=== PATIENT | male | born 1940 | race Caucasian/White ===

== ENCOUNTER → 2019-06-05 08:30 | Outpatient (BNVA) | payer OTHER, SELFPAY | PROVIDERS: Family Provider Internal Medicine; PCP Internal Medicine; Visit Provider Urology | DX: N39.41 Urge incontinence (principal); N99.89 Other postprocedural complications and disorders of genitourinary system; N31.8 Other neuromuscular dysfunction of bladder | CPT/HCPCS: 81001 ==

== ENCOUNTER 2019-06-16 08:04 | Outpatient (CLI) | payer OTHER, SELFPAY ==
--- NOTE | 2019-06-16 09:00 | MR_ITS ---
WS: [id number] INDICATION: Left hip pain TECHNIQUE: MRI pelvis without gadolinium enhancement. Axial T1, axial T2, coronal T1, coronal STIR, c oronal T2 fat sat and sagittal T2 fat sat FINDINGS: Mild lumbar curve lumbar spine. No acute compression lumbar spine where visualized. Mild ce ntral canal stenosis with a small central protrusion L3-4. T2 hyperintense nodular heterogeneous enla rged prostate measuring 2.9 x 4.5 x 3.7 cm. Recommend correlation PSA. Normal bone marrow signal in both proximal femurs and femoral necks. Moderate degenerative joint spac e narrowing. No evidence of avascular necrosis or subchondral collapse. Normal bone marrow signal in the acetabulum. No significant joint effusion. Proximal femurs appear normal. Sacrum appears normal. Normal bone marrow signal in the sacrum and iliac wings. No inguinal lymphadenopathy. MR/MR pelvis wo con* [id number] IMPRESSION: 1. Normal bone marrow signal in both hips and femoral necks. No evidence of fe moral or acetabular bone marrow edema or AVN. 2. Moderate degenerative arthritis both hips. 3. Normal bone marrow signal in the pelvis and sacrum. 4. Mild degenerative arthritis lower lumbar spine with mild central canal sten osis L3-4 with a small central protrusion. This can be further evaluated with l umbar spine MRI. 5. Heterogeneous nodular prostate measuring 4.5 x 3.7 x 2.9 cm
== END 2019-06-16 08:05 | disposition home or self-care (01) ==
LOC: RADWPI 08:10
PROVIDERS: Family Provider Internal Medicine; PCP Internal Medicine; Visit Provider Specialist
DX: M16.0 Bilateral primary osteoarthritis of hip (principal); M25.552 Pain in left hip; M47.896 Other spondylosis, lumbar region; N40.2 Nodular prostate without lower urinary tract symptoms
CPT/HCPCS: 72195

== ENCOUNTER 2019-06-28 08:23 | Outpatient (RCR) | payer OTHER, SELFPAY | END 2019-07-22 23:59 | disposition home or self-care (01) | LOC: SPT 08:23 | PROVIDERS: Family Provider Internal Medicine; PCP Internal Medicine; Referring Provider Specialist; Visit Provider Specialist | DX: M48.061 Spinal stenosis, lumbar region without neurogenic claudication (principal); M53.88 Other specified dorsopathies, sacral and sacrococcygeal region | CPT/HCPCS: 97110; 97161; 97530 ==

== ENCOUNTER 2019-07-23 06:00 | Outpatient (RCR) | payer OTHER, SELFPAY | END 2019-08-22 23:59 | disposition home or self-care (01) | LOC: SPT 06:00 | PROVIDERS: Family Provider Internal Medicine; PCP Internal Medicine; Referring Provider Specialist; Visit Provider Specialist | DX: M48.061 Spinal stenosis, lumbar region without neurogenic claudication (principal) | CPT/HCPCS: 97110 ==

== ENCOUNTER 2019-07-25 09:56 | Outpatient (CLI) | payer OTHER, SELFPAY ==
--- NOTE | 2019-07-25 10:04 | CT_ITS ---
WS: [id number] CT CHEST WITH INTRAVENOUS CONTRAST HISTORY: SOLITARY PULMONARY NODULE TECHNIQUE: Contiguous 5 mm axial imaging performed on the thorax. Coronal and sagittal reformats are submitted. All CT scans at [facility] use at least one of these dose optimization techniq ues: automated exposure control; mA and/or kV adjustment per patient size (includes targeted exams wh ere dose is matched to clinical indication); or iterative reconstruction. CONTRAST: Omnipaque 300; 95 mL IV. DLP: 999.16 mGycm COMPARISON: 12/20/2018 Lungs and central airway: Hyperinflated lungs with emphysema. 5 mm nodule noncalcified RIGHT upper lo be, image 22 of series 3. Largest nodule in the periphery of the RIGHT lower lobe measures 6.1 mm, im age 33 of series 3. There is an additional 4 mm noncalcified nodule in the RIGHT middle lobe which is unchanged. 4 mm nodule, image 33 of series 3 in the posterior LEFT lower lobe. Additional 3 mm nodul e in the lingula, image 32 of series 3. These nodules may have all been present on the prior study bu t due to small size and volume averaging not all of them were seen. Pleura: Normal. No pleural effusion. Heart and pericardium: Mild enlargement of the LEFT atrium. Mediastinum and eduardo: No mediastinal or hilar adenopathy. Vessels: Atherosclerosis aorta is mild. Normal size pulmonary artery. Chest wall and lower neck: No soft tissue masses. Upper abdomen: Calcifications in the spleen. Visualized liver and gallbladder are negative. Osseous structures: Increase in thoracic kyphosis. Large bridging osteophytes throughout the thoracic spine. CT/CT chest w con* [id number] IMPRESSION: 1. Multi lobar, noncalcified pulmonary nodules. Some of these nodules are more obvious today but due to their small size may not have been well visualized on the prior study due to volume averaging. The largest nodule measures 6 mm in t he RIGHT lower lobe with no interval change. Recommend follow-up CT in 6 months . 2. Chronic emphysema. 3. No adenopathy.
[2019-07-25] MEDS: iohexol 300 mg/mL 100 mL Btl IV (10:22)
== END 2019-07-25 09:57 | disposition home or self-care (01) ==
LOC: RADWPI 10:01
PROVIDERS: Family Provider Internal Medicine; PCP Internal Medicine; Visit Provider Internal Medicine
DX: J43.9 Emphysema, unspecified (principal); R91.8 Other nonspecific abnormal finding of lung field
CPT/HCPCS: 71260; Q9967

== ENCOUNTER 2019-08-23 06:00 | Outpatient (RCR) | payer OTHER, SELFPAY | END 2019-09-21 23:59 | disposition home or self-care (01) | LOC: SPT 06:00 | PROVIDERS: Family Provider Internal Medicine; PCP Internal Medicine; Referring Provider Specialist; Visit Provider Specialist | DX: M48.061 Spinal stenosis, lumbar region without neurogenic claudication (principal) | CPT/HCPCS: 97110; 97164; 97530 ==

== ENCOUNTER 2019-09-28 06:00 | Outpatient (RCR) | payer OTHER, SELFPAY | END 2019-10-22 23:59 | disposition home or self-care (01) | LOC: SPT 06:00 | PROVIDERS: PCP Internal Medicine; Referring Provider Family Medicine; Visit Provider Family Medicine | DX: M48.062 Spinal stenosis, lumbar region with neurogenic claudication (principal) | CPT/HCPCS: 97110; 97140; 97161; 97530 ==

== ENCOUNTER 2019-10-23 06:00 | Outpatient (RCR) | payer OTHER, SELFPAY | END 2019-11-21 23:59 | disposition home or self-care (01) | LOC: SPT 06:00 | PROVIDERS: PCP Internal Medicine; Visit Provider Family Medicine | DX: M48.062 Spinal stenosis, lumbar region with neurogenic claudication (principal) | CPT/HCPCS: 97110; 97112; 97530 ==

== ENCOUNTER 2019-11-22 06:00 | Outpatient (RCR) | payer OTHER, SELFPAY | END 2019-11-22 23:00 | disposition home or self-care (01) | LOC: SPT 06:00 | PROVIDERS: PCP Internal Medicine; Visit Provider Family Medicine | DX: M48.062 Spinal stenosis, lumbar region with neurogenic claudication (principal) | CPT/HCPCS: 97110; 97530 ==

== ENCOUNTER → 2019-12-04 08:17 | Outpatient (BNVA) | payer OTHER, SELFPAY | PROVIDERS: PCP Internal Medicine; Visit Provider Urology | DX: N52.9 Male erectile dysfunction, unspecified (principal); R39.9 Unspecified symptoms and signs involving the genitourinary system | CPT/HCPCS: 81001 ==

== ENCOUNTER 2020-02-05 10:04 | Outpatient (CLI) | payer OTHER, SELFPAY ==
--- NOTE | 2020-02-05 | CT_ITS ---
WS: [id number] CT CHEST TECHNIQUE: Contrast enhanced CT of the chest with coronal and sagittal reformatted images. CLINICAL INFORMATION: ABN CT COMPARISON: CT chest 07/25/2019 and 11/23/2018 DLP: 1058.[address] scans at [facility] use at least one of these dose optimization techniques: automat ed exposure control; mA and/or kV adjustment per patient size (includes targeted exams where dose is matched to clinical indication); or iterative reconstruction. FINDINGS: Moderate chronic emphysematous changes. Bibasilar atelectasis. Noncalcified pulmonary nodules in the right middle lobe laterally near the fissure and right lower lobe laterally. Right upper lobe nodule measures 5 mm and right lower lobe nodule measures 7 mm unchanged from previous A few additional tiny nodules in the left lung largest measuring 4 mm. No acute pulmonary infiltrates. No consolidation or pleural fluid. Proximal main pulmonary arteries a re normal. Aortic calcification. Coronary calcification. No axillary lymphadenopathy. Normal endobron chial tree. Adrenal glands are normal. Small esophageal hiatal hernia. Hypertrophic changes thoracic spine. CT/CT chest w con* [id number] IMPRESSION: 1. Several noncalcified nodules in both lungs are stable the largest in the ri ght lower lobe measuring 7 mm. Recommend 12 month follow-up. 2. No new suspicious pulmonary nodules. 3. No acute pulmonary infiltrates. 4. Moderate chronic emphysematous changes. 5. Vascular calcification including coronary. 6. No mediastinal or hilar lymphadenopathy.
[2020-02-05 10:45] LABS: Blood Urea Nitrogen 12 mg/dL (8-23)
[2020-02-05] MEDS: iohexol 300 mg/mL 100 mL Btl IV (11:02)
== END 2020-02-05 10:05 | disposition home or self-care (01) ==
LOC: RADWPI 10:08
PROVIDERS: PCP Internal Medicine; Visit Provider Internal Medicine
DX: R93.89 Abnormal findings on diagnostic imaging of other specified body structures (principal); R91.8 Other nonspecific abnormal finding of lung field; I25.10 Atherosclerotic heart disease of native coronary artery without angina pectoris
CPT/HCPCS: 71260; 82565; 84520; Q9967

== ENCOUNTER → 2020-09-09 08:04 | Outpatient (BNVA) | payer OTHER, SELFPAY | PROVIDERS: PCP Internal Medicine; Visit Provider Specialist | DX: G20 Parkinson's disease (principal) | CPT/HCPCS: 99204 ==

== ENCOUNTER → 2020-10-29 07:56 | Outpatient (BNVA) | payer OTHER, SELFPAY | PROVIDERS: PCP Family Medicine; Visit Provider Specialist | DX: G20 Parkinson's disease (principal) | CPT/HCPCS: 96116; 99214 ==

== ENCOUNTER 2020-11-20 08:08 | Outpatient (CLI) | payer OTHER, SELFPAY ==
--- NOTE | 2020-11-20 08:12 | CT_ITS ---
WS: [id number] CT CHEST WITH INTRAVENOUS CONTRAST HISTORY: FOLLOW UP ON PULMONARY NODULE TECHNIQUE: Contiguous 5 mm axial imaging performed on the thorax. Coronal and sagittal reformats are submitted. All CT scans at [facility] use at least one of these dose optimization techniq ues: automated exposure control; mA and/or kV adjustment per patient size (includes targeted exams wh ere dose is matched to clinical indication); or iterative reconstruction. CONTRAST: Omnipaque 300; 95 mL IV. DLP: 1041.59 mGycm COMPARISON: 12/20/2018, 07/25/2019 and 02/05/2020 Lungs and central airway: Mild hyperinflation. Bilateral pulmonary nodules are reidentified. None of these nodules have increased in size and there is no increase in number of nodules. The largest nodul e in the RIGHT lower lobe measures 8 mm. Pleura: Normal. No pleural effusion. Heart and pericardium: Normal size heart with no pericardial effusion. Mediastinum and eduardo: No mediastinum or hilar adenopathy. Vessels: Mild atherosclerosis aorta. No aneurysm. Normal size pulmonary artery. Chest wall and lower neck: No soft tissue masses. Upper abdomen: Small hiatal hernia. Visualized liver and gallbladder and adrenal glands are normal. I ncreased food products within the stomach. Moderate constipation noted in the transverse colon. Splen ic granulomata. Heavy calcification involving the origin of the renal arteries. Osseous structures: No osteoblastic or osteolytic bone disease. CT/CT chest w con* [id number] IMPRESSION: 1. Two-year stability of subcentimeter bilateral pulmonary nodules. Due to the long-term stability is are likely benign. No additional follow-up necessary by imaging. 2. Chronic emphysema. 3. Mild atherosclerosis aorta.
[2020-11-20 08:39] LABS: Blood Urea Nitrogen 21 mg/dL (8-23)
[2020-11-20] MEDS: iohexol 300 mg/mL 100 mL Btl IV (08:45)
== END 2020-11-20 08:09 | disposition home or self-care (01) ==
PROVIDERS: PCP Family Medicine; Visit Provider Family Medicine
DX: R91.8 Other nonspecific abnormal finding of lung field (principal); J43.9 Emphysema, unspecified; I70.0 Atherosclerosis of aorta
CPT/HCPCS: 71260; 82565; 84520; Q9967

== ENCOUNTER → 2020-12-03 11:52 | Outpatient (BNVA) | payer OTHER, SELFPAY | PROVIDERS: PCP Family Medicine; Visit Provider Specialist | DX: G20 Parkinson's disease (principal); Z87.891 Personal history of nicotine dependence | CPT/HCPCS: 99214 ==

== ENCOUNTER → 2021-02-12 13:16 | Outpatient (BNVA) | payer OTHER, SELFPAY | PROVIDERS: PCP Family Medicine; Visit Provider Specialist | DX: G20 Parkinson's disease (principal); R43.0 Anosmia; Z87.891 Personal history of nicotine dependence | CPT/HCPCS: 99214 ==

== ENCOUNTER → 2021-08-11 11:48 | Outpatient (BNVA) | payer OTHER, SELFPAY | PROVIDERS: PCP Family Medicine; Visit Provider Specialist | DX: G20 Parkinson's disease (principal); Z87.891 Personal history of nicotine dependence | CPT/HCPCS: 99213; 99214 ==

== ENCOUNTER → 2021-11-12 14:47 | Outpatient (BNVA) | payer OTHER, SELFPAY | PROVIDERS: PCP Family Medicine; Visit Provider Specialist | DX: G20 Parkinson's disease (principal) | CPT/HCPCS: 99213 ==

== ENCOUNTER → 2022-11-11 14:34 | Outpatient (BNVA) | payer OTHER, SELFPAY | PROVIDERS: PCP Family Medicine; Visit Provider Specialist | DX: G20 Parkinson's disease (principal); G62.89 Other specified polyneuropathies | CPT/HCPCS: 36415; 82607; 99213 ==

== ENCOUNTER 2023-02-24 07:07 | Outpatient (RCR) | payer OTHER, SELFPAY | END 2023-03-23 23:59 | disposition home or self-care (01) | LOC: SPT 07:07 | PROVIDERS: PCP Family Medicine; Visit Provider Family Medicine | DX: G20.A1 Parkinson's disease without dyskinesia, without mention of fluctuations (principal) | CPT/HCPCS: 97110; 97112; 97162; 97530 ==

== ENCOUNTER 2023-03-24 06:00 | Outpatient (RCR) | payer OTHER, SELFPAY | END 2023-03-31 23:59 | disposition home or self-care (01) | LOC: SPT 06:00 | PROVIDERS: PCP Family Medicine; Visit Provider Family Medicine | DX: G20.A1 Parkinson's disease without dyskinesia, without mention of fluctuations (principal); R53.1 Weakness | CPT/HCPCS: 97110; 97112; 97530 ==

== ENCOUNTER 2023-04-21 13:48 | Outpatient (CLI) | payer OTHER, SELFPAY ==
--- NOTE | 2023-04-21 13:55 | CT_ITS ---
WS: [id number] CT HEAD TECHNIQUE: Noncontrast CT of the head obtained from the skullbase to the vertex. CLINICAL INFORMATION: MEMORY ISSUES/HX [facility] COMPARISON: MRI 2008 DLP: 1218.[address] scans at [facility] use at least one of these dose optimization techniques: automated e xposure control; mA and/or kV adjustment per patient size (includes targeted exams where dose is matc hed to clinical indication); or iterative reconstruction. FINDINGS: No evidence of intracranial hemorrhage or mass effect. Ventricular system and basal cisterns are sales nt. Moderate small vessel changes with moderate parenchymal volume loss. No extra-axial fluid collect ions. No evidence of mass or mass effect. Intracranial vascular calcification. Mild mucosal thickening in the ethmoid air cells. Slight mucosal thickening in the mastoid tips. IMPRESSION: 1. No evidence of intracranial hemorrhage or mass effect. 2. Moderate small vessel changes with moderate parenchymal volume loss progressed since 2007. 3. Intracranial vascular calcification. 4. No acute intracranial findings.
--- NOTE | 2023-04-21 13:55 | USCV_ITS ---
Shawn Rojas Age: 82 Gender: M : 1940 Exam Date: 04/21/2023 14:42 Ordering Phys: Tangela Cummins MD Technologist: CHRISTIN Exam Location: [facility] Indication: MEMORY LOSS Risk Factors: Previous Vascular Surgery: Right Brachial BP: / Left Brachial BP: / Right Left Velocity (cm/s) Spectral Plaque Velocity (cm/s) Spectral Plaque Syst/Diast Broadening Syst/Diast Broadening 89.70/ 21.10 Prox CCA 90.40 / 17.60 81.40/ 18.30 Mid CCA 71.10 / 16.10 73.30/ 17.60 Distal CCA 54.20 / 19.10 51.00/ 12.60 Prox ICA 68.40 / 14.50 69.50/ 20.20 Mid ICA 68.35 / 17.45 94.00/ 25.00 Distal ICA 47.00 / 17.10 93.40 ECA 91.60 1.05 ICA/CCA 0.76 Antegrade Vertebral Antegrade 105.8/ 27.60 cm/s 47.00/ 12.80 cm/s 0 Tri Subclavian Tri 68.10 71.10 CONCLUSIONS Right ICA stenosis <50%. Mild atheromatous plaque right carotid bulb/ICA. Left ICA stenosis <50%. Mild atheromatous plaque left carotid bulb/ICA. Intimal thickening in the common carotid arteries and internal carotid arteries bilaterally. Normal antegrade Doppler flow noted in the right vertebral artery. Normal antegrade Doppler flow noted in the left vertebral artery. Rah Piña MD (Electronically Signed) Final Date: 21 April 2023 16:25 S
== END 2023-04-21 13:49 | disposition home or self-care (01) ==
LOC: RAD 13:49
PROVIDERS: PCP Family Medicine; Visit Provider Family Medicine
DX: R41.3 Other amnesia (principal); G20.A1 Parkinson's disease without dyskinesia, without mention of fluctuations; I67.2 Cerebral atherosclerosis; I65.23 Occlusion and stenosis of bilateral carotid arteries
CPT/HCPCS: 70450; 93880

== ENCOUNTER → 2023-06-18 09:21 | Outpatient (BNVA) | payer OTHER, SELFPAY | PROVIDERS: PCP Family Medicine; Visit Provider Specialist | DX: G20.B1 Parkinson's disease with dyskinesia, without mention of fluctuations (principal); G62.89 Other specified polyneuropathies; R41.3 Other amnesia | CPT/HCPCS: 99214 ==

== ENCOUNTER → 2023-07-13 17:00 | Outpatient (BNVA) | payer OTHER, SELFPAY | PROVIDERS: PCP Family Medicine; Visit Provider Specialist | DX: E53.8 Deficiency of other specified B group vitamins (principal) | CPT/HCPCS: 96372; G0463 ==

== ENCOUNTER → 2023-08-06 09:21 | Outpatient (BNVA) | payer OTHER, SELFPAY | PROVIDERS: PCP Family Medicine; Visit Provider Specialist | DX: G20.B1 Parkinson's disease with dyskinesia, without mention of fluctuations (principal); G62.89 Other specified polyneuropathies | CPT/HCPCS: 99214 ==

== ENCOUNTER → 2023-08-24 15:18 | Outpatient (BNVA) | payer OTHER, SELFPAY | PROVIDERS: PCP Family Medicine; Visit Provider Specialist | DX: G20.B1 Parkinson's disease with dyskinesia, without mention of fluctuations (principal); G62.89 Other specified polyneuropathies | CPT/HCPCS: 99214 ==

== ENCOUNTER → 2024-01-07 13:34 | Outpatient (BNVA) | payer OTHER, SELFPAY | PROVIDERS: PCP Family Medicine; Visit Provider Specialist | DX: G20.B1 Parkinson's disease with dyskinesia, without mention of fluctuations (principal) | CPT/HCPCS: 99214 ==

== ENCOUNTER 2024-01-30 19:24 | Emergency (ER) | payer OTHER, MEDICARE, SELFPAY ==
[2024-01-30 19:32] VITALS: BP 129/72; PULSE 66; RESP 16; TEMP 36.7; O2SAT 99; BMI 31.9
--- NOTE | 2024-01-30 19:59 | XRR_ITS ---
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 TECHNIQUE: Imaging protocol: Radiologic exam of the left hip. Views: 2 or 3 views hip with pelvis when performed. COMPARISON: MR pelvis wo con* [id number] 06/16/2019 8:58 AM FINDINGS: Bones/joints: No acute fracture or dislocation. Moderate to advanced degenerative changes of the right hip and moderate degenerative changes of the left hip with joint space narrowing and subarticular sclerosis. Degenerative changes of the lower lumbar spine. Soft tissues: Unremarkable. XR/XR hip LT 2-3V wo/w pel* [id number] IMPRESSION: 1. No acute osseous findings. 2. At least moderate degenerative changes of bilateral hips.
--- NOTE | 2024-01-30 19:59 | XRR_ITS ---
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 TECHNIQUE: Imaging protocol: Radiologic exam of the lumbosacral spine. Views: 2 or 3 views. COMPARISON: CR (PELVIS, ) 01/30/2024 8:06 PM FINDINGS: Bones/joints: No acute fracture or subluxation. Moderate to severe degenerative disc disease throughout the lumbar spine with intervertebral disc space height loss and endplate osteophytes throughout. Bulky osteophytes on the left at L2-L3. Grade 1 retrolisthesis of L1 on L2 and L2 on L3. Multilevel bilateral facet arthropathy. Degenerative changes of bilateral hips. Soft tissues: Unremarkable. Vasculature: Aortic calcifications. XR/XR lumbar spine 2-3V* [id number] IMPRESSION: 1. No acute osseous findings. 2. Multilevel lumbar spondylosis.
--- NOTE | 2024-01-30 19:59 | W.ED.BACK ---
HPI - Back Pain/Injury General: Chief Complaint: Back Pain/Injury Stated Complaint: Lower back and hip pain Time Seen by Provider: 01/30/24 19:40 History of Present Illness: 83-year-old male patient comes in today for complaints of low back pain and left hip pain. 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 Since then patient has had pain and discomfort in his low back radiating into his left hip and knee area. Patient appears nontoxic. Patient appears in no acute distress. Related Data Home Medications Medication Instructions Recorded Confirmed levothyroxine 125 mcg capsule 125 mcg PO DAILY 06/05/19 01/07/24 tamsulosin 0.4 mg capsule 0.4 mg PO DAILY 06/05/19 01/07/24 aspirin-caffeine 500 mg-32.5 mg 1 tab PO PRN 02/12/21 01/07/24 tablet ([facility]) cholecalciferol (vitamin D3) 25 75 mcg PO DAILY 02/12/21 01/07/24 mcg (1,000 unit) capsule donepezil 10 mg tablet 10 mg PO DAILY 06/18/23 01/07/24 rosuvastatin 40 mg tablet 40 mg PO DAILY 06/18/23 01/07/24 simvastatin 80 mg tablet 40 mg PO DAILY 08/24/23 01/07/24 finasteride 5 mg tablet mg PO 01/07/24 01/07/24 Previous Rx's Medication Instructions Recorded carbidopa 25 mg-levodopa 100 mg 2 tab PO TID #540 tabs 06/18/23 tablet cyanocobalamin (vitamin B-12) 1,000 mcg IM DAILY 1 week #10 mL 06/18/23 1,000 mcg/mL injection solution amitriptyline 25 mg tablet 25 mg PO DAILY #30 tabs 08/24/23 hydrocodone 5 mg-acetaminophen 325 1 tab PO Q8H PRN pain #7 tabs 01/30/24 mg tablet Allergies Allergy/AdvReac Type Severity Reaction Status Date / Time Penicillins Allergy Unknown Verified 01/07/24 13:40 Review of Systems General: Reports: 10 or more systems reviewed and unremarkable except in HPI and below PFSH ED PFSH: Medical History (Updated 01/30/24 @ 20:42 by JARED García) Impotence, organic Umbilical hernia Lower urinary tract symptoms (LUTS) Surgical History Status post hernia repair Social History Smoking and tobacco/nicotine status: never used tobacco/nicotine Alcohol intake: former Substance/Drug Use: unknown Adopted: No Caregiver/support person: No Lives independently: No Household members: spouse Marital status: Current occupational status: retired Physical Exam Const: COMMON NORMALS: alert HENMT: COMMON NORMALS: normocephalic HEAD & SCALP: normocephalic Neck/C-Spine: COMMON NORMALS: full ROM Resp: COMMON NORMALS: normal respiratory effort Cardio: COMMON NORMALS: regular rate RATE: regular rate Back/Pelvis: LUMBAR SPINE/LOWER BACK: No lumbar spinal tenderness and Yes paraspinal muscle tenderness Lumbar paraspinal muscle tenderness: left Extremity: COMMON NORMALS: normal to inspection Neuro: SENSORIUM/ORIENTATION: Yes alert Skin: COMMON NORMALS: turgor normal GENERAL SKIN EXAM: turgor normal Course Vital Signs: Vital signs: Vital Signs Temperature 98.1 F 01/30/24 19:32 Pulse Rate 68 01/30/24 20:50 Respiratory Rate 17 01/30/24 20:50 Blood Pressure 124/72 01/30/24 20:50 Pulse Oximetry 97 01/30/24 20:50 Oxygen Delivery Me thod Room Air 01/30/24 19:32 MDM - Back Pain/Injury Medical Decision Making 83-year-old male patient comes in today for complaints of low back pain radiating into the left hip and left knee. On exam patient appears nontoxic. Patient appears no acute distress. Respirations are even lungs are clear to auscultation. Differential diagnosis includes lumbar strain, intervertebral disc disease, facet arthropathy, osteoarthritis of the hip. X-ray of the hip and lumbar spine noted no acute fractures and degenerative changes. Reviewed exam with patient with recommendation for treatment and follow-up. Patient and family both reported understanding agreed to plan. Labs Radiology Impressions Hip/Pelvis X-Ray 01/30/24 19:59 IMPRESSION: 1. No acute osseous findings. 2. At least moderate degenerative changes of bilateral hips. Lumbar Spine X-Ray 01/30/24 19:59 IMPRESSION: 1. No acute osseous findings. 2. Multilevel lumbar spondylosis. 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 Low back pain Qualifiers: Chronicity: acute Back pain laterality: left Sciatica presence: unspecified whether sciatica present Qualified Code(s): M54.50 - Low back pain, unspecified Osteoarthritis, hip, bilateral Qualifiers: Osteoarthritis type: primary Qualified Code(s): M16.0 - Bilateral primary osteoarthritis of hip Condition: Stable Prescriptions: New hydrocodone-acetaminophen 5-325 mg tablet 1 tab PO Q8H PRN (Reason: pain) Qty: 7 0RF No Action tamsulosin 0.4 mg capsule 0.4 mg PO DAILY levothyroxine 125 mcg capsule 125 mcg PO DAILY simvastatin 80 mg tablet 40 mg PO DAILY cholecalciferol (vitamin D3) 25 mcg (1,000 unit) capsule 75 mcg PO DAILY Trish Back and Body 500-32.5 mg tablet 1 tab PO PRN finasteride 5 mg tablet PO cyanocobalamin (vitamin B-12) 1,000 mcg/mL solution 1,000 mcg IM DAILY 7 Days Qty: 10 11RF Rx Instructions: 1 ml daily for 3 days then weekly for a month then monthly for a year carbidopa-levodopa 25-100 mg tablet 2 tab PO TID Qty: 540 3RF Rx Instructions: take 2 tabs three times a day with meals donepezil 10 mg tablet 10 mg PO DAILY rosuvastatin 40 mg tablet 40 mg PO DAILY Patient Comments: 1/2 tab daily amitriptyline 25 mg tablet 25 mg PO DAILY Qty: 30 8RF Rx Instructions: Take at bedtime Discharge Orders: Discharge ED (Routine); Ordered 01/30/24 Ordered By: Ray Cuevas Referrals: Tangela Cummins MD [Primary Care Provider] - Discharge Diet: Usual diet Discharge Activity: Increase activity as tolerated Patient Instructions: Opioid Safety Activity Restrictions/Additional Instructions: Activity as tolerated. Use hydrocodone as needed for breakthrough pain that is not controlled with your bareback and body. Drink plenty of water with medication. Follow-up with primary care for persistent symptoms. Return to ED for new concerns. Coding Level of Care Code ED Geriatric Nursing Assistant for Kip Null
[2024-01-30] MEDS: HYDROcodone-acetaminophen 5-325 mg Tablet 1 TAB PO (20:07)
[2024-01-30] MEDS: dexamethasone 10 mg/mL INJ IM (20:07)
[2024-01-30 20:50] VITALS: BP 124/72; PULSE 68; RESP 17; O2SAT 97
== END 2024-01-30 20:50 | disposition home or self-care (01) ==
PROVIDERS: Emergency Provider Nurse Practitioner Family; PCP Family Medicine
DX: M54.50 Low back pain, unspecified (principal); M16.0 Bilateral primary osteoarthritis of hip; M47.814 Spondylosis without myelopathy or radiculopathy, thoracic region
CPT/HCPCS: 72100; 73502; 96372; 99284; J1100

== ENCOUNTER 2024-02-18 13:14 | Emergency (ER) | payer OTHER, MEDICARE, SELFPAY ==
[2024-02-18 13:36] VITALS: BP 129/68; PULSE 69; RESP 16; TEMP 36.6; O2SAT 99; BMI 30.7
--- NOTE | 2024-02-18 13:45 | XR_ITS ---
WS: [id number] Portable AP upright chest, 02/18/2024 Clinical Data: syncope Comparison: None. Findings: No nodules, masses or effusions are seen. The heart is normal. The pulmonary vascularity is not increased. No pneumonia or pneumothorax is seen. The aortic arch and descending thoracic aorta s how calcification and tortuosity. XR/XR chest 1V portable [id number] Impression: Atherosclerosis.
[2024-02-18 14:08] LABS: Basophils % 0.1 %; Eosinophils # 0.2 10^3/uL (0.0-0.8); Eosinophils % 2.8 %; Hematocrit 38.1 % (37-53); Lymphocytes # 1.4 10^3/uL (0.8-4.8); Mean Corpuscular HGB Conc 31.2 g/dL (30-55); Mean Corpuscular Hemoglobin 30.1 pg (27-33); Mean Corpuscular Volume 96.2 fl (82-101); Mean Platelet Volume 10.1 fL (7.4-10.4); Monocytes # 0.6 10^3/uL (0.2-0.9); Monocytes % 8.7 %; Neutrophils % 69.3 %; Nucleated Red Blood Cells % 0 %; Platelet Count 150 10^3/cmm (157-399); Red Blood Count 3.96 10^6/uL (3.85-5.65); Red Cell Distribution Width 12.4 % (12.1-15.1); White Blood Count 7.22 10^3/uL (3.29-11.43)
[2024-02-18 14:27] LABS: Troponin(5th) Baseline 22 ng/L (0-15)
[2024-02-18 14:36] LABS: Alanine Aminotransferase < 5 U/L (0-41); Albumin Level 4.5 g/dL (3.5-5.2); Alkaline Phosphatase 68 U/L (40-130); Anion Gap 14.4 (5-19); Aspartate Amino Transferase 24 U/L (0-40); Blood Urea Nitrogen 17 mg/dL (8-23); Calcium 8.9 mg/dL (8.5-10.5); Carbon Dioxide 25 mmol/L (22-29); Chloride 104 mmol/L (98-107); Creatinine Clr Calc Pharmacy 66.1671; Glucose 90 mg/dL (65-115); Osmolality Calculated 289 mOsm/kg (285-295); Potassium 4.4 mmol/L (3.5-5.1); Sodium 139 mmol/L (136-145); Thyroid Stimulating Hormone 1.77 uIU/mL (0.27-4.20); Total Bilirubin 0.6 mg/dL (0.15-1.2); Total Protein 6.5 g/dL (6.6-8.7)
[2024-02-18 15:35] VITALS: BP 120/63; PULSE 62; RESP 16; O2SAT 98
--- NOTE | 2024-02-18 15:39 | CTR_ITS ---
PROCEDURE INFORMATION: Exam: CT Head Without Contrast Exam date and time: 02/18/2024 4:08 PM Age: 83 years old Clinical indication: Syncope and collapse; Additional info: Sycnope, struck head TECHNIQUE: Imaging protocol: Computed tomography of the head without contrast. Radiation optimization: All CT scans at this facility use at least one of these dose optimization techniques: automated exposure control; mA and/or kV adjustment per patient size (includes targeted exams where dose is matched to clinical indication); or iterative reconstruction. COMPARISON: CT head wo con* [id number] 04/21/2023 2:32 PM RADIATION DOSE METRICS: Total DLP (mGy-cm): 1214.34 FINDINGS: Brain: No acute intracranial hemorrhage. No confluent lobar infarct. No mass effect. Cerebral ventricles: The ventricles and sulci are prominent in size compatible with mild atrophy. Paranasal sinuses: Visualized sinuses are unremarkable. No fluid levels. Mastoid air cells: Visualized mastoid air cells are well aerated. Bones: No acute calvarial fracture. Soft tissues: Visualized soft tissues are unremarkable. CT/CT head wo con* [id number] IMPRESSION: No acute intracranial abnormality. If symptoms persist, consider further evaluation with MRI, if MRI is clinically safe to obtain.
--- NOTE | 2024-02-18 15:40 | ED_ITS ---
HPI - Syncope 2 General: Chief Complaint: Syncope Stated Complaint: passed out - Dr sent Time Seen by Provider: 02/18/24 15:29 Source: patient and family Mode of arrival: wheelchair Limitations: no limitations History of Present Illness: Patient is a nice 83-year-old male with a history of Parkinson's disease/polyneuropathy here along with his and daughter for evaluation of a syncopal episode. Patient states he was asleep in the recliner when he heard somebody knocking at the door. He states he got up from his recliner and was walking to the door when he began feeling dizzy. He states I let myself go and the next thing he knew he was waking up on the floor. Daughter states she partially witnessed him walking to the door and when she looked again he was on the ground. She did not hear him fall. When she got to the patient he was semi-unconscious for approximately 30 seconds. As soon as he awoke he stated I am okay . He was able to get up from the floor. He did not want to seek medical evaluation but family insisted. He was reportedly seen at an outlying facility and referred to the emergency department. Family feels he has a small knot on his head. He is not on anticoagulation. Patient has been acting appropriate since the fall. He does not complain of any pain or injuries from the fall. He has no acute neurologic deficits. Patient currently denies any chest pain, shortness of breath, or difficulty breathing. MD complaint: loss of consciousness, felt faint and almost passed out Onset (ago): hour(s) -: second(s) Prodromal symptoms: lightheaded Witnessed: Yes - by Bystander Context: standing up and other (walking after standing from the recliner) Injuries sustained associated with event: none Associated symptoms: Reports no associated symptoms, headache(s) (mild-states he has these occasionally) and lightheadedness (resolved now); Deny abdominal pain, chest pain, fever(s) or nausea Treatments prior to arrival: none Related Data Home Medications Medication Instructions Recorded Confirmed levothyroxine 125 mcg capsule 125 mcg PO DAILY 06/05/19 01/07/24 tamsulosin 0.4 mg capsule 0.4 mg PO DAILY 06/05/19 01/07/24 aspirin-caffeine 500 mg-32.5 mg 1 tab PO PRN 02/12/21 01/07/24 tablet (Trish Back and Body) cholecalciferol (vitamin D3) 25 75 mcg PO DAILY 02/12/21 01/07/24 mcg (1,000 unit) capsule donepezil 10 mg tablet 10 mg PO DAILY 06/18/23 01/07/24 rosuvastatin 40 mg tablet 40 mg PO DAILY 06/18/23 01/07/24 simvastatin 80 mg tablet 40 mg PO DAILY 08/24/23 01/07/24 finasteride 5 mg tablet mg PO 01/07/24 01/07/24 Previous Rx's Medication Instructions Recorded carbidopa 25 mg-levodopa 100 mg 2 tab PO TID #540 tabs 06/18/23 tablet cyanocobalamin (vitamin B-12) 1,000 mcg IM DAILY 1 week #10 mL 06/18/23 1,000 mcg/mL injection solution amitriptyline 25 mg tablet 25 mg PO DAILY #30 tabs 08/24/23 hydrocodone 5 mg-acetaminophen 325 1 tab PO Q8H PRN pain #7 tabs 01/30/24 mg tablet Allergies Allergy/AdvReac Type Severity Reaction Status Date / Time Penicillins Allergy Unknown Verified 02/18/24 13:46 Review of Systems 2 Const: Denies: fever(s) Eyes: Denies: change in vision Card: Reports: lightheadedness (resolved now) and syncope; Denies: chest pain, palpitations, irregular heart rhythm, edema, swelling of feet/ankles, dyspnea on exertion, orthopnea, leg pain with exertion or acrocyanosis Resp: Denies: dyspnea, productive cough or non-productive cough GI: Denies: abdominal pain, nausea, vomiting or diarrhea Musc: Denies: neck pain, back pain, extremity pain, extremity swelling, joint pain or joint swelling Neuro: Reports: headache(s) (mild-states he has these occasionally) and numbness in extremities (chronic polyneuropathy) PFS ED 2 PFSH: Medical History (Updated 02/18/24 @ 16:52 by EUGENIA Solitario) Impotence, organic Umbilical hernia Lower urinary tract symptoms (LUTS) Surgical History Status post hernia repair Social History Smoking and tobacco/nicotine status: never used tobacco/nicotine Alcohol intake: former Substance/Drug Use: unknown Adopted: No Caregiver/support person: No Lives independently: No Household members: spouse Marital status: Current occupational status: retired Physical Exam 2 Const: COMMON NORMALS: no acute distress, average body habitus, patient oriented x3, no limitations, healthy appearing, alert and well nourished G ENERAL APPEARANCE: cooperative ORIENTATION/CONSCIOUSNESS: Yes awake, Yes oriented to person, Yes oriented to place and Yes oriented to time HENMT: COMMON NORMALS: normocephalic HEAD & SCALP: normal to inspection, normocephalic and other (maybe a very mild hematoma posterior scalp) FACE & SINUS: normal facial exam and face symmetric Eye: GENERAL EYE: appearance normal, both eyes and all related structures Neck/C-Spine: COMMON NORMALS: full ROM GENERAL: Yes normal visual inspection CERVICAL SPINE: No Cervical spine tenderness Resp: COMMON NORMALS: normal respiratory effort and clear to auscultation bilaterally AUSCULTATION: clear to auscultation bilaterally Cardio: COMMON NORMALS: regular rate and regular rhythm RATE: regular rate RHYTHM: regular rhythm : COMMON NORMALS: Yes no CVA tenderness BLADDER/KIDNEY EXAM: Yes no CVA tenderness Back/Pelvis: COMMON NORMALS: no CVA tenderness, thoracic and lumbar spine normal to inspection and no thoracic nor lumbar tenderness Extremity: COMMON NORMALS: capillary refill normal and no clubbing, cyanosis or edema GENERAL: Yes normal exam except as noted Neuro: ANDREA COMA SCALE: document GCS findings Andrea coma scale eye opening: Spontaneous [place] coma scale verbal response: Orientated [place] coma scale motor response: Obey commands Pres[place] coma scale total score: 15 COMMON NORMALS: patient oriented x3, CN's II-XII intact bilaterally, moves all extremities, no focal motor deficits and no sensory deficits noted S ENSORIUM/ORIENTATION: Yes alert, Yes oriented to person, Yes oriented to place and Yes oriented to time Skin: TRAUMA: no lacerations or abrasions Course 2 Vital Signs: Vital signs: Vital Signs Temperature 97.9 F 02/18/24 13:36 Pulse Rate 62 02/18/24 15:35 Respiratory Rate 16 02/18/24 15:35 Blood Pressure 120/63 02/18/24 15:35 Pulse Oximetry 98 02/18/24 15:35 Oxygen Delivery Me thod Room Air 02/18/24 15:35 MDM - Syncope Medical Decision Making Patient arrives here with family following a syncopal versus presyncopal episode. His vital signs are stable upon arrival. His blood work overall is unremarkable. Mild thrombocytopenia with a platelet count of 150 with no previous comparisons. His chemistry is unremarkable. Baseline troponin of 22 with a negative delta. UA shows no evidence for infection. CXR is unremarkable. Head CT showing no acute intracranial abnormality. EKG showing sinus bradycardia rate 58 with first-degree block. Reviewed with Dr. Botello. No previous comparisons. Baseline heart rates in the mid 60s. Orthostatics were negative. He was ambulatory here in his room without difficulty or assistance. No complaint of dizziness or lightheadedness. At this time patient will be allowed [facility] He does have follow-up with his neurologist next week. Return ED precautions given. Differential Diagnosis Likely syncope due to orthostatic hypotension and vasovagal syncope Medical Records I reviewed the patient's medical records. Lab Data I reviewed the patient's lab results. 02/18/24 13:59 02/18/24 13:59 Radiology Impressions Chest X-Ray 02/18/24 13:45 Impression: Atherosclerosis. Head CT 02/18/24 15:39 IMPRESSION: No acute intracranial abnormality. If symptoms persist, consider further evaluation with MRI, if MRI is clinically safe to obtain. Laboratory Results WBC 7.22 10^3/uL (3.29-11.43) 02/18/24 13:59 RBC 3.96 10^6/uL (3.85-5.65) 02/18/24 13:59 Hgb 11.90 g/dL (11.27-16.99) 02/18/24 13:59 Hct 38.1 % (37-53) 02/18/24 13:59 MCV 96.2 fl (82-101) 02/18/24 13:59 MCH 30.1 pg (27-33) 02/18/24 13:59 MCHC 31.2 g/dL (30-55) 02/18/24 13:59 RDW 12.4 % (12.1-15.1) 02/18/24 13:59 Plt Count 150 10^3/cmm (157-399) L 02/18/24 13:59 MPV 10.1 fL (7.4-10.4) 02/18/24 13:59 Neut % (Auto) 69.3 % 02/18/24 13:59 Lymph % (Auto) 19.0 % 02/18/24 13:59 [place] % (Auto) 8.7 % 02/18/24 13:59 Eos % (Auto) 2.8 % 02/18/24 13:59 Baso % (Auto) 0.1 % 02/18/24 13:59 Neut # (Auto) 5.00 10^3/uL (1.8-7.7) 02/18/24 13:59 Lymph # (Auto) 1.4 10^3/uL (0.8-4.8) 02/18/24 13:59 [place] # (Auto) 0.6 10^3/uL (0.2-0.9) 02/18/24 13:59 Eos # (Auto) 0.2 10^3/uL (0.0-0.8) 02/18/24 13:59 Baso # (Auto) 0.0 10^3/uL (0.0-0.1) 02/18/24 13:59 Nucleated RBC % (auto) 0 % 02/18/24 13:59 Nucleated RBCs # 0.0 /100WBC 02/18/24 13:59 Sodium 139 mmol/L (136-145) 02/18/24 13:59 Potassium 4.4 mmol/L (3.5-5.1) 02/18/24 13:59 Chloride 104 mmol/L (98-107) 02/18/24 13:59 Carbon Dioxide 25 mmol/L (22-29) 02/18/24 13:59 Anion Gap 14.4 (5-19) 02/18/24 13:59 BUN 17 mg/dL (8-23) 02/18/24 13:59 Creatinine 0.9 mg/dL (0.7-1.2) 02/18/24 13:59 GFR Calculation Not Reportable 02/18/24 13:59 Glucose 90 mg/dL (65-115) 02/18/24 13:59 Calculated Osmolality 289 mOsm/kg (285-295) 02/18/24 13:59 Calcium 8.9 mg/dL (8.5-10.5) 02/18/24 13:59 Total Bilirubin 0.6 mg/dL (0.15-1.2) 02/18/24 13:59 AST 24 U/L (0-40) 02/18/24 13:59 ALT < 5 U/L (0-41) 02/18/24 13:59 Alkaline Phosphatase 68 U/L (40-130) 02/18/24 13:59 Troponin T Baseline 22 ng/L (0-15) H 02/18/24 13:59 Troponin T 120 Minute 20.31 ng/L (0-15) H 02/18/24 15:59 Delta Troponin T -1.69 ABS# (0-10) L 02/18/24 15:59 Total Protein 6.5 g/dL (6.6-8.7) L 02/18/24 13:59 Albumin 4.5 g/dL (3.5-5.2) 02/18/24 13:59 Globulin 2.0 g/dL (1.3-4.6) 02/18/24 13:59 TSH 1.77 uIU/mL (0.27-4.20) 02/18/24 13:59 Urine Color Yellow (Yellow) 02/18/24 15:51 Urine Appearance Clear (CLEAR) 02/18/24 15:51 Urine pH 6.0 (5-7) 02/18/24 15:51 Ur Specific [place] 1.008 (1.005-1.030) 02/18/24 15:51 Urine Protein Negative (Negative) 02/18/24 15:51 Urine Glucose (UA) Negative (Normal) 02/18/24 15:51 Urine Ketones Negative (Negative) 02/18/24 15:51 Urine Blood Negative (Negative) 02/18/24 15:51 Urine Nitrate Negative (Negative) 02/18/24 15:51 Urine Bilirubin Negative (Negative) 02/18/24 15:51 Urine Urobilinogen 0.2 mg/dL (Negative) 02/18/24 15:51 Ur Leukocyte Esterase Negative (Negative) 02/18/24 15:51 Urine RBC 0-2 /hpf (0-2) 02/18/24 15:51 Urine WBC 0-5 /hpf (0-5) 02/18/24 15:51 Ur Squamous Epith Cells 0-5 /hpf (0-5) 02/18/24 15:51 Amorphous Sediment Not Reportable 02/18/24 15:51 Urine Bacteria None seen /hpf (NONE) 02/18/24 15:51 Hyaline Casts 0-4 /lpf H 02/18/24 15:51 All radiology interpretation(s) finalized by discharge Discharge Plan Discharge Patient Disposition: Home Clinical Impression: Syncope Qualifiers: Syncope type: unspecified Qualified Code(s): R55 - Syncope and collapse Condition: Stable Prescriptions: No Action tamsulosin 0.4 mg capsule 0.4 mg PO DAILY levothyroxine 125 mcg capsule 125 mcg PO DAILY simvastatin 80 mg tablet 40 mg PO DAILY cholecalciferol (vitamin D3) 25 mcg (1,000 unit) capsule 75 mcg PO DAILY Trish Back and Body 500-32.5 mg tablet 1 tab PO PRN finasteride 5 mg tablet PO cyanocobalamin (vitamin B-12) 1,000 mcg/mL solution 1,000 mcg IM DAILY 7 Days Qty: 10 11RF Rx Instructions: 1 ml daily for 3 days then weekly for a month then monthly for a year carbidopa-levodopa 25-100 mg tablet 2 tab PO TID Qty: 540 3RF Rx Instructions: take 2 tabs three times a day with meals donepezil 10 mg tablet 10 mg PO DAILY rosuvastatin 40 mg tablet 40 mg PO DAILY Patient Comments: 1/2 tab daily amitriptyline 25 mg tablet 25 mg PO DAILY Qty: 30 8RF Rx Instructions: Take at bedtime hydrocodone-acetaminophen 5-325 mg tablet 1 tab PO Q8H PRN (Reason: pain) Qty: 7 0RF Discharge Orders: Discharge ED (Routine); Ordered 02/18/24 Ordered By: Mer Smith Referrals: Tangela Cummins MD [Primary Care Provider] - Activity Restrictions/Additional Instructions: As we discussed, please follow-up with [facility] and/or his scheduled appointment with Dr. Garcia. He needs to return to the emergency department for any further episodes of syncope or severe dizziness/lightheadedness along with episodes of chest pain, shortness of breath, difficulty breathing, or any stroke like symptoms. Coding Level of Care Code ED Marketing Content Coordinator for Kip Null
--- NOTE | 2024-02-18 15:48 | PC.NURSE ---
lying 180/86 60 sitting 159/98 59 standing 181/83 62
--- NOTE | 2024-02-18 15:55 | ECG_ITS ---
[facility] Test Date: 2024-02-18 Pat Name: Shawn Rojas Department: Room: Gender: Male Patient Partner: : [phone] Requested By: Kaleb Botello Order Number: [id number] Roc MD: Shaggy García M.D. Measurements Intervals [place] Rate: 58 P: 64 [place]: 266 QRS: -24 QRSD: 117 T: 62 QT: 437 QTc: 432 Interpretive Statements SINUS BRADYCARDIA WITH FIRST DEGREE AV BLOCK INCOMPLETE RIGHT BUNDLE BRANCH BLOCK [90+ ms QRS DURATION, TERMINAL R IN V1/V2, 40+ ms S IN I/aVL/V4/V5/V6] SEPTAL MYOCARDIAL INFARCTION , PROBABLY OLD [40+ ms Q WAVE IN V1/V2] No previous ECG available for comparison Electronically Signed On 02-18-2024 20:18:29 CDT by Shaggy García M.D. [id number]
[2024-02-18 16:04] LABS: Bilirubin Urine Negative (Negative); Blood Urine Negative (Negative); Glucose Urine UA Negative (Normal); Ketones Urine Negative (Negative); Leukocyte Esterase Urine Negative (Negative); Nitrate Urine Negative (Negative); Protein Urine Negative (Negative); Specific Gravity, Urine 1.008 (1.005-1.030); Urine Appearance Clear (CLEAR); Urine Color Yellow (Yellow); Urobilinogen Urine 0.2 mg/dL (Negative)
[2024-02-18 16:06] LABS: Add Urine Microscopic? YES; Bacteria Urine None Seen /hpf; Hyaline Casts Urine 0-4 /lpf; RBC Urine 0-2 /hpf (0-2); Squamous Epithelial Cell Urine 0-5 /hpf (0-5); WBC Urine 0-5 /hpf (0-5)
[2024-02-18 16:34] LABS: Troponin 5 2HR 20.31 ng/L (0-15)
[2024-02-18 16:38] LABS: Troponin 5 2HR Delta -1.69 ABS# (0-10)
[2024-02-18 17:07] VITALS: BP 174/90; RESP 16; O2SAT 98
[2024-02-18 17:08] VITALS: BP 174/90; PULSE 82; O2SAT 98
== END 2024-02-18 17:09 | disposition home or self-care (01) ==
PROVIDERS: Emergency Medicine; Emergency Provider Physician Assistant; PCP Family Medicine
DX: R55 Syncope and collapse (principal)
CPT/HCPCS: 36415; 70450; 71045; 80053; 81001; 84443; 84484; 85025; 93005; 99285

== ENCOUNTER 2024-02-19 10:05 | Emergency (ER) | payer OTHER, MEDICARE, SELFPAY ==
[2024-02-19] VITALS (8 sets, daily range): BP systolic 114–164; BP diastolic 59–103; PULSE 52–63; RESP 12–17; TEMP 36.6; O2SAT 96–100; BMI 30.7
--- NOTE | 2024-02-19 10:16 | ECG_ITS ---
[facility] Test Date: 2024-02-19 Pat Name: Shawn Rojas Department: Room: Gender: Male Bonderizer: : [id number] Requested By: Kaleb Botello Order Number: [id number] Roc MD: Fam Swanson M.D. Measurements Intervals [place] Rate: 63 P: 57 [place]: 267 QRS: -30 QRSD: 112 T: 57 QT: 425 QTc: 437 Interpretive Statements SINUS RHYTHM WITH FIRST DEGREE AV BLOCK WITH OCCASIONAL ECTOPIC PREMATURE COMPLEXES POSSIBLE ANTERIOR MYOCARDIAL INFARCTION , OF INDETERMINATE AGE [30 ms Q WAVE IN V3/V4, OR R < 0.2 mV IN V4] Compared to ECG 02/18/2024 15:55:30 Sinus bradycardia no longer present Incomplete right bundle-branch block no longer present Myocardial infarct finding still present Electronically Signed On 02-21-2024 18:51:49 CDT by Fam Swanson M.D. [id number] f
--- NOTE | 2024-02-19 10:26 | ED_ITS ---
HPI - General Adult 2 General: Chief complaint: General Medical Stated complaint: low bp Time Seen by Provider: 02/19/24 10:10 History of Present Illness: Patient presents to the ER with daughter at bedside, patient daughter states that she took her meds blood pressure multiple times this morning and it averaged was 76/42. She is using a home automatic blood pressure cuff. Patient denies any symptoms at this time. Patient was seen here yesterday for syncopal episode. Workup was essentially benign and he was discharged home. Patient's not on any antihypertensives. Related Data Home Medications Medication Instructions Recorded Confirmed levothyroxine 125 mcg capsule 125 mcg PO DAILY 06/05/19 01/07/24 tamsulosin 0.4 mg capsule 0.4 mg PO DAILY 06/05/19 01/07/24 aspirin-caffeine 500 mg-32.5 mg 1 tab PO PRN 02/12/21 01/07/24 tablet (Trish Back and Body) cholecalciferol (vitamin D3) 25 75 mcg PO DAILY 02/12/21 01/07/24 mcg (1,000 unit) capsule donepezil 10 mg tablet 10 mg PO DAILY 06/18/23 01/07/24 rosuvastatin 40 mg tablet 40 mg PO DAILY 06/18/23 01/07/24 simvastatin 80 mg tablet 40 mg PO DAILY 08/24/23 01/07/24 finasteride 5 mg tablet mg PO 01/07/24 01/07/24 Previous Rx's Medication Instructions Recorded carbidopa 25 mg-levodopa 100 mg 2 tab PO TID #540 tabs 06/18/23 tablet cyanocobalamin (vitamin B-12) 1,000 mcg IM DAILY 1 week #10 mL 06/18/23 1,000 mcg/mL injection solution amitriptyline 25 mg tablet 25 mg PO DAILY #30 tabs 08/24/23 hydrocodone 5 mg-acetaminophen 325 1 tab PO Q8H PRN pain #7 tabs 01/30/24 mg tablet Allergies Allergy/AdvReac Type Severity Reaction Status Date / Time Penicillins Allergy Unknown Verified 02/19/24 10:19 Review of Systems 2 General: Reports: 10 or more systems reviewed and unremarkable except in HPI and below PFSH ED 2 PFSH: Medical History (Updated 02/19/24 @ 12:30 by Kaleb Botello DO) Impotence, organic Umbilical hernia Lower urinary tract symptoms (LUTS) Surgical History Status post hernia repair Social History Smoking and tobacco/nicotine status: never used tobacco/nicotine Alcohol intake: former Substance/Drug Use: unknown Adopted: No Caregiver/support person: No Lives independently: No Household members: spouse Marital status: Current occupational status: retired Physical Exam 2 Const: COMMON NORMALS: no acute distress, average body habitus, patient oriented x3, no limitations, healthy appearing, alert and well nourished HENMT: COMMON NORMALS: normocephalic, atraumatic, hearing grossly normal bilaterally, external ears normal, Normal external nose present and moist oral mucous membranes HEAD & SCALP: normocephalic and atraumatic NOSE: Normal external nose present EXTERNAL EAR: Yes external ears normal Neck/C-Spine: COMMON NORMALS: no JVD Chest: COMMONS NORMALS: normal inspection of the chest and normal palpation of entire chest wall Resp: COMMON NORMALS: normal respiratory effort, No retractions, No use of accessory muscles and clear to auscultation bilaterally AUSCULTATION: clear to auscultation bilaterally Cardio: COMMON NORMALS: no JVD, regular rate, regular rhythm, S1 normal heart sound present, S2 normal heart sound present, No gallops present (Cardio), No clicks present (Cardio) and No rub (Cardio); negative for No murmurs present (Cardio) (3/6 systolic ejection murmur) RATE: regular rate RHYTHM: regular rhythm HEART SOUNDS: S1 normal heart sound present and S2 normal heart sound present GI: COMMON NORMALS: Normal to inspection, nondistended, normoactive bowel sounds present, Soft to palpation, non-tender, No hepatosplenomegaly present and no masses PALPATION: Yes Soft to palpation and Yes No hepatosplenomegaly present Neuro: COMMON NORMALS: patient oriented x3 SENSORIUM/ORIENTATION: Yes alert Course 2 Vital Signs: Vital signs: Vital Signs Temperature 97.9 F 02/19/24 10:14 Pulse Rate 59 L 02/19/24 10:51 Respiratory Rate 15 02/19/24 10:51 Blood Pressure 134/59 02/19/24 10:51 Pulse Oximetry 100 02/19/24 10:51 Oxygen Delivery Me thod Room Air 02/19/24 10:14 MDM - General Adult Medical Decision Making I reviewed the note and labs and imaging from yesterday, as well as repeated some lab work, we gave the patient a liter of normal saline which increased his blood pressure from approximately 1 14-1 50-paula range. No other abnormalities was found. Patient be discharged home to follow-up with his PCP Medical Records I reviewed the patient's medical records. Lab Data I reviewed the patient's lab results. 02/19/24 10:22 02/19/24 11:42 Laboratory Results WBC 7.67 10^3/uL (3.29-11.43) 02/19/24 10:22 RBC 4.11 10^6/uL (3.85-5.65) 02/19/24 10:22 Hgb 12.40 g/dL (11.27-16.99) 02/19/24 10:22 Hct 39.4 % (37-53) 02/19/24 10:22 MCV 95.9 fl (82-101) 02/19/24 10:22 MCH 30.2 pg (27-33) 02/19/24 10:22 MCHC 31.5 g/dL (30-55) 02/19/24 10:22 RDW 12.3 % (12.1-15.1) 02/19/24 10:22 Plt Count 147 10^3/cmm (157-399) L 02/19/24 10:22 MPV 11.2 fL (7.4-10.4) H 02/19/24 10:22 Neut % (Auto) 67.7 % 02/19/24 10:22 Lymph % (Auto) 20.7 % 02/19/24 10:22 [place] % (Auto) 8.7 % 02/19/24 10:22 Eos % (Auto) 2.3 % 02/19/24 10:22 Baso % (Auto) 0.3 % 02/19/24 10:22 Neut # (Auto) 5.19 10^3/uL (1.8-7.7) 02/19/24 10:22 Lymph # (Auto) 1.6 10^3/uL (0.8-4.8) 02/19/24 10:22 [place] # (Auto) 0.7 10^3/uL (0.2-0.9) 02/19/24 10:22 Eos # (Auto) 0.2 10^3/uL (0.0-0.8) 02/19/24 10:22 Baso # (Auto) 0.0 10^3/uL (0.0-0.1) 02/19/24 10:22 Nucleated RBC % (auto) 0 % 02/19/24 10:22 Nucleated RBCs # 0.0 /100WBC 02/19/24 10:22 Sodium 142 mmol/L (136-145) 02/19/24 11:42 Potassium 4.3 mmol/L (3.5-5.1) 02/19/24 11:42 Chloride 107 mmol/L (98-107) 02/19/24 11:42 Carbon Dioxide 24 mmol/L (22-29) 02/19/24 11:42 Anion Gap 15.3 (5-19) 02/19/24 11:42 BUN 15 mg/dL (8-23) 02/19/24 11:42 Creatinine 1.0 mg/dL (0.7-1.2) 02/19/24 11:42 GFR Calculation Not Reportable 02/19/24 11:42 Glucose 85 mg/dL (65-115) 02/19/24 11:42 Calculated Osmolality 294 mOsm/kg (285-295) 02/19/24 11:42 Calcium 8.5 mg/dL (8.5-10.5) 02/19/24 11:42 Total Bilirubin 0.7 mg/dL (0.15-1.2) 02/19/24 11:42 AST 21 U/L (0-40) 02/19/24 11:42 ALT < 5 U/L (0-41) 02/19/24 11:42 Alkaline Phosphatase 77 U/L (40-130) 02/19/24 11:42 Total Protein 6.9 g/dL (6.6-8.7) 02/19/24 11:42 Albumin 4.2 g/dL (3.5-5.2) 02/19/24 11:42 Globulin 2.7 g/dL (1.3-4.6) 02/19/24 11:42 All radiology interpretation(s) finalized by discharge Discharge Plan Discharge Patient Disposition: Home Clinical Impression: Hypotensive episode Condition: Stable Prescriptions: No Action tamsulosin 0.4 mg capsule 0.4 mg PO DAILY levothyroxine 125 mcg capsule 125 mcg PO DAILY simvastatin 80 mg tablet 40 mg PO DAILY cholecalciferol (vitamin D3) 25 mcg (1,000 unit) capsule 75 mcg PO DAILY Trish Back and Body 500-32.5 mg tablet 1 tab PO PRN finasteride 5 mg tablet PO cyanocobalamin (vitamin B-12) 1,000 mcg/mL solution 1,000 mcg IM DAILY 7 Days Qty: 10 11RF Rx Instructions: 1 ml daily for 3 days then weekly for a month then monthly for a year carbidopa-levodopa 25-100 mg tablet 2 tab PO TID Qty: 540 3RF Rx Instructions: take 2 tabs three times a day with meals donepezil 10 mg tablet 10 mg PO DAILY rosuvastatin 40 mg tablet 40 mg PO DAILY Patient Comments: 1/2 tab daily amitriptyline 25 mg tablet 25 mg PO DAILY Qty: 30 8RF Rx Instructions: Take at bedtime hydrocodone-acetaminophen 5-325 mg tablet 1 tab PO Q8H PRN (Reason: pain) Qty: 7 0RF Discharge Orders: Discharge ED (Routine); Ordered 02/19/24 Ordered By: Kaleb Botello Referrals: Tangela Cummins MD [Primary Care Provider] - 1 week Patient Instructions: Hypotension (ED) Activity Restrictions/Additional Instructions: I reviewed the lab work and imaging and evaluation performed yesterday in ER as well as the repeat lab work redone today. There is no significant abnormalities that would justify your symptomatology. We did give you 1 L fluid bolus in the ER which helped improve your blood pressure. Please keep a blood pressure log and take it to your family practice physician within the next 7 days for further evaluation and treatment. Coding Level of Care Code ED Event Marketing Manager for Kip Null
[2024-02-19 10:33] LABS: Basophils % 0.3 %; Eosinophils # 0.2 10^3/uL (0.0-0.8); Eosinophils % 2.3 %; Hematocrit 39.4 % (37-53); Lymphocytes # 1.6 10^3/uL (0.8-4.8); Lymphocytes % 20.7 %; Mean Corpuscular HGB Conc 31.5 g/dL (30-55); Mean Corpuscular Hemoglobin 30.2 pg (27-33); Mean Corpuscular Volume 95.9 fl (82-101); Mean Platelet Volume 11.2 fL (7.4-10.4); Monocytes # 0.7 10^3/uL (0.2-0.9); Monocytes % 8.7 %; Neutrophils # 5.19 10^3/uL (1.8-7.7); Neutrophils % 67.7 %; Nucleated Red Blood Cells % 0 %; Platelet Count 147 10^3/cmm (157-399); Red Blood Count 4.11 10^6/uL (3.85-5.65); Red Cell Distribution Width 12.3 % (12.1-15.1); White Blood Count 7.67 10^3/uL (3.29-11.43)
[2024-02-19] MEDS: sodium chloride 0.9% 1,000 ML 999 ML IV (10:38)
[2024-02-19 12:09] LABS: Alanine Aminotransferase < 5 U/L (0-41); Albumin Level 4.2 g/dL (3.5-5.2); Alkaline Phosphatase 77 U/L (40-130); Anion Gap 15.3 (5-19); Aspartate Amino Transferase 21 U/L (0-40); Blood Urea Nitrogen 15 mg/dL (8-23); Calcium 8.5 mg/dL (8.5-10.5); Carbon Dioxide 24 mmol/L (22-29); Chloride 107 mmol/L (98-107); Creatinine Clr Calc Pharmacy 59.5504; Globulin 2.7 g/dL (1.3-4.6); Glucose 85 mg/dL (65-115); Osmolality Calculated 294 mOsm/kg (285-295); Potassium 4.3 mmol/L (3.5-5.1); Sodium 142 mmol/L (136-145); Total Bilirubin 0.7 mg/dL (0.15-1.2); Total Protein 6.9 g/dL (6.6-8.7)
== END 2024-02-19 12:58 | disposition home or self-care (01) ==
PROVIDERS: Emergency Provider Emergency Medicine; PCP Family Medicine
DX: I95.9 Hypotension, unspecified (principal)
CPT/HCPCS: 36415; 80053; 85025; 93005; 99284; J7030

== ENCOUNTER → 2024-02-23 08:43 | Outpatient (BNVA) | payer OTHER, SELFPAY | PROVIDERS: PCP Family Medicine; Visit Provider Specialist | DX: G20.B1 Parkinson's disease with dyskinesia, without mention of fluctuations (principal) | CPT/HCPCS: 99214 ==

== ENCOUNTER 2024-03-24 09:00 | Emergency (ER) | payer OTHER, MEDICARE, SELFPAY ==
[2024-03-24 09:09] VITALS: BP 110/73; PULSE 77; RESP 16; TEMP 36.4; O2SAT 100
--- NOTE | 2024-03-24 09:19 | ECG_ITS ---
[facility] 2024[facility]24 Pat Name: Shawn Rojas Department: Room: Gender: Male Pan Pusher: : 1940 Requested By: Elijah Valente Order Number: [id number] Roc MD: Zuri Taylor M.D. Measurements Intervals [place] Rate: 75 P: 64 [place]: 270 QRS: -37 QRSD: 111 T: 65 QT: 407 QTc: 457 Interpretive Statements SINUS RHYTHM WITH FIRST DEGREE AV BLOCK WITH VENTRICULAR PREMATURE COMPLEXES LEFT AXIS DEVIATION SEPTAL MYOCARDIAL INFARCTION , OF INDETERMINATE AGE Compared to ECG 02/19/2024 10:11:57 Ventricular premature complex(es) now present Left-axis deviation now present Electronically Signed On 03-24-2024 12:19:30 CDT by Zuri Taylor M.D. [email or web address]
[2024-03-24 09:20] VITALS: BP 104/58; BP 110/73; BP 94/58; PULSE 76; PULSE 80; PULSE 85
--- NOTE | 2024-03-24 09:26 | PC.PHAR ---
Addendum entered by Tali Davila 03/24/24 10:43: [facility] did confirm that only rosuvastatin 40mg is the current cholesterol med not the simvastatin Original Note: patient is [facility] faxing at [phone]
--- NOTE | 2024-03-24 09:31 | ED_ITS ---
HPI - Weakness 2 General: Chief complaint: Weakness Stated complaint: unbalanced suddenly, possible BP drop Time Seen by Provider: 03/24/24 09:05 History of Present Illness: 83-year-old male presents emergency room complaining of sudden onset of weakness. Patient has a history of Parkinson's disease he had gone to a local restaurant got out of the car began to walk into the restaurant. His typical gait family members noticed that he suddenly began having uncoordinated almost ataxic broad-based gait it lasted for up to 3 minutes and then resolved. He has no other focal neurologic deficits he never had any nausea or vomiting associated with it vision remains unchanged is completely resolved by the time he arrives here denies chest or abdominal pain. He has a history of Parkinson's he is on carbidopa levodopa however he has not recently changed his dose he is on 25/103 times a day. He is also on galantamine. He was seen about a month ago for similar symptoms transient hypotension that resolved and he was further asymptomatic. Head CT at that time was negative. No history of previous stroke no history of coronary artery disease. He is on aspirin but no clopidogrel he is on high-dose statin. Associated symptoms: Denies chest pain, chills, dysuria or fever(s) Review of Systems 2 Const: Denies: fever(s) or chills Card: Denies: chest pain Resp: Denies: dyspnea GI: Denies: abdominal pain : Denies: dysuria, urinary frequency or urinary urgency Musc: Denies: neck pain or back pain Skin/Breast: Denies: rash PFSH ED 2 PFSH: Medical History (Updated 03/24/24 @ 11:22 by Elijah Mac DO) Impotence, organic Umbilical hernia Lower urinary tract symptoms (LUTS) Surgical History Status post hernia repair Social History Smoking and tobacco/nicotine status: never used tobacco/nicotine Alcohol intake: former Substance/Drug Use: unknown Adopted: No Caregiver/support person: No Lives independently: No Household members: spouse Marital status: Current occupational status: retired Physical Exam 2 Const: COMMON NORMALS: no acute distress GENERAL APPEARANCE: cooperative and comfortable ORIENTATION/CONSCIOUSNESS: Yes awake, Yes oriented to person, Yes oriented to place and Yes oriented to time HENMT: COMMON NORMALS: normocephalic, atraumatic and hearing grossly normal bilaterally HEAD & SCALP: normocephalic and atraumatic Resp: COMMON NORMALS: normal respiratory effort, No retractions, No use of accessory muscles and clear to auscultation bilaterally AUSCULTATION: clear to auscultation bilaterally Cardio: COMMON NORMALS: regular rate, regular rhythm and No murmurs present (Cardio) RATE: regular rate RHYTHM: regular rhythm GI: COMMON NORMALS: Soft to palpation and No hepatosplenomegaly present A USCULTATION: Yes normoactive bowel sounds PALPATION: Yes Soft to palpation, No Tenderness to palpation present (GI), No Guarding due to palpation present (GI) and Yes No hepatosplenomegaly present Extremity: COMMON NORMALS: normal to inspection, capillary refill normal, no clubbing, cyanosis or edema, no calf tenderness and no pedal edema Neuro: SENSORIUM/ORIENTATION: Yes oriented to person, Yes oriented to place and Yes oriented to time Skin: COMMON NORMALS: no rashes or lesions noted GENERAL SKIN EXAM: no rashes or lesions noted Course 2 Vital Signs: Vital signs: Vital Signs Temperature 97.5 F L 03/24/24 09:09 Pulse Rate 70 03/24/24 11:41 Respiratory Rate 16 03/24/24 09:09 Blood Pressure 158/83 03/24/24 11:41 Pulse Oximetry 99 03/24/24 11:41 Oxygen Delivery Me thod Room Air 03/24/24 09:09 MDM - Weakness Medical Decision Making After IV fluid bolus patient ambulates without difficulty no symptoms. His repeat orthostatics had normalized. He is having no further symptoms he has had this several of the times before and believes he is getting orthostasis largely due to postural changes further exacerbated by his Sinemet and his Parkinson's process. Will discharge patient home he is not on any antihypertensives at this time. Will set him up for an echocardiogram and follow-up with neurology. He is not having any chest pain and his NIH score on initial evaluation was 0 Medical Records I reviewed the patient's medical records. Lab Data I reviewed the patient's lab results. 03/24/24 09:25 03/24/24 09:[address] 03/24/24 09:32 IMPRESSION: 1. No acute intracranial hemorrhage or edema. 2. Moderate volume loss with mild small vessel disease. No prior infarct. Laboratory Results WBC 6.95 10^3/uL (3.29-11.43) 03/24/24 09:25 RBC 3.89 10^6/uL (3.85-5.65) 03/24/24 09:25 Hgb 11.60 g/dL (11.27-16.99) 03/24/24 09:25 Hct 37.1 % (37-53) 03/24/24 09:25 MCV 95.4 fl (82-101) 03/24/24 09:25 MCH 29.8 pg (27-33) 03/24/24 09:25 MCHC 31.3 g/dL (30-55) 03/24/24 09:25 RDW 12.5 % (12.1-15.1) 03/24/24 09:25 Plt Count 145 10^3/cmm (157-399) L 03/24/24 09:25 MPV 10.1 fL (7.4-10.4) 03/24/24 09:25 Neut % (Auto) 70.6 % 03/24/24 09:25 Lymph % (Auto) 17.0 % 03/24/24 09:25 Carson % (Auto) 8.8 % 03/24/24 09:25 Eos % (Auto) 3.2 % 03/24/24 09:25 Baso % (Auto) 0.1 % 03/24/24 09:25 Neut # (Auto) 4.91 10^3/uL (1.8-7.7) 03/24/24 09:25 Lymph # (Auto) 1.2 10^3/uL (0.8-4.8) 03/24/24 09:25 Carson # (Auto) 0.6 10^3/uL (0.2-0.9) 03/24/24 09:25 Eos # (Auto) 0.2 10^3/uL (0.0-0.8) 03/24/24 09:25 Baso # (Auto) 0.0 10^3/uL (0.0-0.1) 03/24/24 09:25 Nucleated RBC % (auto) 0 % 03/24/24 09:25 Nucleated RBCs # 0.0 /100WBC 03/24/24 09:25 Sodium 137 mmol/L (136-145) 03/24/24 09:25 Potassium 4.1 mmol/L (3.5-5.1) 03/24/24 09:25 Chloride 101 mmol/L (98-107) 03/24/24 09:25 Carbon Dioxide 26 mmol/L (22-29) 03/24/24 09:25 Anion Gap 14.1 (5-19) 03/24/24 09:25 BUN 16 mg/dL (8-23) 03/24/24 09:25 Creatinine 1.0 mg/dL (0.7-1.2) 03/24/24 09:25 GFR Calculation Not Reportable 03/24/24 09:25 Glucose 90 mg/dL (65-115) 03/24/24 09:25 Calculated Osmolality 285 mOsm/kg (285-295) 03/24/24 09:25 Calcium 8.1 mg/dL (8.5-10.5) L 03/24/24 09:25 Total Bilirubin 0.4 mg/dL (0.15-1.2) 03/24/24 09:25 AST 19 U/L (0-40) 03/24/24 09:25 ALT < 5 U/L (0-41) 03/24/24 09:25 Alkaline Phosphatase 65 U/L (40-130) 03/24/24 09:25 Total Protein 6.5 g/dL (6.6-8.7) L 03/24/24 09:25 Albumin 4.2 g/dL (3.5-5.2) 03/24/24 09:25 Globulin 2.3 g/dL (1.3-4.6) 03/24/24 09:25 All radiology interpretation(s) finalized by discharge Discharge Plan Discharge Patient Disposition: Home Clinical Impression: Parkinson's disease, Orthostasis Condition: Stable Prescriptions: No Action tamsulosin 0.4 mg capsule 0.4 mg PO DAILY levothyroxine 125 mcg capsule 125 mcg PO DAILY finasteride 5 mg tablet 5 mg PO DAILY cyanocobalamin (vitamin B-12) 1,000 mcg/mL solution 1,000 mcg IM DAILY 7 Days Qty: 10 11RF Rx Instructions: 1 ml daily for 3 days then weekly for a month then monthly for a year rosuvastatin 40 mg tablet 40 mg PO DAILY Patient Comments: 1/2 tab daily galantamine 4 mg tablet 4 mg PO BID Qty: 60 5RF Rx Instructions: administer with AM and PM meals refill as 90 day supply hydrocodone-acetaminophen 5-325 mg tablet 1 tab PO Q8H PRN (Reason: pain) Qty: 7 0RF donepezil 10 mg Tablet 5 mg PO DAILY triamcinolone acetonide 0.1 % Cream 1 applic TOPICAL BID amitriptyline 25 mg Tablet 25 mg PO DAILY hydroxyzine HCl 25 mg Tablet 25 mg PO TID PRN (Reason: Anxiety) betamethasone dipropionate 0.05 % Ointment 1 applic TOPICAL BID fluticasone propionate 50 mcg/actuation [place],Suspension 1 spray INTRANASAL DAILY Rx Instructions: administer into each nostril lidocaine 5 % Ointment 1 applic TOPICAL BID Discharge Orders: Discharge ED (Routine); Ordered 03/24/24 Ordered By: Elijah Mac Referrals: Tangela Cummins MD [Primary Care Provider] - Patient Instructions: Opioid Safety, Pain Management Activity Restrictions/Additional Instructions: Thank you for choosing [facility] for your healthcare needs today. It is very important that you follow up as instructed or that you return to the Emergency Department should you have concerns or if your condition changes or worsens in any way. You were seen in the emergency room after a near syncopal episode. Your blood pressure improved after IV fluids. Episode is likely caused by your Parkinson's and the side effects of the carbidopa levodopa. Continue your current medications we will set you up for an outpatient echocardiogram. 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 Related Data Home Medications Medication Instructions Recorded Confirmed levothyroxine 125 mcg capsule 125 mcg PO DAILY 06/05/19 03/24/24 tamsulosin 0.4 mg capsule 0.4 mg PO DAILY 06/05/19 03/24/24 rosuvastatin 40 mg tablet 40 mg PO DAILY 06/18/23 03/24/24 finasteride 5 mg tablet 5 mg PO DAILY 01/07/24 03/24/24 amitriptyline 25 mg tablet 25 mg PO DAILY 03/24/24 03/24/24 betamethasone dipropionate 0.05 % 1 applic topical BID 03/24/24 03/24/24 topical ointment donepezil 10 mg tablet 5 mg PO DAILY 03/24/24 03/24/24 fluticasone propionate 50 1 spray intranasal DAILY 03/24/24 03/24/24 mcg/actuation nasal spray,suspension hydroxyzine HCl 25 mg tablet 25 mg PO TID PRN Anxiety 03/24/24 03/24/24 lidocaine 5 % topical ointment 1 applic topical BID 03/24/24 03/24/24 triamcinolone acetonide 0.1 % 1 applic topical BID 03/24/24 03/24/24 topical cream Previous Rx's Medication Instructions Recorded cyanocobalamin (vitamin B-12) 1,000 mcg IM DAILY 1 week #10 mL 06/18/23 1,000 mcg/mL injection solution hydrocodone 5 mg-acetaminophen 325 1 tab PO Q8H PRN pain #7 tabs 01/30/24 mg tablet galantamine 4 mg tablet 4 mg PO BID #60 tabs 02/23/24 Allergies Allergy/AdvReac Type Severity Reaction Status Date / Time Penicillins Allergy Unknown Verified 02/23/24 09:17 NIH stroke score NIHSS Level Of Consciousness - 1a: 0 Level Of Consciousness Questions - 1b: Both Correct Level Of Consciousness Commands - 1c: Both Correct Best Gaze - 2: Normal Visual Jacobo - 3: No Visual Loss Facial Palsy - 4: Normal Motor Arm Right - 5: No Drift Motor Arm Left - 5: No Drift Motor Leg Right - 6: No Drift Motor Leg Left - 6: No Drift Limb Ataxia - 7: Absent Sensory - 8: Normal Best Language - 9: No Aphasia Dysarthia - 10: Normal Extinction And Inattention - 11: 0 Score Total Score: 0
--- NOTE | 2024-03-24 09:32 | CT_ITS ---
WS: [id number] CT HEAD NONCONTRAST HISTORY: Brief episode of dizziness and ataxia with hypotension TECHNIQUE: Contiguous axial imaging performed through the brain. Bone and soft tissue windows. Sagitt al and coronal reformats reviewed. All CT scans at [facility] use at least one of these dose optimization techniques: automated exposure control; mA and/or kV adjustment per patient size (includ es targeted exams where dose is matched to clinical indication); or iterative reconstruction. DLP: 1106.60 mGy.cm COMPARISON: 02/18/2024 No acute intracranial hemorrhage, midline shift or mass effect. Moderate bilateral atrophy and mild small vessel disease. No prior infarct. Mild cerebellar atrophy a lso. Ventricles: Normal size with no hydrocephalus. Paranasal sinuses: As visualized are clear. Mastoid air cells: Well pneumatized. Calvarium and scalp: Skull is intact with no soft tissue edema or swelling. CT/CT head wo con* [id number] IMPRESSION: 1. No acute intracranial hemorrhage or edema. 2. Moderate volume loss with mild small vessel disease. No prior infarct.
[2024-03-24 09:38] LABS: Basophils % 0.1 %; Eosinophils # 0.2 10^3/uL (0.0-0.8); Eosinophils % 3.2 %; Hematocrit 37.1 % (37-53); Lymphocytes # 1.2 10^3/uL (0.8-4.8); Mean Corpuscular HGB Conc 31.3 g/dL (30-55); Mean Corpuscular Hemoglobin 29.8 pg (27-33); Mean Corpuscular Volume 95.4 fl (82-101); Mean Platelet Volume 10.1 fL (7.4-10.4); Monocytes # 0.6 10^3/uL (0.2-0.9); Monocytes % 8.8 %; Neutrophils # 4.91 10^3/uL (1.8-7.7); Neutrophils % 70.6 %; Nucleated Red Blood Cells % 0 %; Platelet Count 145 10^3/cmm (157-399); Red Blood Count 3.89 10^6/uL (3.85-5.65); Red Cell Distribution Width 12.5 % (12.1-15.1); White Blood Count 6.95 10^3/uL (3.29-11.43)
[2024-03-24 09:45] VITALS: BP 114/70; PULSE 71; O2SAT 97
[2024-03-24] MEDS: sodium chloride 0.9% 500 ML IV (09:49)
[2024-03-24 09:50] LABS: Alanine Aminotransferase < 5 U/L (0-41); Albumin Level 4.2 g/dL (3.5-5.2); Alkaline Phosphatase 65 U/L (40-130); Anion Gap 14.1 (5-19); Aspartate Amino Transferase 19 U/L (0-40); Blood Urea Nitrogen 16 mg/dL (8-23); Calcium 8.1 mg/dL (8.5-10.5); Carbon Dioxide 26 mmol/L (22-29); Chloride 101 mmol/L (98-107); Creatinine Clr Calc Pharmacy 59.6942; Globulin 2.3 g/dL (1.3-4.6); Glucose 90 mg/dL (65-115); Osmolality Calculated 285 mOsm/kg (285-295); Potassium 4.1 mmol/L (3.5-5.1); Sodium 137 mmol/L (136-145); Total Bilirubin 0.4 mg/dL (0.15-1.2); Total Protein 6.5 g/dL (6.6-8.7)
[2024-03-24 11:10] VITALS: BP 133/64; BP 136/81; BP 153/79; PULSE 57; PULSE 63; PULSE 65
[2024-03-24 11:41] VITALS: BP 158/83; PULSE 70; O2SAT 99
--- NOTE | 2024-03-27 09:55 | DCPLANNER ---
faxed order to scheduling for outpatient echo
== END 2024-03-24 11:42 | disposition home or self-care (01) ==
PROVIDERS: Emergency Provider Family Medicine; PCP Family Medicine
DX: G20.A1 Parkinson's disease without dyskinesia, without mention of fluctuations (principal); I95.1 Orthostatic hypotension
CPT/HCPCS: 70450; 80053; 85025; 93005; 99284; J7040

== ENCOUNTER 2024-04-14 06:09 | Outpatient (CLI) | payer OTHER, SELFPAY ==
--- NOTE | 2024-04-14 06:14 | USCV_ITS ---
Shawn Rojas Age: 83 Gender: M : 1940 Exam Date: 04/14/2024 06:23 Ordering Phys: Elijah Mac DO Technologist: Exam Location: [facility] [place] Indication: murmur BP: 140 / 75 HR: 62 Rhythm: Sinus Technical Quality: Adequate MEASUREMENTS (Male / Female) Normal Values 2D ECHO LV Diastolic Diameter PLAX 4.0 cm 4.2 - 5.9 / 3.9 - 5.3 cm IVS Diastolic Thickness 1.1 cm 0.6 - 1.0 / 0.6 - 0.9 cm IVS Systolic Thickness 1.5 cm LVPW Diastolic Thickness 1.3 cm 0.6 - 1.0 / 0.6 - 0.9 cm LVPW Systolic Thickness 1.6 cm LVOT Diameter 2.0 cm LV Ejection Fraction 2D Teich 31.7 % LV Ejection Fraction MOD 4C 62.1 % LV Ejection Fraction MOD 2C 61.0 % LV Ejection Fraction 2C AL 61.8 % LA Diameter 3.4 cm RA Systolic Volume 4C AL 45.6 ml RA Systolic Volume 4C MOD 46.6 ml LA Sys Volume AL 98.2 cm cubed LA Sys Volume Index AL 47.7 cm cubed/m squared Aorta at Sinotubular Diameter 3.3 cm M-MODE LA Ao Ratio MM 1.6 AV Cusp Separation MM 1.7 cm DOPPLER AV Peak Velocity 326.3 cm/s LVOT Peak Velocity 65.0 cm/s AV Area Cont Eq vti 0.8 cm squared AV Area Cont Eq pk 0.6 cm squared MV Peak Velocity 127.0 cm/s MV Area PHT 4.6 cm squared Mitral E to A Ratio 1.4 TR Peak Velocity 299.0 cm/s TR Peak Gradient 35.8 mmHg TV Peak E Velocity 112.0 cm/s FINDINGS Left Ventricle Left ventricle is normal size. LV systolic function is normal with EF of 55 to 60%. No regional wall motion arteries are seen. Right Ventricle Normal in size and function Right Atrium Normal in size Left Atrium Dilated Mitral Valve Structurally normal mitral valve. Mild mitral regurgitation. Aortic Valve Aortic valve is thickened and calcified. Moderate to severe aortic stenosis with aortic valve area of 0.75 cm squared and mean gradient of 21 mmHg. Mild aortic regurgitation. Tricuspid Valve Mild tricuspid regurgitation. Insufficient TR jet to calculate RVSP Pulmonic Valve Not well visualized Pericardium Normal Aorta Normal in size IVC Appears to be normal CONCLUSIONS LV systolic function is normal with EF of 55-60% Left atrial dilation Mild mitral regurgitation Moderate to severe aortic stenosis. Mild aortic regurgitation Mild tricuspid regurgitation Compared to prior echocardiogram from 2016, aortic stenosis has progressed significantly and is moderate to severely stenotic now. Fam Swanson MD (Electronically Signed) Final Date: 15 April 2024 10:49 S
== END 2024-04-14 06:10 | disposition home or self-care (01) ==
PROVIDERS: PCP Family Medicine; Visit Provider Family Medicine
DX: I35.0 Nonrheumatic aortic (valve) stenosis (principal); R55 Syncope and collapse
CPT/HCPCS: 93306

== ENCOUNTER 2024-05-01 08:39 | Outpatient (CLI) | payer OTHER, SELFPAY ==
--- NOTE | 2024-05-01 08:44 | USCV_ITS ---
Shawn Rojas Age: 84 Gender: M : 1940 Exam Date: 05/01/2024 08:53 Ordering Phys: Tangela Cummins MD Technologist: USR Exam Location: [facility] Indication: hypertension Aortic Velocity @ SMA (cm/s) 94.3 RIGHT KIDNEY LEFT KIDNEY Velocity (cm/s) Velocity (cm/s) Sys/Stock Sys/Stock Resistive Index Resistive Index 78.8 / 19.9 0.75 Proximal Renal Artery 96.9 / 33.3 0.66 75.1 / 26.0 0.65 Mid Renal Artery 99.9 / 39.1 0.61 44.5 / 15.2 0.66 Distal Renal Artery 83.8 / 34.8 0.58 37.0 / 12.4 0.66 Hilar 52.5 / 16.6 0.68 18.1 / 4.2 0.77 Upper Pole 22.5 / 7.4 0.67 27.0 / 6.0 0.78 Mid Pole 17.4 / 5.1 0.71 21.9 / 4.2 0.81 Lower Pole 14.1 / 4.3 0.70 0.84 Renal Aortic Ratio 1.06 Accleration Time (sec) 0.28 Hilar 0.22 0.26 Upper Pole 0.22 0.28 Mid Pole 0.31 0.26 Lower Pole 0.32 10.7 Kidney Length (cm) 9.4 FINDINGS No evidence of abdominal aortic aneurysm. There is no evidence of hemodynamically significant right renal artery stenosis. There is no evidence of hemodynamically significant left renal artery stenosis. CONCLUSIONS No sonographic evidence of renal aortic stenosis . Dr. Denia Tejeda DO (Electronically Signed) Final Date: 01 May 2024 11:30 S
== END 2024-05-01 08:40 | disposition home or self-care (01) ==
LOC: RAD 08:40
PROVIDERS: PCP Family Medicine; Visit Provider Family Medicine
DX: I10 Essential (primary) hypertension (principal)
CPT/HCPCS: 93975

== ENCOUNTER → 2024-05-05 15:17 | Outpatient (BNVA) | payer OTHER, SELFPAY | PROVIDERS: PCP Family Medicine; Visit Provider Specialist | DX: G31.83 Neurocognitive disorder with Lewy bodies (principal); F02.80 Dementia in other diseases classified elsewhere, unspecified severity, without behavioral disturbance, psychotic disturbance, mood disturbance, and anxiety; G20.B1 Parkinson's disease with dyskinesia, without mention of fluctuations; G90.3 Multi-system degeneration of the autonomic nervous system; I10 Essential (primary) hypertension | CPT/HCPCS: 96116; 99214; 99215 ==

== ENCOUNTER → 2024-05-11 13:06 | Outpatient (BNVA) | payer OTHER, SELFPAY | PROVIDERS: PCP Family Medicine; Visit Provider Internal Medicine Cardiovascular Disease | DX: I35.0 Nonrheumatic aortic (valve) stenosis (principal); I95.9 Hypotension, unspecified; G20.A1 Parkinson's disease without dyskinesia, without mention of fluctuations; F02.80 Dementia in other diseases classified elsewhere, unspecified severity, without behavioral disturbance, psychotic disturbance, mood disturbance, and anxiety; Z87.891 Personal history of nicotine dependence | CPT/HCPCS: 99204 ==

== ENCOUNTER 2024-06-02 21:12 | Emergency (ER) | payer OTHER, MEDICARE, BC, SELFPAY ==
[2024-06-02 21:16] VITALS: BP 170/71; PULSE 76; RESP 18; TEMP 36.9; O2SAT 96; BMI 30.7
--- NOTE | 2024-06-02 21:59 | ED_ITS ---
HPI - Altered Mental Status General: Chief Complaint: Altered Mental Status Stated Complaint: confusion Time Seen by Provider: 06/02/24 21:31 History of Present Illness: This patient is an 84-year-old white male who presents to the emergency department stating my family is trying to commit me . Patient states his had a stroke a number of years ago and his daughter came to help out. Patient states he has not had any homicidal or suicidal thoughts. He states he just has not been getting along with his daughter and his . Patient has Parkinson's disease with Lewy body dementia. His daughter Bettye is here with him. Daughter states that he has sundowners. He did not get any sleep last night. She states that he was sleeping tonight and woke up stating that he needed to go to the dentist. Patient states he does have 2 teeth in the right upper quadrant that are bothering him. Daughter states she does not want him committed she is just looking for medication to help him sleep and prevent the sundowners. She states he had been on amitriptyline in the past but for some reason cannot take it anymore. Associated symptoms: Deny homicidal ideation or suicidal ideation Related Data Home Medications Medication Instructions Recorded Confirmed tamsulosin 0.4 mg capsule 0.4 mg PO DAILY 06/05/19 05/11/24 finasteride 5 mg tablet 5 mg PO DAILY 01/07/24 05/11/24 betamethasone dipropionate 0.05 % 1 applic topical BID PRN 05/11/24 05/11/24 topical ointment carbidopa 25 mg-levodopa 100 mg 2 tab PO TID 05/11/24 05/11/24 tablet cholecalciferol (vitamin D3) 50 50 mcg PO DAILY 05/11/24 05/11/24 mcg (2,000 unit) capsule fluticasone propionate 50 1 spray intranasal DAILY PRN 05/11/24 05/11/24 mcg/actuation nasal spray,suspension levothyroxine 125 mcg capsule 112 mcg PO DAILY 05/11/24 05/11/24 lidocaine 5 % topical ointment 1 applic topical BID PRN 05/11/24 05/11/24 multivitamin 1 tab PO DAILY 05/11/24 05/11/24 rosuvastatin 40 mg tablet 20 mg PO DAILY 05/11/24 05/11/24 triamcinolone acetonide 0.1 % 1 applic topical BID PRN 05/11/24 05/11/24 topical cream Previous Rx's Medication Instructions Recorded clonidine HCl 0.1 mg tablet 0.1 mg PO BID PRN hypertensive 05/25/24 emergency #90 tabs mirtazapine 15 mg tablet (Remeron) 7.5 mg (1/2 x 15 mg) PO DAILY 06/02/24 Insomnia #30 tabs Allergies Allergy/AdvReac Type Severity Reaction Status Date / Time Penicillins Allergy Unknown Verified 06/02/24 21:27 Review of Systems General: Reports: 10 or more systems reviewed and unremarkable except in HPI and below ENMT: Reports: dental pain Psych: Reports: sleeping less; Denies: suicidal ideation or homicidal ideation [facility] ED PFSH: Medical History (Updated 06/02/24 @ 21:50 by Kashif Zaidi MD) Impotence, organic Umbilical hernia Lower urinary tract symptoms (LUTS) Surgical History Status post hernia repair Social History Smoking and tobacco/nicotine status: former use of tobacco/nicotine Alcohol intake: former Substance/Drug Use: unknown Adopted: No Caregiver/support person: No Lives independently: No Household members: spouse Marital status: Current occupational status: retired Physical Exam Const: COMMON NORMALS: no acute distress, patient oriented x3 and no limit ations GENERAL APPEARANCE: cooperative and comfortable HENMT: COMMON NORMALS: normocephalic, atraumatic, Normal nasal mucous membranes and turbinates present, moist oral mucous membranes and oropharynx normal HEAD & SCALP: normal to inspection, normocephalic and atraumatic FACE & SINUS: normal facial exam NOSE: Normal nasal mucous membranes and turbinates present TEETH & GINGIVA: Yes caries and Yes poor dentition Eye: COMMON NORMALS: Equal, round and reactive pupils present, EOMs intact bilaterally and conjunctivae normal GENERAL EYE: appearance normal, both eyes and all related structures CONJUNCTIVA: Yes conjunctivae normal PUPIL: Yes Equal, round and reactive pupils present Neck/C-Spine: COMMON NORMALS: supple and no JVD Chest: COMMONS NORMALS: normal inspection of the chest Resp: COMMON NORMALS: normal respiratory effort and clear to auscultation bilaterally AUSCULTATION: clear to auscultation bilaterally Cardio: COMMON NORMALS: no JVD, regular rate, regular rhythm, No gallops present (Cardio), No murmurs present (Cardio) and No rub (Cardio) RATE: regular rate RHYTHM: regular rhythm GI: COMMON NORMALS: Normal to inspection, nondistended, normoactive bowel sounds present, Soft to palpation and non-tender AUSCULTATION: Yes normoactive bowel sounds PALPATION: Yes Soft to palpation : COMMON NORMALS: Yes no CVA tenderness BLADDER/KIDNEY EXAM: Yes no CVA tenderness Back/Pelvis: COMMON NORMALS: no CVA tenderness and thoracic and lumbar spine normal to inspection Extremity: COMMON NORMALS: normal to inspection Neuro: COMMON NORMALS: patient oriented x3 and CN's II-XII intact bilaterally Psych: COMMON NORMALS: mental status grossly normal, Normal thought process present and cooperative THOUGHT PROCESS: Normal thought process present Skin: COMMON NORMALS: no rashes or lesions noted, turgor normal and no jaundice GENERAL SKIN EXAM: no rashes or lesions noted and turgor normal Course Vital Signs: Vital signs: Vital Signs Temperature 98.5 F 06/02/24 21:16 Pulse Rate 76 06/02/24 21:16 Respiratory Rate 18 06/02/24 21:16 Blood Pressure 170/71 06/02/24 21:16 Pulse Oximetry 96 06/02/24 21:16 Oxygen Delivery Me thod Room Air 06/02/24 21:16 MDM - Altered Mental Status Medical Decision Making Patient's dementia seems mild to me during this short ER visit. I did contact Dr. Taylor, psychiatrist to run this case by him and get his advice on medication to help with sundowners. He does recommend Remeron 7.5 mg nightly. We did give the patient 1 dose tonight and I did prescribe that. Patient was discharged in stable condition instructed to follow-up with his primary care physician next week for recheck. Also recommended he follow-up with a dentist soon as possible for management of his dental decay. No radiology studies performed this visit Discharge Plan Discharge Patient Disposition: Home Clinical Impression: Dementia Qualifiers: Dementia type: Lewy body dementia Dementia severity: mild Dementia behavioral or psychological symptom: unspecified whether behavioral, psychotic, or mood disturbance or anxiety Qualified Code(s): G31.83 - Neurocognitive disorder with Lewy bodies Insomnia Qualifiers: Insomnia type: due to medical condition Qualified Code(s): G47.01 - Insomnia due to medical condition Condition: Stable Prescriptions: New mirtazapine [Remeron] 15 mg tablet 7.5 mg PO DAILY Qty: 30 0RF No Action tamsulosin 0.4 mg capsule 0.4 mg PO DAILY levothyroxine 125 mcg capsule 112 mcg PO DAILY finasteride 5 mg tablet 5 mg PO DAILY rosuvastatin 40 mg tablet 20 mg PO DAILY Patient Comments: 1/2 tab daily multivitamin Tablet 1 tab PO DAILY carbidopa-levodopa 25-100 mg tablet 2 tab PO TID cholecalciferol (vitamin D3) 50 mcg (2,000 unit) capsule 50 mcg PO DAILY clonidine HCl 0.1 mg tablet 0.1 mg PO BID PRN (Reason: hypertensive emergency) Qty: 90 1RF Rx Instructions: Take one tab if systolic blood pressure is >180, or if diastolic blood pressure is >110 betamethasone dipropionate 0.05 % ointment 1 applic TOPICAL BID PRN fluticasone propionate 50 mcg/actuation spray,suspension 1 spray INTRANASAL DAILY PRN Rx Instructions: administer into each nostril lidocaine 5 % ointment 1 applic TOPICAL BID PRN triamcinolone acetonide 0.1 % cream 1 applic TOPICAL BID PRN Discharge Orders: Discharge ED (Routine); Ordered 06/02/24 Ordered By: Kashif Zaidi Referrals: Tangela Cummins MD [Primary Care Provider] - Patient Instructions: Parkinson Disease (ED), Dementia (ED) Activity Restrictions/Additional Instructions: Follow-up with primary care physician and/or neurologist next week for recheck. Coding Level of Care Code ED Retail Team Leader for Kip Null
[2024-06-02] MEDS: mirtazapine 15 mg Tablet 7.5 MG PO (22:19)
[2024-06-02 22:28] VITALS: BP 152/69; PULSE 74; RESP 16; O2SAT 97
[2024-06-02 22:31] VITALS: BP 152/69; PULSE 74; O2SAT 74
== END 2024-06-02 22:32 | disposition home or self-care (01) ==
PROVIDERS: Emergency Provider Emergency Medicine; PCP Family Medicine
DX: G31.83 Neurocognitive disorder with Lewy bodies (principal); G47.01 Insomnia due to medical condition; Z87.891 Personal history of nicotine dependence
CPT/HCPCS: 99283

== ENCOUNTER 2024-06-03 03:52 | Emergency (ER) | payer OTHER, MEDICARE, BC, SELFPAY ==
[2024-06-03 04:05] VITALS: BP 163/94; PULSE 84; RESP 18; TEMP 36.9; O2SAT 97; BMI 32.3
--- NOTE | 2024-06-03 04:21 | ED_ITS ---
HPI - General Adult General: Chief complaint: General Medical Stated complaint: possible hypothermia Time Seen by Provider: 06/03/24 04:07 History of Present Illness: Patient was evaluated by me last night. Patient has Parkinson's disease with Lewy body dementia. We have placed him on Remeron. This morning the patient snuck out of the house and was walking outside for quite some time in the cold weather. Daughter contacted the police and they did locate the patient. EMS arrived and they recommended he be brought into the emergency department for evaluation for possible hypothermia. Related Data Home Medications Medication Instructions Recorded Confirmed tamsulosin 0.4 mg capsule 0.4 mg PO DAILY 06/05/19 05/11/24 finasteride 5 mg tablet 5 mg PO DAILY 01/07/24 05/11/24 betamethasone dipropionate 0.05 % 1 applic topical BID PRN 05/11/24 05/11/24 topical ointment carbidopa 25 mg-levodopa 100 mg 2 tab PO TID 05/11/24 05/11/24 tablet cholecalciferol (vitamin D3) 50 50 mcg PO DAILY 05/11/24 05/11/24 mcg (2,000 unit) capsule fluticasone propionate 50 1 spray intranasal DAILY PRN 05/11/24 05/11/24 mcg/actuation nasal spray,suspension levothyroxine 125 mcg capsule 112 mcg PO DAILY 05/11/24 05/11/24 lidocaine 5 % topical ointment 1 applic topical BID PRN 05/11/24 05/11/24 multivitamin 1 tab PO DAILY 05/11/24 05/11/24 rosuvastatin 40 mg tablet 20 mg PO DAILY 05/11/24 05/11/24 triamcinolone acetonide 0.1 % 1 applic topical BID PRN 05/11/24 05/11/24 topical cream Previous Rx's Medication Instructions Recorded clonidine HCl 0.1 mg tablet 0.1 mg PO BID PRN hypertensive 05/25/24 emergency #90 tabs mirtazapine 15 mg tablet (Remeron) 7.5 mg (1/2 x 15 mg) PO DAILY 06/02/24 Insomnia #30 tabs Allergies Allergy/AdvReac Type Severity Reaction Status Date / Time Penicillins Allergy Unknown Verified 06/02/24 21:27 Review of Systems General: Reports: 10 or more systems reviewed and unremarkable except in HPI and below PFSH ED PFSH: Medical History (Updated 06/03/24 @ 04:20 by Kashif Zaidi MD) Impotence, organic Umbilical hernia Lower urinary tract symptoms (LUTS) Surgical History Status post hernia repair Social History Smoking and tobacco/nicotine status: former use of tobacco/nicotine Alcohol intake: former Substance/Drug Use: unknown Adopted: No Caregiver/support person: No Lives independently: No Household members: spouse Marital status: Current occupational status: retired Physical Exam Const: COMMON NORMALS: no acute distress, patient oriented x3 and no limitations GENERAL APPEARANCE: cooperative and comfortable OTHER: Temperature 98.5. He is alert in no apparent distress. HENMT: COMMON NORMALS: normocephalic, atraumatic, Normal nasal mucous membranes and turbinates present, moist oral mucous membranes and oropharynx normal HEAD & SCALP: normal to inspection, normocephalic and atraumatic FACE & SINUS: normal facial exam NOSE: Normal nasal mucous membranes and turbinates present Eye: COMMON NORMALS: Equal, round and reactive pupils present, EOMs intact bilaterally and conjunctivae normal GENERAL EYE: appearance normal, both eyes and all related structures CONJUNCTIVA: Yes conjunctivae normal PUPIL: Yes Equal, round and reactive pupils present Neck/C-Spine: COMMON NORMALS: supple and no JVD Chest: COMMONS NORMALS: normal inspection of the chest Resp: COMMON NORMALS: normal respiratory effort and clear to auscultation theodore aterally AUSCULTATION: clear to auscultation bilaterally Cardio: COMMON NORMALS: no JVD, regular rate, regular rhythm, No gallops present (Cardio), No murmurs present (Cardio) and No rub (Cardio) RATE: regular rate RHYTHM: regular rhythm GI: COMMON NORMALS: Normal to inspection, nondistended, normoactive bowel sounds present, Soft to palpation and non-tender AUSCULTATION: Yes normo active bowel sounds PALPATION: Yes Soft to palpation : COMMON NORMALS: Yes no CVA tenderness BLADDER/KIDNEY EXAM: Yes no CVA tenderness Back/Pelvis: COMMON NORMALS: no CVA tenderness and thoracic and lumbar spine normal to inspection Extremity: COMMON NORMALS: normal to inspection Neuro: COMMON NORMALS: patient oriented x3 and CN's II-XII intact bilaterally Psych: COMMON NORMALS: mental status grossly normal, Normal thought process present and cooperative THOUGHT PROCESS: Normal thought process present Skin: COMMON NORMALS: no rashes or lesions noted, turgor normal and no jaundice GENERAL SKIN EXAM: no rashes or lesions noted and turgor normal OTHER: Patient has no evidence of frostbite on his hands, face or feet. Course Vital Signs: Vital signs: Vital Signs Temperature 98.5 F 06/03/24 04:05 Pulse Rate 84 06/03/24 04:05 Respiratory Rate 18 06/03/24 04:05 Blood Pressure 163/94 06/03/24 04:05 Pulse Oximetry 97 06/03/24 04:05 [facility] - General Adult Medical Decision Making I had a discussion again with his daughter. I had recommended she place deadbolts to help prevent this in the future. Also recommended she follow-up with his primary care provider to discuss placement. He may need to be placed in an Alzheimer's unit. Daughter does feel comfortable taking him home this morning. He was discharged in stable condition. No radiology studies performed this visit Discharge Plan Discharge Patient Disposition: Home Clinical Impression: Dementia in conditions classified elsewhere with wandering off Condition: Stable Prescriptions: No Action tamsulosin 0.4 mg capsule 0.4 mg PO DAILY levothyroxine 125 mcg capsule 112 mcg PO DAILY finasteride 5 mg tablet 5 mg PO DAILY rosuvastatin 40 mg tablet 20 mg PO DAILY Patient Comments: 1/2 tab daily multivitamin Tablet 1 tab PO DAILY carbidopa-levodopa 25-100 mg tablet 2 tab PO TID cholecalciferol (vitamin D3) 50 mcg (2,000 unit) capsule 50 mcg PO DAILY clonidine HCl 0.1 mg tablet 0.1 mg PO BID PRN (Reason: hypertensive emergency) Qty: 90 1RF Rx Instructions: Take one tab if systolic blood pressure is >180, or if diastolic blood pressure is >110 betamethasone dipropionate 0.05 % ointment 1 applic TOPICAL BID PRN fluticasone propionate 50 mcg/actuation spray,suspension 1 spray INTRANASAL DAILY PRN Rx Instructions: administer into each nostril lidocaine 5 % ointment 1 applic TOPICAL BID PRN triamcinolone acetonide 0.1 % cream 1 applic TOPICAL BID PRN mirtazapine [Remeron] 15 mg tablet 7.5 mg PO DAILY Qty: 30 0RF Discharge Orders: Discharge ED (Routine); Ordered 06/03/24 Ordered By: Kashif Zaidi Referrals: Tangela Cummins MD [Primary Care Provider] - Coding Level of Care Code ED Actionscript Developer for Chg [employer]ille
[2024-06-03 04:28] VITALS: BP 163/94; PULSE 78; O2SAT 93
== END 2024-06-03 04:29 | disposition home or self-care (01) ==
PROVIDERS: Emergency Provider Emergency Medicine; PCP Family Medicine
DX: F03.90 Unspecified dementia, unspecified severity, without behavioral disturbance, psychotic disturbance, mood disturbance, and anxiety (principal); Z87.891 Personal history of nicotine dependence
CPT/HCPCS: 99281

== ENCOUNTER 2024-06-03 19:31 | Emergency (ER) | payer OTHER, MEDICARE, BC, SELFPAY ==
[2024-06-03 19:36] VITALS: BP 165/90; PULSE 80; RESP 20; TEMP 36.6; O2SAT 98; BMI 32.3
--- NOTE | 2024-06-03 19:42 | CTR_ITS ---
PROCEDURE INFORMATION: Exam: CT Head Without Contrast Exam date and time: 06/03/2024 8:01 PM Age: 84 years old Clinical indication: Altered mental status/memory loss; Confusion or disorientation; Patient HX: Arrival via pd for AMS. History of lewy body dementia. TECHNIQUE: Imaging protocol: Computed tomography of the head without contrast. Radiation optimization: All CT scans at this facility use at least one of these dose optimization techniques: automated exposure control; mA and/or kV adjustment per patient size (includes targeted exams where dose is matched to clinical indication); or iterative reconstruction. COMPARISON: CT head wo con* [id number] 03/24/2024 9:54 AM RADIATION DOSE METRICS: Total DLP (mGy-cm): 1098.04 FINDINGS: Brain: No acute intracranial hemorrhage, mass effect or midline shift. 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 Cerebral ventricles: Ex vacuo expansion of the ventricles due to volume loss. Paranasal sinuses: Visualized sinuses are unremarkable. No fluid levels. Mastoid air cells: Visualized mastoid air cells are well aerated. Bones: No acute bony findings. Soft tissues: Unremarkable. CT/CT head wo con* [id number] IMPRESSION: No acute intracranial findings.
--- NOTE | 2024-06-03 20:22 | ED_ITS ---
HPI - Altered Mental Status 2 General: Chief Complaint: Altered Mental Status Stated Complaint: behavioral Time Seen by Provider: 06/03/24 19:36 Source: patient and police History of Present Illness: 84-year-old male who is here with police patient was seen here yesterday twice after trying to wander out in the cold places wrote an affidavit that patient has been having some delusions he has had made threats to harm others he is also thought he is talking to his parents family wants him to be placed at this time. Patient does have a history dementia as well. Related Data Home Medications Medication Instructions Recorded Confirmed tamsulosin 0.4 mg capsule 0.4 mg PO DAILY 06/05/19 05/11/24 finasteride 5 mg tablet 5 mg PO DAILY 01/07/24 05/11/24 betamethasone dipropionate 0.05 % 1 applic topical BID PRN 05/11/24 05/11/24 topical ointment carbidopa 25 mg-levodopa 100 mg 2 tab PO TID 05/11/24 05/11/24 tablet cholecalciferol (vitamin D3) 50 50 mcg PO DAILY 05/11/24 05/11/24 mcg (2,000 unit) capsule fluticasone propionate 50 1 spray intranasal DAILY PRN 05/11/24 05/11/24 mcg/actuation nasal spray,suspension levothyroxine 125 mcg capsule 112 mcg PO DAILY 05/11/24 05/11/24 lidocaine 5 % topical ointment 1 applic topical BID PRN 05/11/24 05/11/24 multivitamin 1 tab PO DAILY 05/11/24 05/11/24 rosuvastatin 40 mg tablet 20 mg PO DAILY 05/11/24 05/11/24 triamcinolone acetonide 0.1 % 1 applic topical BID PRN 05/11/24 05/11/24 topical cream Previous Rx's Medication Instructions Recorded clonidine HCl 0.1 mg tablet 0.1 mg PO BID PRN hypertensive 05/25/24 emergency #90 tabs mirtazapine 15 mg tablet (Remeron) 7.5 mg (1/2 x 15 mg) PO DAILY 06/02/24 Insomnia #30 tabs Allergies Allergy/AdvReac Type Severity Reaction Status Date / Time Penicillins Allergy Unknown Verified 06/02/24 21:27 Review of Systems 2 General: Reports: ROS unobtainable due to mental status PFSH ED 2 PFSH: Medical History (Updated 06/03/24 @ 20:26 by Jovon Greer MD) Impotence, organic Umbilical hernia Lower urinary tract symptoms (LUTS) Surgical History Status post hernia repair Social History Smoking and tobacco/nicotine status: former use of tobacco/nicotine Alcohol intake: former Substance/Drug Use: unknown Adopted: No Caregiver/support person: No Lives independently: No Household members: spouse Marital status: Current occupational status: retired Physical Exam 2 Const: COMMON NORMALS: no acute distress HENMT: COMMON NORMALS: normocephalic and atraumatic HEAD & SCALP: n ormocephalic and atraumatic Eye: COMMON NORMALS: conjunctivae normal CONJUNCTIVA: Yes conjunctivae normal Neck/C-Spine: COMMON NORMALS: full ROM and supple Chest: COMMONS NORMALS: normal inspection of the chest Resp: COMMON NORMALS: normal respiratory effort, No retractions, No use of accessory muscles and clear to auscultation bilaterally AUSCULTATION: clear to auscultation bilaterally Cardio: COMMON NORMALS: regular rate, regular rhythm and No murmurs present (Cardio) RATE: regular rate RHYTHM: regular rhythm GI: COMMON NORMALS: Normal to inspection, nondistended, normoactive bowel sounds present, Soft to palpation, non-tender and no masses PALPATION: Yes Soft to palpation Extremity: COMMON NORMALS: normal to inspection and full ROM Neuro: COMMON NORMALS: moves all extremities and no focal motor deficits Psych: COMMON NORMALS: mental status grossly normal, Normal thought process present and cooperative THOUGHT PROCESS: Normal thought process present Skin: COMMON NORMALS: no rashes or lesions noted and no wounds GENERAL SKIN EXAM: no rashes or lesions noted Course 2 Vital Signs: Vital signs: Vital Signs Temperature 97.8 F 06/03/24 19:36 Pulse Rate 55 L 06/04/24 05:24 Respiratory Rate 18 06/04/24 05:24 Blood Pressure 123/95 06/04/24 05:24 Pulse Oximetry 93 06/04/24 05:24 Oxygen Delivery Me thod Room Air 06/04/24 03:45 MDM - Altered Mental Status Medical Decision Making Patient presents here with altered mental status along with some hallucinations he is medically cleared here will transfer did [facility] psych Lab Data I reviewed the patient's lab results. 06/03/24 19:56 06/03/24 19:[address] 06/03/24 19:42 IMPRESSION: No acute intracranial findings. Laboratory Results WBC 6.49 10^3/uL (3.29-11.43) 06/03/24 19:56 RBC 4.19 10^6/uL (3.85-5.65) 06/03/24 19:56 Hgb 12.90 g/dL (11.27-16.99) 06/03/24 19:56 Hct 39.4 % (37-53) 06/03/24 19:56 MCV 94.0 fl (82-101) 06/03/24 19:56 MCH 30.8 pg (27-33) 06/03/24 19:56 MCHC 32.7 g/dL (30-55) 06/03/24 19:56 RDW 12.1 % (12.1-15.1) 06/03/24 19:56 Plt Count 166 10^3/cmm (157-399) 06/03/24 19:56 MPV 10.6 fL (7.4-10.4) H 06/03/24 19:56 Neut % (Auto) 61.5 % 06/03/24 19:56 Lymph % (Auto) 23.9 % 06/03/24 19:56 [place] % (Auto) 10.6 % 06/03/24 19:56 Eos % (Auto) 3.4 % 06/03/24 19:56 Baso % (Auto) 0.3 % 06/03/24 19:56 Neut # (Auto) 3.99 10^3/uL (1.8-7.7) 06/03/24 19:56 Lymph # (Auto) 1.6 10^3/uL (0.8-4.8) 06/03/24 19:56 [place] # (Auto) 0.7 10^3/uL (0.2-0.9) 06/03/24 19:56 Eos # (Auto) 0.2 10^3/uL (0.0-0.8) 06/03/24 19:56 Baso # (Auto) 0.0 10^3/uL (0.0-0.1) 06/03/24 19:56 Nucleated RBC % (auto) 0 % 06/03/24 19:56 Nucleated RBCs # 0.0 /100WBC 06/03/24 19:56 Sodium 140 mmol/L (136-145) 06/03/24 19:56 Potassium 4.0 mmol/L (3.5-5.1) 06/03/24 19:56 Chloride 103 mmol/L (98-107) 06/03/24 19:56 Carbon Dioxide 24 mmol/L (22-29) 06/03/24 19:56 Anion Gap 17.0 (5-19) 06/03/24 19:56 BUN 17 mg/dL (8-23) 06/03/24 19:56 Creatinine 1.1 mg/dL (0.7-1.2) 06/03/24 19:56 GFR Calculation Not Reportable 06/03/24 19:56 Glucose 100 mg/dL (65-115) 06/03/24 19:56 Calculated Osmolality 292 mOsm/kg (285-295) 06/03/24 19:56 Calcium 9.0 mg/dL (8.5-10.5) 06/03/24 19:56 Total Bilirubin 0.8 mg/dL (0.15-1.2) 06/03/24 19:56 AST 20 U/L (0-40) 06/03/24 19:56 ALT 6 U/L (0-41) 06/03/24 19:56 Alkaline Phosphatase 70 U/L (40-130) 06/03/24 19:56 Total Protein 6.5 g/dL (6.6-8.7) L 06/03/24 19:56 Albumin 4.1 g/dL (3.5-5.2) 06/03/24 19:56 Globulin 2.4 g/dL (1.3-4.6) 06/03/24 19:56 TSH 0.58 uIU/mL (0.27-4.20) 06/03/24 19:56 Urine Color Yellow (Yellow) 06/03/24 20:24 Urine Appearance Clear (CLEAR) 06/03/24 20:24 Urine pH 6.5 (5-7) 06/03/24 20:24 Ur Specific [place] 1.008 (1.005-1.030) 06/03/24 20:24 Urine Protein Negative (Negative) 06/03/24 20:24 Urine Glucose (UA) Negative (Normal) 06/03/24 20:24 Urine Ketones Negative (Negative) 06/03/24 20:24 Urine Blood Negative (Negative) 06/03/24 20:24 Urine Nitrate Negative (Negative) 06/03/24 20:24 Urine Bilirubin Negative (Negative) 06/03/24 20:24 Urine Urobilinogen 1.0 mg/dL (Negative) 06/03/24 20:24 Ur Leukocyte Esterase Negative (Negative) 06/03/24 20:24 Urine RBC 0-2 /hpf (0-2) 06/03/24 20:24 Urine WBC 0-5 /hpf (0-5) 06/03/24 20:24 Ur Squamous Epith Cells 0-5 /hpf (0-5) 06/03/24 20:24 Amorphous Sediment Not Reportable 06/03/24 20:24 Urine Bacteria None seen /hpf (NONE) 06/03/24 20:24 Hyaline Casts 0-4 /lpf H 06/03/24 20:24 Salicylates < 0.3 mg/dL (3-10) L 06/03/24 19:56 Urine Opiates Screen Negative ng/mL (Negative) 06/03/24 20:24 Acetaminophen < 5.0 ug/mL (10-30) L 06/03/24 19:56 Ur Barbiturates Screen Negative ng/mL (Negative) 06/03/24 20:24 Ur Phencyclidine Scrn Negative ng/mL (Negative) 06/03/24 20:24 Ur Amphetamines Screen Negative ng/mL (Negative) 06/03/24 20:24 U Benzodiazepines Scrn Negative ng/mL (Negative) 06/03/24 20:24 Urine Cocaine Screen Negative ng/mL (Negative) 06/03/24 20:24 U Marijuana (THC) Screen Negative ng/mL (Negative) 06/03/24 20:24 Ethyl Alcohol < 10 mg/dL (0-10) 06/03/24 19:56 Adenovirus (PCR) Not detected (NOT DETECT) 06/03/24 21:33 C. pneumoniae DNA (PCR) Not detected (NOT DETECT) 06/03/24 21:33 Coronavirus 229E (PCR) Not detected (NOT DETECT) 06/03/24 21: Human Metapneumovir PCR Not detected (NOT DETECT) 06/03/24 21: Influenza A (H1) PCR Not detected (NOT DETECT) 06/03/24 21: Influ A (H1/09) PCR Not detected (NOT DETECT) 06/03/24 21: Influenza A (H3) PCR Not detected (NOT DETECT) 06/03/24 21: Influenza Type A (PCR) Not detected (NOT DETECT) 06/03/24 21: Influenza Type B (PCR) Not detected (NOT DETECT) 06/03/24 21: M. pneumoniae (PCR) Not detected (NOT DETECT) 06/03/24 21: Parainfluenza 1 (PCR) Not detected (NOT DETECT) 06/03/24 21: Parainfluenza 2 (PCR) Not detected (NOT DETECT) 06/03/24: Parainfluenza 3 (PCR) Not detected (NOT DETECT) 06/03/24 21: Parainfluenza 4 (PCR) Not detected (NOT DETECT) 06/03/24 21: RSV Type A (PCR) Not detected (NOT DETECT) 06/03/24 21: RSV Type B (PCR) Not detected (NOT DETECT) 06/03/24 21: Entero/Rhino (PCR) Not detected (NOT DETECT) 06/03/24 21: SARS-CoV-2 (PCR) Not detected (NOT DETECT) 06/03/24 21:33 All radiology interpretation(s) finalized by discharge Discharge Plan Discharge Patient Disposition: Xfer Psychiatric Hosp Clinical Impression: Altered mental status, Acute psychosis Condition: Stable Referrals: Tangela Cummins MD [Primary Care Provider] - Patient Instructions: Altered Mental Status (ED) Coding Level of Care Code ED Cooky Packer for Kip Null
[2024-06-03 20:34] VITALS: BP 152/90; PULSE 73; RESP 16; O2SAT 95
[2024-06-03 20:35] LABS: Basophils % 0.3 %; Eosinophils # 0.2 10^3/uL (0.0-0.8); Eosinophils % 3.4 %; Hematocrit 39.4 % (37-53); Lymphocytes # 1.6 10^3/uL (0.8-4.8); Lymphocytes % 23.9 %; Mean Corpuscular HGB Conc 32.7 g/dL (30-55); Mean Corpuscular Hemoglobin 30.8 pg (27-33); Mean Platelet Volume 10.6 fL (7.4-10.4); Monocytes # 0.7 10^3/uL (0.2-0.9); Monocytes % 10.6 %; Neutrophils # 3.99 10^3/uL (1.8-7.7); Neutrophils % 61.5 %; Nucleated Red Blood Cells % 0 %; Platelet Count 166 10^3/cmm (157-399); Red Blood Count 4.19 10^6/uL (3.85-5.65); Red Cell Distribution Width 12.1 % (12.1-15.1); White Blood Count 6.49 10^3/uL (3.29-11.43)
[2024-06-03 20:36] LABS: Bilirubin Urine Negative (Negative); Blood Urine Negative (Negative); Glucose Urine UA Negative (Normal); Ketones Urine Negative (Negative); Leukocyte Esterase Urine Negative (Negative); Nitrate Urine Negative (Negative); Protein Urine Negative (Negative); Specific Gravity, Urine 1.008 (1.005-1.030); Urine Appearance Clear (CLEAR); Urine Color Yellow (Yellow); pH Urine 6.5 (5-7)
[2024-06-03 20:41] LABS: Add Urine Microscopic? YES; Bacteria Urine None Seen /hpf; Hyaline Casts Urine 0-4 /lpf; RBC Urine 0-2 /hpf (0-2); Squamous Epithelial Cell Urine 0-5 /hpf (0-5); WBC Urine 0-5 /hpf (0-5)
[2024-06-03 20:43] LABS: Amphetamines Screen Urine Negative (Negative); Barbiturates Screen Urine Negative (Negative); Benzodiazepines Screen Urine Negative (Negative); Cocaine Screen Urine Negative (Negative); Opiate Screen Urine Negative (Negative); PCP Screen Urine Negative (Negative); THC Screen Urine Negative (Negative)
--- NOTE | 2024-06-03 20:43 | ECG_ITS ---
[facility] Pat Name: Shawn Rojas Department: Room: Gender: Male Professor Of Languages: : 1940 Requested By: Jovon Greer Order Number: [id number] Roc MD: Shaggy García M.D. Measurements Intervals [place] Rate: 63 P: 57 MT: 266 QRS: -40 QRSD: 105 T: 52 QT: 428 QTc: 441 Interpretive Statements SINUS RHYTHM WITH FIRST DEGREE AV BLOCK LEFT AXIS DEVIATION [QRS AXIS < -30] INCOMPLETE RIGHT BUNDLE BRANCH BLOCK [90+ ms QRS DURATION, TERMINAL R IN V1/V2, 40+ ms S IN I/aVL/V4/V5/V6] ANTEROSEPTAL MYOCARDIAL INFARCTION , OF INDETERMINATE AGE [40+ ms Q WAVE IN V1-V4] Compared to ECG 03/24/2024 09:19:51 Incomplete right bundle-branch block now present Ventricular premature complex(es) no longer present Myocardial infarct finding still present Electronically Signed On 06-06-2024 23:57:37 C ARCHITECT by Shaggy García M.D. [email or web address]
[2024-06-03 20:49] LABS: Alanine Aminotransferase 6 U/L (0-41); Albumin Level 4.1 g/dL (3.5-5.2); Alkaline Phosphatase 70 U/L (40-130); Aspartate Amino Transferase 20 U/L (0-40); Blood Urea Nitrogen 17 mg/dL (8-23); Carbon Dioxide 24 mmol/L (22-29); Chloride 103 mmol/L (98-107); Creatinine Clr Calc Pharmacy 52.7243; Globulin 2.4 g/dL (1.3-4.6); Glucose 100 mg/dL (65-115); Osmolality Calculated 292 mOsm/kg (285-295); Sodium 140 mmol/L (136-145); Thyroid Stimulating Hormone 0.58 uIU/mL (0.27-4.20); Total Bilirubin 0.8 mg/dL (0.15-1.2); Total Protein 6.5 g/dL (6.6-8.7)
[2024-06-03 20:51] LABS: Acetaminophen < 5.0 ug/mL (10-30); Alcohol Level < 10 mg/dL (0-10); Salicylate < 0.3 mg/dL (3-10)
--- NOTE | 2024-06-03 20:58 | PC.NURSE ---
96 Hour Involuntary Hold Rights have been given to the patient and a copy of the same has been given to him. Shoe Caser Phuong Garcia was present at the bedside at the time of presentation of Rights.
[2024-06-03 21:26] VITALS: BP 152/90; RESP 16; O2SAT 95
[2024-06-03 21:49] VITALS: BP 122/54; PULSE 61; RESP 14; O2SAT 97
[2024-06-03 22:13] VITALS: BP 147/84; PULSE 68; RESP 16; O2SAT 98
[2024-06-03 22:15] VITALS: BP 147/84; PULSE 68; RESP 16; O2SAT 98
[2024-06-03 23:31] LABS: Adenovirus Not Detected (NOT DETECT); Chlamydia Pneumoniae Not Detected (NOT DETECT); Coronavirus 229E,HKU1,NL63,OC4 Not Detected (NOT DETECT); Human Metapneumovirus Not Detected (NOT DETECT); Human Rhinovirus/Enterovirus Not Detected (NOT DETECT); Influenza A Not Detected (NOT DETECT); Influenza A H1 Not Detected (NOT DETECT); Influenza A H1-2009 Not Detected (NOT DETECT); Influenza A H3 Not Detected (NOT DETECT); Influenza B Not Detected (NOT DETECT); Mycoplasma Pneumoniae Not Detected (NOT DETECT); Parainfluenza Virus Type 1 Not Detected (NOT DETECT); Parainfluenza Virus Type 2 Not Detected (NOT DETECT); Parainfluenza Virus Type 3 Not Detected (NOT DETECT); Parainfluenza Virus Type 4 Not Detected (NOT DETECT); Respiratory Syncytial Virus A Not Detected (NOT DETECT); Respiratory Syncytial Virus B Not Detected (NOT DETECT); SARS-COV-2 Not Detected (NOT DETECT)
[2024-06-04 00:26] VITALS: BP 151/84; PULSE 67; RESP 20; O2SAT 98
--- NOTE | 2024-06-04 00:38 | PC.NURSE ---
REPORT CALLED TO BRIDGETT Cerna AT [facility] AT 0021. WANTS CONTACTED WHEN PT LEAVES VIA EMS [phone].
--- NOTE | 2024-06-04 00:39 | PC.NURSE ---
PT IS PLEASANTLY CONFUSED AT THIS TIME. HE GOT COFFEE AND IS SITTING UP IN HIS RECLINER.
[2024-06-04 03:45] VITALS: BP 129/75; PULSE 60; O2SAT 95
[2024-06-04 05:24] VITALS: BP 123/95; PULSE 55; RESP 18; O2SAT 93
== END 2024-06-04 08:38 ==
PROVIDERS: Emergency Provider Emergency Medicine; PCP Family Medicine
DX: R41.82 Altered mental status, unspecified (principal); F23 Brief psychotic disorder; Z11.52 Encounter for screening for COVID-19; Z87.891 Personal history of nicotine dependence
CPT/HCPCS: 36415; 70450; 80053; 80306; 80307; 81001; 84443; 85025; 87486; 87581; 87633; 93005; 99285

== ENCOUNTER → 2024-06-28 12:40 | Outpatient (BNVA) | payer OTHER, BC, MEDICARE, SELFPAY | PROVIDERS: PCP Family Medicine; Visit Provider Specialist | DX: G31.83 Neurocognitive disorder with Lewy bodies (principal); F02.80 Dementia in other diseases classified elsewhere, unspecified severity, without behavioral disturbance, psychotic disturbance, mood disturbance, and anxiety; G20.B1 Parkinson's disease with dyskinesia, without mention of fluctuations; G90.3 Multi-system degeneration of the autonomic nervous system; R03.0 Elevated blood-pressure reading, without diagnosis of hypertension | CPT/HCPCS: 99215 ==

== ENCOUNTER 2024-07-10 11:55 | Outpatient (CLI) | payer OTHER, SELFPAY ==
--- NOTE | 2024-07-10 12:00 | CT_ITS ---
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 Comparison 06/03/2024. No sign of intracranial mass or acute bleed. Diffuse atrophy with volume loss. Microvascular ischemic change in the deep white matter substance. The ventricles and basal cisterns are normal in size. No extra-axial fluid collections are identified. Atherosclerotic plaquing of the cavernous internal carotid arteries. Normal orbits and optic globes. Facial sinuses and mastoids are clear. No destructive bony changes. CT/CT head wo con* [id number] IMPRESSION: 1. Diffuse atrophy with volume loss, microvascular ischemic changes. 2. No mass or acute intracranial bleed. Stable since last exam.
== END 2024-07-10 11:56 | disposition home or self-care (01) ==
LOC: RAD 11:57
PROVIDERS: PCP Family Medicine; Visit Provider Specialist
DX: G31.83 Neurocognitive disorder with Lewy bodies (principal); F02.80 Dementia in other diseases classified elsewhere, unspecified severity, without behavioral disturbance, psychotic disturbance, mood disturbance, and anxiety; G20.B1 Parkinson's disease with dyskinesia, without mention of fluctuations; G90.3 Multi-system degeneration of the autonomic nervous system; R93.0 Abnormal findings on diagnostic imaging of skull and head, not elsewhere classified; I65.23 Occlusion and stenosis of bilateral carotid arteries
CPT/HCPCS: 70450

== ENCOUNTER → 2024-07-11 09:03 | Outpatient (BNVA) | payer OTHER, SELFPAY | PROVIDERS: PCP Family Medicine; Visit Provider Nurse Practitioner Family | DX: I35.0 Nonrheumatic aortic (valve) stenosis (principal); I95.9 Hypotension, unspecified; Z87.891 Personal history of nicotine dependence | CPT/HCPCS: 99213 ==

== ENCOUNTER 2024-08-02 07:39 | Outpatient (RCR) | payer OTHER, SELFPAY | END 2024-08-21 23:59 | disposition home or self-care (01) | LOC: SPT 07:39 | PROVIDERS: Visit Provider Family Medicine | DX: G20.C Parkinsonism, unspecified (principal) | CPT/HCPCS: 97110; 97162; 97530 ==

== ENCOUNTER 2024-08-22 05:00 | Outpatient (RCR) | payer OTHER, SELFPAY | END 2024-09-20 23:59 | disposition home or self-care (01) | LOC: SPT 05:00 | PROVIDERS: Visit Provider Family Medicine | DX: G20.C Parkinsonism, unspecified (principal); G31.83 Neurocognitive disorder with Lewy bodies | CPT/HCPCS: 97110; 97112; 97530 ==

== ENCOUNTER 2024-09-21 06:30 | Outpatient (RCR) | payer OTHER, SELFPAY | END 2024-09-26 08:18 | disposition home or self-care (01) | LOC: SPT 06:30 | PROVIDERS: Visit Provider Family Medicine | DX: G20.C Parkinsonism, unspecified (principal) | CPT/HCPCS: 97110; 97530 ==

== ENCOUNTER → 2024-10-17 14:00 | Outpatient (BNVA) | payer OTHER, SELFPAY | PROVIDERS: PCP Family Medicine; Visit Provider Internal Medicine Cardiovascular Disease | DX: I95.1 Orthostatic hypotension (principal); I35.9 Nonrheumatic aortic valve disorder, unspecified; G31.83 Neurocognitive disorder with Lewy bodies; F02.80 Dementia in other diseases classified elsewhere, unspecified severity, without behavioral disturbance, psychotic disturbance, mood disturbance, and anxiety; G47.01 Insomnia due to medical condition | CPT/HCPCS: 99214 ==

== ENCOUNTER → 2024-12-21 14:07 | Outpatient (BNVA) | payer OTHER, SELFPAY | PROVIDERS: PCP Family Medicine; Visit Provider Specialist | DX: G31.83 Neurocognitive disorder with Lewy bodies (principal); F02.80 Dementia in other diseases classified elsewhere, unspecified severity, without behavioral disturbance, psychotic disturbance, mood disturbance, and anxiety; G20.B1 Parkinson's disease with dyskinesia, without mention of fluctuations; G90.3 Multi-system degeneration of the autonomic nervous system; F02.C11 Dementia in other diseases classified elsewhere, severe, with agitation; R03.0 Elevated blood-pressure reading, without diagnosis of hypertension | CPT/HCPCS: 36415; 80053; 82607; 85025; 99215 ==

== ENCOUNTER 2025-01-04 14:20 | Emergency (ER) | payer OTHER, MEDICARE, SELFPAY ==
--- OUTSIDE RECORDS SUMMARY | 2024-02-14 09:01 | XMS_ITS | Encounter Summary ---
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 This section includes the names of all active insurance providers for the patient. Insurance Provider Type of Coverage Plan Name Start of Policy Coverage End of Policy Coverage Group Number Member ID Insurance Provider's Telephone Number Policy Alfaro's Name Patient's Relationship to Policy Alfaro MEDICARE (WNR) MEDICARE (M) PART A Mar 24, 2005 PART A [id number] GEOVANNI,JOHNR ICK PATIENT MEDICARE (WNR) MEDICARE (M) PART A Mar 24, 2005 PART A [id number] [phone] GEOVANNI,PATR ICK PATIENT MEDICARE (WNR) MEDICARE (M) PART B Mar 24, 2005 PART B [id number] GEOVANNI,PATR ICK PATIENT MEDICARE (WNR) MEDICARE (M) PART B Mar 24, 2005 PART B [id number] GEOVANNI,PATR ICK PATIENT MEDICARE (WNR) MEDICARE (M) PART A Mar 24, 2005 PART A [id number] GEOVANNI,PATR ICK PATIENT MEDICARE (WNR) MEDICARE (M) PART B Mar 24, 2005 PART B [id number] GEOVANNITYLER SCHULER ICK PATIENT MEDICARE (WNR) MEDICARE (M) PART A Mar 24, 2005 PART A [id number] GEOVANNIJOHN SCHULERR ICK PATIENT MEDICARE (WNR) MEDICARE (M) PART B Mar 24, 2005 PART B [id number] GEOVANNITYLER ICK PATIENT MEDICARE PART D (WNR) MEDICARE (M) PART D May 24, 2012 PART D [id number] TYLER GALARZA ICPerlita PATIENT MEDICARE PART D (WNR) MEDICARE (M) PART D May 24, 2012 PART D [id number] TYLER GALARZA PATIENT Selected Encounter This section includes the information on record at [place] for the Encounter. Date/Time Encounter Type Encounter Description Reason Provider Source Feb 14, 2024 02:01 PM HEARING SERVICE AUDIOLOGY ICD-10-CM Z46.1 Encounter for fitting and adjustment of hearing aid WILLIAM BARTON RA [facility] Encounter Template Text not used by [place] Assessments - Encounter Diagnoses This section includes the primary and secondary diagnoses documented for the Encounter. Date/Time Primary/Secondary Diagnosis Diagnosis Name Provider Source Feb 14, 2024 01:28 PM PRIMARY Encounter for fitting and adjustment of hearing aid WILLIAM BARTON RA [facility] Feb 14, 2024 01:28 PM SECONDARY Sensorineural hearing loss, bilateral WILLIAM BARTON RA [facility] Feb 14, 2024 01:28 PM SECONDARY Tinnitus, bilateral ORALIAPAULAASHLEE DE LEON A [facility] Plan of Treatment: Future Appointments (+ 6 months) and Future Tests (+/- 45 days) The Plan of Treatment section includes future care activities for the patient from all [place] treatmentfacilities. This section includes future appointments and future orders which are active, pending or scheduled. Future Appointments This section includes appointments that were scheduled to occur 6 months from the date of the Encounter, up to a maximum of 20 appointments. The data comes from all [place] treatment facilities. Appointment Date/Time Appointment Type Appointme nt Facility Name Feb 18, 2024 12:30 PM [facility] Feb 21, 2024 08:00 AM [facility] Feb 28, 2024 08:30 AM [facility] Mar 07, 2024 08:15 AM [facility] Mar 10, 2024 09:45 AM [facility] Mar 20, 2024 02:45 PM [facility] Mar 20, 2024 03:00 PM [facility] Mar 29, 2024 03:00 PM [facility] Mar 29, 2024 03:01 PM [facility] Apr 17, 2024 08:30 AM [facility] Apr 18, 2024 12:00 PM [facility] Apr 24, 2024 09:00 AM AMBULATORY - NONE [facility] May 01, 2024 08:45 AM [facility] Jun 11, 2024 08:00 AM AMBULATORY - NONE [facility] Jun 13, 2024 09:15 AM [facility] Jun 16, 2024 09:40 AM [facility] Jul 05, 2024 12:30 PM [facility] Jul 05, 2024 12:32 PM [facility] Jul 11, 2024 10:15 AM [facility] Jul 11, 2024 02:45 PM [facility] Social History: Smoking Status (Most current) and Tobacco Use (All prior to encounter date) This section includes the most current, and the historical, smoking and tobacco- related health factors from the [place] facility where the Encounter took place. Current Smoking Status This section includes the most current smoking, or tobacco-related health factor, from the [place] facility where the Encounter took place. Date/Time Current Smoking Status Saurabh osorio Sep 16, 2007 05:28 PM QUIT TOBACCO >7 YEARS AGO [facility] Advance Directives: All historical and current Section Date Range: From patient's date of to the date document was created. This section includes ALL of a patient's completed or amended [place] Advance and Rescinded Directives. The entries below indicate that a directive exists for the patient, but an actual copy is not included with this document. The data comes from all [place] facilities. Date Advance Directives Provider Source Dec 19, 2024 ADVANCE DIRECTIVE TY BERUMEN JACOB FF [place] [facility] Encounter Notes: All associated encounter notes This section contains the clinical notes associated to the Encounter. Date/Time Encounter Note(s) Provider Source Feb 14, 2024 07:44 AM AUDIOLOGY NOTE: LOCAL TITLE: HEARING CLINIC PB STANDARD TITLE: AUDIOLOGY NOTE DATE OF NOTE: FEB 14, 2024@07:44 ENTRY DATE: FEB 14, 2024@07:44:40 AUTHOR: ELOISE BARTON COSIGNER: URGENCY: STATUS: COMPLETED Diagnosis: Sensorineural Hearing Loss, Bilateral and Tinnitus, Bilateral Treatment: Hearing Aid Follow Up Time spent with Kelliher: 30 minutes Kelliher seen for a hearing aid check via Audio Telehealth and verbally consented to the Telehealth modality. Multi-factor personally identifiable information of the was obtained verbally (full name and date of ). Kelliher accompanied by: none Patient site: [facility] ____ HISTORY: was previously seen for the fitting of new hearing aids. Patient returns today for follow up. He states devices sounded good at first but are now weak. Kelliher reports receiving the first shipment of supplies in the mail. He notes echo sound quality with TV and difficulty adjusting volume through rocker switch. HEARING DEVICES: 11/22/23 PHONAK AUDEO L90-R MIGUEL L [id number] 11/09/26 04/08/24 11/22/23 PHONAK AUDEO L90-R MIGUEL R [id number] 11/09/26 04/08/24 - 3P FERRIS WHEEL ATTENDANT 5.0 - VENTED DOME 4.0 - MEDIUM - CERUSTOP - NO RETENTION TAILS (graphite jones) * Daughter assists with cleaning/maintenance BACK-UP HEARING DEVICES: 11/03/22 PHONAK AUDEO L90-R MIGUEL L [id number] 11/03/22 PHONAK AUDEO L90-R MIGUEL R [id number] - 3P FERRIS WHEEL ATTENDANT 5.0 - VENTED DOME 4.0 - MEDIUM - CERUSTOP (sand beige) OBJECTIVE/ASSESSMENT: Otoscopy was performed by collaboration of telehealth clinical air and hydronic balancing technician and provider via telehealth technology/video otoscope which revealed: Right: minimal cerumen Left: minimal cerumen Spoke with patient about option for a remote control or tv streamer but he declined interest. Devices were cleaned and checked including replacement of filters. A listening check performed by TCT revealed proper function. Patient was re-instructed on hearing aid maintenance and re-educated on ordering more supplies when needed. International Outcome Inventory for Hearing Aids administered and saved in ROES. The was counseled/educated on services provided today and is in agreement with the plan. PLAN: Return to clinic as needed. /diego/ Lul Gibson [facility] Signed: 02/14/2024 13:35 ELOISE BARTON [facility]
--- OUTSIDE RECORDS SUMMARY | 2024-02-21 03:00 | XMS_ITS | Encounter Summary ---
Author Name [facility] [facility] [place] [facility] [place] [facility] [place] Address [address] [place] [address] Care Team Providers Care Recreational Programs Director Name Role Phone NIRMALAJULIAN LONG Primary Care Provider Unavailabl e Insurance Providers: [...] PART A Mar 24, 2005 PART A [id number] [facility] GEOVANNI,JOHNR ICK PATIENT MEDICARE (WNR) MEDICARE (M) PART B Mar 24, 2005 PART B [id number] [phone] GEOVANNI,PATR ICK PATIENT MEDICARE (WNR) MEDICARE (M) PART B Mar 24, 2005 PART B [id number] GEOVANNI,PATR ICK PATIENT MEDICARE (WNR) MEDICARE (M) PART A Mar 24, 2005 PART A [id number] GEOVANNI,PATR ICK PATIENT MEDICARE (WNR) MEDICARE (M) PART A Mar 24, 2005 PART A [id number] GEOVANNI,PATR ICK PATIENT MEDICARE (WNR) MEDICARE (M) PART B Mar 24, 2005 PART B [id number] GEOVANNI,PATR ICK PATIENT MEDICARE (WNR) MEDICARE (M) PART A Mar 24, 2005 PART A [id number] GEOVANNI,PATR ICK PATIENT MEDICARE (WNR) MEDICARE (M) PART B Mar 24, 2005 PART B [id number] GEOVANNI,PATR ICK PATIENT MEDICARE PART D (WNR) MEDICARE (M) PART D May 24, 2012 PART D [id number] GEOVANNI,PATR ICK PATIENT MEDICARE PART D (WNR) MEDICARE (M) PART D May 24, 2012 PART D [id number] GEOVANNI,PATR ICK PATIENT Selected Encounter This section includes the information on record at [place] for the Encounter. Date/Time Encounter Type Encounter Description Reason Provider Source Feb 21, 2024 08:00 AM OFF/OP EST SEPTEMBER X REQ PHY/QHP PRIMARY CARE/MEDICINE ICD-10-CM I95.89 Other hypotension CUSTRED,EMILIANA Tatiana E Encounter Template Text not used by [place] Assessments - Encounter Diagnoses This section includes the primary and secondary diagnoses documented for the Encounter. Date/Time Primary/Secondary Diagnosis Diagnosis Name Provider Source Feb 21, 2024 04:27 PM PRIMARY Other hypotension CUSTRED,EMILIANA J [facility] Plan of Treatment: Future Appointments (+ 6 months) and Future Tests (+/- 45 days) The Plan of Treatment section includes future care activities for the patient from all [place] treatmentfacilities. This section includes future appointments and future orders which are active, pending or scheduled. Future Appointments This section includes appointments that were scheduled to occur 6 months from the date of the Encounter, up to a maximum of 20 appointments. The data comes from all [place] treatment facilities. Appointment Date/Time Appointment Type Appointme nt Facility Name Feb 28, 2024 08:30 AM AMBULATORY - MEDICINE [facility] Mar 07, 2024 08:15 AM AMBULATORY MEDICINE [facility] Mar 10, 2024 09:45 AM AMBULATORY - MEDICINE [facility] Mar 20, 2024 02:45 PM AMBULATORY - MEDICINE [facility] Mar 20, 2024 03:00 PM AMBULATORY - MEDICINE [facility] Mar 29, 2024 03:00 PM [facility]IC[place] [facility] Mar 29, 2024 03:01 PM AMBULATORY - MEDICINE [facility] Apr 17, 2024 08:30 AM AMBULATORY - MEDICINE [facility] Apr 18, 2024 12:00 PM [place] [facility] Apr 24, 2024 09:00 AM AMBULATORY - NONE [place] [facility] May 01, 2024 08:45 AM [place] [facility] Jun 11, 2024 08:00 AM AMBULATORY - NONE [place] [facility] Jun 13, 2024 09:15 AM AMBULATORY - MEDICINE [facility] Jun 16, 2024 09:40 AM [place] [facility] Jul 05, 2024 12:30 PM AMBULATORY - MEDICINE [facility] Jul 05, 2024 12:32 PM [place]IC[place] [facility] Jul 11, 2024 10:15 AM AM[place] - [place]IC[place] [facility] Jul 11, 2024 02:45 PM AM[facility] - [place]IC[place] [facility] Jul 18, 2024 11:15 AM AMBULATORY - MEDICINE [place] [facility] Jul 20, 2024 09:45 AM AMBULATORY - MEDICINE [facility] Lab Results: +/- 30 days of the encounter This section includes the Chemistry and Hematology Lab Results on record with [place] for the patient. Radiology Reports and Pathology Reports are provided separately, in subsequent sections. Lab Results This section contains the Chemistry/Hematology Results that were resulted 30 days before or 30 daysafter the date of the Encounter. Date/Time Source Result Type Result - Unit Interpretation Reference Range Specimen Type Comment Mar 20, 2024 04:11 PM [facility] LYME DISEASE AB (MA-PB) SERUM Specimen Type: SERUM Comment: REFERENCE RANGE: <0.90 Index Reference ranges: Index Interpretation ----- <0.90 Negative 0.90-1.09 Equivocal >1.09 Positive As recommended by the Food and Drug Administration (FDA), all samples with positive or equivocal results in a Borrelia burgdorferi antibody screen will be tested using a blot method. Positive or equivocal screening test results should not be interpreted as truly positive until verified as such using a supplemental assay (e.g., B. burgdorferi blot). The screening test and/or blot for B. burgdorferi antibodies may be falsely negative in early stages of Lyme disease, including the period when erythema migrans is apparent. The Code of [place], Article 1 of Chapter 5 of Title 32.1, section 32.1-137.06, requires that the following language must be included on every Lyme disease test report issued by a [place] laboratory: Patients undergoing a Lyme disease test should be aware that Lyme disease tests vary and may produce results that are inaccurate. This means a patient may not be able to rely on a positive or negative result. Health care providers are encouraged to discuss Lyme disease test results with the patient for whom the test was ordered. Test Performed by [facility], [facility], [address] [place] [address] Shawn Purcell M.D., Ph.D., Director of Laboratories , [place] [id number] Ordering Provider: JOSE SUMMERS Report Released Date/Time: Mar 20, 2024 03:45 PM Reporting Lab: [place] [facility] [address] [place] [address] Performing Lab: [place] [id number] [facility] LYME DISEASE AB (MA-PB) <0.90 {index} SE E BELOW Mar 20, 2024 03:51 PM [facility] TSH (MA-PB) SERUM Specimen Typ e: SERUM No comment entered. Ordering Provider: JULIAN MEMBRENO Report Released Date/Time: Sep 13, 2023 02:23 PM Reporting Lab: [place] [facility] [address] [place] [address] Performing Lab: [place] [facility] [address] [place] [address] TSH 1.746 u[IU]/mL 0.47-5 Mar 20, 2024 03:51 PM [facility] CHOLESTEROL PANEL (PB) PLASMA Specimen Type: P LASMA Comment: LDL calculation invalid when Triglyceride exceeds 250 mg/dl Ordering Provider: JULIAN MEMBRENO Report Released Date/Time: Sep 13, 2023 02:23 PM Reporting Lab: [place] [facility] [address] [place] [address] Performing Lab: [place] [facility] [address] [place] [address] CHOLESTEROL 127 mg/dL 0-200 TRIGLYCERIDE 264 mg/dL H 0-150 CALCULATED LDL comment mg/dL HDL(New) 48.0 mg/dL H >40 HDL % OF TOTAL CHOLESTEROL (PB) 37.8 >25 DIRECT LDL(MA) 45.2 mg/dL 0-99.9 Mar 20, 2024 03:51 PM [facility] COMPREHENSIVE METABOLIC PANEL PLASMA Specimen Type: PLASMA Comment: LDL calculation invalid when Triglyceride exceeds 250 mg/dl Ordering Provider: JULIAN MEMBRENO Report Released Date/Time: Sep 13, 2023 02:24 PM Reporting Lab: [place] [facility] [address] [place] [address] Performing Lab: [place] [facility] [address] [place] [address] CREATININE 1.21 mg/dL 0.7-1.3 UREA NITROGEN 18 mg/dL 9-25 GLUCOSE 102 mg/dL H 72-99 SODIUM 139 meq/L 136-145 POTASSIUM 4.7 meq/L 3.5-5 CHLORIDE 104 meq/L 98-107 CARBON DIOXIDE 24 meq/L 22-31 CALCIUM 9.4 mg/dL 8.4-10.4 PROTEIN 7.5 g/dL 6-8.6 ALBUMIN 4.5 g/dL 3.4-5 TOTAL BILIRUBIN 0.4 mg/dL 0.2-1.2 ALKALINE PHOSPHATASE 68 U/L 40-150 AST/SGOT 19 U/L 5-34 ALT/SGPT 16 U/L 8-40 EGFR (CKD-EPI 2020) 59 Mar 20, 2024 03:51 PM [facility] CBC BLOOD Specimen Type: BLOOD No comment entered. Ordering Provider: JULIAN MEMBRENO Report Released Date/Time: Sep 13, 2023 02:24 PM Reporting Lab: [place] [facility] [address] [place] [address] Performing Lab: [place] [facility] [address] [place] [address] WBC 6.6 10*3/uL 3.6-11.2 RBC 4.30 10*6/uL 4.10-5.70 HGB 13.0 g/dL L 13.1-16.8 HCT 40.0 38.2-48.4 MCV 93.0 fL 80.0-100.0 MCH 30.2 pg 27.0-34.0 MCHC 32.5 g/dL L 33.0-36.0 PLT 155 10*3/uL 150-400 MPV 11.5 fL H 7.5-11.2 RDW 12.5 11.8-15.1 LYMPHOCYTES, AUTO % 23.5 MONOCYTES, AUTO % 10.0 NEUTROPHILS, AUTO % 63.4 EOSINOPHILS, AUTO % 2.6 BASOPHILS, AUTO % 0.2 LYMPHOCYTES, ABSOLUTE 1.56 10*3/uL 0.77- 4.50 MONOCYTES, ABSOLUTE 0.66 10*3/uL 0.19-0. 8 NEUTROPHILS, ABSOLUTE 4.21 10*3/uL 2.10- 8.00 EOSINOPHILS, ABSOLUTE 0.17 10*3/uL 0.00- 0.60 BASOPHILS, ABSOLUTE 0.01 10*3/uL 0.00-0. 20 IMMATURE GRANS, AUTO % 0.3 IMMATURE GRANS, AUTO ABS 0.02 10*3/uL 0. 00-0.05 Mar 20, 2024 03:51 PM [facility] RYRWGIBRI-TZTBX-9,3-GALACTOSE IGE SERUM Speci men Type: SERUM Comment: REFERENCE RANGE: <0.10 kU/L Results above 0.1 kU/L indicate an allergen-specific IgE sensitization to uspsnjafp-n-5,3-galactose, and such patients are at risk for delayed allergic reactions following beef, pork, or abraham consumption. Circulating IgE antibodies may remain undetectable despite a convincing clinical history because these antibodies may be directed towards allergens revealed or altered during industrial processing, cooking, or digestion and therefore do not exist in the original food for which the patient is tested. Sometimes individuals diagnosed with chronic urticaria may develop IgE antibodies directed against human thyroglobulin. Such antibodies may cross-react with the bovine thyroglobulin used in ImmunoCAP(R) Allergen o215, alpha-Gal, leading to a false-positive test result. A definitive diagnosis should be based on the evaluation of both clinical and laboratory findings and not on any single diagnostic method. Additional information can be found at [email or web address] Test performed by [email or web address] [id number] [place] [address] Entry Level Mechanical Engineer: Aspen Galvna MD,PHD,CHRISTIANO Test Reported by [facility], [address] [place] [address] Shawn Purcell M.D., Ph.D., Director of Laboratories , CLIA [id number] Ordering Provider: JOSE SUMMERS Report Released Date/Time: Mar 20, 2024 03:45 PM Reporting Lab: [place] [facility] [address] [facility] [facility] [address] Performing Lab: [place] [address] LQSQNENXL-AMJYO-3,3-GALACTOSE IGE <0.10 kU/L SEE BELOW Mar 20, 2024 03:51 PM [place] [facility] RMSF AB IGG,IGM (PB-MA) SERUM Specimen Type: SERUM Comment: Test Performed by [facility], [address] [place] [address] Shawn Purcell M.D., Ph.D., Director of Laboratories , CLIA [id number] Ordering Provider: JOSE SUMMRES Report Released Date/Time: Mar 20, 2024 03:45 PM Reporting Lab: [place] [facility] [address] [place] [address] Performing Lab: [place] [address] RMSF IGG (PB Not Detected Not Detected RMSF IGM (PB Not Detected Not Detected Mar 20, 2024 03:51 PM [facility] [place] EHRLICHIA AB PANEL (PB-MA) SERUM Specimen Typ e: SERUM Comment: REFERENCE RANGE: <1:64 REFERENCE RANGE: <1:20 Antibody Not Detected Ehrlichia chaffeenis has been identified as the causative agent of Human Monocytic Ehrlichiosis (HME). Infected individuals produce specific antibodies to E. chaffeensis that can be detected by an immuno- fluorescent antibody (IFA) test. Single IgG IFA titers of 1:64 or greater indicate exposure to E. chaffeensis. A four-fold rise in IgG titers between acute and convalescent samples and/or the presence of IgM antibody against E. chaffeensis suggest recent or current infection. This test was developed and its analytical performance characteristics have been determined by [employer] [place], [place]. It has not been cleared or approved by the U.S. Food and Drug Administration. This assay has been validated pursuant to the CLIA regulations and is used for clinical purposes. Test Performed by [facility], [facility], [address] [place] [address] Shawn Purcell M.D., Ph.D., Director of Laboratories , [place] [id number] Ordering Provider: JOSE SUMMERS Report Released Date/Time: Mar 20, 2024 03:45 PM Reporting Lab: [facility] [address] [facility] [address] Performing Lab: [facility] [address] [facility] EHRLICHIA CHAF.IGG <1:64 SEE BELOW EHRLICHIA CHAF.IGM <1:20 SEE BELOW EHRLICHIA AB INTERPRETATION SEE NOTE EHRLICHIA AB COMMENT SEE NOTE Mar 20, 2024 03:51 PM [facility] BABESIA MICROTI AB IGG,IGM (PB) SERUM Specime n Type: SERUM Comment: REFERENCE RANGE: <1:64 REFERENCE RANGE: <1:20 SEE NOTE Antibody Not Detected Elevated antibody levels to B. microti indicate exposure to the organism. Human babesiosis infection is transmitted by the bite of an infected Ixodes tick or less frequently from transfusion with blood from an infected donor. Definitive diagnosis is made by identifying intraerythrocytic organisms in peripheral blood. In patients with low parasitemia, antibody detection by IFA is recommended. IgG levels greater than or equal to 1:1024 can be detected in acute phase patients with parasites in blood smears. The IFA assay can be used as a seroepidemiologic tool to study the frequency and distribution of B. microti in endemic areas especially in persons with mixed infections also involving Borrelia burgdorferi. This test was developed and its analytical performance characteristics have been determined by [employer] [place], [place]. It has not been cleared or approved by the U.S. Food and Drug Administration. This assay has been validated pursuant to the CLIA regulations and is used for clinical purposes. Test Performed by [facility], [facility], [address] [place] [address] Shawn Purcell M.D., Ph.D., Director of Laboratories , CLIA [id number] Ordering Provider: JOSE SUMMERS Report Released Date/Time: Mar 20, 2024 03:45 PM Reporting Lab: [place] [facility] [address] [place] [facility] [address] Performing Lab: [place] [facility] [address] [facility] BABESIA MICROTI IGG (PB) <1:64 SEE [facility] BABESIA MICROTI IGM (PB) <1:20 SEE [facility] OW Mar 20, 2024 03:51 PM [facility] [place] [facility] BASIC METABOLIC PANEL PLASMA Specimen Type: PL ASMA No comment entered. Ordering Provider: JOSE SUMMERS Report Released Date/Time: Mar 20, 2024 03:45 PM Reporting Lab: [place] [facility] [address] [place] [address] Performing Lab: [place] [facility] [address] [place] [address] CREATININE 1.23 mg/dL 0.7-1.3 UREA NITROGEN 18 mg/dL 9-25 GLUCOSE 101 mg/dL H 72-99 SODIUM 138 meq/L 136-145 POTASSIUM 4.6 meq/L 3.5-5 CHLORIDE 104 meq/L 98-107 CARBON DIOXIDE 25 meq/L 22-31 CALCIUM 9.4 mg/dL 8.4-10.4 EGFR (CKD-EPI 2020) 58 Mar 20, 2024 03:51 PM [place] [facility] CBC BLOOD Specimen Type: BLOOD No comment entered. Ordering Provider: JOSE SUMMERS Report Released Date/Time: Mar 20, 2024 03:45 PM Reporting Lab: [place] [facility] [address] [place] [place] [address] Performing Lab: [place] [facility] [address] [place] [address] WBC 6.4 10*3/uL 3.6-11.2 RBC 4.32 10*6/uL 4.10-5.70 HGB 13.2 g/dL 13.1-16.8 HCT 40.2 38.2-48.4 MCV 93.1 fL 80.0-100.0 MCH 30.6 pg 27.0-34.0 MCHC 32.8 g/dL L 33.0-36.0 PLT 156 10*3/uL 150-400 MPV 11.6 fL H 7.5-11.2 RDW 12.4 11.8-15.1 LYMPHOCYTES, AUTO % 22.6 MONOCYTES, AUTO % 9.8 NEUTROPHILS, AUTO % 64.6 EOSINOPHILS, AUTO % 2.5 BASOPHILS, AUTO % 0.2 LYMPHOCYTES, ABSOLUTE 1.45 10*3/uL 0.77- 4.50 MONOCYTES, ABSOLUTE 0.63 10*3/uL 0.19-0. 8 NEUTROPHILS, ABSOLUTE 4.14 10*3/uL 2.10- 8.00 EOSINOPHILS, ABSOLUTE 0.16 10*3/uL 0.00- 0.60 BASOPHILS, ABSOLUTE 0.01 10*3/uL 0.00-0. 20 IMMATURE GRANS, AUTO % 0.3 IMMATURE GRANS, AUTO ABS 0.02 10*3/uL 0. 00-0.05 Vital Signs: All taken on the encounter date This section contains inpatient and outpatient Vital Signs collected on the date of the Encounter. Date/Time Temperature Pulse Blood Pressure Respiratory Rate SP02 Pain Height Weight Body Mass Index Source Feb 21, 2024 04:16 PM 97.7 68 128/76 [facility] Social History: Smoking Status (Most current) and Tobacco Use (All prior to encounter date) This section includes the most current, and the historical, smoking and tobacco- related health factors from the [place] facility where the Encounter took place. Current Smoking Status This section includes the most current smoking, or tobacco-related health factor, from the [place] facility where the Encounter took place. Date/Time Current Smoking Status Comment Facil ity Sep 09, 2023 12:30 PM VA-TOBACCO QUIT 15 YRS OR MORE [facility] [facility] Tobacco Use History This section includes a history of the smoking, or tobacco-related health factors, that were collected on or before the date of the Encounter. The data comes from the [place] facility where the Encounter took place. Date/Time Smoking Status/Tobacco Use Comment Bushra pizano Sep 09, 2023 12:30 PM VA-TOBACCO QUIT 15 YRS OR MORE [facility] Sep 10, 2022 08:30 AM VA-TOBACCO FORMER USER [facility] Sep 10, 2022 08:30 AM VA-TOBACCO QUIT 15 YRS OR MORE [facility] Jun 23, 2021 08:30 AM VA-TOBACCO FORMER USER [facility] [facility] Jun 23, 2021 08:30 AM VA-TOBACCO QUIT 15 YRS OR MORE [place] [facility] 2020 08:30 AM VA-TOBACCO FORMER USER [facility] [facility] 2020 08:30 AM VA-TOBACCO QUIT 15 YRS OR MORE [place] [facility] Mar 15, 2019 09:37 AM CURRENT NON-TOBACCO USER-HX OF [facility] Nov 16, 2018 09:33 AM VA-TOBACCO FORMER USER [facility] Nov 16, 2018 09:33 AM VA-TOBACCO QUIT 15 YRS OR MORE [facility] Feb 18, 2018 09:46 AM CURRENT NON-TOBACCO USER-HX OF [facility] Nov 23, 2007 09:17 AM QUIT TOBACCO >7 YEARS AGO [facility] Jun 21, 2007 09:21 AM QUIT TOBACCO >7 YEARS AGO [facility] Aug 24, 2005 08:27 AM CURRENT NON-TOBACCO USER-HX OF [facility] Feb 23, 2005 11:20 AM CURRENT NON-TOBACCO USER-HX OF [facility] Jun 26, 2004 01:01 PM CURRENT NON-TOBACCO USER-HX OF [facility] Advance Directives: All historical and current Section Date Range: From patient's date of to the date document was created. This section includes ALL of a patient's completed or amended [place] Advance and Rescinded Directives. The entries below indicate that a directive exists for the patient, but an actual copy is not included with this document. The data comes from all [place] facilities. Date Advance Directives Provider Source Dec 19, 2024 ADVANCE DIRECTIVE BERUMENTY APONTE JACOB [facility] [place] [facility] Encounter Notes: All associated encounter notes This section contains the clinical notes associated to the Encounter. Date/Time Encounter Note(s) Provider Source Feb 21, 2024 04:15 PM NURSING PROGRESS N OTE: LOCAL TITLE: NURSING NOTE PB STANDARD TITLE: NURSING PROGRESS NOTE DATE OF NOTE: FEB 21, 2024@16:15 ENTRY DATE: FEB 21, 2024@16:15:39 AUTHOR: EMILIANA BROCK COSIGNER: URGENCY: STATUS: COMPLETED Blood Pressure: 128/76 Pulse: 68 Temperature: 97.7 F (36.5 C) Pulse Oximetry: 98% Active Outpatient Medications: Active Outpatient Medications (including Supplies): Active Outpatient Medications Status 1) AMITRIPTYLINE HCL 25MG TAB TAKE ONE TABLET BY MOUTH ACTIVE AT BEDTIME 2) BETAMETHASONE DIPROPIONATE 0.05% OINT APPLY A THIN ACTIVE LAYER TO LOWER LEGS TO AFFECTED AREA(S) TWICE A DAY (EXTERNAL USE ONLY) 3) CAPSAICIN 0.025% CREAM APPLY SPARINGLY TO AFFECTED ACTIVE AREA(S) FOUR TIMES A DAY NEEDED FOR PAIN. EXTERNAL USE ONLY. WASH HANDS AFTER APPLICATION. FOR NEUROPATHY FOOT PAIN 4) CARBIDOPA 25/LEVODOPA 100MG TAB TAKE 2 TABLETS BY ACTIVE (S) MOUTH THREE TIMES A DAY WITH MEALS 5) CHOLECALCIF 50MCG (D3-2,000UNIT) TAB TAKE TWO TABLETS ACTIVE (S) BY MOUTH ONCE A DAY FOR VITAMIN D DEFICIENCY 6) CLINDAMYCIN PHOSPHATE 1% TOP SOLN APPLY SPARINGLY TO ACTIVE AFFECTED AREA(S) TWICE A DAY TO PIMPLE BUMPS THEY ARISE UNTIL CLEAR 7) CYANOCOBALAMIN 1000MCG/ML INJ INJECT 1000MCG/1ML HOLD INTRAMUSCULARLY EVERY WEEK FOR 1 MONTH, THEN INJECT 100MCG/0.1ML EVERY MONTH 8) DONEPEZIL HCL 10MG TAB TAKE ONE-HALF TABLET BY MOUTH ACTIVE (S) AT BEDTIME FOR MEMORY (JUST BEFORE BEDTIME) 9) GABAPENTIN 100MG CAP TAKE ONE CAPSULE BY MOUTH THREE ACTIVE TIMES A DAY FOR PAIN 10) HYDROPHILIC (EQV EUCERIN) TOP CREAM APPLY SPARINGLY ACTIVE (S) TO AFFECTED AREA(S) ONCE A DAY FOR SKIN CARE (EXTERNAL USE ONLY) 11) HYDROXYZINE HCL 25MG TAB TAKE ONE TABLET BY MOUTH ACTIVE THREE TIMES A DAY NEEDED FOR ANXIETY *MAY CAUSE DROWSINESS* 12) LEVOTHYROXINE NA (SYNTHROID) 112MCG TAB TAKE ONE ACTIVE (S) TABLET BY MOUTH EVERY MORNING BEFORE A MEAL FOR THYROID. TAKE 30 MINUTES BEFORE FOOD. TAKE SEPARATELY FROM ALL OTHER MEDICATIONS. 13) LIDOCAINE 5% OINT APPLY SPARINGLY TO AFFECTED AREA(S) ACTIVE (S) TWICE DAILY NEEDED FOR PAIN 14) MENTHOL/M-SALICYLATE 10-15% TOP CREAM APPLY SPARINGLY ACTIVE (S) TO AFFECTED AREA(S) FOUR TIMES A DAY NEEDED (EXTERNAL USE ONLY) 15) METHOCARBAMOL 500MG TAB TAKE 1 TABLET BY MOUTH THREE ACTIVE TIMES A DAY NEEDED FOR MUSCLE SPASM 16) MULTIVITAMIN/MINERALS CAP/TAB TAKE 1 CAP/TAB BY MOUTH ACTIVE (S) ONCE A DAY FOR SUPPLEMENTATION. 17) ROSUVASTATIN CA 40MG TAB TAKE ONE-HALF TABLET BY ACTIVE (S) MOUTH EVERY EVENING TO LOWER CHOLESTEROL 18) TAMSULOSIN HCL 0.4MG CAP TAKE ONE CAPSULE BY MOUTH ACTIVE (S) EVERY EVENING APPROXIMATELY 30 MINUTES AFTER THE SAME MEAL EACH DAY (FOR PROSTATE) 19) TRIAMCINOLONE ACETONIDE 0.1% CREAM APPLY SPARINGLY TO ACTIVE (S) AFFECTED AREA(S) TWICE DAILY NEEDED FOR RASH. (EXTERNAL USE ONLY) LEFT LOWER EXTREMITY RASH Active Non-VA Medications Status 1) Non-VA ASPIRIN 81MG CHEW TAB 324MG BY MOUTH ONCE A ACTIVE DAY CC: presents to clinic for follow up ER visit over the weekend. Subjective: [place] states he had syncope on wednesday went to ER and was discharged to home. On Wednesday continued to feel dizzy and had to return to eR for low BP. BP reported as 76/54, and 78/52. Fluid resusitation in ER with improved BP and discharged to home. O/A: today is alert and oriented. Ambulated without any unsteadiness. No dizziness reported. BP on arrival 128/76 HR 78, and repeat after rest 122/74. Respirations easy and non-labored. Heart rate regular with no peripheral edema. No complaints today. Plan/ Intervention: Educated that dehydration can cause syncope. Educated about proper oral hydration. If dizziness noted encouraged to move slowly and increase fluids. 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 Instructed to monitor blood pressure twice daily over next 2-3 weeks and record. Follow up with nurse. If any complications arise such as syncope or extremely low bp, encouraged ER evaluation. RTC:As scheduled and as needed. Per [facility] Directive 1605.06, wristband documentation: Patient wristband was removed and destroyed by (staff name) Emiliana Brock and placed in the designated [employer] bin. /es/ EMILIANA POE, [facility] Signed: 02/21/2024 16:28 EMILIANA BROCK [facility] CBFABIO
--- OUTSIDE RECORDS SUMMARY | 2024-02-28 03:30 | XMS_ITS | Encounter Summary ---
Author Name [facility] Organization [facility] [place] Address [address] [place] [address] Care Team Providers Care Machine Printer Name Role Phone JULIAN MEMBRENO Primary Care [...] PART A Mar 24, 2005 PART A [id number] [phone] GEOVANNI,JOHNR ICK PATIENT MEDICARE (WNR) MEDICARE (M) PART B Mar 24, 2005 PART B [id number] GEOVANNI,PATR ICK PATIENT MEDICARE (WNR) MEDICARE (M) PART A Mar 24, 2005 PART A [id number] [phone] GEOVANNI,PATR ICK PATIENT MEDICARE (WNR) MEDICARE (M) PART B Mar 24, 2005 PART B [id number] GEOVANNI,PATR ICK PATIENT MEDICARE (WNR) MEDICARE (M) PART A Mar 24, 2005 PART A [id number] GEOVANNI,PATR ICK PATIENT MEDICARE (WNR) MEDICARE (M) PART B Mar 24, 2005 PART B [id number] GEOVANNI,PATR ICK PATIENT MEDICARE (WNR) MEDICARE (M) PART A Mar 24, 2005 PART A [id number] [phone] GEOVANNI,PATR ICK PATIENT MEDICARE (WNR) MEDICARE (M) PART B Mar 24, 2005 PART B [id number] GEOVANNI,PATR ICK PATIENT MEDICARE PART D (WNR) MEDICARE (M) PART D May 24, 2012 PART D [id number] GEOVANNI,PATR ICK PATIENT MEDICARE PART D (WNR) MEDICARE (M) PART D May 24, 2012 PART D [id number] GEOVANNI,JOHNR ICK PATIENT Selected Encounter This section includes the information on record at DC for the Encounter. Date/Time Encounter Type Encounter Description Reason Provider Source Feb 28, 2024 08:30 AM OFF/OP EST SEPTEMBER X REQ PHY/QHP PRIMARY CARE/MEDICINE ICD-10-CM J32.9 Chronic sinusitis, unspecified EMILIANA BROCK Deanne Encounter Template Text not used by DC Assessments - Encounter Diagnoses This section includes the primary and secondary diagnoses documented for the Encounter. Date/Time Primary/Secondary Diagnosis Diagnosis Name Provider Source Feb 28, 2024 02:06 PM PRIMARY Chronic sinusitis, unspecified EMILIANA BROCK [facility] Plan of Treatment: Future Appointments (+ 6 months) and Future Tests (+/- 45 days) The Plan of Treatment section includes future care activities for the patient from all DC treatmentfacilities. This section includes future appointments and future orders which are active, pending or scheduled. Future Appointments This section includes appointments that were scheduled to occur 6 months from the date of the Encounter, up to a maximum of 20 appointments. The data comes from all DC treatment facilities. Appointment Date/Time Appointment Type Appointme nt Facility Name Mar 07, 2024 08:15 AM AMBULATORY - MEDICINE [facility] Mar 10, 2024 09:45 AM AMBULATORY MEDICINE [facility] Mar 20, 2024 02:45 PM [facility] Mar 20, 2024 03:00 PM [facility] Mar 29, 2024 03:00 PM [facility] Mar 29, 2024 03:01 PM [facility] Apr 17, 2024 08:30 AM AM[facility]UL[facility] - MEDICINE [facility] Apr 18, 2024 12:00 PM [place] - [place]IC[place] [facility] Apr 24, 2024 09:00 AM AMBULATORY - NONE [place] [facility] May 01, 2024 08:45 AM AMBULATORY - MEDIC[place] [facility] Jun 11, 2024 08:00 AM AMBULATORY - NONE [place] [facility] Jun 13, 2024 09:15 AM AMBULATORY - MEDICINE [facility] Jun 16, 2024 09:40 AM AMBULATORY - MEDIC[place] [facility] Jul 05, 2024 12:30 PM AMBULATORY - MEDICINE [facility] Jul 05, 2024 12:32 PM AMBULATORY - MEDICINE [place] [facility] Jul 11, 2024 10:15 AM AMBULATORY - MEDICINE [place] [facility] Jul 11, 2024 02:45 PM AMBULATORY - MEDICINE [place] [facility] Jul 18, 2024 11:15 AM AMBULATORY - MEDICINE [place] [facility] Jul 20, 2024 09:45 AM AMBULATORY - MEDICINE [facility] Jul 20, 2024 10:30 AM AMBULATORY - MEDICINE [facility] Lab Results: +/- 30 days of the encounter This section includes the Chemistry and Hematology Lab Results on record with DC for the patient. Radiology Reports and Pathology Reports are provided separately, in subsequent sections. Lab Results This section contains the Chemistry/Hematology Results that were resulted 30 days before or 30 daysafter the date of the Encounter. Date/Time Source Result Type Result - Unit Interpretation Reference Range Specimen Type Comment Mar 20, 2024 04:11 PM [facility] LYME DISEASE AB (MA-PB) SERUM Specimen Type: [...] Lyme disease test report issued by a [place] laboratory: Patients undergoing a Lyme disease test should be aware that Lyme disease tests vary and may produce results that are inaccurate. This means a patient may not be able to rely on a positive or negative result. Health care providers are encouraged to discuss Lyme disease test results with the patient for whom the test was ordered. Test Performed by [facility], [facility], [address] [place] [address] Shawn Purcell M.D., Ph.D., Director of Laboratories , [place] [id number] Ordering Provider: JOSE SUMMERS Report Released Date/Time: Mar 20, 2024 03:45 PM Reporting Lab: [place] [facility] [address] [place] [address] Performing Lab: [place] [id number] [facility] LYME DISEASE AB (MA-PB) <0.90 {index} SE E BELOW Mar 20, 2024 03:51 PM [facility] TSH (MA-PB) SERUM Specimen Typ e: SERUM No comment entered. Ordering Provider: JULIAN MEMBRENO Report Released Date/Time: Sep 13, 2023 02:23 PM Reporting Lab: [place] [facility] [address] [place] [address] Performing Lab: [place] [facility] [address] [place] [address] TSH 1.746 u[IU]/mL 0.47-5 Mar 20, 2024 03:51 PM [facility] CHOLESTEROL PANEL (PB) PLASMA Specimen Type: P JHONATAN Comment: LDL calculation invalid when Triglyceride exceeds 250 mg/dl Ordering Provider: JULIAN MEMBRENO Report Released Date/Time: Sep 13, 2023 02:23 PM Reporting Lab: [place] [facility] [address] [place] [address] Performing Lab: [place] [facility] [address] [place] [address] CHOLESTEROL 127 mg/dL 0-200 TRIGLYCERIDE 264 mg/dL H 0-150 CALCULATED LDL comment mg/dL HDL(New) 48.0 mg/dL H >40 HDL % OF TOTAL CHOLESTEROL (PB) 37.8 >25 DIRECT LDL(MA) 45.2 mg/dL 0-99.9 Mar 20, 2024 03:51 PM [facility] COMPREHENSIVE METABOLIC PANEL PLASMA Specimen Type: PLASMA Comment: LDL calculation invalid when Triglyceride exceeds 250 mg/dl Ordering Provider: JULIAN MEMBRENO Report Released Date/Time: Sep 13, 2023 02:24 PM Reporting Lab: [place] [facility] [address] [place] [address] Performing Lab: [place] [facility] [address] [place] [address] CREATININE 1.21 mg/dL 0.7-1.3 UREA NITROGEN 18 [...] 2020) 59 Mar 20, 2024 03:51 PM [facility] CBC BLOOD Specimen Type: BLOOD No comment entered. Ordering Provider: JULIAN MEMBRENO Report Released Date/Time: Sep 13, 2023 02:24 PM Reporting Lab: [place] [facility] [address] [place] [address] Performing Lab: [place] [facility] [address] [place] [address] WBC 6.6 10*3/uL 3.6-11.2 RBC 4.30 10*6/uL [...] 0. 00-0.05 Mar 20, 2024 03:51 PM [facility] EUYCYVNZB-QVAPU-0,3-GALACTOSE IGE SERUM Speci men Type: SERUM Comment: REFERENCE RANGE: <0.10 kU/L Results above 0.1 kU/L indicate an allergen-specific IgE sensitization to vrifvrsoa-k-1,3-galactose, and such patients are at risk for [...] method. Additional information can be found at [email or web address] Test performed by [facility] [address] [place] [address] Tile Helper: Aspen Galvan MD,PHD,CHRISTIANO Test Reported by [facility], [address] [place] [address] Shawn Purcell M.D., Ph.D., Director of Laboratories , [place] [id number] Ordering Provider: JOSE SUMMERS Report Released Date/Time: Mar 20, 2024 03:45 PM Reporting [facility]: [facility] [address] [facility] [address] Performing Lab: [place] [facility] [id number] [facility] JTGLGOBRZ-YHSSP-3,3-GALACTOSE IGE <0.10 kU/L SEE BELOW Mar 20, 2024 03:51 PM [facility] EHRLICHIA AB PANEL (PB-MA) SERUM Specimen Typ [...] analytical performance characteristics have been determined by [place]. It has not been cleared or approved by the U.S. Food and Drug Administration. This assay has been validated pursuant to the CLIA regulations and is used for clinical purposes. Test Performed by [facility] [place], [facility] [place], [address] [place] [address] Shawn Purcell M.D., Ph.D., Director of Laboratories , CLIA [id number] Ordering Provider: JOSE SUMMERS Report Released Date/Time: Mar 20, 2024 03:45 PM Reporting Lab: [place] [facility] [address] [place] [address] Performing Lab: [place] [facility] [address] EHRLICHIA CHAF.IGG <1:64 SEE BELOW EHRLICHIA CHAF.IGM <1:20 SEE BELOW EHRLICHIA AB INTERPRETATION SEE NOTE EHRLICHIA AB COMMENT SEE NOTE Mar 20, 2024 03:51 PM [facility] RMSF AB IGG,IGM (PB-MA) SERUM Specimen Type: SERUM Comment: Test Performed by [facility], [employer] [facility], [address] [place] [address] Shawn Purcell M.D., Ph.D., Director of Laboratories , CLIA [id number] Ordering Provider: JOSE SUMMERS Report Released Date/Time: Mar 20, 2024 03:45 PM Reporting Lab: [place] [facility] [address] [address] Performing Lab: [place] [address] RMSF IGG (PB Not Detected Not Detected RMSF IGM (PB Not Detected Not Detected Mar 20, 2024 03:51 PM [facility] BABESIA MICROTI AB IGG,IGM (PB) SERUM Specime [...] analytical performance characteristics have been determined by [employer] [place]. It has not been cleared or approved by the U.S. Food and Drug Administration. This assay has been validated pursuant to the CLIA regulations and is used for clinical purposes. Test Performed by [facility], [employer] [facility], [address] [place] [address] Shawn Purcell M.D., Ph.D., Director of Laboratories , [place] [id number] Ordering Provider: JOSE SUMMERS Report Released Date/Time: Mar 20, 2024 03:45 PM Reporting Lab: [place] [facility] [address] [facility] [place] [facility] [address] Performing Lab: [facility] [place] [id number] [facility] BABESIA MICROTI IGG (PB) <1:64 SEE [facility] BABESIA MICROTI IGM (PB) <1:20 SEE [facility] OW Mar 20, 2024 03:51 PM [facility] BASIC METABOLIC PANEL PLASMA Specimen Type: PL ASMA No comment entered. Ordering Provider: JOSE SUMMERS Report Released Date/Time: Mar 20, 2024 03:45 PM Reporting Lab: [place] [facility] [address] [facility] [place] [facility] [address] Performing Lab: [place] [facility] [address] [place] [address] CREATININE 1.23 mg/dL 0.7-1.3 UREA NITROGEN 18 mg/dL 9-25 GLUCOSE 101 mg/dL H 72-99 SODIUM 138 meq/L 136-145 POTASSIUM 4.6 meq/L 3.5-5 CHLORIDE 104 meq/L 98-107 CARBON DIOXIDE 25 meq/L 22-31 CALCIUM 9.4 mg/dL 8.4-10.4 EGFR (CKD-EPI 2020) 58 Mar 20, 2024 03:51 PM [facility] CBC BLOOD Specimen Type: BLOOD No comment entered. Ordering Provider: JOSE SUMMERS Report Released Date/Time: Mar 20, 2024 03:45 PM Reporting Lab: [place] [facility] [address] [address] Performing Lab: [place] [facility] [address] [place] [address] WBC 6.4 10*3/uL 3.6-11.2 RBC 4.32 10*6/uL [...] Height Weight Body Mass Index Source Feb 28, 2024 01:49 PM 98 82 111/72 [facility] Social History: Smoking Status (Most current) and Tobacco Use (All prior to encounter date) This section includes the most current, and the historical, smoking and tobacco- related health factors from the DC facility where the Encounter took place. Current Smoking Status This section includes the most current smoking, or tobacco-related health factor, from the DC facility where the Encounter took place. Date/Time Current Smoking Status Comment Francois osorio Sep 09, 2023 12:30 PM VA-TOBACCO FORMER USER [facility] Tobacco Use History This section includes a history of the smoking, or tobacco-related health factors, that were collected on or before the date of the Encounter. The data comes from the DC facility where the Encounter took place. Date/Time Smoking Status/Tobacco Use Comment Bushra acronny Sep 09, 2023 12:30 PM VA-TOBACCO QUIT 15 YRS OR MORE [facility] Sep 10, 2022 08:30 AM VA-TOBACCO FORMER USER [facility] Sep 10, 2022 08:30 AM VA-TOBACCO QUIT 15 YRS OR MORE [facility] Jun 23, 2021 08:30 AM VA-TOBACCO FORMER USER [facility] Jun 23, 2021 08:30 AM VA-TOBACCO QUIT 15 YRS OR MORE [facility] 2020 08:30 AM VA-TOBACCO FORMER USER [facility] 2020 08:30 AM VA-TOBACCO QUIT 15 YRS OR MORE [facility] Mar 15, 2019 09:37 AM CURRENT NON-TOBACCO USER-HX OF [facility] Nov 16, 2018 09:33 AM VA-TOBACCO FORMER USER [facility] Nov 16, 2018 09:33 AM VA-TOBACCO QUIT 15 YRS OR MORE [facility] Feb 18, 2018 09:46 AM CURRENT NON-TOBACCO USER-HX OF [facility] Nov 23, 2007 09:17 AM QUIT TOBACCO >7 YEARS AGO [facility] Jun 21, 2007 09:21 AM QUIT TOBACCO >7 YEARS AGO [facility] Aug 24, 2005 08:27 AM CURRENT NON-TOBACCO USER-HX OF [facility] Feb 23, 2005 11:20 AM CURRENT NON-TOBACCO USER-HX OF [facility] Jun 26, 2004 01:01 PM CURRENT NON-TOBACCO USER-HX OF [facility] Advance Directives: All historical and current Section Date Range: From patient's date of to the date document was created. This section includes ALL of a patient's completed or amended [place] Advance and Rescinded Directives. The entries below indicate that a directive exists for the patient, but an actual copy is not included with this document. The data comes from all DC facilities. Date Advance Directives Provider Source Dec 19, 2024 ADVANCE DIRECTIVE BERUMEN,TY JAMES FF [place] [facility] Encounter Notes: All associated encounter notes This section contains the clinical notes associated to the Encounter. Date/Time Encounter Note(s) Provider Source Feb 28, 2024 01:49 PM NURSING PROGRESS N OTE: LOCAL TITLE: NURSING NOTE PB STANDARD TITLE: NURSING PROGRESS NOTE DATE OF NOTE: FEB 28, 2024@13:49 ENTRY DATE: FEB 28, 2024@13:49:24 AUTHOR: EMILIANA BROCK EXP COSIGNER: URGENCY: STATUS: COMPLETED Blood Pressure: 111/72 Pulse: 82 Temperature: 98 F (36.7 C) Pulse Oximetry: 95% Active Outpatient Medications: Active Outpatient Medications (including Supplies): Active Outpatient Medications Status 1) AMITRIPTYLINE HCL 25MG TAB TAKE ONE TABLET BY MOUTH ACTIVE AT BEDTIME 2) BETAMETHASONE DIPROPIONATE 0.05% OINT APPLY A THIN ACTIVE LAYER TO LOWER LEGS TO AFFECTED AREA(S) TWICE A DAY (EXTERNAL USE ONLY) 3) CARBIDOPA 25/LEVODOPA 100MG TAB TAKE 2 TABLETS BY ACTIVE (S) MOUTH THREE TIMES A DAY WITH MEALS. TAKE WITH FOOD. 4) CHOLECALCIF 50MCG (D3-2,000UNIT) TAB TAKE TWO TABLETS ACTIVE (S) BY MOUTH ONCE A DAY FOR VITAMIN D DEFICIENCY 5) CLINDAMYCIN PHOSPHATE 1% TOP SOLN APPLY SPARINGLY TO ACTIVE AFFECTED AREA(S) TWICE A DAY TO PIMPLE BUMPS THEY ARISE UNTIL CLEAR 6) CYANOCOBALAMIN 1000MCG/ML INJ INJECT 1000MCG/1ML HOLD INTRAMUSCULARLY EVERY WEEK FOR 1 MONTH, THEN INJECT 100MCG/0.1ML EVERY MONTH 7) DONEPEZIL HCL 10MG TAB TAKE ONE-HALF TABLET BY MOUTH ACTIVE AT BEDTIME FOR MEMORY (JUST BEFORE BEDTIME) 8) FLUTICASONE PROP 50MCG 120D NASAL INHL INSTILL 1 ACTIVE (S) SPRAY IN NOSTRIL(S) ONCE A DAY FOR CHRONIC RHINOSINUSITIS (MUST BE USED DIRECTED FOR MINIMUM OF 21 DAYS TO PROVIDE ADEQUATE BENEFITS) 9) GALANTAMINE HYDROBROMIDE 4MG TAB TAKE ONE TABLET BY ACTIVE MOUTH TWICE A DAY WITH MEALS . TAKE MORNING AND EVENING WITH FOOD AND WATER. 10) HYDROPHILIC (EQV EUCERIN) TOP CREAM APPLY [...] ACETONIDE 0.1% CREAM APPLY SPARINGLY TO ACTIVE AFFECTED AREA(S) TWICE DAILY NEEDED FOR RASH. (EXTERNAL USE ONLY) LEFT LOWER EXTREMITY RASH Active Non-VA Medications Status 1) Non-VA ASPIRIN 81MG CHEW TAB 324MG BY MOUTH ONCE A ACTIVE DAY CC: [employer] presents to walk in clinic for sinus issues. Subjective: presents stating for greater than 1 week he has been having sinus congestion, fevers, and malaise unrelieved by OTC cold medications, allergy medication, and use of mucinex. O/A: is alert and oriented. Eyes are clear with no redness, swelling, or drainage. Otoscope used to visualize ear canals. No redness, swelling, or bulging of Tympanic membrane noted. Throat red with no pustules or swelling. Respirations easy and non-labored. Lungs are clear with no abnormal sounds. Dry cough. Plan/ Intervention: Discussed with PACT PCP. Probable sinusitis unrelieved by OTC treatment. New prescription today for doxycycline 100mg po BID x 7 days. Immediate need call made and form hand delivered to to present to pharmacy. Also to take flonase nasal spray 1 spray each nostril daily. reports understanding. RTC: As scheduled and as needed. Per [facility] Directive 1605.06, wristband documentation: Patient wristband was removed and destroyed by (staff name) Emiliana Brock RN and placed in the designated [employer] bin. /es/ EMILIANA BROCK [facility], [facility] Signed: 02/28/2024 14:05 Receipt Acknowledged By: 02/28/2024 16:22 /es/ EMILIANA CARDENAS MD [facility] [place] CBFABIO
--- OUTSIDE RECORDS SUMMARY | 2024-03-07 03:15 | XMS_ITS | Encounter Summary ---
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 Name Role Phone JULIAN MEMBRENO Primary Care [...] PART A Mar 24, 2005 PART A [id number] [phone] GEOVANNI,JOHNR ICK PATIENT MEDICARE (WNR) MEDICARE (M) PART B Mar 24, 2005 PART B [id number] GEOVANNI,PATR ICK PATIENT MEDICARE (WNR) MEDICARE (M) PART A Mar 24, 2005 PART A [id number] GEOVANNI,PATR ICK PATIENT MEDICARE (WNR) MEDICARE (M) PART B Mar 24, 2005 PART B [id number] [phone] GEOVANNI,PATR ICK PATIENT MEDICARE (WNR) MEDICARE (M) PART A Mar 24, 2005 PART A [id number] [phone] GEOVANNI,PATR ICK PATIENT MEDICARE (WNR) MEDICARE (M) PART B Mar 24, 2005 PART B [id number] GEOVANNI,PATR ICK PATIENT MEDICARE (WNR) MEDICARE (M) PART A Mar 24, 2005 PART A [id number] GEOVANNI,PATR ICK PATIENT MEDICARE (WNR) MEDICARE (M) PART B Mar 24, 2005 PART B [id number] GEOVANNI,PATR ICK PATIENT MEDICARE PART D (WNR) MEDICARE (M) PART D May 24, 2012 PART D [id number] GEOVANNI,PATR ICK PATIENT MEDICARE PART D (WNR) MEDICARE (M) PART D May 24, 2012 PART D [id number] GEOVANNI,JOHNR ICK PATIENT Selected Encounter This section includes the information on record at [place] for the Encounter. Date/Time Encounter Type Encounter Description Reason Provider Source Mar 07, 2024 08:15 AM OFF/OP EST SEPTEMBER X REQ PHY/QHP PRIMARY CARE/MEDICINE ICD-10-CM I10 Essential (primary) hypertension LUCINA RIVERA [facility] Encounter Template Text not used by [place] Assessments - Encounter Diagnoses This section includes the primary and secondary diagnoses documented for the Encounter. Date/Time Primary/Secondary Diagnosis Diagnosis Name Provider Source Apr 04, 2024 11:08 AM PRIMARY Essential (primary) hypertension FRANK RIVERA [facility] Apr 04, 2024 11:08 AM SECONDARY Encounter for immunization FRANK RIVERA [facility] Plan of Treatment: Future Appointments (+ 6 months) and Future Tests (+/- 45 days) The Plan of Treatment section includes future care activities for the patient from all [place] treatmentfacilities. This section includes future appointments and future orders which are active, pending or scheduled. Future Appointments This section includes appointments that were scheduled to occur 6 months from the date of the Encounter, up to a maximum of 20 appointments. The data comes from all [place] treatment facilities. Appointment Date/Time Appointment Type Appointme nt Facility Name Mar 10, 2024 09:45 AM AMBULATORY - MEDICINE [facility] Mar 20, 2024 02:45 PM AMBULATORY - MEDICINE [facility] Mar 20, 2024 03:00 PM AMBULATORY - MEDICINE [facility] Mar 29, 2024 03:00 PM [facility] [place] [facility] [facility] Mar 29, 2024 03:01 PM [facility] [place] [facility] [place] [facility] Apr 17, 2024 08:30 AM AMBULATORY - MEDICINE [facility] Apr 18, 2024 12:00 PM [facility]UL[facility] - [place]IC[place] [facility] Apr 24, 2024 09:00 AM AMBULATORY - NONE [place] [facility] May 01, 2024 08:45 AM AMBULATORY - MEDICINE [place] [facility] Jun 11, 2024 08:00 AM AMBULATORY - NONE [place] [facility] Jun 13, 2024 09:15 AM AMBULATORY - MEDICINE [facility] Jun 16, 2024 09:40 AM AMBULATORY - MEDICINE [place] [facility] Jul 05, 2024 12:30 PM AMBULATORY - MEDICINE [facility] Jul 05, 2024 12:32 PM AMBULATORY - MEDICINE [place] [facility] Jul 11, 2024 10:15 AM AMBULATORY - MEDICINE [place] [facility] Jul 11, 2024 02:45 PM AMBULATORY - MEDICINE [place] [facility] Jul 18, 2024 11:15 AM AMBULATORY - MEDICINE [place] [facility] Jul 20, 2024 09:45 AM AMBULATORY - MEDICINE [facility] Jul 20, 2024 10:30 AM AMBULATORY - MEDICINE [facility] Jul 20, 2024 10:32 AM AMBULATORY - [place]ICINE [place] [facility] Lab Results: +/- 30 days of the encounter This section includes the Chemistry and Hematology Lab Results on record with [place] for the patient. Radiology Reports and Pathology Reports are provided separately, in subsequent sections. Lab Results This section contains the Chemistry/Hematology Results that were resulted 30 days before or 30 daysafter the date of the Encounter. Date/Time Source Result Type Result - Unit Interpretation Reference Range Specimen Type Comment Mar 20, 2024 04:11 PM [facility] LYME DISEASE AB (MA-PB) SERUM Specimen [...] Lyme disease test report issued by a [place] laboratory: Patients undergoing a Lyme disease test should be aware that Lyme disease tests vary and may produce results that are inaccurate. This means a patient may not be able to rely on a positive or negative result. Health care providers are encouraged to discuss Lyme disease test results with the patient for whom the test was ordered. Test Performed by [employer], [facility]OR[facility], [address] [place] [address] Shawn Purcell M.D., Ph.D., Director of [employer] , [facility] [id number] Ordering Provider: JOSE SUMMERS Report Released Date/Time: Mar 20, 2024 03:45 PM Reporting Lab: [place] [facility] [address] [place] [address] Performing Lab: [place] [id number] [facility] LYME DISEASE AB (MA-PB) <0.90 {index} SE E BELOW Mar 20, 2024 03:51 PM [facility] TSH (MA-PB) SERUM Specimen Typ e: SERUM No comment entered. Ordering Provider: JULIAN MEMBRENO Report Released Date/Time: Sep 13, 2023 02:23 PM Reporting Lab: [place] [facility] [address] [place] [address] Performing Lab: [place] [facility] [address] [place] [address] TSH 1.746 u[IU]/mL 0.47-5 Mar 20, 2024 03:51 PM [facility] CHOLESTEROL PANEL (PB) PLASMA Specimen Type: P JHONATAN Comment: LDL calculation invalid when Triglyceride exceeds 250 mg/dl Ordering Provider: JULIAN MEMBRENO Report Released Date/Time: Sep 13, 2023 02:23 PM Reporting Lab: [place] [facility] [address] [place] [address] Performing Lab: [place] [facility] [address] [place] [address] CHOLESTEROL 127 mg/dL 0-200 TRIGLYCERIDE 264 mg/dL H 0-150 CALCULATED LDL comment mg/dL HDL(New) 48.0 mg/dL H >40 HDL % OF TOTAL CHOLESTEROL (PB) 37.8 >25 DIRECT LDL(MA) 45.2 mg/dL 0-99.9 Mar 20, 2024 03:51 PM [facility] COMPREHENSIVE METABOLIC PANEL PLASMA Specimen Type: PLASMA Comment: LDL calculation invalid when Triglyceride exceeds 250 mg/dl Ordering Provider: JULIAN MEMBRENO Report Released Date/Time: Sep 13, 2023 02:24 PM Reporting Lab: [place] [facility] [address] [place] [address] Performing Lab: [place] [facility] [address] [place] [address] CREATININE 1.21 mg/dL 0.7-1.3 UREA NITROGEN 18 [...] 2020) 59 Mar 20, 2024 03:51 PM [facility] CBC BLOOD Specimen Type: BLOOD No comment entered. Ordering Provider: JULIAN MEMBRENO Report Released Date/Time: Sep 13, 2023 02:24 PM Reporting Lab: [place] [facility] [address] [place] [address] Performing Lab: [place] [facility] [address] [place] [address] WBC 6.6 10*3/uL 3.6-11.2 RBC 4.30 10*6/uL [...] 0. 00-0.05 Mar 20, 2024 03:51 PM [facility] AHFSCRKWJ-XJMZK-9,3-GALACTOSE IGE SERUM Speci men Type: SERUM Comment: REFERENCE RANGE: <0.10 kU/L Results above 0.1 kU/L indicate an allergen-specific IgE sensitization to nfestwlqf-d-5,3-galactose, and such patients are at risk for [...] method. Additional information can be found at [email or web address] Test performed by [employer] [place] [address] [place] [address] Social Media Designer: Aspen Galvan MD,PHD,CHRISTIANO Test Reported by [facility], TORCH.[facility], [address] [place], [place] Shawn Purcell M.D., Ph.D., Director of Laboratories , CLIA [id number] Ordering Provider: JOSE SUMMERS Report Released Date/Time: Mar 20, 2024 03:45 PM Reporting Lab[facility] [address] [facility] [place] [facility] [address] Performing Lab: [place] [facility] [address] [facility] ATPPMDPLO-RIJJC-7,3-GALACTOSE IGE <0.10 kU/L SEE BELOW Mar 20, 2024 03:51 PM [facility] EHRLICHIA AB PANEL (PB-MA) SERUM Specimen [...] analytical performance characteristics have been determined by [place]. It has not been cleared or approved by the U.S. Food and Drug Administration. This assay has been validated pursuant to the CLIA regulations and is used for clinical purposes. Test Performed by [employer] [facility], [address] [place] [address] Shawn Purcell M.D., Ph.D., Director of Laboratories , CLIA [id number] Ordering Provider: JOSE SUMMERS Report Released Date/Time: Mar 20, 2024 03:45 PM Reporting Lab: [place] [facility] [address] [place] [address] Performing Lab: [place] [address] EHRLICHIA CHAF.IGG <1:64 SEE BELOW EHRLICHIA CHAF.IGM <1:20 SEE BELOW EHRLICHIA AB INTERPRETATION SEE NOTE EHRLICHIA AB COMMENT SEE NOTE Mar 20, 2024 03:51 PM [facility] RMSF AB IGG,IGM (PB-MA) SERUM Specimen Type: SERUM Comment: Test Performed by [employer] [facility], [address] [place] [address] Shawn Purcell M.D., Ph.D., Director of Laboratories , CLIA [id number] Ordering Provider: JOSE SUMMERS Report Released Date/Time: Mar 20, 2024 03:45 PM Reporting Lab: [place] [facility] [address] [place] [address] Performing Lab: [place] [address] RMSF IGG (PB Not Detected Not Detected RMSF IGM (PB Not Detected Not Detected Mar 20, 2024 03:51 PM [facility] BABESIA MICROTI AB IGG,IGM (PB) [...] analytical performance characteristics have been determined by [employer] [place], [place]. It has not been cleared or approved by the U.S. Food and Drug Administration. This assay has been validated pursuant to the CLIA regulations and is used for clinical purposes. Test Performed by [facility], [facility], [address] [place] [address] Shawn Purcell M.D., Ph.D., Director of Laboratories , CLIA [id number] Ordering Provider: JOSE SUMMERS Report Released Date/Time: Mar 20, 2024 03:45 PM Reporting Lab: [place] [facility] [address] [facility] [place] [facility] [address] Performing Lab: [place] [facility] [address] [facility] BABESIA MICROTI IGG (PB) <1:64 SEE [facility] BABESIA MICROTI IGM (PB) <1:20 SEE [facility] Mar 20, 2024 03:51 PM [facility] BASIC METABOLIC PANEL PLASMA Specimen Type: PL ASMA No comment entered. Ordering Provider: JOSE SUMMERS Report Released Date/Time: Mar 20, 2024 03:45 PM Reporting Lab: [place] [facility] [address] [facility] [place] [facility] [address] Performing Lab: [place] [facility] [address] [facility] [address] CREATININE 1.23 mg/dL 0.7-1.3 UREA NITROGEN 18 mg/dL 9-25 GLUCOSE 101 mg/dL H 72-99 SODIUM 138 meq/L 136-145 POTASSIUM 4.6 meq/L 3.5-5 CHLORIDE 104 meq/L 98-107 CARBON DIOXIDE 25 meq/L 22-31 CALCIUM 9.4 mg/dL 8.4-10.4 EGFR (CKD-EPI 2020) 58 Mar 20, 2024 03:51 PM [facility] CBC BLOOD Specimen Type: BLOOD No comment entered. Ordering Provider: JOSE SUMMERS Report Released Date/Time: Mar 20, 2024 03:45 PM Reporting Lab: [place] [facility] [address] [place] [address] Performing Lab: [place] [facility] [address] [place] [facility] [address] WBC 6.4 10*3/uL 3.6-11.2 RBC 4.32 10*6/uL [...] Pain Height Weight Body Mass Index Source Mar 07, 2024 08:18 AM 97.7 78 110/69 18 99 0 67.0 197.5 31 [facility] Immunizations: All administered on the encounter date This section contains immunizations associated to the Encounter. Immunization Series Date Issued Administered By Site Reaction Lot Number CVX Code Drug Curator Herbarium Comment(s) Source INFLUENZA, SPLIT VIRUS, TRIVALENT, PF Mar 07, 2024 LUCINA RIVERA RIGHT DELTO ID [id number] SHANKARJhonny Garcia AT [facility] Social History: Smoking Status (Most current) and Tobacco Use (All prior to encounter date) This section includes the most current, and the historical, smoking and tobacco- related health factors from the [place] facility where the Encounter took place. Current Smoking Status This section includes the most current smoking, or tobacco-related health factor, from the [place] facility where the Encounter took place. Date/Time Current Smoking Status Comment Facil ity Sep 09, 2023 12:30 PM [place]-TOBACCO FORMER USER [facility] Tobacco Use History This section includes a history of the smoking, or tobacco-related health factors, that were collected on or before the date of the Encounter. The data comes from the [place] facility where the Encounter took place. Date/Time Smoking Status/Tobacco Use Comment F acility Sep 09, 2023 12:30 PM VA-TOBACCO QUIT 15 YRS OR MORE [facility] Sep 10, 2022 08:30 AM VA-TOBACCO FORMER USER [facility] Sep 10, 2022 08:30 AM VA-TOBACCO QUIT 15 YRS OR MORE [facility] Jun 23, 2021 08:30 AM VA-TOBACCO FORMER USER [facility] Jun 23, 2021 08:30 AM VA-TOBACCO QUIT 15 YRS OR MORE [facility] 2020 08:30 AM VA-TOBACCO FORMER USER [facility] 2020 08:30 AM VA-TOBACCO QUIT 15 YRS OR MORE [facility] Mar 15, 2019 09:37 AM CURRENT NON-TOBACCO USER-HX OF [facility] Nov 16, 2018 09:33 AM VA-TOBACCO FORMER USER [facility] Nov 16, 2018 09:33 AM VA-TOBACCO QUIT 15 YRS OR MORE [facility] Feb 18, 2018 09:46 AM CURRENT NON-TOBACCO USER-HX OF [facility] Nov 23, 2007 09:17 AM QUIT TOBACCO >7 YEARS AGO [facility] Jun 21, 2007 09:21 AM QUIT TOBACCO >7 YEARS AGO [facility] Aug 24, 2005 08:27 AM CURRENT NON-TOBACCO USER-HX OF [facility] Feb 23, 2005 11:20 AM CURRENT NON-TOBACCO USER-HX OF [facility] Jun 26, 2004 01:01 PM CURRENT NON-TOBACCO USER-HX OF [facility] Advance Directives: All historical and current Section Date Range: From patient's date of to the date document was created. This section includes ALL of a patient's completed or amended [place] Advance and Rescinded Directives. The entries below indicate that a directive exists for the patient, but an actual copy is not included with this document. The data comes from all [place] facilities. Date Advance Directives Provider Source Dec 19, 2024 ADVANCE DIRECTIVE TY BERUMEN FF [facility] Encounter Notes: All associated encounter notes This section contains the clinical notes associated to the Encounter. Date/Time Encounter Note(s) Provider Source Mar 07, 2024 05:33 PM NURSING PROGRESS N OTE: LOCAL TITLE: NURSING NOTE PB STANDARD TITLE: NURSING PROGRESS NOTE DATE OF NOTE: MAR 07, 2024@17:33 ENTRY DATE: MAR 07, 2024@17:33:41 AUTHOR: FRANK RIVERA EXP COSIGNER: URGENCY: STATUS: COMPLETED This is a 83 year old MALE with known Allergies as noted: PENICILLIN, INFLUENZA On the following Active Medications: Active Outpatient Medications (including Supplies): Active [...] 50MCG 120D NASAL INHL INSTILL 1 ACTIVE SPRAY IN NOSTRIL(S) ONCE A DAY FOR [...] 324MG BY MOUTH ONCE A ACTIVE DAY 20 Total Medications C/C: BP check S: [place] reports for scheduled BP check and present BP log. is not taking any BP medication at the present time. O/A: ambulated to exam room with unsteady gait and the assistance of a cane. alert and oriented x4 with unlabored breathing. [place]'s BP log reflects SBP 90-178 DBP 54-80 HR 61-80. V/S in clinic today 110/69 HR 78. Vital Signs: See above and cover sheet Weight: 177.5 pounds P: Advised [place] Provider would be alerted to this note and he would be notified of any further recommendations. advised if he is symptomatic to report to ER or if SBP is constantly low, below 110 to contact clinic or if SBP is above 140 to contact clinic. BP log placed in Provider box for review. voiced understanding and requested a flu vaccine to day. Vaccine administered without complications and [place] escorted to lobby in satisfactory condition. RTC: Advised to return to clinic as needed or report to ER if symptoms worsen. Influenza Immunization: Influenza, Trivalent, Preservative Free (Fluarix-Syringe) Administered: INFLUENZA, SPLIT VIRUS, TRIVALENT, PF Date Administered: Mar 07, 2024 08:15 Curator Herbarium: [email or web address] Lot: [id number] Exp Date: Nov 20, 2024 [facility]: [id number] Admin Route/Site: INTRAMUSCULAR/RIGHT DELTOID Dosage: 0.5mL Vaccine Information Statement(s): INFLUENZA(FLU) VACC(INACTIVATED OR RECOMBINANT)VIS Dec 27, 2020 (SYRIAN) Order By: Policy Administered By: Frank Rivera The Influenza Vaccine Information Statement (VIS) was reviewed with the patient/caregiver which lists the benefits and risks of the vaccine and the risks of not receiving the Influenza vaccine. The patient/caregiver denied any prior severe reaction to this vaccine or its components or a severe allergic reaction, such as anaphylaxis, to any vaccine or any injectable therapy. The patient/caregiver gave verbal consent to receive the vaccine. Per [facility] Directive 1605.06, wristband documentation: Patient wristband was removed and destroyed by (staff name) Frank Rivera and placed in the designated Work Inspireed-It bin. /es/ Frank Rivera RN BSN JUANITA GANDHIDECONCHIS [facility] Signed: 03/07/2024 17:47 Receipt Acknowledged By: 03/10/2024 08:31 /es/ FRANK DEWITT MD [facility]
--- OUTSIDE RECORDS SUMMARY | 2024-03-10 04:45 | XMS_ITS | Encounter Summary ---
Author Name [facility] Organization [facility] [place] Address [address] [place] [address] Care Team Providers Care Case Liner Name Role Phone NIRMALAJULIAN LONG Primary Care [...] PART A Mar 24, 2005 PART A [id number] GEOVANNI,JOHNR ICK PATIENT MEDICARE (WNR) MEDICARE (M) PART B Mar 24, 2005 PART B [id number] [phone] GEOVANNI,PATR ICK PATIENT MEDICARE (WNR) MEDICARE (M) PART B Mar 24, 2005 PART B [id number] GEOVANNI,PATR ICK PATIENT MEDICARE (WNR) MEDICARE (M) PART A Mar 24, 2005 PART A [id number] GEOVANNI,PATR ICK PATIENT MEDICARE (WNR) MEDICARE (M) PART A Mar 24, 2005 PART A [id number] GEOVANNI,PATR ICK PATIENT MEDICARE (WNR) MEDICARE (M) PART B Mar 24, 2005 PART B [id number] GEOVANNI,PATR ICK PATIENT MEDICARE (WNR) MEDICARE (M) PART A Mar 24, 2005 PART A [id number] GEOVANNI,PATR ICK PATIENT MEDICARE (WNR) MEDICARE (M) PART B Mar 24, 2005 PART B [id number] GEOVANNI,PATR ICK PATIENT MEDICARE PART D (WNR) MEDICARE (M) PART D May 24, 2012 PART D [id number] GEOVANNI,PATR ICK PATIENT MEDICARE PART D (WNR) MEDICARE (M) PART D May 24, 2012 PART D [id number] GEOVANNI,PATR ICK PATIENT Selected Encounter This section includes the information on record at [place] for the Encounter. Date/Time Encounter Type Encounter Description Reason Provider Source Mar 10, 2024 09:45 AM OFF/OP EST SEPTEMBER X REQ PHY/QHP PRIMARY CARE/MEDICINE ICD-10-CM H61.23 Impacted cerumen, bilateral CUSTRED,EMILIANA J IHE Encounter Template Text not used by [place] Assessments - Encounter Diagnoses This section includes the primary and secondary diagnoses documented for the Encounter. Date/Time Primary/Secondary Diagnosis Diagnosis Name Provider Source Mar 10, 2024 03:08 PM PRIMARY Impacted cerumen, bilateral CUSTRED,EMILIANA J [facility] Plan of Treatment: Future Appointments (+ 6 months) and Future Tests (+/- 45 days) The Plan of Treatment section includes future care activities for the patient from all [place] treatmentfacilities. This section includes future appointments and future orders which are active, pending or scheduled. Future Appointments This section includes appointments that were scheduled to occur 6 months from the date of the Encounter, up to a maximum of 20 appointments. The data comes from all [place] treatment facilities. Appointment Date/Time Appointment Type Appointme nt Facility Name Mar 20, 2024 02:45 PM AMBULATORY - MEDICINE [facility] Mar 20, 2024 03:00 PM AMBULATORY - MEDICINE [facility] Mar 29, 2024 03:00 PM [facility]IC[facility] [place] [facility] Mar 29, 2024 03:01 PM [facility] [facility] Apr 17, 2024 08:30 AM AMBULATORY - MEDICINE [facility] Apr 18, 2024 12:00 PM [facility] - [place]IC[place] [facility] Apr 24, 2024 09:00 AM AMBULATORY - NONE [place] [facility] May 01, 2024 08:45 AM AMBULATORY - MEDICINE [place] [facility] Jun 11, 2024 08:00 AM AMBULATORY - NONE [place] [facility] Jun 13, 2024 09:15 AM AMBULATORY - MEDICINE [facility] Jun 16, 2024 09:40 AM [facility]AT[facility] - MEDIC[place] [facility] Jul 05, 2024 12:30 PM AMBULATORY - MEDICINE [facility] Jul 05, 2024 12:32 PM [facility]ATORY - MEDICINE [place] [facility] Jul 11, 2024 10:15 AM AMBULATORY - MEDICINE [place] [facility] Jul 11, 2024 02:45 PM AMBULATORY - MEDICINE [place] [facility] Jul 18, 2024 11:15 AM AMBULATORY - MEDICINE [place] [facility] Jul 20, 2024 09:45 AM AMBULATORY - MEDICINE [facility] Jul 20, 2024 10:30 AM AMBULATORY - MEDICINE [facility] Jul 20, 2024 10:32 AM AM[facility]ATORY - MEDICINE [place] [facility] Aug 01, 2024 02:30 PM [facility]ORY - [place]IC[place] [facility] Lab Results: +/- 30 days of the encounter This section includes the Chemistry and Hematology Lab Results on record with AL for the patient. Radiology Reports and Pathology Reports are provided separately, in subsequent sections. Lab Results This section contains the Chemistry/Hematology Results that were resulted 30 days before or 30 daysafter the date of the Encounter. Date/Time Source Result Type Result - Unit Interpretation Reference Range Specimen Type Comment Mar 20, 2024 04:11 PM [facility] LYME DISEASE AB (MA-PB) SERUM Specimen [...] Lyme disease test report issued by a [place] laboratory: Patients undergoing a Lyme disease test should be aware that Lyme disease tests vary and may produce results that are inaccurate. This means a patient may not be able to rely on a positive or negative result. Health care providers are encouraged to discuss Lyme disease test results with the patient for whom the test was ordered. Test Performed by [facility], [facility], [address] [place] [address] Shawn Purcell M.D., Ph.D., Director of Laboratories , [facility] [id number] Ordering Provider: JOSE SUMMERS Report Released Date/Time: Mar 20, 2024 03:45 PM Reporting Lab: [place] [facility] [address] [place] [address] Performing Lab: [place] [id number] [facility] LYME DISEASE AB (MA-PB) <0.90 {index} SE E BELOW Mar 20, 2024 03:51 PM [facility] TSH (MA-PB) SERUM Specimen Typ e: SERUM No comment entered. Ordering Provider: JULIAN MEMBRENO Report Released Date/Time: Sep 13, 2023 02:23 PM Reporting Lab: [place] [facility] [address] [place] [address] Performing Lab: [place] [facility] [address] [place] [address] TSH 1.746 u[IU]/mL 0.47-5 Mar 20, 2024 03:51 PM [facility] CHOLESTEROL PANEL (PB) PLASMA Specimen Type: P JHONATAN Comment: LDL calculation invalid when Triglyceride exceeds 250 mg/dl Ordering Provider: JULIAN MEMBRENO Report Released Date/Time: Sep 13, 2023 02:23 PM Reporting Lab: [place] [facility] [address] [place] [address] Performing Lab: [place] [facility] [address] [place] [address] CHOLESTEROL 127 mg/dL 0-200 TRIGLYCERIDE 264 mg/dL H 0-150 CALCULATED LDL comment mg/dL HDL(New) 48.0 mg/dL H >40 HDL % OF TOTAL CHOLESTEROL (PB) 37.8 >25 DIRECT LDL(MA) 45.2 mg/dL 0-99.9 Mar 20, 2024 03:51 PM [facility] COMPREHENSIVE METABOLIC PANEL PLASMA Specimen Type: PLASMA Comment: LDL calculation invalid when Triglyceride exceeds 250 mg/dl Ordering Provider: JULIAN MEMBRENO Report Released Date/Time: Sep 13, 2023 02:24 PM Reporting Lab: [place] [facility] [address] [place] [address] Performing Lab: [place] [facility] [address] [place] [address] CREATININE 1.21 mg/dL 0.7-1.3 UREA NITROGEN 18 [...] 2020) 59 Mar 20, 2024 03:51 PM [facility] CBC BLOOD Specimen Type: BLOOD No comment entered. Ordering Provider: JULIAN MEMBRENO Report Released Date/Time: Sep 13, 2023 02:24 PM Reporting Lab: [place] [facility] [address] [place] [address] Performing Lab: [place] [facility] [address] [place] [address] WBC 6.6 10*3/uL 3.6-11.2 RBC 4.30 10*6/uL [...] 0. 00-0.05 Mar 20, 2024 03:51 PM [facility] NRKXRQCAL-NNPHV-2,3-GALACTOSE IGE SERUM Speci men Type: SERUM Comment: REFERENCE RANGE: <0.10 kU/L Results above 0.1 kU/L indicate an allergen-specific IgE sensitization to qtlcznqrd-e-5,3-galactose, and such patients are at risk for [...] method. Additional information can be found at [email or web address] Test performed by [employer] [address] [place] [address] [employer] Reclamation Engineer: Aspen Galvan MD,PHD,CHRISTIANO Test Reported by [facility], [employer] [place], [address] [place], [place] Shawn Purcell M.D., Ph.D., Director of Laboratories , [place] [id number] Ordering Provider: JOSE SUMMERS Report Released Date/Time: Mar 20, 2024 03:45 PM Reporting Lab: [facility] [address] [facility] [address] Performing Lab: [place] [facility] [address] [facility] EIIVIRWTJ-ZOWFQ-8,3-GALACTOSE IGE <0.10 kU/L SEE BELOW Mar 20, 2024 03:51 PM [facility] EHRLICHIA AB PANEL (PB-MA) SERUM Specimen Typ [...] analytical performance characteristics have been determined by [place]. It has not been cleared or approved by the U.S. Food and Drug Administration. This assay has been validated pursuant to the CLIA regulations and is used for clinical purposes. Test Performed by [employer], [employer] [place], [address] [place] [address] Shawn Prucell M.D., Ph.D., Director of Laboratories , CLIA [id number] Ordering Provider: JOSE SUMMERS Report Released Date/Time: Mar 20, 2024 03:45 PM Reporting Lab: [place] [facility] [address] [place] [address] Performing Lab: [place] [address] EHRLICHIA CHAF.IGG <1:64 SEE BELOW EHRLICHIA CHAF.IGM <1:20 SEE BELOW EHRLICHIA AB INTERPRETATION SEE NOTE EHRLICHIA AB COMMENT SEE NOTE Mar 20, 2024 03:51 PM [facility] RMSF AB IGG,IGM (PB-MA) SERUM Specimen Type: SERUM Comment: Test Performed by [facility], [address] [place] [address] Shawn Purcell M.D., Ph.D., Director of Laboratories , CLIA [id number] Ordering Provider: JOSE SUMMERS Report Released Date/Time: Mar 20, 2024 03:45 PM Reporting Lab: [place] [facility] [address] [place] [address] Performing Lab: [place] [facility] [address] RMSF IGG (PB Not Detected Not Detected RMSF IGM (PB Not Detected Not Detected Mar 20, 2024 03:51 PM [facility] [place] MICROTI AB IGG,IGM (PB) SERUM Specime [...] analytical performance characteristics have been determined by [place], [place]. It has not been cleared or approved by the U.S. Food and Drug Administration. This assay has been validated pursuant to the CLIA regulations and is used for clinical purposes. Test Performed by [facility], [facility], [address] [place] [address] Shawn Purcell M.D., Ph.D., Director of Laboratories , CLIA [id number] Ordering Provider: JOSE SUMMERS Report Released Date/Time: Mar 20, 2024 03:45 PM Reporting Lab: [place] [facility] [address] [facility] [address] Performing Lab[facility] [address] [facility] BABESIA MICROTI IGG (PB) <1:64 SEE [facility] BABESIA MICROTI IGM (PB) <1:20 SEE BEL OW Mar 20, 2024 03:51 PM [facility] BASIC METABOLIC PANEL PLASMA Specimen Type: PL ASMA No comment entered. Ordering Provider: JOSE SUMMERS Report Released Date/Time: Mar 20, 2024 03:45 PM Reporting Lab: [place] [facility] [address] [facility] [address] Performing Lab: [place] [facility] [address] [place] [address] CREATININE 1.23 mg/dL 0.7-1.3 UREA NITROGEN 18 mg/dL 9-25 GLUCOSE 101 mg/dL H 72-99 SODIUM 138 meq/L 136-145 POTASSIUM 4.6 meq/L 3.5-5 CHLORIDE 104 meq/L 98-107 CARBON DIOXIDE 25 meq/L 22-31 CALCIUM 9.4 mg/dL 8.4-10.4 EGFR (CKD-EPI 2020) 58 Mar 20, 2024 03:51 PM [facility] CBC BLOOD Specimen Type: BLOOD No comment entered. Ordering Provider: JOSE SUMMERS Report Released Date/Time: Mar 20, 2024 03:45 PM Reporting Lab: [place] [facility] [address] [place] [address] Performing Lab: [place] [facility] [address] [place] [address] WBC 6.4 10*3/uL 3.6-11.2 RBC 4.32 10*6/uL [...] GRANS, AUTO ABS 0.02 10*3/uL 0. 00-0.05 Social History: Smoking Status (Most current) and Tobacco Use (All prior to encounter date) This section includes the most current, and the historical, smoking and tobacco- related health factors from the AL facility where the Encounter took place. Current Smoking Status This section includes the most current smoking, or tobacco-related health factor, from the AL facility where the Encounter took place. Date/Time Current Smoking Status Comment Francois osorio Sep 09, 2023 12:30 PM VA-TOBACCO FORMER USER [facility] Tobacco Use History This section includes a history of the smoking, or tobacco-related health factors, that were collected on or before the date of the Encounter. The data comes from the [place] facility where the Encounter took place. Date/Time Smoking Status/Tobacco Use Comment F acility Sep 09, 2023 12:30 PM VA-TOBACCO QUIT 15 YRS OR MORE [facility] Sep 10, 2022 08:30 AM VA-TOBACCO FORMER USER [facility] Sep 10, 2022 08:30 AM VA-TOBACCO QUIT 15 YRS OR MORE [facility] Jun 23, 2021 08:30 AM VA-TOBACCO FORMER USER [facility] Jun 23, 2021 08:30 AM VA-TOBACCO QUIT 15 YRS OR MORE [facility] 2020 08:30 AM VA-TOBACCO FORMER USER [facility] 2020 08:30 AM VA-TOBACCO QUIT 15 YRS OR MORE [facility] Mar 15, 2019 09:37 AM CURRENT NON-TOBACCO USER-HX OF [facility] Nov 16, 2018 09:33 AM VA-TOBACCO FORMER USER [facility] Nov 16, 2018 09:33 AM VA-TOBACCO QUIT 15 YRS OR MORE [facility] Feb 18, 2018 09:46 AM CURRENT NON-TOBACCO USER-HX OF [facility] Nov 23, 2007 09:17 AM QUIT TOBACCO >7 YEARS AGO [facility] Jun 21, 2007 09:21 AM QUIT TOBACCO >7 YEARS AGO [facility] Aug 24, 2005 08:27 AM CURRENT NON-TOBACCO USER-HX OF [facility] Feb 23, 2005 11:20 AM CURRENT NON-TOBACCO USER-HX OF [facility] Jun 26, 2004 01:01 PM CURRENT NON-TOBACCO USER-HX OF [facility] Advance Directives: All historical and current Section Date Range: From patient's date of to the date document was created. This section includes ALL of a patient's completed or amended [place] Advance and Rescinded Directives. The entries below indicate that a directive exists for the patient, but an actual copy is not included with this document. The data comes from all [place] facilities. Date Advance Directives Provider Source Dec 19, 2024 ADVANCE DIRECTIVE TY BERUMEN FF [facility] Encounter Notes: All associated encounter notes This section contains the clinical notes associated to the Encounter. Date/Time Encounter Note(s) Provider Source Mar 10, 2024 03:00 PM NURSING PROGRESS N OTE: LOCAL TITLE: NURSING NOTE PB STANDARD TITLE: NURSING PROGRESS NOTE DATE OF NOTE: MAR 10, 2024@15:00 ENTRY DATE: MAR 10, 2024@15:00:41 AUTHOR: EMILIANA BROCK EXP COSIGNER: URGENCY: STATUS: COMPLETED CC: [address] presents to clinic for ear lavage. Subjective: [address] presents denies any ear pain or drainage. No dizziness or other symptoms. O/A: alert and oriented. Otoscope used to visualize both ears. Large amount of dark orange cerumen bilaterally with no view of tympanic membranes. Plan/ Intervention: Ear lavage syringe and warm water used to flush ears. Large amount of cerumen evacuated. Otoscope used after lavage and tympanic membranes intact with no redness, swelling, redness, or drainage. Tolerated procedure well. RTC: as scheduled and as needed. Per [facility] Directive 1605.06, wristband documentation: Patient wristband was removed and destroyed by (staff name) Emiliana Brock RN and placed in the designated [employer] bin. /es/ EMILIANA BROCK BSN, [facility] Signed: 03/10/2024 15:08 EMILINAA BROCK [facility]
--- OUTSIDE RECORDS SUMMARY | 2024-03-29 10:00 | XMS_ITS | Encounter Summary ---
Author Name [facility] [place] [facility] [place] [facility] [place] Address [address] [place] [address] Care Team Providers Care Wheel Roller Name Role Phone JULIAN MEMBRENO Primary Care [...] PART A Mar 24, 2005 PART A [id number] [facility] [phone] GEOVANNI,PATR ICK PATIENT MEDICARE ([place]NR) MEDICARE (M) PART B Mar 24, 2005 PART B [id number] [facility] [phone] GEOVANNI,PATR ICK PATIENT MEDICARE (WNR) MEDICARE (M) PART B Mar 24, 2005 PART B [id number] GEOVANNI,PATR ICK PATIENT MEDICARE (WNR) MEDICARE (M) PART A Mar 24, 2005 PART A [id number] [phone] GEOVANNI,PATR ICK PATIENT MEDICARE (WNR) MEDICARE (M) PART A Mar 24, 2005 PART A [id number] GEOVANNI,PATR ICK PATIENT MEDICARE ([place]NR) MEDICARE (M) PART B Mar 24, 2005 PART B [id number] GEOVANNI,PATR ICK PATIENT MEDICARE (WNR) MEDICARE (M) PART A Mar 24, 2005 PART A [id number] [phone] GEOVANNI,PATR ICK PATIENT MEDICARE (WNR) MEDICARE (M) PART B Mar 24, 2005 PART B [id number] GEOVANNI,PATR ICK PATIENT MEDICARE PART D (WNR) MEDICARE (M) PART D May 24, 2012 PART D [id number] GEOVANNI,PATR ICK PATIENT MEDICARE PART D (WNR) MEDICARE (M) PART D May 24, 2012 PART D [id number] GEOVANNIJOHNR ICK PATIENT Selected Encounter This section includes the information on record at [place] for the Encounter. Date/Time Encounter Type Encounter Description Reason Provider Source Mar 29, 2024 03:00 PM [facility] FACILITY FEE PRIMARY CARE/MEDICINE ICD-10-CM R09.89 Oth symptoms and signs involving the circ and resp systems JULIAN MEMBRENO Deanne Encounter Template Text not used by [place] Assessments - Encounter Diagnoses This section includes the primary and secondary diagnoses documented for the Encounter. Date/Time Primary/Secondary Diagnosis Diagnosis Name Provider Source Mar 31, 2024 08:48 AM PRIMARY Oth symptoms and signs involving the circ and resp systems [facility] Plan of Treatment: Future Appointments (+ 6 months) and Future Tests (+/- 45 days) The Plan of Treatment section includes future care activities for the patient from all [place] treatmentfacilities. This section includes future appointments and future orders which are active, pending or scheduled. Future Appointments This section includes appointments that were scheduled to occur 6 months from the date of the Encounter, up to a maximum of 20 appointments. The data comes from all [place] treatment facilities. Appointment Date/Time Appointment Type Appointme nt Facility Name Apr 17, 2024 08:30 AM AMBULATORY - MEDICINE [facility] Apr 18, 2024 12:00 PM AMBULATORY - MEDICINE [facility] Apr 24, 2024 09:00 AM AMBULATORY - NONE [facility] [place] [facility] [facility] May 01, 2024 08:45 AM [facility] - MEDIC[facility] [place] [facility] Jun 11, 2024 08:00 AM AMBULATORY - NONE [facility] Jun 13, 2024 09:15 AM AMBULATORY - MEDICINE [facility] Jun 16, 2024 09:40 AM AMBULATORY - MEDIC[facility] [place] [facility] Jul 05, 2024 12:30 PM AMBULATORY - MEDICINE [facility] Jul 05, 2024 12:32 PM AMBULATORY - MEDICINE [facility] Jul 11, 2024 10:15 AM AMBULATORY - MEDICINE [facility] Jul 11, 2024 02:45 PM AMBULATORY - MEDICINE [facility] Jul 18, 2024 11:15 AM AMBULATORY - MEDICINE [facility] Jul 20, 2024 09:45 AM AMBULATORY - MEDICINE [facility] Jul 20, 2024 10:30 AM AMBULATORY - MEDICINE [facility] Jul 20, 2024 10:32 AM [facility]BULATORY - MEDICINE [facility] Aug 01, 2024 02:30 PM AMBULATORY - MEDICINE [facility] Aug 02, 2024 08:00 AM AMBULATORY - MEDICINE [facility] Aug 21, 2024 02:00 PM AMBULATORY - MEDICINE [facility] Sep 12, 2024 12:00 PM AMBULATORY - MEDICINE [facility] Sep 12, 2024 12:02 PM AMBULATORY - MEDICINE [place] [facility] Lab Results: +/- 30 days of the encounter This section includes the Chemistry and Hematology Lab Results on record with [place] for the patient. Radiology Reports and Pathology Reports are provided separately, in subsequent sections. Lab Results This section contains the Chemistry/Hematology Results that were resulted 30 days before or 30 daysafter the date of the Encounter. Date/Time Source Result Type Result - Unit Interpretation Reference Range Specimen Type Comment Mar 20, 2024 04:11 PM [facility] LYME DISEASE AB (MA-PB) SERUM Specimen [...] Lyme disease test report issued by a [place] laboratory: Patients undergoing a Lyme disease test should be aware that Lyme disease tests vary and may produce results that are inaccurate. This means a patient may not be able to rely on a positive or negative result. Health care providers are encouraged to discuss Lyme disease test results with the patient for whom the test was ordered. Test Performed by [facility], [facility], [address] [place] [address] Shawn Purcell M.D., Ph.D., Director of Laboratories , [place] [id number] Ordering Provider: JOSE SUMMERS Report Released Date/Time: Mar 20, 2024 03:45 PM Reporting Lab: [place] [facility] [address] [place] [address] Performing Lab: [place] [id number] [facility] LYME DISEASE AB (MA-PB) <0.90 {index} SE E BELOW Mar 20, 2024 03:51 PM [facility] TSH (MA-PB) SERUM Specimen Typ e: SERUM No comment entered. Ordering Provider: JULIAN MEMBRENO Report Released Date/Time: Sep 13, 2023 02:23 PM Reporting Lab: [place] [facility] [address] [place] [address] Performing Lab: [place] [facility] [address] [place] [address] TSH 1.746 u[IU]/mL 0.47-5 Mar 20, 2024 03:51 PM [facility] CHOLESTEROL PANEL (PB) PLASMA Specimen Type: P JHONATAN Comment: LDL calculation invalid when Triglyceride exceeds 250 mg/dl Ordering Provider: JULIAN MEMBRENO Report Released Date/Time: Sep 13, 2023 02:23 PM Reporting Lab: [place] [facility] [address] [place] [address] Performing Lab: [place] [facility] [address] [place] [address] CHOLESTEROL 127 mg/dL 0-200 TRIGLYCERIDE 264 mg/dL H 0-150 CALCULATED LDL comment mg/dL HDL(New) 48.0 mg/dL H >40 HDL % OF TOTAL CHOLESTEROL (PB) 37.8 >25 DIRECT LDL(MA) 45.2 mg/dL 0-99.9 Mar 20, 2024 03:51 PM [facility] COMPREHENSIVE METABOLIC PANEL PLASMA Specimen Type: PLASMA Comment: LDL calculation invalid when Triglyceride exceeds 250 mg/dl Ordering Provider: JULIAN MEMBRENO Report Released Date/Time: Sep 13, 2023 02:24 PM Reporting Lab: [place] [facility] [address] [place] [address] Performing Lab: [place] [facility] [address] [place] [address] CREATININE 1.21 mg/dL 0.7-1.3 UREA NITROGEN 18 [...] 2020) 59 Mar 20, 2024 03:51 PM [facility] CBC BLOOD Specimen Type: BLOOD No comment entered. Ordering Provider: JULIAN MEMBRENO Report Released Date/Time: Sep 13, 2023 02:24 PM Reporting Lab: [place] [facility] [address] [place] [address] Performing Lab: [facility] [address] [place] [place] [address] WBC 6.6 10*3/uL 3.6-11.2 RBC 4.30 10*6/uL [...] 0. 00-0.05 Mar 20, 2024 03:51 PM [facility] CKEZFCMRI-MTBKJ-6,3-GALACTOSE IGE SERUM Speci men Type: SERUM Comment: REFERENCE RANGE: <0.10 kU/L Results above 0.1 kU/L indicate an allergen-specific IgE sensitization to cqoyfahtm-p-5,3-galactose, and such patients are at risk for [...] method. Additional information can be found at [email or web address] Test performed by [facility] [id number] [place] [address] Router Setter: Aspen Galvan MD,PHD,CHRISTIANO Test Reported by [facility], [address] [place] [address] Shawn Purcell M.D., Ph.D., Director of Laboratories , CLIA [id number] Ordering Provider: JOSE SUMMERS Report Released Date/Time: Mar 20, 2024 03:45 PM Reporting Lab: [place] [facility] [address] [facility] [address] Performing Lab: [place] [address] TLYCFCZDY-FHCNR-0,3-GALACTOSE IGE <0.10 kU/L SEE BELOW Mar 20, 2024 03:51 PM [facility] RMSF AB IGG,IGM (PB-MA) SERUM Specimen Type: SERUM Comment: Test Performed by [facility], [address] [place] [address] Shawn Purcell M.D., Ph.D., Director of Laboratories , CLIA [id number] Ordering Provider: JOSE SUMMERS Report Released Date/Time: Mar 20, 2024 03:45 PM Reporting Lab: [place] [facility] [address] [place] [address] Performing Lab: [place] [address] RMSF IGG (PB Not Detected Not Detected RMSF IGM (PB Not Detected Not Detected Mar 20, 2024 03:51 PM [facility] EHRLICHIA AB PANEL (PB-MA) SERUM Specimen [...] analytical performance characteristics have been determined by [facility] [place], [place]. It has not been cleared or approved by the U.S. Food and Drug Administration. This assay has been validated pursuant to the CLIA regulations and is used for clinical purposes. Test Performed by [facility], [facility], [address] [place] [address] Shawn Purcell M.D., Ph.D., Director of Laboratories , [place] [id number] Ordering Provider: JOSE SUMMERS Report Released Date/Time: Mar 20, 2024 03:45 PM Reporting Lab: [facility] [address] [facility] [address] Performing Lab: [facility] [address] [facility] EHRLICHIA CHAF.IGG <1:64 SEE BELOW EHRLICHIA CHAF.IGM <1:20 SEE BELOW EHRLICHIA AB INTERPRETATION SEE NOTE EHRLICHIA AB COMMENT SEE NOTE Mar 20, 2024 03:51 PM [facility] BABESIA MICROTI AB IGG,IGM (PB) SERUM [...] analytical performance characteristics have been determined by [facility] [place] It has not been cleared or approved by the U.S. Food and Drug Administration. This assay has been validated pursuant to the CLIA regulations and is used for clinical purposes. Test Performed by [facility], [facility], [address] [place] [address] Shawn Purcell M.D., Ph.D., Director of Laboratories , [place] [id number] Ordering Provider: JOSE SUMMERS Report Released Date/Time: Mar 20, 2024 03:45 PM Reporting Lab: [place] [facility] [address] [facility] [place] [facility] [address] Performing Lab: [facility] [place] [id number] [facility] BABESIA MICROTI IGG (PB) <1:64 SEE [facility] BABESIA MICROTI IGM (PB) <1:20 SEE [facility] OW Mar 20, 2024 03:51 PM [facility] BASIC METABOLIC PANEL PLASMA Specimen Type: PL ASMA No comment entered. Ordering Provider: JOSE SUMMERS Report Released Date/Time: Mar 20, 2024 03:45 PM Reporting Lab: [place] [facility] [address] [facility] [place] [facility] [address] Performing Lab: [place] [facility] [address] [place] [address] CREATININE 1.23 mg/dL 0.7-1.3 UREA NITROGEN 18 mg/dL 9-25 GLUCOSE 101 mg/dL H 72-99 SODIUM 138 meq/L 136-145 POTASSIUM 4.6 meq/L 3.5-5 CHLORIDE 104 meq/L 98-107 CARBON DIOXIDE 25 meq/L 22-31 CALCIUM 9.4 mg/dL 8.4-10.4 EGFR (CKD-EPI 2020) 58 Mar 20, 2024 03:51 PM [facility] CBC BLOOD Specimen Type: BLOOD No comment entered. Ordering Provider: JOSE SUMMERS Report Released Date/Time: Mar 20, 2024 03:45 PM Reporting Lab: [place] [facility] [address] [place] [address] Performing Lab: [place] [facility] [address] [place] [address] WBC 6.4 10*3/uL 3.6-11.2 RBC 4.32 10*6/uL [...] Height Weight Body Mass Index Source Mar 29, 2024 03:45 PM 97.8 84 118/74 20 97 0 194.3 30 [facility] Social History: Smoking Status (Most current) and Tobacco Use (All prior to encounter date) This section includes the most current, and the historical, smoking and tobacco- related health factors from the [place] facility where the Encounter took place. Current Smoking Status This section includes the most current smoking, or tobacco-related health factor, from the [place] facility where the Encounter took place. Date/Time Current Smoking Status Comment Francois ity Sep 09, 2023 12:30 PM VA-TOBACCO QUIT 15 YRS OR MORE [facility] Tobacco Use History This section includes a history of the smoking, or tobacco-related health factors, that were collected on or before the date of the Encounter. The data comes from the [place] facility where the Encounter took place. Date/Time Smoking Status/Tobacco Use Comment F acility Sep 09, 2023 12:30 PM VA-TOBACCO QUIT 15 YRS OR MORE [facility] Sep 10, 2022 08:30 AM VA-TOBACCO FORMER USER [facility] Sep 10, 2022 08:30 AM VA-TOBACCO QUIT 15 YRS OR MORE [facility] Jun 23, 2021 08:30 AM VA-TOBACCO FORMER USER [facility] Jun 23, 2021 08:30 AM VA-TOBACCO QUIT 15 YRS OR MORE [facility] 2020 08:30 AM VA-TOBACCO FORMER USER [facility] 2020 08:30 AM VA-TOBACCO QUIT 15 YRS OR MORE [facility] Mar 15, 2019 09:37 AM CURRENT NON-TOBACCO USER-HX OF [facility] Nov 16, 2018 09:33 AM VA-TOBACCO FORMER USER [facility] Nov 16, 2018 09:33 AM VA-TOBACCO QUIT 15 YRS OR MORE [facility] Feb 18, 2018 09:46 AM CURRENT NON-TOBACCO USER-HX [place] [facility] Nov 23, 2007 09:17 AM QUIT TOBACCO >7 YEARS AGO [facility] Jun 21, 2007 09:21 AM QUIT TOBACCO >7 YEARS AGO [facility] Aug 24, 2005 08:27 AM CURRENT NON-TOBACCO USER-[facility]X OF [facility] Feb 23, 2005 11:20 AM CURRENT NON-TOBACCO USER-[place]X OF [facility] Jun 26, 2004 01:01 PM CURRENT NON-TOBACCO USER-HX OF [facility] Advance Directives: All historical and current Section Date Range: From patient's date of to the date document was created. This section includes ALL of a patient's completed or amended [place] Advance and Rescinded Directives. The entries below indicate that a directive exists for the patient, but an actual copy is not included with this document. The data comes from all [place] facilities. Date Advance Directives Provider Source Dec 19, 2024 ADVANCE DIRECTIVE TY BERUMEN JACOB [facility] Encounter Notes: All associated encounter notes This section contains the clinical notes associated to the Encounter. Date/Time Encounter Note(s) Provider Source Mar 29, 2024 03:47 PM PRIMARY CARE NURSI NG NOTE: LOCAL TITLE: PRIMARY CARE NURSING PROGRESS NOTE (TEXT) NURSING P STANDARD TITLE: PRIMARY CARE NURSING NOTE DATE OF NOTE: MAR 29, 2024@15:47 ENTRY DATE: MAR 29, 2024@15:47:34 AUTHOR: KOURTNEY BARTH EXP COSIGNER: URGENCY: STATUS: COMPLETED Established Patient SHAWN GALARZA IS A 83 YEAR OLD MALE BEING SEEN IN CLINIC MAR 29, 2024. = = REASON FOR VISIT: Here for ER follow up accompanied by daughter and spouse. Daughter provides bp log with readings range from 60's/40's- 150's / 80's. Daughter states his confusion is progressing rapidly. States he had got up one night and did not remember he was in his own home. She states he is not resting and she wants him placed on something to help him sleep. She tried melatonin and benadryl but he was too strung out the next day so she does not use that any longer. is alert and oriented x3 in the clinic today. Daughter states he has more problems in the evening Are you receiving care any where other than the [facility]? No HEALTH AND SURGICAL HISTORY: Does patient report using home oxygen? CURRENT ACTIVE MEDICATIONS FOR REVIEW: Allergies/ADRs (Tool #5) FACILITY ALLERGY/ADR -------- No Remote Allergy/ADR Data available for this patient [facility] Med. Reconciliation (Tool #1) INCLUDED IN THIS LIST: Alphabetical list of active outpatient prescriptions dispensed from this [place] (local) and dispensed from another [place] or [facility] facility (remote) as well as inpatient orders (local pending and active), local clinic medications, locally documented non-VA medications, and local prescriptions that have or been discontinued in the past 90 days. Non-VA Meds Last Documented On: Jun 23, 2019 NOTE The display of VA prescriptions dispensed from another [place] or [facility] facility (remote) is limited to active outpatient prescription entries matched to National Drug File at the originating site and may not include some items such as investigational drugs, compounds, etc. NOT INCLUDED IN THIS LIST: Medications self-entered by the patient into personal health records (i.e. ApplyMap) are NOT included in this list. Non-VA medications documented outside this [place], remote inpatient orders (regardless of status) and remote clinic medications are NOT included in this list. The patient and provider must always discuss medications the patient is taking, regardless of where the medication was dispensed or obtained. OUTPT AMITRIPTYLINE HCL 25MG TAB (Status = Active) TAKE ONE TABLET BY MOUTH AT BEDTIME Rx# [id number] Last Released: 02/02/24 Qty/Days Supply: Rx Expiration Date: 08/24/24 Refills Remainin Non-VA ASPIRIN 81MG CHEW TAB CHEW AND SWALLOW FOUR TABLETS BY MOUTH ONCE A DAY Patient wants to buy from Non-VA pharmacy. OUTPT BETAMETHASONE DIPROPIONATE 0.05% OINT (Status = Discontinued) APPLY SPARINGLY TO AFFECTED AREA(S) TWICE A DAY TO AREAS ON LOWER LEGS. (EXTERNAL USE ONLY) Rx# [id number] Last Released: 12/30/23 Qty/Days Supply: Rx Expiration Date: 07/22/24 Refills Remainin OUTPT BETAMETHASONE DIPROPIONATE 0.05% OINT (Status = Active) APPLY A THIN LAYER TO LOWER LEGS TO AFFECTED AREA(S) TWICE A DAY (EXTERNAL USE ONLY) Rx# [id number] Last Released: 03/28/24 Qty/Days Supply: 4530 Rx Expiration Date: 02/09/25 Refills Remainin OUTPT CAPSAICIN 0.025% CREAM (Status = ) APPLY SPARINGLY TO AFFECTED AREA(S) FOUR TIMES A DAY NEEDED FOR PAIN. EXTERNAL USE ONLY. WASH HANDS AFTER APPLICATION. FOR NEUROPATHY FOOT PAIN Rx# [id number] Last Released: 02/08/24 Qty/Days Supply: 180/ Rx Expiration Date: 02/23/24 Refills Remainin OUTPT CARBIDOPA 25/LEVODOPA 100MG TAB (Status = Discontinued) TAKE 2 TABLETS BY MOUTH THREE TIMES A DAY WITH MEALS Rx# [id number] Last Released: 01/27/24 Qty/Days Supply: 540 Rx Expiration Date: 06/18/24 Refills Remainin OUTPT CARBIDOPA 25/LEVODOPA 100MG TAB (Status = Active/Suspended) TAKE 2 TABLETS BY MOUTH THREE TIMES A DAY WITH MEALS. TAKE WITH FOOD. Rx# [id number] Last Released: Qt Supply: 540 Rx Expiration Date: 02/23/25 Refills Remainin OUTPT CHOLECALCIF 50MCG (D3-2,000UNIT) TAB (Status = Discontinued) TAKE TWO TABLETS BY MOUTH ONCE A DAY FOR VITAMIN D DEFICIENCY Rx# [id number] Last Released: 03/18/24 Qty/Days Supply: 200 Rx Expiration Date: 07/09/24 Refills Remainin Indication: FOR VITAMIN D DEFICIENCY OUTPT CHOLECALCIF 50MCG (D3-2,000UNIT) TAB (Status = Active/Suspended) TAKE TWO TABLETS BY MOUTH ONCE A DAY FOR VITAMIN D DEFICIENCY Rx# [id number] Last Released: Qt Supply: 200 Rx Expiration Date: 03/25/25 Refills Remainin Indication: FOR VITAMIN D DEFICIENCY OUTPT CLINDAMYCIN PHOSPHATE 1% TOP SOLN (Status = Active) APPLY SPARINGLY TO AFFECTED AREA(S) TWICE A DAY TO PIMPLE BUMPS THEY ARISE UNTIL CLEAR Rx# [id number] Last Released: 01/14/24 Qty/Days Supply: Rx Expiration Date: 07/22/24 Refills Remainin OUTPT CYANOCOBALAMIN 1000MCG/ML INJ (Status = On Hold) INJECT 1000MCG/1ML INTRAMUSCULARLY EVERY WEEK FOR 1 MONTH, THEN INJECT 100MCG/0.1ML EVERY MONTH Rx# [id number] Last Released: 07/15/23 Qty/Days Supply: 09/18 Rx Expiration Date: 06/18/24 Refills Remainin OUTPT DONEPEZIL HCL 10MG TAB (Status = Discontinued) TAKE ONE-HALF TABLET BY MOUTH AT BEDTIME FOR MEMORY (JUST BEFORE BEDTIME) Rx# [id number] Last Released: 12/14/23 Qty/Days Supply: 45 Rx Expiration Date: 03/24/24 Refills Remainin Indication: FOR MEMORY OUTPT DONEPEZIL HCL 10MG TAB (Status = Active) TAKE ONE-HALF TABLET BY MOUTH AT BEDTIME FOR MEMORY (JUST BEFORE BEDTIME) Rx# [id number] Last Released: 02/28/24 Qty/Days Supply: 45 Rx Expiration Date: 01/04/25 Refills Remainin Indication: FOR MEMORY OUTPT FLUTICASONE PROP 50MCG 120D NASAL INHL (Status = Active) INSTILL 1 SPRAY IN NOSTRIL(S) ONCE A DAY FOR CHRONIC RHINOSINUSITIS (MUST BE USED DIRECTED FOR MINIMUM OF 21 DAYS TO PROVIDE ADEQUATE BENEFITS) Rx# [id number] Last Released: 03/03/24 Qty/Days Supply: Rx Expiration Date: 02/28/25 Refills Remainin Indication: FOR CHRONIC RHINOSINUSITIS OUTPT GABAPENTIN 100MG CAP (Status = ) TAKE ONE CAPSULE BY MOUTH THREE TIMES A DAY FOR PAIN Rx# [id number] Last Released: 05/21/23 Qty/Days Supply: 270 Rx Expiration Date: 02/25/24 Refills Remainin OUTPT GALANTAMINE HYDROBROMIDE 4MG TAB (Status = Active) TAKE ONE TABLET BY MOUTH TWICE A DAY WITH MEALS . TAKE MORNING AND EVENING WITH FOOD AND WATER. Rx# [id number] Last Released: 02/28/24 Qty/Days Supply: 60 Rx Expiration Date: 02/23/25 Refills Remainin OUTPT HYDROPHILIC (EQV EUCERIN) TOP CREAM (Status = Discontinued) APPLY SPARINGLY TO AFFECTED AREA(S) ONCE A DAY FOR DRY SKIN. (EXTERNAL USE ONLY) Rx# [id number] Last Released: 01/19/24 Qty/Days Supply: 454/30 Rx Expiration Date: 02/25/24 Refills Remainin OUTPT HYDROPHILIC (EQV EUCERIN) TOP CREAM (Status = Active/Suspended) APPLY SPARINGLY TO AFFECTED AREA(S) ONCE A DAY FOR SKIN CARE (EXTERNAL USE ONLY) Rx# [id number] Last Released: 02/07/24 Qty/Days Supply: 45490 Rx Expiration Date: 02/01/25 Refills Remainin Indication: FOR SKIN CARE OUTPT HYDROXYZINE HCL 25MG TAB (Status = Discontinued) TAKE ONE TABLET BY MOUTH THREE TIMES A DAY NEEDED FOR ANXIETY *MAY CAUSE DROWSINESS* Rx# [id number] Last Released: 01/28/24 Qty/Days Supply: Rx Expiration Date: 08/16/24 Refills Remainin Indication: FOR ANXIETY OUTPT HYDROXYZINE HCL 25MG TAB (Status = Active) TAKE ONE TABLET BY MOUTH THREE TIMES A DAY NEEDED FOR ANXIETY *MAY CAUSE DROWSINESS* Rx# [id number] Last Released: 02/14/24 Qty/Days Supply: 270/90 Rx Expiration Date: 02/07/25 Refills Remainin Indication: FOR ANXIETY OUTPT LEVOTHYROXINE NA (SYNTHROID) 112MCG TAB (Status = Active/Suspended) TAKE ONE TABLET BY MOUTH EVERY MORNING BEFORE A MEAL FOR THYROID. TAKE 30 MINUTES BEFORE FOOD. TAKE SEPARATELY FROM ALL OTHER MEDICATIONS. Rx# [id number] Last Released: 01/29/24 Qty/Days Supply: 90 Rx Expiration Date: 12/13/24 Refills Remainin OUTPT LIDOCAINE 5% OINT (Status = Active/Suspended) APPLY SPARINGLY TO AFFECTED AREA(S) TWICE DAILY NEEDED FOR PAIN Rx# [id number] Last Released: 01/13/24 Qty/Days Supply: 105/90 Rx Expiration Date: 10/13/24 Refills Remainin Indication: FOR PAIN OUTPT MENTHOL/M-SALICYLATE 10-15% TOP CREAM (Status = Active/Suspended) APPLY SPARINGLY TO AFFECTED AREA(S) FOUR TIMES A DAY NEEDED (EXTERNAL USE ONLY) Rx# [id number] Last Released: 02/02/24 Qty/Days Supply: 270/90 Rx Expiration Date: 12/13/24 Refills Remainin Indication: FOR PAIN OUTPT METHOCARBAMOL 500MG TAB (Status = ) TAKE 1 TABLET BY MOUTH THREE TIMES A DAY NEEDED FOR MUSCLE SPASM Rx# [id number] Last Released: 12/24/23 Qty/Days Supply: 270/90 Rx Expiration Date: 03/15/24 Refills Remainin Indication: FOR MUSCLE SPASM OUTPT MULTIVITAMIN/MINERALS CAP/TAB (Status = Discontinued) TAKE 1 CAP/TAB BY MOUTH ONCE A DAY FOR SUPPLEMENTATION. Rx# [id number] Last Released: 01/18/24 Qty/Days Supply: 130/90 Rx Expiration Date: 09/15/24 Refills Remainin OUTPT MULTIVITAMIN/MINERALS CAP/TAB (Status = Active/Suspended) TAKE 1 CAP/TAB BY MOUTH ONCE A DAY FOR SUPPLEMENTATION. Rx# [id number] Last Released: Qty/Days Supply: 100/90 Rx Expiration Date: 02/01/25 Refills Remainin OUTPT ROSUVASTATIN CA 40MG TAB (Status = Active/Suspended) TAKE ONE-HALF TABLET BY MOUTH EVERY EVENING TO LOWER CHOLESTEROL Rx# [id number] Last Released: 01/19/24 Qty/Days Supply: 45/90 Rx Expiration Date: 09/13/24 Refills Remainin OUTPT TAMSULOSIN HCL 0.4MG CAP (Status = Active/Suspended) TAKE ONE CAPSULE BY MOUTH EVERY EVENING APPROXIMATELY 30 MINUTES AFTER THE SAME MEAL EACH DAY (FOR PROSTATE) Rx# [id number] Last Released: 01/14/24 Qty/Days Supply: 90/90 Rx Expiration Date: 09/15/24 Refills Remainin OUTPT TRIAMCINOLONE ACETONIDE 0.1% CREAM (Status = Discontinued) APPLY SPARINGLY TO AFFECTED AREA(S) TWICE DAILY NEEDED FOR RASH. (EXTERNAL USE ONLY) LEFT LOWER EXTREMITY RASH Rx# [id number] Last Released: 01/05/24 Qty/Days Supply: 80/30 Rx Expiration Date: 10/26/24 Refills Remainin OUTPT TRIAMCINOLONE ACETONIDE 0.1% CREAM (Status = Active) APPLY SPARINGLY TO AFFECTED AREA(S) TWICE DAILY NEEDED FOR RASH. (EXTERNAL USE ONLY) LEFT LOWER EXTREMITY RASH Rx# [id number] Last Released: 03/28/24 Qty/Days Supply: 80/30 Rx Expiration Date: 02/01/25 Refills Remainin SUPPLIES PHARMACY TERMS AND POSSIBLE PATIENT ACTIONS [facility]PT = [facility] IV = [facility] intravenous medication OUTPT = [facility] outpatient prescription PHARMACY POSSIBLE PATIENT TERMS EXPLANATION ACTIONS -------- ---- ACTIVE A prescription that can be If you have refills, filled at the local [facility] pharmacy. you may request a refill of this prescription from your [facility] pharmacy. CLINIC A medication you received during If you have questions a visit to a [facility] clinic or about this medication emergency department. contact your [facility] healthcare team. DISCONTINUED A prescription your provider has Contact your [facility] stopped. It is no longer healthcare team if you available to be sent to you or need more of this picked up at the [facility] pharmacy medication. window. A prescription which is too old Contact your [facility] to fill. This does not refer to healthcare team if you the expiration date of the need more of this medication in the container. medication. NON-VA A medication that came from If this medication someplace other than a [facility] information is pharmacy. This may be a incorrect or out of prescription from either the [facility] date, please tell your or non VA providers that was [facility] healthcare team. filled outside the [facility]. Or, it may be an itog-zfy-vpxxydw (OTC), herbal, dietary supplements or sample medication. ON HOLD An active prescription that will Contact your [facility] not be filled until pharmacy pharmacy when you need resolves the issue. more of this medication. PARKED An active prescription that will Contact your [facility] not be filled until the patient pharmacy when you need requests it. this medication. PENDING This prescription order has been If you have been sent to the pharmacy for review instructed to start and is not ready yet. this medication now, contact your [facility] pharmacy. SUSPENDED An active prescription that is Contact your [facility] not scheduled to be filled yet. pharmacy if you need You should receive it before this medication now. you run out. No longer takes amitriptyline, donepezil, galantamine, gabapentin. Fluticasone was changed to as needed. IS PATIENT TAKING ANY OVER THE COUNTER MEDICATIONS, SUCH VITAMINS OR HERBAL SUPPLEMENTS, INCLUDING ANY MEDICATIONS PRESCRIBED BY ANOTHER PHYSICIAN? Yes, List: Finasteride 5mg daily / ASA 81mg daily ALLERGIES/ADVERSE REACTIONS: PENICILLIN, INFLUENZA Does patient have any new allergies to report since last visit? VITALS: TEMPERATURE: 97.8 F [36.6 C] (03/29/2024 15:45) BP: 118/74 (03/29/2024 15:45) RESP: 20 (03/29/2024 15:45) PULSE: 84 (03/29/2024 15:45) HT: 67.0 in [170.2 cm] (03/07/2024 08:18) WT: 194.3 lb [88.13 kg] (03/29/2024 15:45) BMI: 30.5 PAIN ASSESSMENT: (Most Recent Pain Score in Vitals Package: 0 (03/29/2024 15:45) ) The patient indicated that they and their close contacts have not traveled outside of the [place] in the past 21 days. The patient reports the following symptoms: No symptoms present The patient is not immunocompromised. The patient does not report having a history of Multi Drug Resistant Organism (MDRO) within the last five years. The patient does not report having been exposed to measles, chickenpox, or zoster in last 30 days. STRESS: Thank you for your service. Now let us serve you. At the [facility], we strive to provide you with exceptional health care that improves your health and well-being. Are you feeling sad, empty, or depressed? No Do you need to talk about things in your life that worry you or cause you stress? No Do you need to talk about personal problems, family problems, alcohol use, drug use, or mental or emotional illness? No SUICIDE SCREENING: The patient was asked, Over the past two weeks, how often have you been bothered by thoughts that you would be better off or of hurting yourself in some way? Not At All SPIRITUAL ASSESSMENT: Are there latter-day practices or spiritual concerns you want the gamer, your physician, and other health care team members to immediately know about? Patient advised to call the clinic for any concerns, questions, or symptoms. Patient and/or caregiver verbalized understanding of plan of care. Frail/Elderly Screen: ADL Screen - Schafer Index of Grant in Activities of Daily Living Bathing: (3 Points) Receives no assistance (gets in and out of tub by self, if tub is usual means of bathing) Dressing: (3 Points) Gets clothes and gets completely dressed without assistance. Toileting: (3 Points) Goes to toilet room , cleans self, and arranges clothes without assistance (may use object for support such as cane, walker, or wheelchair, and may manage own night bedpan or commode, emptying same next morning) Transferring: (3 Points) Moves in and out of bed and in and out of chair without assistance (may be using object for support, such as cane or walker) Continence: (3 Points) Controls urination and bowel movement completely by self Feeding: (3 Points) Feeds self without assistance Total Score: 18 Points 18 = High (patient independent) 6 = Low (patient very dependent) IADL Screen - [place] Instrumental Activities of Daily Living Scale Ability to use telephone: (1 point) Operates Telephone on own initiative; looks up and dials numbers. Shopping: (1 point) Takes care of all shopping needs independently. Food preparation: (0 points) Heats and serves prepared meals, or prepares meals but does not maintain adequate diet. Housekeeping: (1 point) Maintains house alone with occasional assistance (heavy work). Laundry: (1 point) Does personal laundry completely. Mode of transportation: (0 points) Travel limited to taxi or automobile with assistance of another. Responsibility for own medications: (1 point) Is responsible for taking medications in correct dosages at correct times. Ability to handle finances: (1 point) Manages financial matters independently (budgets, writes checks, pays rent and bills, goes to bank); collects and keeps track of income. Total score: 8 = High function, independent 0 = Low function, dependent Falls Screen: One fall with no injury within the last 12 months. Incontinence Screen: No incontinence. FALL RISK OP PB: BENITEZ FALL RISK ASSESSMENT Have you experienced any falls within the last 12 months: 10 = Yes Secondary Dx: 0 = No Ambulatory Aid: 0 = No Gait/Transferrin = Normal/Bedrest/Immobile Mental status: 0 = Oriented to own ability Medications: 0 = No high risk meds TOTAL SCORE: 10 Score <30 - patient IS NOT at risk for falls. No action at this time. Reassess annually or if needed. Fall Documentation Yes - Patient experienced a fall within the last year. Type of fall that occurred: One fall with no injury No - Patient did not experience a fall within the last year Pain Assessment: - PAIN ASSESSMENT: .. Patient reports no pain at this visit. Pain Score = 0. Patient's self identified pain goal: 0 Patient/Nurse Interview: * * Patient stated that instructions had been provided regarding what to do if problems or symptoms continued, got worse, or came back. Instructions were reinforced. /diego/ KOURTNEY BARTH LPN Signed: 03/29/2024 15:57 KOURTNEY BARTH [facility]
--- OUTSIDE RECORDS SUMMARY | 2024-03-29 10:01 | XMS_ITS | Encounter Summary ---
Author Name [facility] [place] [facility] [place] Address [address] [place] [address] Care Team Providers Care Quality Assurance Lead Name Role Phone HASEEB JULIAN Primary Care Provider Unavailabl e Insurance Providers: [...] PART A Mar 24, 2005 PART A [id number] [facility] GEOVANNI,PATR ICK PATIENT MEDICARE (WNR) MEDICARE (M) PART B Mar 24, 2005 PART B [id number] GEOVANNI,PATR ICK PATIENT MEDICARE (WNR) MEDICARE (M) PART B Mar 24, 2005 PART B [id number] GEOVANNI,PATR ICK PATIENT MEDICARE (WNR) MEDICARE (M) PART A Mar 24, 2005 PART A [id number] GEOVANNI,PATR ICK PATIENT MEDICARE (WNR) MEDICARE (M) PART A Mar 24, 2005 PART A [id number] [phone] GEOVANNI,PATR ICK PATIENT MEDICARE (WNR) MEDICARE (M) PART B Mar 24, 2005 PART B [id number] GEOVANNI,PATR ICK PATIENT MEDICARE (WNR) MEDICARE (M) PART A Mar 24, 2005 PART A [id number] GEOVANNI,PATR ICK PATIENT MEDICARE (WNR) MEDICARE (M) PART B Mar 24, 2005 PART B [id number] [phone] GEOVANNI,PATR ICK PATIENT MEDICARE PART D (WNR) MEDICARE (M) PART D May 24, 2012 PART D [id number] [phone] GEOVANNI,PATR ICK PATIENT MEDICARE PART D (WNR) MEDICARE (M) PART D May 24, 2012 PART D [id number] GEOVANNIJOHNR ICK PATIENT Selected Encounter This section includes the information on record at [place] for the Encounter. Date/Time Encounter Type Encounter Description Reason Provider Source Mar 29, 2024 03:01 PM OFFICE O/P EST MOD 30 MIN PRIMARY CARE/MEDICINE ICD-10-CM R09.89 Oth symptoms and signs involving the circ and resp systems JULIAN MEMBRENO Encounter Template Text not used by [place] Assessments - Encounter Diagnoses This section includes the primary and secondary diagnoses documented for the Encounter. Date/Time Primary/Secondary Diagnosis Diagnosis Name Provider Source Mar 29, 2024 04:46 PM PRIMARY Oth symptoms and signs involving the circ and resp systems JULIAN MEMBRENO [facility] Mar 29, 2024 04:46 PM SECONDARY Cardiac murmur, unspecified JULIAN MEMBRENO [facility] Mar 29, 2024 04:46 PM SECONDARY Orthostatic hypotension JULIAN MEMBRENO [facility] Plan of Treatment: Future Appointments (+ 6 months) and Future Tests (+/- 45 days) The Plan of Treatment section includes future care activities for the patient from all [place] treatmentfacilities. This section includes future appointments and future orders which are active, pending or scheduled. Future Appointments This section includes appointments that were scheduled to occur 6 months from the date of the Encounter, up to a maximum of 20 appointments. The data comes from all [place] treatment facilities. Appointment Date/Time Appointment Type Appointme nt Facility Name Apr 17, 2024 08:30 AM AMBULATORY - MEDICINE [facility] Apr 18, 2024 12:00 PM AMB[place]ORY - MEDIC[place] [facility] Apr 24, 2024 09:00 AM AMBULATORY - NONE [place] [facility] May 01, 2024 08:45 AM AMBULATORY - MEDICINE [place] [facility] Jun 11, 2024 08:00 AM AMBULATORY - NONE [place] [facility] Jun 13, 2024 09:15 AM AMBULATORY - MEDICINE [facility] Jun 16, 2024 09:40 AM AMBULATORY - MEDIC[place] [facility] Jul 05, 2024 12:30 PM AMBULATORY - MEDICINE [facility] Jul 05, 2024 12:32 PM [facility] [place]IC[place] [facility] Jul 11, 2024 10:15 AM AMBULATORY - MEDIC[place] [facility] Jul 11, 2024 02:45 PM AMBULATORY - MEDICINE [place] [facility] Jul 18, 2024 11:15 AM AMBULATORY - MEDICINE [place] [facility] Jul 20, 2024 09:45 AM AMBULATORY - MEDICINE [facility] Jul 20, 2024 10:30 AM AMBULATORY - MEDICINE [facility] Jul 20, 2024 10:32 AM AMB[facility]ORY - MEDIC[place] [facility] Aug 01, 2024 02:30 PM AMBULATORY - MEDICINE [place] [facility] Aug 02, 2024 08:00 AM AMBULATORY - MEDICINE [place] [facility] Aug 21, 2024 02:00 PM AMBULATORY - MEDICINE [facility] Sep 12, 2024 12:00 PM AMBULATORY - MEDICINE [facility] Sep 12, 2024 12:02 PM AMBULATORY - MEDICINE [place] [facility] Lab Results: +/- 30 days of the encounter This section includes the Chemistry and Hematology Lab Results on record with [place] for the patient. Radiology Reports and Pathology Reports are provided separately, in subsequent sections. Lab Results This section contains the Chemistry/Hematology Results that were resulted 30 days before or 30 daysafter the date of the Encounter. Date/Time Source Result Type Result - Unit Interpretation Reference Range Specimen Type Comment Mar 20, 2024 04:11 PM [place] [facility] LYME DISEASE AB (MA-PB) SERUM Specimen Type: [...] period when erythema migrans is apparent. The [facility] [place], Article 1 of Chapter 5 [...] the test was ordered. Test Performed by [email or web address], [email or web address], [address] [place] [address] Shawn Purcell M.D., Ph.D., Director of Laboratories , [place] [id number] Ordering Provider: JOSE SUMMERS Report Released Date/Time: Mar 20, 2024 03:45 PM Reporting Lab: [place] [facility] [address] [place] [address] Performing Lab: [place] [facility] [address] [facility] LYME DISEASE AB (MA-PB) <0.90 {index} SE E BELOW Mar 20, 2024 03:51 PM [facility] TSH (MA-PB) SERUM Specimen Typ e: SERUM No comment entered. Ordering Provider: JULIAN MEMBRENO Report Released Date/Time: Sep 13, 2023 02:23 PM Reporting Lab: [place] [facility] [address] [place] [address] Performing Lab: [place] [facility] [address] [place] [address] TSH 1.746 u[IU]/mL 0.47-5 Mar 20, 2024 03:51 PM [facility] CHOLESTEROL PANEL (PB) PLASMA Specimen Type: P JHONATAN Comment: LDL calculation invalid when Triglyceride exceeds 250 mg/dl Ordering Provider: JULIAN MEMBRENO Report Released Date/Time: Sep 13, 2023 02:23 PM Reporting Lab: [place] [facility] [address] [place] [address] Performing Lab: [place] [facility] [address] [place] [address] CHOLESTEROL 127 mg/dL 0-200 TRIGLYCERIDE 264 mg/dL H 0-150 CALCULATED LDL comment mg/dL HDL(New) 48.0 mg/dL H >40 HDL % OF TOTAL CHOLESTEROL (PB) 37.8 >25 DIRECT LDL(MA) 45.2 mg/dL 0-99.9 Mar 20, 2024 03:51 PM [facility] COMPREHENSIVE METABOLIC PANEL PLASMA Specimen Type: PLASMA Comment: LDL calculation invalid when Triglyceride exceeds 250 mg/dl Ordering Provider: JULIAN MEMBRENO Report Released Date/Time: Sep 13, 2023 02:24 PM Reporting Lab: [place] [facility] [address] [place] [address] Performing Lab: [place] [facility] [address] [place] [address] CREATININE 1.21 mg/dL 0.7-1.3 UREA NITROGEN 18 [...] 2020) 59 Mar 20, 2024 03:51 PM [facility] CBC BLOOD Specimen Type: BLOOD No comment entered. Ordering Provider: JULIAN MMEBRENO Report Released Date/Time: Sep 13, 2023 02:24 PM Reporting Lab: [place] [facility] [address] [place] [address] Performing Lab: [place] [facility] [address] [place] [address] WBC 6.6 10*3/uL 3.6-11.2 RBC 4.30 10*6/uL [...] 0. 00-0.05 Mar 20, 2024 03:51 PM [facility] MGUYXKABO-UVIRX-0,3-GALACTOSE IGE SERUM Speci men Type: SERUM Comment: REFERENCE RANGE: <0.10 kU/L Results above 0.1 kU/L indicate an allergen-specific IgE sensitization to lkfyntfrx-o-5,3-galactose, and such patients are at risk for [...] method. Additional information can be found at [email or web address] Test performed by [facility] [place] [address] [place] [address] Manager Of Purchasing: Aspen Galvan MD,PHD,CHRISTIANO Test Reported by [facility] [facility], [address] [place] [address] Shawn Purcell M.D., Ph.D., Director of Laboratories , CLIA [id number] Ordering Provider: JOSE SUMMERS Report Released Date/Time: Mar 20, 2024 03:45 PM Reporting Lab: [place] [facility] [address] [facility] [place] [facility] [address] Performing Lab: [place] [address] NUEHRLBUJ-TICTE-6,3-GALACTOSE IGE <0.10 kU/L SEE BELOW Mar 20, 2024 03:51 PM [facility] RMSF AB IGG,IGM (PB-MA) SERUM Specimen Type: SERUM Comment: Test Performed by [email or web address], [address] [place] [address] Shawn Purcell M.D., Ph.D., Director of Laboratories , CLIA [id number] Ordering Provider: JOSE SUMMERS Report Released Date/Time: Mar 20, 2024 03:45 PM Reporting Lab: [place] [facility] [address] [place] [address] Performing Lab: [place] [address] RMSF IGG (PB Not Detected Not Detected RMSF IGM (PB Not Detected Not Detected Mar 20, 2024 03:51 PM [facility] EHRLICHIA AB PANEL (PB-MA) SERUM Specimen [...] analytical performance characteristics have been determined by [employer] [place], [place]. It has not been cleared or approved by the U.S. Food and Drug Administration. This assay has been validated pursuant to the CLIA regulations and is used for clinical purposes. Test Performed by [email or web address], [facility], [address] [place], [place] Shawn Purcell M.D., Ph.D., Director of Laboratories , [place] [id number] Ordering Provider: JOSE SUMMERS Report Released Date/Time: Mar 20, 2024 03:45 PM Reporting Lab: [place] [facility] [address] [facility] [place] [address] Performing Lab: [place] [facility] [address] [facility] EHRLICHIA CHAF.IGG <1:64 SEE BELOW EHRLICHIA CHAF.IGM <1:20 SEE BELOW EHRLICHIA AB INTERPRETATION SEE NOTE EHRLICHIA AB COMMENT SEE NOTE Mar 20, 2024 03:51 PM [facility] BABESIA MICROTI AB IGG,IGM (PB) SERUM Specime [...] analytical performance characteristics have been determined by [facility] [place]. It has not been cleared or approved by the U.S. Food and Drug Administration. This assay has been validated pursuant to the CLIA regulations and is used for clinical purposes. Test Performed by [email or web address], [facility], [address] [place] [address] Shawn Purcell M.D., Ph.D., Director of Laboratories , CLIA [id number] Ordering Provider: JOSE SUMMERS Report Released Date/Time: Mar 20, 2024 03:45 PM Reporting Lab: [place] [facility] [address] [place] [facility] [address] Performing Lab: [place] [facility] [address] [facility] BABESIA MICROTI IGG (PB) <1:64 SEE [facility] BABESIA MICROTI IGM (PB) <1:20 SEE [facility] Mar 20, 2024 03:51 PM [facility] BASIC METABOLIC PANEL PLASMA Specimen Type: PL ASMA No comment entered. Ordering Provider: JOSE SUMMERS Report Released Date/Time: Mar 20, 2024 03:45 PM Reporting Lab: [place] [facility] [address] [place] [facility] [address] Performing Lab: [place] [facility] [address] [facility] [address] CREATININE 1.23 mg/dL 0.7-1.3 UREA NITROGEN 18 mg/dL 9-25 GLUCOSE 101 mg/dL H 72-99 SODIUM 138 meq/L 136-145 POTASSIUM 4.6 meq/L 3.5-5 CHLORIDE 104 meq/L 98-107 CARBON DIOXIDE 25 meq/L 22-31 CALCIUM 9.4 mg/dL 8.4-10.4 EGFR (CKD-EPI 2020) 58 Mar 20, 2024 03:51 PM [facility] CBC BLOOD Specimen Type: BLOOD No comment entered. Ordering Provider: JOSE SUMMERS Report Released Date/Time: Mar 20, 2024 03:45 PM Reporting Lab: [place] [facility] [address] [place] [facility] [address] Performing Lab: [place] [facility] [address] [place] [facility] [address] WBC 6.4 10*3/uL 3.6-11.2 RBC 4.32 10*6/uL [...] 84 118/74 20 97 0 194.3 30 [facility] Social History: Smoking Status (Most current) and Tobacco Use (All prior to encounter date) This section includes the most current, and the historical, smoking and tobacco- related health factors from the [place] facility where the Encounter took place. Current Smoking Status This section includes the most current smoking, or tobacco-related health factor, from the [place] facility where the Encounter took place. Date/Time Current Smoking Status Comment Facil ity Sep 09, 2023 12:30 PM [place]-TOBACCO QUIT 15 YRS OR MORE [facility] Tobacco Use History This section includes a history of the smoking, or tobacco-related health factors, that were collected on or before the date of the Encounter. The data comes from the [place] facility where the Encounter took place. Date/Time Smoking Status/Tobacco Use Comment F acility Sep 09, 2023 12:30 PM VA-TOBACCO QUIT 15 YRS OR MORE [facility] Sep 10, 2022 08:30 AM VA-TOBACCO FORMER USER [facility] Sep 10, 2022 08:30 AM VA-TOBACCO QUIT 15 YRS OR MORE [facility] Jun 23, 2021 08:30 AM VA-TOBACCO FORMER USER [facility] Jun 23, 2021 08:30 AM VA-TOBACCO QUIT 15 YRS OR MORE [facility] 2020 08:30 AM VA-TOBACCO FORMER USER [facility] 2020 08:30 AM VA-TOBACCO QUIT 15 YRS OR MORE [facility] Mar 15, 2019 09:37 AM CURRENT NON-TOBACCO USER-HX OF [facility] Nov 16, 2018 09:33 AM VA-TOBACCO FORMER USER [facility] Nov 16, 2018 09:33 AM VA-TOBACCO QUIT 15 YRS OR MORE [facility] Feb 18, 2018 09:46 AM CURRENT NON-TOBACCO USER-HX OF [facility] Nov 23, 2007 09:17 AM QUIT TOBACCO >7 YEARS AGO [place] [facility] Jun 21, 2007 09:21 AM QUIT TOBACCO >7 YEARS AGO [place] Aug 24, 2005 08:27 AM CURRENT NON-TOBACCO USER-HX OF [facility] Feb 23, 2005 11:20 AM CURRENT NON-TOBACCO USER-HX OF [facility] Jun 26, 2004 01:01 PM CURRENT NON-TOBACCO USER-HX OF [facility] Advance Directives: All historical and current Section Date Range: From patient's date of to the date document was created. This section includes ALL of a patient's completed or amended [place] Advance and Rescinded Directives. The entries below indicate that a directive exists for the patient, but an actual copy is not included with this document. The data comes from all [place] facilities. Date Advance Directives Provider Source Dec 19, 2024 ADVANCE DIRECTIVE TY BERUM[facility]U [facility] Encounter Notes: All associated encounter notes This section contains the clinical notes associated to the Encounter. Date/Time Encounter Note(s) Provider Source Mar 29, 2024 03:26 PM PRIMARY CARE PROGR ESS NOTE: LOCAL TITLE: PRIMARY CARE CLINIC PROGRESS NOTE PB STANDARD TITLE: PRIMARY CARE PROGRESS NOTE DATE OF NOTE: MAR 29, 2024@15:26 ENTRY DATE: MAR 29, 2024@15:27:30 AUTHOR: JULIAN MEMBRNEO COSIGNER: URGENCY: STATUS: COMPLETED [place] is presenting to the clinic today for his/her Telehealth appointment as scheduled. [place] was assured that the Telehealth visit is a private, confidential clinical encounter and will not be recorded. The Telehealth process, procedures and expectations were explained to the patient, allowing [place] time to voice any concerns. voiced understanding and consented to the Clinic visit. The visit proceeded without difficulty. DATE & TIME:Mar@15:27 CHIEF COMPLAINT: acute visit ED follow up HISTORY OF PRESENT ILLNESS: ED visit for dizziness, low blood pressure for blood pressure issues scheduled for heart echo in 1 week confusion progressing quickly per daughter, said once in middle of the night and was not aware he ws in his own house And then not well because I can do that now I get up after him exhausted his sleep was ago he no need to do what you know that he is [address] and [address] good lower okay what else not taking amytriptyline, donapazil, galantamine, gabapentin started on finasteride 5md once daily vit b12 liquid supplement bc of fatigue tried melatonin and benadryl and strung out the next day so, stopped giving PAST MEDICAL HISTORY: 1) HLD - Hyperlipidemia (SNOMED CT 16186959) 2) Hypothyroid (SNOMED CT 82865411) 3) Hearing loss * (ICD-9-CM 389.9) 4) Dysthymic Disorder 5) Pain in both feet (SNOMED CT 21623663901342629) 6) Dyslipidemia (SNOMED CT 939024351) 7) Vitamin D deficiency (SNOMED CT 58592368) 8) Chronic post-traumatic stress disorder 9) Benign essential hypertension 10) Pulmonary nodule 11) Inguinal Hernia (SCT 275885183) 12) Peripheral neuropathy 13) Bilateral outstretched hands tremor 14) Parkinson's disease 15) Vitamin B12 level below reference range 16) Anemia (SCT 239788413) 17) Patient wants PSA yearly. 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 16) ROSUVASTATIN CA 40MG TAB TAKE ONE-HALF TABLET BY ACTIVE (S) MOUTH EVERY EVENING TO LOWER CHOLESTEROL 17) TAMSULOSIN HCL 0.4MG CAP TAKE ONE CAPSULE BY MOUTH ACTIVE (S) EVERY EVENING APPROXIMATELY 30 MINUTES AFTER THE SAME MEAL EACH DAY (FOR PROSTATE) 18) TRIAMCINOLONE ACETONIDE 0.1% CREAM APPLY SPARINGLY TO ACTIVE AFFECTED AREA(S) TWICE DAILY NEEDED FOR RASH. (EXTERNAL USE ONLY) LEFT LOWER EXTREMITY RASH Active Non-VA Medications Status 1) Non-VA ASPIRIN 81MG CHEW TAB 324MG BY MOUTH ONCE A ACTIVE DAY 19 Total Medications REVIEW OF SYSTEMS: Review of Systems Systemic: Denies fatique, fever, chills, or weight loss CV: Denies chest pain, palpitations Pulm: Denies hemoptysis, wheezing GI: Denies constipation, bloody stools. Musculoskeletal: Denies swelling Neuro: Denies slurred speech Skin: Denies abnormal lesions, denies any new rashes PSYCH: Denies SI/HI PHYSICAL ASSESSMENT: VITAL SIGNS 118/74 HR 84 RR 20 sat room air 97 % TEMP 97.8 weight 194.3 Pulse: 75 (03/20/2024 15:16) Blood Pressure: 147/80 (03/20/2024 15:18) Respiratory Rate: 18 (03/20/2024 15:16) Temperature: 98.0 F [36.7 C] (03/20/2024 15:16) Weight: 198.2 lb [89.90 kg] (03/20/2024 15:16) Height: 67.0 in [170.2 cm] (03/07/2024 08:18) Pain: 0 (03/20/2024 15:16) GENERAL: Appears in no acute distress. HEENT: Conjunctiva are clear without exudate or gross hemorrhage. Sclera nonicteric. EOM are intact. Ear canals without discharge, Tympanic membrane is without acute changes. Oropharynx is normal in appearance and without swelling or exudate NECK: appearance is normal and without gross masses CARDIAC: murmur, Regular rate and rhythm. No JVD RESPIRATORY: CTA bilaterally no rhonchi wheezing or rails. Nonlabored respirations GI: Abdomen normal bowel sounds MUSCULOSKELETAL: No joint effusions, moving extremiteis without difficulty SKIN: Appropriate color for ethnicity. NEUROLOGICAL: The [place] is alert and oriented without distress. Gait is at baseline, uses nothing, he is stubborn , said, Daughter Jessie said, we bought a walker, for him to use because when [place], neurology dioid not say hehas to use it PSYCHOLOGICAL: Appropriate mood and affect. No suicidal or homicidal ideation. A/P: ASSESSMENT and PLAN 1) HLD - Hyperlipidemia (SNOMED CT 42786827) 2) Hypothyroid (SNOMED CT 83160402) 3) Hearing loss * (ICD-9-CM 389.9) 4) Dysthymic Disorder 5) Pain in both feet (SNOMED CT [id number]) 6) Dyslipidemia (SNOMED CT 148519205) 7) Vitamin D deficiency (SNOMED CT 72458552) 8) Chronic post-traumatic stress disorder 10) Pulmonary nodule 11) Inguinal Hernia (SCT 850592051) 12) Peripheral neuropathy 13) Bilateral outstretched hands tremor 14) Parkinson's disease 15) Vitamin B12 level below reference range 16) Anemia (SCT 825001234) 17) Patient wants PSA yearly. 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 ED chart and work up reviewed for low blood pressure visit 03/24/2024, has had complete work up the low blood pressrue are new, and ever since he had the covid has had all these problems, including feeling tired planning on chair excercies for seniors, Daughter said through you tube -echo cardiac murmur gatorade water, labile blood pressure, and not on blood pressrue medications, staying well hydrated for the most part -will order ultrasound of renal complete as well safety frecautions with ambulation to avoid falls not sleeping well tried sleepitime tea, and melatonin, and other meds from over the counter -trial of trazadone at night for sleep and mood not taking amytriptyline, donapazil, galantamine, gabapentin, per Dr Garcia it was ok to stop, continueing parkinson's medications still, has appt w Dr Goodman 04/2024 glenna and nicki and applecider vinegar is suppose to be good for brain function and memory per Daughter she is going to read more about it 128/74 hr 76 sitting 90/58 hr 80 standing will send fludrocortisone, keep bp log twice daily, fu with RN visit in 2 weeks for Blood pressure check and to discuss ultrasound results discussed again in detail: -Increasing salt and water intake -Arising slowly (from a supine or seated position) to standing, do not let patient walk alone. Be at his side and need to wait literally 1 full minute or longer before he takes his first step to see if the blood pressure recovers otherwise he will follow-up. Do not want him to break a hip. -Sleeping with the head of the bed raised -Engaging in regular seated or recumbent exercise (eg, swimming, cycling, rowing) -Avoiding straining/Valsalva -Limiting exposure to hot, humid environments -Using compression garments (waist-high compression stockings and abdominal binders), will order for patient from prosthetics Health Maintenance: Discussed preventative health to include diet and exercise including immunizations. Stable. Discussed medications with patient; med rec completed. Continue current regimen as prescribed by PCP and specialists. RTC as needed if developing any new or worsening symptoms. Please notify PACT with medication changes or for orders coordination as needed if seen by a specialist in the future. Discussed with patient that in the event of community imaging / testing being ordered in the future, once the imaging / testing has been completed, please notify PACT of completion at outside facility if not called with results within 1 week by a [facility] member; this is due to intermittent lapses in notification of imaging completion within [facility]. -Follow-up with me every August for annual labs and annual exam -Follow-up with me as needed. All questions answered; agrees to plan of care. Follow up as listed above, annually, and as needed. Keep all appointments. Medications Reconciled. /diego/ JULIAN MEMBRENO MD Signed: 03/29/2024 16:46 JULIAN MEMBRENO [facility]
--- OUTSIDE RECORDS SUMMARY | 2024-04-17 03:00 | XMS_ITS | Encounter Summary ---
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 Role Phone JULIAN MEMBRENO Primary Care [...] PART A Mar 24, 2005 PART A [id number] [facility] [phone] GEOVANNI,PATR ICK PATIENT MEDICARE (WNR) MEDICARE (M) PART B Mar 24, 2005 PART B [id number] [phone] GEOVANNI,PATR ICK PATIENT MEDICARE (WNR) MEDICARE (M) PART A Mar 24, 2005 PART A [id number] GEOVANNI,PATR ICK PATIENT MEDICARE (WNR) MEDICARE (M) PART B Mar 24, 2005 PART B [id number] GEOVANNI,PATR ICK PATIENT MEDICARE (WNR) MEDICARE (M) PART A Mar 24, 2005 PART A [id number] [facility] GEOVANNI,PATR ICK PATIENT MEDICARE (WNR) MEDICARE (M) PART B Mar 24, 2005 PART B [id number] GEOVANNI,JOHNR ICK PATIENT MEDICARE (WNR) MEDICARE (M) PART A Mar 24, 2005 PART A [id number] GEOVANNI,PATR ICK PATIENT MEDICARE (WNR) MEDICARE (M) PART B Mar 24, 2005 PART B [id number] GEOVANNI,PATR ICK PATIENT MEDICARE PART D (WNR) MEDICARE (M) PART D May 24, 2012 PART D [id number] GEOVANNI,JOHNR ICK PATIENT MEDICARE PART D (WNR) MEDICARE (M) PART D May 24, 2012 PART D [id number] GEOVANNIJOHNR ICK PATIENT Selected Encounter This section includes the information on record at [place] for the Encounter. Date/Time Encounter Type Encounter Description Reason Pro vider Source Apr 17, 2024 08:00 AM Outpatient Encounter PRIMARY CARE/MEDICINE IHE Encounter Template Text not used by [place] Plan of Treatment: Future Appointments (+ 6 months) and Future Tests (+/- 45 days) The Plan of Treatment section includes future care activities for the patient from all [place] treatmentfacilities. This section includes future appointments and future orders which are active, pending or scheduled. Future Appointments This section includes appointments that were scheduled to occur 6 months from the date of the Encounter, up to a maximum of 20 appointments. The data comes from all [place] treatment facilities. Appointment Date/Time Appointment Type Appointme nt Facility Name Apr 18, 2024 12:00 PM [facility] - [place]IC[place] [facility] Apr 24, 2024 09:00 AM [facility] - NONE [place] [facility] May 01, 2024 08:45 AM [facility] - [facility]IC[facility] [place] [facility] Jun 11, 2024 08:00 AM AMB[facility]ORY - NONE [place] [facility] Jun 13, 2024 09:15 AM AM[facility]ULATORY - MEDICINE [facility] Jun 16, 2024 09:40 AM [facility]IC[facility] [place] [facility] Jul 05, 2024 12:30 PM [facility]UL[facility]ORY - MEDICINE [facility] Jul 05, 2024 12:32 PM [facility] [place] [facility] Jul 11, 2024 10:15 AM [facility] [place] [facility] Jul 11, 2024 02:45 PM [facility] [place] [facility] Jul 18, 2024 11:15 AM [facility] [place] [facility] Jul 20, 2024 09:45 AM [facility]ORY - MEDICINE [facility] Jul 20, 2024 10:30 AM AMBULATORY - MEDICINE [facility] Jul 20, 2024 10:32 AM [facility] [place] [facility] Aug 01, 2024 02:30 PM [facility] [place] [facility] Aug 02, 2024 08:00 AM [facility] [place] [facility] Aug 21, 2024 02:00 PM AMBULATORY - MEDICINE [facility] Sep 12, 2024 12:00 PM AMBULATORY - MEDICINE [facility] Sep 12, 2024 12:02 PM [facility] - [facility]IC[facility] [place] [facility] Sep 12, 2024 12:30 PM AMBULATORY - MEDICINE [facility] Lab Results: +/- 30 days of the encounter This section includes the Chemistry and Hematology Lab Results on record with [place] for the patient. Radiology Reports and Pathology Reports are provided separately, in subsequent sections. Lab Results This section contains the Chemistry/Hematology Results that were resulted 30 days before or 30 daysafter the date of the Encounter. Date/Time Source Result Type Result - Unit Interpretation Reference Range Specimen Type Comment Mar 20, 2024 04:11 PM [facility] LYME DISEASE AB (MA-PB) SERUM [...] Lyme disease test report issued by a [place] laboratory: Patients undergoing a Lyme disease test should be aware that Lyme disease tests vary and may produce results that are inaccurate. This means a patient may not be able to rely on a positive or negative result. Health care providers are encouraged to discuss Lyme disease test results with the patient for whom the test was ordered. Test Performed by [facility], [facility], [address] [place] [address] Shawn Purcell M.D., Ph.D., Director of Laboratories , [facility] [id number] Ordering Provider: JOSE SUMMERS Report Released Date/Time: Mar 20, 2024 03:45 PM Reporting Lab: [place] [facility] [address] [place] [address] Performing Lab: [place] [id number] [facility] LYME DISEASE AB (MA-PB) <0.90 {index} SE E BELOW Mar 20, 2024 03:51 PM [facility] [place] [facility] TSH (MA-PB) SERUM Specimen Typ e: SERUM No comment entered. Ordering Provider: JULIAN MEMBRENO Report Released Date/Time: Sep 13, 2023 02:23 PM Reporting Lab: [place] [facility] [address] [place] [address] Performing Lab: [place] [facility] [address] [place] [address] TSH 1.746 u[IU]/mL 0.47-5 Mar 20, 2024 03:51 PM [facility] [place] [place] [facility] CHOLESTEROL PANEL (PB) PLASMA Specimen Type: P LASMA Comment: LDL calculation invalid when Triglyceride exceeds 250 mg/dl Ordering Provider: JULIAN MEMBRENO Report Released Date/Time: Sep 13, 2023 02:23 PM Reporting Lab: [place] [facility] [address] [place] [address] Performing Lab: [place] [facility] [address] [place] [address] CHOLESTEROL 127 mg/dL 0-200 TRIGLYCERIDE 264 mg/dL H 0-150 CALCULATED LDL comment mg/dL HDL(New) 48.0 mg/dL H >40 HDL % OF TOTAL CHOLESTEROL (PB) 37.8 >25 DIRECT LDL(MA) 45.2 mg/dL 0-99.9 Mar 20, 2024 03:51 PM [facility] COMPREHENSIVE METABOLIC PANEL PLASMA Specimen Type: PLASMA Comment: LDL calculation invalid when Triglyceride exceeds 250 mg/dl Ordering Provider: JULIAN MEMBRENO Report Released Date/Time: Sep 13, 2023 02:24 PM Reporting Lab: [place] [facility] [address] [place] [facility] Performing Lab: [place] [facility] [address] [facility] [place] [id number] CREATININE 1.21 mg/dL 0.7-1.3 UREA NITROGEN 18 [...] PM [facility] CBC BLOOD Specimen Type: BLOOD No comment entered. Ordering Provider: JULIAN MEMBRENO Report Released Date/Time: Sep 13, 2023 02:24 PM Reporting Lab: [place] [facility] [address] [place] [facility] Performing Lab: [place] [facility] [address] [place] [address] WBC 6.6 10*3/uL 3.6-11.2 RBC 4.30 10*6/uL [...] 0. 00-0.05 Mar 20, 2024 03:51 PM [facility] AZLLTLKRH-UDENY-3,3-GALACTOSE IGE SERUM Speci men Type: SERUM Comment: REFERENCE RANGE: <0.10 kU/L Results above 0.1 kU/L indicate an allergen-specific IgE sensitization to bstrspjzz-v-6,3-galactose, and such patients are at risk for [...] method. Additional information can be found at [email or web address] Test performed by [facility] [address] [address] Trolley Car Overhauler: Aspen Galvan MD,PHD,CHRISTIANO Test Reported by [facility] [employer] [place], [address] [place] [address] Shawn Purcell M.D., Ph.D., Director of Laboratories , CLIA [id number] Ordering Provider: JOSE SUMMERS Report Released Date/Time: Mar 20, 2024 03:45 PM Reporting Lab: [place] [facility] [address] [place] [address] Performing Lab: [place] [id number] [facility] GAPZBXEIC-AIYMF-8,3-GALACTOSE IGE <0.10 kU/L SEE BELOW Mar 20, 2024 03:51 PM [facility] EHRLICHIA AB PANEL (PB-MA) SERUM [...] analytical performance characteristics have been determined by [employer] [place], [place]. It has not been cleared or approved by the U.S. Food and Drug Administration. This assay has been validated pursuant to the CLIA regulations and is used for clinical purposes. Test Performed by [facility], [employer] [place], [address] [place], [place] Shawn Purcell M.D., Ph.D., Director of Laboratories , CLIA [id number] Ordering Provider: JOSE SUMMERS Report Released Date/Time: Mar 20, 2024 03:45 PM Reporting Lab: [place] [facility] [address] [place] [address] Performing Lab: [place] [facility] [address] [facility] EHRLICHIA CHAF.IGG <1:64 SEE BELOW EHRLICHIA CHAF.IGM <1:20 SEE BELOW EHRLICHIA AB INTERPRETATION SEE NOTE EHRLICHIA AB COMMENT SEE NOTE Mar 20, 2024 03:51 PM [facility] RMSF AB IGG,IGM (PB-MA) SERUM Specimen Type: SERUM Comment: Test Performed by [facility] [place], [employer], [address] [place] [address] Shawn Purcell M.D., Ph.D., Director of Laboratories , [facility] [id number] Ordering Provider: JOSE SUMMERS Report Released Date/Time: Mar 20, 2024 03:45 PM Reporting Lab: [place] [facility] [address] [facility] [place] [address] Performing Lab: [place] [address] RMSF IGG (PB Not Detected Not Detected RMSF IGM (PB Not Detected Not Detected Mar 20, 2024 03:51 PM [facility] BABESIA MICROTI AB IGG,IGM (PB) [...] analytical performance characteristics have been determined by [employer] [place], [place]. It has not been cleared or approved by the U.S. Food and Drug Administration. This assay has been validated pursuant to the CLIA regulations and is used for clinical purposes. Test Performed by [facility], [facility], [address] [place], [place] Shawn Purcell M.D., Ph.D., Director of Laboratories , CLIA [id number] Ordering Provider: JOSE SUMMERS Report Released Date/Time: Mar 20, 2024 03:45 PM Reporting Lab: [place] [facility] [address] [place] [address] Performing Lab: [place] [facility] [address] [facility] BABESIA MICROTI IGG (PB) <1:64 SEE [facility] BABESIA MICROTI IGM (PB) <1:20 SEE BEL OW Mar 20, 2024 03:51 PM [facility] BASIC METABOLIC PANEL PLASMA Specimen Type: PL ASMA No comment entered. Ordering Provider: JOSE SUMMERS Report Released Date/Time: Mar 20, 2024 03:45 PM Reporting Lab: [place] [facility] [address] [place] [address] Performing Lab: [place] [facility] [address] [place] [address] CREATININE 1.23 mg/dL 0.7-1.3 UREA NITROGEN 18 mg/dL 9-25 GLUCOSE 101 mg/dL H 72-99 SODIUM 138 meq/L 136-145 POTASSIUM 4.6 meq/L 3.5-5 CHLORIDE 104 meq/L 98-107 CARBON DIOXIDE 25 meq/L 22-31 CALCIUM 9.4 mg/dL 8.4-10.4 EGFR (CKD-EPI 2020) 58 Mar 20, 2024 03:51 PM [facility] CBC BLOOD Specimen Type: BLOOD No comment entered. Ordering Provider: JOSE SUMMERS Report Released Date/Time: Mar 20, 2024 03:45 PM Reporting Lab: [place] [facility] [address] [place] [address] Performing Lab: [place] [facility] [address] [place] [address] WBC 6.4 10*3/uL 3.6-11.2 RBC 4.32 10*6/uL [...] Pain Height Weight Body Mass Index Source Apr 17, 2024 08:37 AM 59 148/77 18 98 0 67.0 203.3 32 [facility] Social History: Smoking Status (Most current) and Tobacco Use (All prior to encounter date) This section includes the most current, and the historical, smoking and tobacco- related health factors from the [place] facility where the Encounter took place. Current Smoking Status This section includes the most current smoking, or tobacco-related health factor, from the [place] facility where the Encounter took place. Date/Time Current Smoking Status Comment Facil ity Sep 09, 2023 12:30 PM VA-TOBACCO FORMER USER [facility] Tobacco Use History This section includes a history of the smoking, or tobacco-related health factors, that were collected on or before the date of the Encounter. The data comes from the [place] facility where the Encounter took place. Date/Time Smoking Status/Tobacco Use Comment F acility Sep 09, 2023 12:30 PM VA-TOBACCO QUIT 15 YRS [place] MORE [place] [facility] Sep 10, 2022 08:30 AM VA-TOBACCO FORMER USER [place] [facility] Sep 10, 2022 08:30 AM VA-TOBACCO QUIT 15 YRS [place] MORE [place] [facility] Jun 23, 2021 08:30 AM VA-[facility]ACCO FORMER US[facility] [place] [facility] Jun 23, 2021 08:30 AM VA-TOBACCO QUIT 15 YRS [place] MORE [place] [facility] 2020 08:30 AM VA-TOBACCO FORMER USER [place] [facility] 2020 08:30 AM VA-TOBACCO QUIT 15 YRS [place] MORE [place] [facility] Mar 15, 2019 09:37 AM CURRENT NON-TOBACCO USER-HX OF [facility] Nov 16, 2018 09:33 AM VA-[place]BACCO FORMER US[place] [facility] Nov 16, 2018 09:33 AM VA-TOBACCO QUIT 15 YRS [place] MORE [place] [facility] Feb 18, 2018 09:46 AM CURRENT NON-TOBACCO USER-HX OF [facility] Nov 23, 2007 09:17 AM QUIT TOBACCO >7 YEARS AGO [place] [facility] Jun 21, 2007 09:21 AM QUIT TOBACCO >7 YEARS AGO [place] [facility] Aug 24, 2005 08:27 AM CURRENT NON-TOBACCO USER-HX OF [facility] Feb 23, 2005 11:20 AM CURRENT NON-TOBACCO USER-HX OF [facility] Jun 26, 2004 01:01 PM CURRENT NON-TOBACCO USER-HX OF [facility] Advance Directives: All historical and current Section Date Range: From patient's date of to the date document was created. This section includes ALL of a patient's completed or amended [place] Advance and Rescinded Directives. The entries below indicate that a directive exists for the patient, but an actual copy is not included with this document. The data comes from all [place] facilities. Date Advance Directives Provider Source Dec 19, 2024 ADVANCE DIRECTIVE TY BERUMENU [facility] Radiology Reports: +/- 30 days of the encounter Radiology Reports For cases when an order for radiology services may have been completed prior to the date of the Encounter, the report list includes the Radiology Reports that were completed up to 30 days before dateof the Encounter. For cases when an order for radiology services may have been completed after the date of the Encounter, the report list also includes the Radiology Reports that were completed up to30 days after date of the Encounter. The data comes from all [place] treatment facilities. Date/Time Radiology Report Provider Source May 01, 2024 08:53 AM US RENAL COMPLETE: SHAWN ROJAS [id number] -1940 M Exm Date: MAY 01, 2024@08:53 Req Phys: JULIAN MEMBRENO Loc: OUTSIDE PB-ULTRASOUND (Req'g L Img Loc: OUTSIDE PB-ULTRASOUND Service: Unknown (Case [id number] COMPLETE) US RENAL COMPLETE (US Detailed) CPT:16546 Reason for Study: Exam imported from outside Clinical History: Original Data for Imported Study Patient Name: Shawn Rojas Date: 1940 Sex: M Study Date: 05/01/24 Study Time: 08:53:00 Study Description: Renal Duplex Referring Physician: JARETH Vu 1: 45 US files, description: CV renal doppler [id number] Acquisition site: [place] [id number] Report Status: Electronically Filed Date Reported: JUN 07, 2024 Report: Electronically generated report for outside study. Impression: Electronically generated report for outside study. VERIFIED BY: / *ELECTRONICALLY FILED* [facility] [facility] Encounter Notes: All associated encounter notes This section contains the clinical notes associated to the Encounter. Date/Time Encounter Note(s) Provider Source Jun 09, 2024 04:02 PM NURSING PROGRESS N OTE: LOCAL TITLE: NURSING NOTE PB STANDARD TITLE: NURSING PROGRESS NOTE DATE OF NOTE: JUN 09, 2024@16:02 ENTRY DATE: JUN 09, 2024@16:02:11 AUTHOR: JUAN ANTONIO ARRIETA COSIGNER: URGENCY: STATUS: COMPLETED Veterans daughter Jessie called and stated that was discharged from [facility] but they had to take to [facility] to be evaluated because was again acting confused. Jessie is calling stating is being discharged home and has requested we obtain ER records on . I will alert [facility] of request to obtain records from [facility]. /diego/ JUAN ANTONIO POE RN [place] CBFABIO Signed: 06/09/2024 16:13 Receipt Acknowledged By: 06/13/2024 10:39 /diego/ ALMA QUINONEZ MSA [place] JUAN ANTONIO FRYE [facility] AILYN
--- OUTSIDE RECORDS SUMMARY | 2024-04-17 03:30 | XMS_ITS | Encounter Summary ---
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 Name Role Phone HASEEB JULIAN Primary Care [...] PART A Mar 24, 2005 PART A [id number] GEOVANNI,PATR ICK PATIENT MEDICARE (WNR) MEDICARE (M) PART B Mar 24, 2005 PART B [id number] [phone] GEOVANNI,PATR ICK PATIENT MEDICARE (WNR) MEDICARE (M) PART A Mar 24, 2005 PART A [id number] GEOVANNI,PATR ICK PATIENT MEDICARE (WNR) MEDICARE (M) PART B Mar 24, 2005 PART B [id number] [phone] GEOVANNI,PATR ICK PATIENT MEDICARE (WNR) MEDICARE (M) PART A Mar 24, 2005 PART A [id number] GEOVANNI,PATR ICK PATIENT MEDICARE (WNR) MEDICARE (M) PART B Mar 24, 2005 PART B [id number] GEOVANNI,PATR ICK PATIENT MEDICARE (WNR) MEDICARE (M) PART A Mar 24, 2005 PART A [id number] GEOVANNI,PATR ICK PATIENT MEDICARE (WNR) MEDICARE (M) PART B Mar 24, 2005 PART B [id number] GEOVANNI,PATR ICK PATIENT MEDICARE PART D (WNR) MEDICARE (M) PART D May 24, 2012 PART D [id number] GEOVANNI,PATR ICK PATIENT MEDICARE PART D (WNR) MEDICARE (M) PART D May 24, 2012 PART D [id number] GEOVANNI,JOHNR ICK PATIENT Selected Encounter This section includes the information on record at [place] for the Encounter. Date/Time Encounter Type Encounter Description Reason Provider Source Apr 17, 2024 08:30 AM OFFICE O/P EST MOD 30 MIN PRIMARY CARE/MEDICINE ICD-10-CM S39.012A Strain of muscle, fascia and tendon of lower back, MIGUELINA Pritchard [facility] Encounter Template Text not used by [place] Assessments - Encounter Diagnoses This section includes the primary and secondary diagnoses documented for the Encounter. Date/Time Primary/Secondary Diagnosis Diagnosis Name Provider Source Apr 17, 2024 09:09 AM PRIMARY Strain of muscle, fascia and tendon of lower back, MIGUELINA Pritchard [facility] Plan of Treatment: Future Appointments (+ 6 months) and Future Tests (+/- 45 days) The Plan of Treatment section includes future care activities for the patient from all [place] treatmentfacilities. This section includes future appointments and future orders which are active, pending or scheduled. Future Appointments This section includes appointments that were scheduled to occur 6 months from the date of the Encounter, up to a maximum of 20 appointments. The data comes from all [place] treatment facilities. Appointment Date/Time Appointment Type Appointme nt Facility Name Apr 18, 2024 12:00 PM AMBULATORY - MEDICINE [place] [facility] Apr 24, 2024 09:00 AM AMBULATORY - NONE [place] LOPEZ [facility] May 01, 2024 08:45 AM [facility] [place]IC[place] [facility] Jun 11, 2024 08:00 AM AMBULATORY - NONE [place] [facility] Jun 13, 2024 09:15 AM [facility] [place] [facility] Jun 16, 2024 09:40 AM [facility] - MEDIC[place] [facility] Jul 05, 2024 12:30 PM AMBULATORY - MEDICINE [facility] Jul 05, 2024 12:32 PM [facility]ORY - [place]ICINE [place] [facility] Jul 11, 2024 10:15 AM AMBULATORY - MEDICINE [place] [facility] Jul 11, 2024 02:45 PM AM[facility]ATORY - MEDICINE [place] [facility] Jul 18, 2024 11:15 AM AM[facility]ORY - MEDICINE [place] [facility] Jul 20, 2024 09:45 AM AMBULATORY - MEDICINE [facility] Jul 20, 2024 10:30 AM AMBULATORY - MEDICINE [facility] Jul 20, 2024 10:32 AM [facility]ORY - [facility]ICINE [place] [facility] Aug 01, 2024 02:30 PM AMBULATORY - MEDICINE [place] [facility] Aug 02, 2024 08:00 AM AMB[facility]ATORY - [facility]ICINE [place] [facility] Aug 21, 2024 02:00 PM AMBULATORY - MEDICINE [facility] Sep 12, 2024 12:00 PM AMBULATORY - MEDICINE [facility] Sep 12, 2024 12:02 PM [facility]ORY - MEDICINE [place] [facility] Sep 12, 2024 12:30 PM AMBULATORY - MEDICINE [facility] Lab Results: +/- 30 days of the encounter This section includes the Chemistry and Hematology Lab Results on record with [place] for the patient. Radiology Reports and Pathology Reports are provided separately, in subsequent sections. Lab Results This section contains the Chemistry/Hematology Results that were resulted 30 days before or 30 daysafter the date of the Encounter. Date/Time Source Result Type Result - Unit Interpretation Reference Range Specimen Type Comment Mar 20, 2024 04:11 PM [facility] LYME DISEASE AB (MA-PB) SERUM Specimen [...] the test was ordered. Test Performed by [facility], [facility], [address] [place] [address] Shawn Purcell M.D., Ph.D., Director of Laboratories , [facility] [id number] Ordering Provider: MIGUELINA SUMMERS Report Released Date/Time: Mar 20, 2024 03:45 PM Reporting Lab: [place] [facility] [address] [place] [address] Performing Lab: [place] [id number] [facility] LYME DISEASE AB (MA-PB) <0.90 {index} SE E BELOW Mar 20, 2024 03:51 PM [facility] TSH (MA-PB) SERUM Specimen Typ e: SERUM No comment entered. Ordering Provider: JULIAN MEMBRENO Report Released Date/Time: Sep 13, 2023 02:23 PM Reporting Lab: [place] [facility] [address] [place] [address] Performing Lab: [place] [facility] [address] [place] [address] TSH 1.746 u[IU]/mL 0.47-5 Mar 20, 2024 03:51 PM [facility] CHOLESTEROL PANEL (PB) PLASMA Specimen Type: P JHONATAN Comment: LDL calculation invalid when Triglyceride exceeds 250 mg/dl Ordering Provider: JULIAN MEMBRENO Report Released Date/Time: Sep 13, 2023 02:23 PM Reporting Lab: [place] [facility] [address] [place] [address] Performing Lab: [place] [facility] [address] [place] [address] CHOLESTEROL 127 mg/dL 0-200 TRIGLYCERIDE 264 mg/dL H 0-150 CALCULATED LDL comment mg/dL HDL(New) 48.0 mg/dL H >40 HDL % OF TOTAL CHOLESTEROL (PB) 37.8 >25 DIRECT LDL(MA) 45.2 mg/dL 0-99.9 Mar 20, 2024 03:51 PM [facility] COMPREHENSIVE METABOLIC PANEL PLASMA Specimen Type: PLASMA Comment: LDL calculation invalid when Triglyceride exceeds 250 mg/dl Ordering Provider: JULIAN MEMBRENO Report Released Date/Time: Sep 13, 2023 02:24 PM Reporting Lab: [place] [facility] [address] [place] [address] Performing Lab: [place] [facility] [address] [place] [address] CREATININE 1.21 mg/dL 0.7-1.3 UREA NITROGEN 18 [...] 2020) 59 Mar 20, 2024 03:51 PM [facility] CBC BLOOD Specimen Type: BLOOD No comment entered. Ordering Provider: JULIAN MEMBRENO Report Released Date/Time: Sep 13, 2023 02:24 PM Reporting Lab: [place] [facility] [address] [place] [address] Performing Lab: [place] [facility] [address] [place] [address] WBC 6.6 10*3/uL 3.6-11.2 RBC 4.30 10*6/uL [...] 0. 00-0.05 Mar 20, 2024 03:51 PM [facility] KAVDNTNBN-CZWVZ-7,3-GALACTOSE IGE SERUM Speci men Type: SERUM Comment: REFERENCE RANGE: <0.10 kU/L Results above 0.1 kU/L indicate an allergen-specific IgE sensitization to zsrzchsnd-k-9,3-galactose, and such patients are at risk for [...] method. Additional information can be found at [email or web address] Test performed by [employer] [place] [address] [place] [address] Dishroom Attendant: Aspen Galvan MD,PHD,CHRISTIANO Test Reported by [facility], [employer] [place], [address] [place], [place] Shawn Purcell M.D., Ph.D., Director of Laboratories , CLIA [id number] Ordering Provider: MIGUELINA SUMMERS Report Released Date/Time: Mar 20, 2024 03:45 PM Reporting Lab: [facility] [address] [facility] [address] Performing Lab: [place] [facility] [address] [facility] YRXHYZAPD-SJXGF-4,3-GALACTOSE IGE <0.10 kU/L SEE BELOW Mar 20, 2024 03:51 PM [facility] EHRLICHIA AB PANEL (PB-MA) SERUM Specimen [...] analytical performance characteristics have been determined by [employer] [place], [place]. It has not been cleared or approved by the U.S. Food and Drug Administration. This assay has been validated pursuant to the CLIA regulations and is used for clinical purposes. Test Performed by [facility], [address] [place] [address] Shawn Purcell M.D., Ph.D., Director of Laboratories , CLIA [id number] Ordering Provider: MIGUELINA SUMMERS Report Released Date/Time: Mar 20, 2024 03:45 PM Reporting Lab: [place] [facility] [address] [place] [address] Performing Lab: [place] [address] EHRLICHIA CHAF.IGG <1:64 SEE BELOW EHRLICHIA CHAF.IGM <1:20 SEE BELOW EHRLICHIA AB INTERPRETATION SEE NOTE EHRLICHIA AB COMMENT SEE NOTE Mar 20, 2024 03:51 PM [facility] RMSF AB IGG,IGM (PB-MA) SERUM Specimen Type: SERUM Comment: Test Performed by [facility], [address] [place] [address] Shawn Purcell M.D., Ph.D., Director of Laboratories , CLIA [id number] Ordering Provider: MIGUELINA SUMMERS Report Released Date/Time: Mar 20, 2024 03:45 PM Reporting Lab: [place] [facility] [address] [place] [address] Performing Lab: [place] [address] RMSF IGG (PB Not Detected Not Detected RMSF IGM (PB Not Detected Not Detected Mar 20, 2024 03:51 PM [facility] BABESIA MICROTI AB IGG,IGM (PB) [...] analytical performance characteristics have been determined by [facility] [place], [place]. It has not been cleared or approved by the U.S. Food and Drug Administration. This assay has been validated pursuant to the CLIA regulations and is used for clinical purposes. Test Performed by [facility], [facility], [address] [place] [address] Shawn Purcell M.D., Ph.D., Director of Laboratories , [place] [id number] Ordering Provider: MIGUELINA SUMMERS Report Released Date/Time: Mar 20, 2024 03:45 PM Reporting Lab: [place] [facility] [address] [facility] [place] [facility] [address] Performing Lab: [place] [facility] [address] [facility] BABESIA MICROTI IGG (PB) <1:64 SEE [facility] MICROTI IGM (PB) <1:20 SEE BEL OW Mar 20, 2024 03:51 PM [facility] BASIC METABOLIC PANEL PLASMA Specimen Type: PL ASMA No comment entered. Ordering Provider: MIGUELINA SUMMERS Report Released Date/Time: Mar 20, 2024 03:45 PM Reporting Lab: [place] [facility] [address] [place] [facility] [address] Performing Lab: [place] [facility] [address] [facility] [address] CREATININE 1.23 mg/dL 0.7-1.3 UREA NITROGEN 18 mg/dL 9-25 GLUCOSE 101 mg/dL H 72-99 SODIUM 138 meq/L 136-145 POTASSIUM 4.6 meq/L 3.5-5 CHLORIDE 104 meq/L 98-107 CARBON DIOXIDE 25 meq/L 22-31 CALCIUM 9.4 mg/dL 8.4-10.4 EGFR (CKD-EPI 2020) 58 Mar 20, 2024 03:51 PM [place] [facility] CBC BLOOD Specimen Type: BLOOD No comment entered. Ordering Provider: MIGUELINA SUMMERS Report Released Date/Time: Mar 20, 2024 03:45 PM Reporting Lab: [place] [facility] [address] [place] [address] Performing Lab: [place] [facility] [address] [facility] [place] [address] WBC 6.4 10*3/uL 3.6-11.2 RBC 4.32 10*6/uL [...] 148/77 18 98 0 67.0 203.3 32 [facility] Social History: Smoking Status (Most current) and Tobacco Use (All prior to encounter date) This section includes the most current, and the historical, smoking and tobacco- related health factors from the [place] facility where the Encounter took place. Current Smoking Status This section includes the most current smoking, or tobacco-related health factor, from the [place] facility where the Encounter took place. Date/Time Current Smoking Status Comment Francois ity Sep 09, 2023 12:30 PM VA-TOBACCO FORMER USER [place] [facility] Tobacco Use History This section includes a history of the smoking, or tobacco-related health factors, that were collected on or before the date of the Encounter. The data comes from the [place] facility where the Encounter took place. Date/Time Smoking Status/Tobacco Use Comment F acility Sep 09, 2023 12:30 PM VA-TOBACCO QUIT 15 YRS OR MORE [facility] Sep 10, 2022 08:30 AM VA-TOBACCO FORMER USER [facility] Sep 10, 2022 08:30 AM VA-TOBACCO QUIT 15 YRS OR MORE [facility] Jun 23, 2021 08:30 AM VA-TOBACCO FORMER USER [facility] Jun 23, 2021 08:30 AM VA-TOBACCO QUIT 15 YRS OR MORE [facility] 2020 08:30 AM VA-TOBACCO FORMER USER [facility] 2020 08:30 AM VA-TOBACCO QUIT 15 YRS OR MORE [facility] Mar 15, 2019 09:37 AM CURRENT NON-TOBACCO USER-[facility]X [facility] Nov 16, 2018 09:33 AM VA-TOBACCO FORMER USER [place] Nov 16, 2018 09:33 AM VA-TOBACCO QUIT 15 YRS OR MORE [facility] Feb 18, 2018 09:46 AM CURRENT NON-TOBACCO USER-HX OF [facility] Nov 23, 2007 09:17 AM QUIT TOBACCO >7 YEARS AGO [facility] Jun 21, 2007 09:21 AM QUIT TOBACCO >7 YEARS AGO [facility] Aug 24, 2005 08:27 AM CURRENT NON-TOBACCO USER-[facility]X OF [facility] Feb 23, 2005 11:20 AM CURRENT NON-TOBACCO USER-HX OF [facility] Jun 26, 2004 01:01 PM CURRENT NON-TOBACCO USER-HX OF [facility] Advance Directives: All historical and current Section Date Range: From patient's date of to the date document was created. This section includes ALL of a patient's completed or amended [place] Advance and Rescinded Directives. The entries below indicate that a directive exists for the patient, but an actual copy is not included with this document. The data comes from all [place] facilities. Date Advance Directives Provider Source Dec 19, 2024 ADVANCE DIRECTIVE TY [facility] Radiology Reports: +/- 30 days of the [...] the Encounter. The data comes from all [place] treatment facilities. Date/Time Radiology Report Provider Source May 01, 2024 08:53 AM US RENAL COMPLETE: SHAWN ROJAS [id number] -1940 M Exm Date: MAY 01, 2024@08:53 Req Phys: UJLIAN MEMBRENO Loc: OUTSIDE PB-ULTRASOUND (Req'g L Img Loc: OUTSIDE PB-ULTRASOUND Service: Unknown (Case [id number] COMPLETE) US RENAL COMPLETE (US Detailed) CPT:75312 Reason for Study: Exam imported from outside Clinical History: Original Data for Imported Study Patient Name: Shawn Rojas Date: 1940 Sex: M Study Date: 05/01/24 Study Time: 08:53:00 Study Description: Renal Duplex Referring Physician: JARETH Vu 1: 45 US files, description: CV renal doppler [id number] [facility] Status: Electronically Filed Date Reported: JUN 07, 2024 Report: Electronically generated report for outside study. Impression: Electronically generated report for outside study. VERIFIED BY: / *ELECTRONICALLY FILED* VENKAT PRECIADO [facility] Encounter Notes: All associated encounter notes This section contains the clinical notes associated to the Encounter. Date/Time Encounter Note(s) Provider Source Jun 21, 2024 02:59 PM ADDENDUM: LOCAL TITLE: Addendum STANDARD TITLE: ADDENDUM DATE OF NOTE: JUN 21, 2024@14:59:58 ENTRY DATE: JUN 21, 2024@14:59:59 AUTHOR: JULIAN MEMBRENO EXP COSIGNER: URGENCY: STATUS: COMPLETED us of renal = no renal artery stenosis noted not sure if patient is aware of results, so please share good news /es/ JULIAN MEMBRENO MD Signed: 06/21/2024 15:01 Receipt Acknowledged By: 06/26/2024 10:27 /es/ JUAN ANTONIO POE, [facility] --- Original Document --- 04/17/24 PRIMARY CARE CLINIC PROGRESS NOTE PB: Date & Time:Mar@09:02 This is a 83 year old MALE Allergies: PENICILLIN, INFLUENZA CC: Lower back pain HPI: [place] presented today for right-sided lower upper gluteal pain not quite in the sciatic area or the iliac crest more on the iliac crest it appears to be somewhat having muscle spasms in that area. [place] refused to have any kind of muscle relaxer he does not like to be sleepy or out of control I did offer a Toradol injection and would like that. He does not take any additional medicine prescription michelle he hates medication but he did agree to diclofenac gel and lidocaine patches. And he also agreed for moderate massage therapy. Temperature: 97.8 F [36.6 C] (03/29/2024 15:45) Respiratory Rate: 18 (04/17/2024 08:37) Pulse Rate: 59 (04/17/2024 08:37) Blood Pressure: 148/77 (04/17/2024 08:37) HT: 67.0 in [170.2 cm] (04/17/2024 08:37) WT: 203.3 lb [92.22 kg] (04/17/2024 08:37) BMI: 31.9 98% (04/17/2024 08:37) REVIEW OF SYSTEMS: : No dysuria, hematuria, urinary frequency, weak stream, or post-void dribbling. MUSCULOSKELETAL: Lower right-sided back above the ileocecal joint right at the iliac crest tenderness to touch states he turned wrong and hurt it and it is hurting really bad and he needs some medicine. SKIN: No rash, lesions, or infection PSYCH: No depression and anxious at this time. Not suicidal. 1) HLD - Hyperlipidemia (SNOMED CT 13105070) 2) Hypothyroid (SNOMED CT 78505350) 3) Hearing loss * (ICD-9-CM 389.9) 4) Dysthymic Disorder 5) Pain in both feet (SNOMED CT 81623823110524587) 6) Dyslipidemia (SNOMED CT 526530784) 7) Vitamin D deficiency (SNOMED CT 17359135) 8) Chronic post-traumatic stress disorder 9) Elevated blood-pressure reading without diagnosis of hypertension 10) Pulmonary nodule 11) Inguinal Hernia (SCT 255929760) 12) Peripheral neuropathy 13) Bilateral outstretched hands tremor 14) Parkinson's disease 15) Vitamin B12 level below reference range 16) Anemia (SCT 991952624) 17) Patient wants PSA yearly. 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 [...] BEDTIME FOR MEMORY (JUST BEFORE BEDTIME) 8) FLUDROCORTISONE ACETATE 0.1MG TAB TAKE ONE-HALF ACTIVE TABLET BY MOUTH ONCE A DAY ORTHOSTASIS 9) FLUTICASONE PROP 50MCG 120D NASAL INHL INSTILL 1 ACTIVE SPRAY IN NOSTRIL(S) ONCE A DAY FOR CHRONIC RHINOSINUSITIS (MUST BE USED DIRECTED FOR MINIMUM OF 21 DAYS TO PROVIDE ADEQUATE BENEFITS) 10) GALANTAMINE HYDROBROMIDE 4MG TAB TAKE ONE TABLET BY ACTIVE MOUTH TWICE A DAY WITH MEALS . TAKE MORNING AND EVENING WITH FOOD AND WATER. 11) HYDROPHILIC (EQV EUCERIN) TOP CREAM APPLY SPARINGLY ACTIVE TO AFFECTED AREA(S) ONCE A DAY FOR SKIN CARE (EXTERNAL USE ONLY) 12) HYDROXYZINE HCL 25MG TAB TAKE ONE TABLET BY MOUTH ACTIVE THREE TIMES A DAY NEEDED FOR ANXIETY *MAY CAUSE DROWSINESS* 13) LEVOTHYROXINE NA (SYNTHROID) 112MCG TAB TAKE ONE ACTIVE TABLET BY MOUTH EVERY MORNING BEFORE A MEAL FOR THYROID. TAKE 30 MINUTES BEFORE FOOD. TAKE SEPARATELY FROM ALL OTHER MEDICATIONS. 14) LIDOCAINE 5% OINT APPLY SPARINGLY TO AFFECTED AREA(S) ACTIVE TWICE DAILY NEEDED FOR PAIN 15) MENTHOL/M-SALICYLATE 10-15% TOP CREAM APPLY SPARINGLY ACTIVE (S) TO AFFECTED AREA(S) FOUR TIMES A DAY NEEDED (EXTERNAL USE ONLY) 16) MULTIVITAMIN/MINERALS CAP/TAB TAKE 1 CAP/TAB BY MOUTH ACTIVE ONCE A DAY FOR SUPPLEMENTATION. 17) ROSUVASTATIN CA 40MG TAB TAKE ONE-HALF TABLET BY ACTIVE MOUTH EVERY EVENING TO LOWER CHOLESTEROL 18) TAMSULOSIN HCL 0.4MG CAP TAKE ONE CAPSULE BY MOUTH ACTIVE EVERY EVENING APPROXIMATELY 30 MINUTES AFTER THE SAME MEAL EACH DAY (FOR PROSTATE) 19) TRAZODONE HCL 50MG TAB TAKE ONE-HALF TABLET BY MOUTH ACTIVE AT BEDTIME FOR INSOMNIA AND DEPRESSION 20) TRIAMCINOLONE ACETONIDE 0.1% CREAM APPLY SPARINGLY TO ACTIVE AFFECTED AREA(S) TWICE DAILY NEEDED FOR RASH. (EXTERNAL USE ONLY) LEFT LOWER EXTREMITY RASH Pending Outpatient Medications Status 1) DICLOFENAC NA 1% TOP GEL APPLY 4 GM TO AFFECTED PENDING AREA(S) FOUR TIMES A DAY NEEDED NO MORE THAN 16 GM/DAY TO ANY LOWER EXTREMITY JOINT. NO MORE THAN 8 GM/DAY TO ANY UPPER EXTREMITY JOINT. MAX 32GM/DAY OVER ALL JOINTS.(MEASURE DOSE WITH RULER INSIDE BOX) 2) LIDOCAINE 5% PATCH APPLY 1 PATCH TO SKIN SITE ONCE A PENDING DAY APPLY PATCH AND PRESS FIRMLY FOR 10-15 SECONDS. KEEP ON FOR 12 HOURS THEN REMOVE PATCH FOR 12 HOURS. Active Non-VA Medications Status 1) Non-VA ASPIRIN 81MG CHEW TAB 324MG BY MOUTH ONCE A ACTIVE DAY 23 Total Medications OBJECTIVE: Physical Exam General: NAD noted, A&Ox3, pleasant, appears stated age Resp: Lungs CTA bilaterally, respirations even and unlabored Abdomen: Soft, non-distended, non-tender Ext: No clubbing, cyanosis, edema or obvious deformity Neuro: Grossly intact Psych: Affect normal, answers questions appropriately throughout visit Assessment/Plan: Lower back sprain -current plan Toradol shot today refused x-ray of lower back did agree to lidocaine patches and diclofenac gel [facility]. Refused muscle relaxers states he does not like the way they make him feel told him that I can give him some that would not make him feel Sedated but he disagrees and refused. Follow-up: as needed. Discussed with patient that in the event of community imaging / testing being ordered in the future, once the imaging / testing has been completed, please notify PACT of completion at outside facility if not called with results within 1 week by a [facility] PACT member; this is due to intermittent lapses in notification of imaging completion within [facility]. All questions answered; agrees to plan of care. Follow up as listed above, annually, and as needed. Keep all appointments. Medications Reconciled. See AVS given to . Time spent 30 minutes. Miguelina ARSHAD /diego/ JARED Barreto, MSN, Oral [facility] Signed: 04/17/2024 09:10 06/04/2024 ADDENDUM STATUS: COMPLETED Amitryptylline 25mg --dc'd Betamethasone oint Carbidopa/levodopa 25/100 2 tab tid Clindamycin top solution Diclofenac gel Donepezil 10mg -- DC'D Fludrocortisone-- DC'D Fluticasone nasal spray is prn Eucerin cream hydroxyzine Levothyroxine 112mcg lidocaine patch lidocaine oint Menthol/m-salicylate top cream Multi Vitamin Rosuvastatin 40mg 1/2 tab Tamsulosin 0.4mg 1 tab Trazodone --DC'D Triamcinolone cream Capsaicin cream Gabapentin- DC'D Methocarbamol is prn (rarely used) Vitamin D 2 tab daily NON VA: Finasteride 5mg daily /es/ JULIAN MEMBRENO MD Signed: 06/04/2024 20:14 JULIAN MEMBRENO [facility] Apr 17, 2024 09:02 AM PRIMARY CARE PROGR ESS NOTE: LOCAL TITLE: PRIMARY CARE CLINIC PROGRESS NOTE PB STANDARD TITLE: PRIMARY CARE PROGRESS NOTE DATE OF NOTE: APR 17, 2024@09:02 ENTRY DATE: APR 17, 2024@09:02:42 AUTHOR: MIGUELINA SUMMERS EXP COSIGNER: URGENCY: STATUS: COMPLETED PRIMARY CARE CLINIC PROGRESS NOTE PB Has ADDENDA Date & Time:Mar@09:02 This is a 83 year old MALE Allergies: PENICILLIN, INFLUENZA CC: Lower back pain HPI: [place] presented today for right-sided lower upper gluteal pain not quite in the sciatic area or the iliac crest more on the iliac crest it appears to be somewhat having muscle spasms in that area. [place] refused to have any kind of muscle relaxer he does not like to be sleepy or out of control I did offer a Toradol injection and would like that. He does not take any additional medicine prescription michelle he hates medication but he did agree to diclofenac gel and lidocaine patches. And he also agreed for moderate massage therapy. Temperature: 97.8 F [36.6 C] (03/29/2024 15:45) Respiratory Rate: 18 (04/17/2024 08:37) Pulse Rate: 59 (04/17/2024 08:37) Blood Pressure: 148/77 (04/17/2024 08:37) HT: 67.0 in [170.2 cm] (04/17/2024 08:37) WT: 203.3 lb [92.22 kg] (04/17/2024 08:37) BMI: 31.9 98% (04/17/2024 08:37) REVIEW OF SYSTEMS: : No dysuria, hematuria, urinary frequency, weak stream, or post-void dribbling. MUSCULOSKELETAL: Lower right-sided back above the ileocecal joint right at the iliac crest tenderness to touch states he turned wrong and hurt it and it is hurting really bad and he needs some medicine. SKIN: No rash, lesions, or infection PSYCH: No depression and anxious at this time. Not suicidal. 1) HLD - Hyperlipidemia (SNOMED CT 29007820) 2) Hypothyroid (SNOMED CT 35357222) 3) Hearing loss * (ICD-9-CM 389.9) 4) Dysthymic Disorder 5) Pain in both feet (SNOMED CT 76590947778568492) 6) Dyslipidemia (SNOMED CT 833175944) 7) Vitamin D deficiency (SNOMED CT 35061203) 8) Chronic post-traumatic stress disorder 9) Elevated blood-pressure reading without diagnosis of hypertension 10) Pulmonary nodule 11) Inguinal Hernia (SCT 180923818) 12) Peripheral neuropathy 13) Bilateral outstretched hands tremor 14) Parkinson's disease 15) Vitamin B12 level below reference range 16) Anemia (SCT 782901716) 17) Patient wants PSA yearly. 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 [...] BEDTIME FOR MEMORY (JUST BEFORE BEDTIME) 8) FLUDROCORTISONE ACETATE 0.1MG TAB TAKE ONE-HALF ACTIVE TABLET BY MOUTH ONCE A DAY ORTHOSTASIS 9) FLUTICASONE PROP 50MCG 120D NASAL INHL INSTILL 1 ACTIVE SPRAY IN NOSTRIL(S) ONCE A DAY FOR CHRONIC RHINOSINUSITIS (MUST BE USED DIRECTED FOR MINIMUM OF 21 DAYS TO PROVIDE ADEQUATE BENEFITS) 10) GALANTAMINE HYDROBROMIDE 4MG TAB TAKE ONE TABLET BY ACTIVE MOUTH TWICE A DAY WITH MEALS . TAKE MORNING AND EVENING WITH FOOD AND WATER. 11) HYDROPHILIC (EQV EUCERIN) TOP CREAM APPLY SPARINGLY ACTIVE TO AFFECTED AREA(S) ONCE A DAY FOR SKIN CARE (EXTERNAL USE ONLY) 12) HYDROXYZINE HCL 25MG TAB TAKE ONE TABLET BY MOUTH ACTIVE THREE TIMES A DAY NEEDED FOR ANXIETY *MAY CAUSE DROWSINESS* 13) LEVOTHYROXINE NA (SYNTHROID) 112MCG TAB TAKE ONE ACTIVE TABLET BY MOUTH EVERY MORNING BEFORE A MEAL FOR THYROID. TAKE 30 MINUTES BEFORE FOOD. TAKE SEPARATELY FROM ALL OTHER MEDICATIONS. 14) LIDOCAINE 5% OINT APPLY SPARINGLY TO AFFECTED AREA(S) ACTIVE TWICE DAILY NEEDED FOR PAIN 15) MENTHOL/M-SALICYLATE 10-15% TOP CREAM APPLY SPARINGLY ACTIVE (S) TO AFFECTED AREA(S) FOUR TIMES A DAY NEEDED (EXTERNAL USE ONLY) 16) MULTIVITAMIN/MINERALS CAP/TAB TAKE 1 CAP/TAB BY MOUTH ACTIVE ONCE A DAY FOR SUPPLEMENTATION. 17) ROSUVASTATIN CA 40MG TAB TAKE ONE-HALF TABLET BY ACTIVE MOUTH EVERY EVENING TO LOWER CHOLESTEROL 18) TAMSULOSIN HCL 0.4MG CAP TAKE ONE CAPSULE BY MOUTH ACTIVE EVERY EVENING APPROXIMATELY 30 MINUTES AFTER THE SAME MEAL EACH DAY (FOR PROSTATE) 19) TRAZODONE HCL 50MG TAB TAKE ONE-HALF TABLET BY MOUTH ACTIVE AT BEDTIME FOR INSOMNIA AND DEPRESSION 20) TRIAMCINOLONE ACETONIDE 0.1% CREAM APPLY SPARINGLY TO ACTIVE AFFECTED AREA(S) TWICE DAILY NEEDED FOR RASH. (EXTERNAL USE ONLY) LEFT LOWER EXTREMITY RASH Pending Outpatient Medications Status 1) DICLOFENAC NA 1% TOP GEL APPLY 4 GM TO AFFECTED PENDING AREA(S) FOUR TIMES A DAY NEEDED NO MORE THAN 16 GM/DAY TO ANY LOWER EXTREMITY JOINT. NO MORE THAN 8 GM/DAY TO ANY UPPER EXTREMITY JOINT. MAX 32GM/DAY OVER ALL JOINTS.(MEASURE DOSE WITH RULER INSIDE BOX) 2) LIDOCAINE 5% PATCH APPLY 1 PATCH TO SKIN SITE ONCE A PENDING DAY APPLY PATCH AND PRESS FIRMLY FOR 10-15 SECONDS. KEEP ON FOR 12 HOURS THEN REMOVE PATCH FOR 12 HOURS. Active Non-VA Medications Status 1) Non-VA ASPIRIN 81MG CHEW TAB 324MG BY MOUTH ONCE A ACTIVE DAY 23 Total Medications OBJECTIVE: Physical Exam General: NAD noted, A&Ox3, pleasant, appears stated age Resp: Lungs CTA bilaterally, respirations even and unlabored Abdomen: Soft, non-distended, non-tender Ext: No clubbing, cyanosis, edema or obvious deformity Neuro: Grossly intact Psych: Affect normal, answers questions appropriately throughout visit Assessment/Plan: Lower back sprain -current plan Toradol shot today refused x-ray of lower back did agree to lidocaine patches and [facility]enac [facility]. Refused muscle relaxers states he does not like the way they make him feel told him that I can give him some that would not make him feel Sedated but he disagrees and refused. Follow-up: as needed. Discussed with patient that in the event of community imaging / testing being ordered in the future, once the imaging / testing has been completed, please notify PACT of completion at outside facility if not called with results within 1 week by a [facility] PA[facility] member; this is due to intermittent lapses in notification of imaging completion within [facility]. All questions answered; agrees to plan of care. Follow up as listed above, annually, and as needed. Keep all appointments. Medications Reconciled. See AVS given to . Time spent 30 minutes. Miguelina ARSHAD /diego/ JARED Barreto, MSN, [facility] Signed: 04/17/2024 09:10 06/04/2024 ADDENDUM STATUS: COMPLETED Amitryptylline 25mg --dc'd Betamethasone oint Carbidopa/levodopa 25/100 2 tab tid Clindamycin top solution Diclofenac gel Donepezil 10mg -- DC'D Fludrocortisone-- DC'D Fluticasone nasal spray is prn Eucerin cream hydroxyzine Levothyroxine 112mcg lidocaine patch lidocaine oint Menthol/m-salicylate top cream Multi Vitamin Rosuvastatin 40mg 1/2 tab Tamsulosin 0.4mg 1 tab Trazodone --DC'D Triamcinolone cream Capsaicin cream Gabapentin- DC'D Methocarbamol is prn (rarely used) Vitamin D 2 tab daily NON [facility]: Finasteride 5mg daily /diego/ JULIAN MEMBRENO MD Signed: 06/04/2024 20:14 06/21/2024 ADDENDUM STATUS: COMPLETED us of renal = no renal artery stenosis noted not sure if patient is aware of results, so please share good news /diego/ JULIAN MEMBRENO MD Signed: 06/21/2024 15:01 Receipt Acknowledged By: * AWAITING SIGNATURE * JUAN ANTONIO ARRIETA * AWAITING SIGNATURE * KOURTNEY [facility] Apr 17, 2024 08:51 AM NURSING PROGRESS N OTE: LOCAL TITLE: NURSING NOTE PB STANDARD TITLE: NURSING PROGRESS NOTE DATE OF NOTE: APR 17, 2024@08:51 ENTRY DATE: APR 17, 2024@08:51:05 AUTHOR: JOLEEN HERNANDEZ EXP COSIGNER: URGENCY: STATUS: COMPLETED NURSING NOTE PB Has ADDENDA here today for c/o Right low back pain/hip pain. He reports pain is in his kidney area and hurts when he moves. daughter is at bedside and states he c/o pain in the hip area instead of the kidney area. He reports 0/10 but when he turns just right, reports that his pain is 8/10. /francisca HERNANDEZ LPN Signed: 04/17/2024 08:51 04/17/2024 ADDENDUM STATUS: COMPLETED has also brought in a log for provider to review. /francisca HERNANDEZ LPN Signed: 04/17/2024 08:53 JOLEEN HERNANDEZ [facility]
--- OUTSIDE RECORDS SUMMARY | 2024-06-13 07:39 | XMS_ITS | Encounter Summary ---
Author Name [facility] [place] [facility] Address [address] [place] [address] Care Team Providers Care Community Health Consultant Name Role Phone HASEEB JULIAN Primary Care [...] PART A Mar 24, 2005 PART A [id number] GEOVANNI,PATR ICK PATIENT MEDICARE (WNR) MEDICARE (M) PART B Mar 24, 2005 PART B [id number] GEOVANNI,PATR ICK PATIENT MEDICARE (WNR) MEDICARE (M) PART A Mar 24, 2005 PART A [id number] GEOVANNI,PATR ICK PATIENT MEDICARE (WNR) MEDICARE (M) PART B Mar 24, 2005 PART B [id number] GEOVANNI,PATR ICK PATIENT MEDICARE (WNR) MEDICARE (M) PART A Mar 24, 2005 PART A [id number] [facility] GEOVANNI,PATR ICK PATIENT MEDICARE (WNR) MEDICARE (M) PART B Mar 24, 2005 PART B [id number] GEOVANNI,PATR ICK PATIENT MEDICARE (WNR) MEDICARE (M) PART A Mar 24, 2005 PART A [id number] GEOVANNI,PATR ICK PATIENT MEDICARE (WNR) MEDICARE (M) PART B Mar 24, 2005 PART B [id number] GEOVANNI,PATR ICK PATIENT MEDICARE PART D (WNR) MEDICARE (M) PART D May 24, 2012 PART D [id number] GEOVANNI,PATR ICK PATIENT MEDICARE PART D (WNR) MEDICARE (M) PART D May 24, 2012 PART D [id number] [phone] GEOVANNI,PATR ICK PATIENT Selected Encounter This section includes the information on record at [place] for the Encounter. Date/Time Encounter Type Encounter Description Reason Pro vider Source Jun 13, 2024 12:39 PM Outpatient Encounter ADMIN PAT ACTIVTIES (MASNONCT) IHE Encounter Template Text not used by [place] Plan of Treatment: Future Appointments (+ 6 months) and Future Tests (+/- 45 days) The Plan of Treatment section includes future care activities for the patient from all [place] treatmentfacilities. This section includes future appointments and future orders which are active, pending or scheduled. Future Appointments This section includes appointments that were scheduled to occur 6 months from the date of the Encounter, up to a maximum of 20 appointments. The data comes from all [place] treatment facilities. Appointment Date/Time Appointment Type Appointme nt Facility Name Jun 16, 2024 09:40 AM AMBULATORY - [facility] [facility] Jul 05, 2024 12:30 PM AMBULATORY - MEDICINE [facility] Jul 05, 2024 12:32 PM AM[facility]UL[facility] - [facility] [facility] Jul 11, 2024 10:15 AM AM[facility] [facility] Jul 11, 2024 02:45 PM AM[facility] [facility] Jul 18, 2024 11:15 AM AM[facility]UL[facility] [place] [facility] Jul 20, 2024 09:45 AM [facility] [place] [facility]IC[place] [facility] Jul 20, 2024 10:30 AM AMBULATORY - MEDICINE [facility] Jul 20, 2024 10:32 AM AM[facility]ULATORY [facility] [facility] Aug 01, 2024 02:30 PM [facility] [facility] Aug 02, 2024 08:00 AM AM[facility]ULAT[facility] [place] [facility] Aug 21, 2024 02:00 PM [facility] [place] [facility] [facility] Sep 12, 2024 12:00 PM AMBULATORY - MEDICINE [facility] Sep 12, 2024 12:02 PM AM[facility]UL[facility] [facility] Sep 12, 2024 12:30 PM AMBULATORY - MEDICINE [facility] Sep 12, 2024 12:31 PM AMBULATORY - MEDICINE [facility] Vital Signs: All taken on the encounter date This section contains inpatient and outpatient Vital Signs collected on the date of the Encounter. Date/Time Temperature Pulse Blood Pressure Respiratory Rate SP02 Pain Height Weight Body Mass Index Source Jun 13, 2024 10:10 AM 97.6 78 114/68 20 99 0 196.8 31 [facility] Social History: Smoking Status (Most current) and Tobacco Use (All prior to encounter date) This section includes the most current, and the historical, smoking and tobacco- related health factors from the [place] facility where the Encounter took place. Current Smoking Status This section includes the most current smoking, or tobacco-related health factor, from the [place] facility where the Encounter took place. Date/Time Current Smoking Status Comment Facil ity Sep 09, 2023 12:30 PM VA-TOBACCO FORMER USER [facility] Tobacco Use History This section includes a history of the smoking, or tobacco-related health factors, that were collected on or before the date of the Encounter. The data comes from the [place] facility where the Encounter took place. Date/Time Smoking Status/Tobacco Use Comment F acility Sep 09, 2023 12:30 PM VA-TOBACCO QUIT 15 YRS OR MORE [facility] Sep 10, 2022 08:30 AM VA-TOBACCO FORMER USER [facility] Sep 10, 2022 08:30 AM VA-TOBACCO QUIT 15 YRS OR MORE [facility] Jun 23, 2021 08:30 AM VA-TOBACCO FORMER USER [facility] Jun 23, 2021 08:30 AM VA-TOBACCO QUIT 15 YRS OR MORE [facility] 2020 08:30 AM VA-TOBACCO FORMER USER [facility] 2020 08:30 AM VA-TOBACCO QUIT 15 YRS OR MORE [facility] Mar 15, 2019 09:37 AM CURRENT NON-TOBACCO USER-HX OF [facility] Nov 16, 2018 09:33 AM VA-TOBACCO FORMER USER [facility] Nov 16, 2018 09:33 AM VA-TOBACCO QUIT 15 YRS OR MORE [facility] Feb 18, 2018 09:46 AM CURRENT NON-TOBACCO USER-HX OF [facility] Nov 23, 2007 09:17 AM QUIT TOBACCO >7 YEARS AGO [facility] Jun 21, 2007 09:21 AM QUIT TOBACCO >7 YEARS AGO [facility] Aug 24, 2005 08:27 AM CURRENT NON-TOBACCO USER-HX OF [facility] Feb 23, 2005 11:20 AM CURRENT NON-TOBACCO USER-HX OF [facility] Jun 26, 2004 01:01 PM CURRENT NON-TOBACCO USER-HX OF [facility] Advance Directives: All historical and current Section Date Range: From patient's date of to the date document was created. This section includes ALL of a patient's completed or amended [place] Advance and Rescinded Directives. The entries below indicate that a directive exists for the patient, but an actual copy is not included with this document. The data comes from all [place] facilities. Date Advance Directives Provider Source Dec 19, 2024 ADVANCE DIRECTIVE TY BERUMENU FF [facility] Encounter Notes: All associated encounter notes This section contains the clinical notes associated to the Encounter. Date/Time Encounter Note(s) Provider Source Jun 13, 2024 12:39 PM GENERAL MEDICINE N OTE: LOCAL TITLE: General Note PB STANDARD TITLE: GENERAL MEDICINE NOTE DATE OF NOTE: JUN 13, 2024@12:39 ENTRY DATE: JUN 13, 2024@12:39:24 AUTHOR: MARIA C VELASQUEZ EXP COSIGNER: URGENCY: STATUS: COMPLETED General Note PB Has ADDENDA Rec'd right hearing aid, certified in [place]. has upcoming appt for fitting /es/ TIMMY PRABHAKAR [facility] Signed: 06/13/2024 12:40 06/14/2024 ADDENDUM STATUS: COMPLETED Rec'd left hearing aid certified in [facility]. has upcoming appt for fitting. /diego/ TIMMY PRABHAKAR [facility] Signed: 06/14/2024 13:34 [facility]
--- OUTSIDE RECORDS SUMMARY | 2024-07-05 07:32 | XMS_ITS | Encounter Summary ---
Author Name [facility] [place] Address [address] [place] [address] Care Team Providers Care Service Shop Foreman Name Role Phone JULIAN MEMBRENO Primary Care [...] PART A Mar 24, 2005 PART A [id number] [facility] [phone] GEOVANNI,JOHNR ICK PATIENT MEDICARE (WNR) MEDICARE (M) PART B Mar 24, 2005 PART B [id number] GEOVANNI,PATR ICK PATIENT MEDICARE (WNR) MEDICARE (M) PART A Mar 24, 2005 PART A [id number] GEOVANNI,PATR ICK PATIENT MEDICARE (WNR) MEDICARE (M) PART B Mar 24, 2005 PART B [id number] GEOVANNI,PATR ICK PATIENT MEDICARE (WNR) MEDICARE (M) PART A Mar 24, 2005 PART A [id number] [facility] [phone] GEOVANNI,JOHNR ICK PATIENT MEDICARE (WNR) MEDICARE (M) PART B Mar 24, 2005 PART B [id number] GEOVANNI,PATR ICK PATIENT MEDICARE (WNR) MEDICARE (M) PART B Mar 24, 2005 PART B [id number] GEOVANNI,JOHNR ICK PATIENT MEDICARE (WNR) MEDICARE (M) PART A Mar 24, 2005 PART A [id number] GEOVANNI,PATR ICK PATIENT MEDICARE PART D (WNR) MEDICARE (M) PART D May 24, 2012 PART D [id number] GEOVANNI,JOHNR ICK PATIENT MEDICARE PART D (WNR) MEDICARE (M) PART D May 24, 2012 PART D [id number] GEOVANNIJOHNR ICK PATIENT Selected Encounter This section includes the information on record at [place] for the Encounter. Date/Time Encounter Type Encounter Description Reason Provider Source Jul 05, 2024 12:32 PM HEARING AID REPAIR/MODIFYIN G AUDIOLOGY ICD-10-CM Z46.1 Encounter for fitting and adjustment of hearing aid WILLIAM BARTON RA [facility] Encounter Template Text not used by [place] Assessments - Encounter Diagnoses This section includes the primary and secondary diagnoses documented for the Encounter. Date/Time Primary/Secondary Diagnosis Diagnosis Name Provider Source Jul 05, 2024 12:36 PM PRIMARY Encounter for fitting and adjustment of hearing aid WILLIAM BARTON RA [facility] Jul 05, 2024 12:36 PM SECONDARY Sensorineural hearing loss, bilateral WILLIAM BARTON RA [place] [facility] Jul 05, 2024 12:36 PM SECONDARY Tinnitus, bilateral ORALIAWILLIAM Dela Cruz [place] [facility] Plan of Treatment: Future Appointments (+ 6 months) and Future Tests (+/- 45 days) The Plan of Treatment section includes future care activities for the patient from all [place] treatmentfacilities. This section includes future appointments and future orders which are active, pending or scheduled. Future Appointments This section includes appointments that were scheduled to occur 6 months from the date of the Encounter, up to a maximum of 20 appointments. The data comes from all [place] treatment facilities. Appointment Date/Time Appointment Type Appointme nt Facility Name Jul 11, 2024 10:15 AM AMBULATORY - MEDICINE [place] [facility] Jul 11, 2024 02:45 PM AMBULATORY - MEDICINE [place] [facility] Jul 18, 2024 11:15 AM AMBULATORY - MEDIC[facility] [place] [facility] Jul 20, 2024 09:45 AM [facility] Jul 20, 2024 10:30 AM AMBULATORY - MEDICINE [facility] Jul 20, 2024 10:32 AM AMBULATORY - [facility]IC[facility] [place] [facility] Aug 01, 2024 02:30 PM AMBULATORY - MEDICINE [place] [facility] Aug 02, 2024 08:00 AM AMBULATORY - [facility]ICINE [place] [facility] Aug 21, 2024 02:00 PM AMBULATORY - MEDICINE [facility] Sep 12, 2024 12:00 PM AMBULATORY - MEDICINE [facility] Sep 12, 2024 12:02 PM AMBULATORY - [facility]IC[facility] [place] [facility] Sep 12, 2024 12:30 PM AMBULATORY - MEDICINE [facility] Sep 12, 2024 12:31 PM AMBULATORY - MEDICINE [facility] Dec 14, 2024 08:00 AM AMBULATORY - MEDICINE [place] [facility] Dec 15, 2024 02:00 PM AMBULATORY - MEDICINE [facility] Social History: Smoking Status (Most current) and Tobacco Use (All prior to encounter date) This section includes the most current, and the historical, smoking and tobacco- related health factors from the [place] facility where the Encounter took place. Current Smoking Status This section includes the most current smoking, or tobacco-related health factor, from the [place] facility where the Encounter took place. Date/Time Current Smoking Status Comment Francois osorio Sep 16, 2007 05:28 PM QUIT TOBACCO >7 YEARS AGO VENKAT PRECIADO [facility] Advance Directives: All historical and current Section Date Range: From patient's date of to the date document was created. This section includes ALL of a patient's completed or amended [place] Advance and Rescinded Directives. The entries below indicate that a directive exists for the patient, but an actual copy is not included with this document. The data comes from all [place] facilities. Date Advance Directives Provider Source Dec 19, 2024 ADVANCE DIRECTIVE TY BERUMEN [facility] Encounter Notes: All associated encounter notes This section contains the clinical notes associated to the Encounter. Date/Time Encounter Note(s) Provider Source Jul 05, 2024 07:11 AM AUDIOLOGY NOTE: LOCAL TITLE: HEARING CLINIC PB STANDARD TITLE: AUDIOLOGY NOTE DATE OF NOTE: JUL 05, 2024@07:11 ENTRY DATE: JUL 05, 2024@07:11:05 AUTHOR: ELOISE BARTON COSIGNER: URGENCY: STATUS: COMPLETED Diagnosis: Sensorineural Hearing Loss, Bilateral and Tinnitus, Bilateral Treatment: Hearing Aid Check Time spent with : 30 minutes seen for a hearing aid check via Audio Telehealth and verbally consented to the Telehealth modality. Multi-factor personally identifiable information of the was obtained verbally (full name and date of ). Patient accompanied by: daughter Patient site: [facility] ____ HISTORY: Reason for Appointment: Patient is here today for issue of right and left hearing aids replaced through loss/damage warranty. Patient came in wearing original 2023 devices. He notes static from left original 2023 device. HEARING DEVICES: 11/2023 PHONAK AUDEO L90-R MIGUEL L [id number]* 11/2023 PHONAK AUDEO L90-R MIGUEL R [id number]* - 2P NOTARY PUBLIC 5.0 (3Ps not available in clinic stock) - VENTED DOME - MEDIUM - CERUSTOP - NO RETENTION TAILS (graphite jones) * Daughter assists with cleaning/maintenance * Loss/damage hearing aids marked with sharpie. Originals may be confiscated if mailed for repair. BACK-UP HEARING DEVICES: 10/2022 PHONAK AUDEO L90-R MIGUEL L [id number] (lost but L/D available) 10/2022 PHONAK AUDEO L90-R MIGUEL R [id number] (lost but L/D available) - 3P NOTARY PUBLIC 5.0 - VENTED DOME- MEDIUM - CERUSTOP (sand beige) OBJECTIVE/ASSESSMENT: Otoscopy was performed by collaboration of telehealth clinical industrial electrical technician and provider via telehealth technology/video otoscope which revealed: Right ear: minimal cerumen Left ear: occluding cerumen Connected right/left loss/damage 2023 hearing aids hearing aids to software and loaded user settings. Devices arrived from factory with incorrect receivers. 3P receivers could not be located in clinic stock. 2Ps installed until next visit. Cleaned original right/left 2023 hearing aids including replacement of filters. Left 2023 leather flesher not replaced today due to clinic stock. Ordered 3P leather flesher for installation at next visit. The was counseled/educated on services provided today and is in agreement with the plan. PLAN: 1) Return to clinic for cerumen management. Patient educated on use of softening drops. 2) Return to clinic for installation of 3P receivers on three hearing aids (2023 replacement right/left hearing aids annotated with sharpie and original 2023 left hearing aid). /diego/ Lul Gibson [facility] Signed: 07/05/2024 12:36 ELOISE BARTON [facility]
--- OUTSIDE RECORDS SUMMARY | 2024-07-14 04:11 | XMS_ITS | Encounter Summary ---
Author Name [facility] [place] [facility] [place] Address [address] [place] [address] Care Team Providers Care Director Of Direct Marketing Name Role Phone HASEEB JULIAN Primary Care [...] PART A Mar 24, 2005 PART A [id number] [facility] GEOVANNI,PATR ICK PATIENT MEDICARE (WNR) MEDICARE (M) PART A Mar 24, 2005 PART A [id number] GEOVANNI,PATR ICK PATIENT MEDICARE (WNR) MEDICARE (M) PART B Mar 24, 2005 PART B [id number] GEOVANNI,PATR ICK PATIENT MEDICARE (WNR) MEDICARE (M) PART B Mar 24, 2005 PART B [id number] GEOVANNI,PATR ICK PATIENT MEDICARE (WNR) MEDICARE (M) PART A Mar 24, 2005 PART A [id number] GEOVANNI,PATR ICK PATIENT MEDICARE (WNR) MEDICARE (M) PART B Mar 24, 2005 PART B [id number] GEOVANNI,PATR ICK PATIENT MEDICARE (WNR) MEDICARE (M) PART A Mar 24, 2005 PART A [id number] GEOVANNI,PATR ICK PATIENT MEDICARE (WNR) MEDICARE (M) PART B Mar 24, 2005 PART B [id number] GEOVANNI,PATR ICK PATIENT MEDICARE PART D (WNR) MEDICARE (M) PART D May 24, 2012 PART D [id number] [phone] GEOVANNI,PATR ICK PATIENT MEDICARE PART D (WNR) MEDICARE (M) PART D May 24, 2012 PART D [id number] GEOVANNI,PATR ICK PATIENT Selected Encounter This section includes the information on record at [place] for the Encounter. Date/Time Encounter Type Encounter Description Reason Pro vider Source Jul 14, 2024 09:11 AM Outpatient Encounter ADMIN PAT ACTIVTIES (MASNONCT) IHE Encounter Template Text not used by [place] Plan of Treatment: Future Appointments (+ 6 months) and Future Tests (+/- 45 days) The Plan of Treatment section includes future care activities for the patient from all [place] treatmentfacilities. This section includes future appointments and future orders which are active, pending or scheduled. Future Appointments This section includes appointments that were scheduled to occur 6 months from the date of the Encounter, up to a maximum of 20 appointments. The data comes from all [place] treatment facilities. Appointment Date/Time Appointment Type Appointme nt Facility Name Jul 18, 2024 11:15 AM AMBULATORY - MEDICINE [place] [facility] Jul 20, 2024 09:45 AM AMBULATORY - MEDICINE [facility] Jul 20, 2024 10:30 AM AMBULATORY - MEDICINE [facility] Jul 20, 2024 10:32 AM AMBULATORY - MEDICINE [place] [facility] Aug 01, 2024 02:30 PM AMBULATORY - MEDICINE [place] [facility] Aug 02, 2024 08:00 AM AMBULATORY - MEDICINE [place] [facility] Aug 21, 2024 02:00 PM AMBULATORY - MEDICINE [facility] Sep 12, 2024 12:00 PM AMBULATORY - MEDICINE [facility] Sep 12, 2024 12:02 PM [facility]UL[facility]ORY - [facility] [place] [facility] Sep 12, 2024 12:30 PM AMBULATORY - MEDICINE [facility] Sep 12, 2024 12:31 PM AMBULATORY - MEDICINE [facility] Dec 14, 2024 08:00 AM AMBULATORY - [facility]IC[facility] [place] [facility] Dec 15, 2024 02:00 PM AMBULATORY - MEDICINE [facility] Active, Pending, and Scheduled Orders This section includes a listing of several types of active, pending, and scheduled orders, including clinic medications orders, diagnostic test orders, procedure orders and consult orders; where the start date of the order is 45 days before the date of the Encounter or 45 days after the date of theEncounter. The data comes from all [place] treatment facilities. Test Date/Time Test Type Test Details Facility Name Aug 21, 2024 02:52 PM Laboratory - Chemi stry Order POC UA (STL-PB-MA) URINE SP [facility] Social History: Smoking Status (Most current) and Tobacco Use (All prior to encounter date) This section includes the most current, and the historical, smoking and tobacco- related health factors from the [place] facility where the Encounter took place. Current Smoking Status This section includes the most current smoking, or tobacco-related health factor, from the [place] facility where the Encounter took place. Date/Time Current Smoking Status Comment Facil ity Sep 09, 2023 12:30 PM VA-TOBACCO FORMER USER [facility] Tobacco Use History This section includes a history of the smoking, or tobacco-related health factors, that were collected on or before the date of the Encounter. The data comes from the [place] facility where the Encounter took place. Date/Time Smoking Status/Tobacco Use Comment F acility Sep 09, 2023 12:30 PM VA-TOBACCO QUIT 15 YRS OR MORE [facility] Sep 10, 2022 08:30 AM VA-TOBACCO FORMER USER [facility] Sep 10, 2022 08:30 AM VA-TOBACCO QUIT 15 YRS OR MORE [facility] Jun 23, 2021 08:30 AM VA-TOBACCO FORMER USER [facility] Jun 23, 2021 08:30 AM VA-TOBACCO QUIT 15 YRS OR MORE [facility] 2020 08:30 AM VA-TOBACCO FORMER USER [facility] 2020 08:30 AM VA-TOBACCO QUIT 15 YRS OR MORE [facility] Mar 15, 2019 09:37 AM CURRENT NON-TOBACCO USER-HX OF [facility] Nov 16, 2018 09:33 AM VA-TOBACCO FORMER USER [facility] Nov 16, 2018 09:33 AM VA-TOBACCO QUIT 15 YRS OR MORE [facility] Feb 18, 2018 09:46 AM CURRENT NON-TOBACCO USER-HX OF [facility] Nov 23, 2007 09:17 AM QUIT TOBACCO >7 YEARS AGO [facility] Jun 21, 2007 09:21 AM QUIT TOBACCO >7 YEARS AGO [facility] Aug 24, 2005 08:27 AM CURRENT NON-TOBACCO USER-HX OF [facility] Feb 23, 2005 11:20 AM CURRENT NON-TOBACCO USER-HX OF [facility] Jun 26, 2004 01:01 PM CURRENT NON-TOBACCO USER-HX OF [facility] Advance Directives: All historical and current Section Date Range: From patient's date of to the date document was created. This section includes ALL of a patient's completed or amended [place] Advance and Rescinded Directives. The entries below indicate that a directive exists for the patient, but an actual copy is not included with this document. The data comes from all [place] facilities. Date Advance Directives Provider Source Dec 19, 2024 ADVANCE DIRECTIVE TY BERUMEN [facility] Encounter Notes: All associated encounter notes This section contains the clinical notes associated to the Encounter. Date/Time Encounter Note(s) Provider Source Jul 14, 2024 10:03 AM ADDENDUM: LOCAL TITLE: Addendum STANDARD TITLE: ADDENDUM DATE OF NOTE: JUL 14, 2024@10:03:17 ENTRY DATE: JUL 14, 2024@10:03:18 AUTHOR: ELOISE BARTON COSIGNER: URGENCY: STATUS: COMPLETED Please contact patient to reschedule 08/04 audio visit to next available 30 minutes slot if closer. Also, consider rescheduling ear lavage to closer date if available/desired by patient. /diego/ Lul Gibson [facility] Signed: 07/14/2024 10:05 Receipt Acknowledged By: 07/18/2024 14:20 /diego/ ZIYAD WRIGHT [facility] Special Procedures Nurse === --- Original Document --- 07/14/24 General Note PB: 's daughter reached out to PACT team nurse about getting [place] in for his Audio check sooner, She said she has been waiting for a call. Can we possibly move his appt to a sooner date since we have recieved the new parts for his hearing aids. /diego/ MARIA C VELASQUEZ [facility] Signed: 07/14/2024 09:15 Receipt Acknowledged By: 07/14/2024 10:03 /diego/ Lul Gibson [facility] * AWAITING SIGNATURE * ALMA QUINONEZ ALEXANDRA A [facility] Jul 14, 2024 09:11 AM GENERAL MEDICINE N OTE: LOCAL TITLE: General Note PB STANDARD TITLE: GENERAL MEDICINE NOTE DATE OF NOTE: JUL 14, 2024@09:11 ENTRY DATE: JUL 14, 2024@09:11:22 AUTHOR: MARIA C VELASQUEZ EXP COSIGNER: URGENCY: STATUS: COMPLETED General Note PB Has ADDENDA 's daughter reached out to PACT team nurse about getting [place] in for his Audio check sooner, She said she has been waiting for a call. Can we possibly move his appt to a sooner date since we have recieved the new parts for his hearing aids. /francisca VELASQUEZ [facility] Signed: 07/14/2024 09:15 Receipt Acknowledged By: 07/14/2024 10:03 /Lul Pappashing [facility] 07/18/2024 16:37 /es/ ALMA QUINONEZ [facility] [place] [facility] 07/14/2024 ADDENDUM STATUS: COMPLETED Please contact patient to reschedule 08/04 audio visit to next available 30 minutes slot if closer. Also, consider rescheduling ear lavage to closer date if available/desired by patient. /es/ Lul Gibson [facility] Signed: 07/14/2024 10:05 Receipt Acknowledged By: 07/18/2024 14:20 /es/ ZIYAD WRIGHT [facility] Special Procedures Nurse 07/18/2024 ADDENDUM STATUS: COMPLETED Attempted to contact pt to offer sooner audio appt, msg left for pt to return call for re-scheduling. /diego/ ZIYAD WRIGHT [facility] Special Procedures Nurse Signed: 07/18/2024 14:21 [facility]
--- OUTSIDE RECORDS SUMMARY | 2024-07-17 08:54 | XMS_ITS | Encounter Summary ---
Author Name [facility] [place] [facility] [place] Address [address] [place] [address] Care Team Providers Care Contamination Consultant Name Role Phone HASEEB JULIAN Primary [...] PART A Mar 24, 2005 PART A [id number] GEOVANNI,JOHNR ICK PATIENT MEDICARE (WNR) MEDICARE (M) PART B Mar 24, 2005 PART B [id number] [phone] GEOVANNI,PATR ICK PATIENT MEDICARE (WNR) MEDICARE (M) PART B Mar 24, 2005 PART B [id number] GEOVANNI,PATR ICK PATIENT MEDICARE (WNR) MEDICARE (M) PART A Mar 24, 2005 PART A [id number] GEOVANNI,PATR ICK PATIENT MEDICARE (WNR) MEDICARE (M) PART A Mar 24, 2005 PART A [id number] [phone] GEOVANNI,PATR ICK PATIENT MEDICARE (WNR) MEDICARE (M) PART B Mar 24, 2005 PART B [id number] GEOVANNI,PATR ICK PATIENT MEDICARE (WNR) MEDICARE (M) PART A Mar 24, 2005 PART A [id number] GEOVANNI,PATR ICK PATIENT MEDICARE (WNR) MEDICARE (M) PART B Mar 24, 2005 PART B [id number] GEOVANNI,PATR ICK PATIENT MEDICARE PART D (WNR) MEDICARE (M) PART D May 24, 2012 PART D [id number] GEOVANNI,PATR ICK PATIENT MEDICARE PART D (WNR) MEDICARE (M) PART D May 24, 2012 PART D [id number] GEOVANNI,PATR ICK PATIENT Selected Encounter This section includes the information on record at [place] for the Encounter. Date/Time Encounter Type Encounter Description Reason Pro vider Source Jul 17, 2024 01:54 PM Outpatient Encounter ADMIN PAT ACTIVTIES (MASNONCT) IHE Encounter Template Text not used by [place] Plan of Treatment: Future Appointments (+ 6 months) and Future Tests (+/- 45 days) The Plan of Treatment section includes future care activities for the patient from all [place] treatmentfacilities. This section includes future appointments and future orders which are active, pending or scheduled. Future Appointments This section includes appointments that were scheduled to occur 6 months from the date of the Encounter, up to a maximum of 20 appointments. The data comes from all [place] treatment facilities. Appointment Date/Time Appointment Type Appointme nt Facility Name Jul 18, 2024 11:15 AM AMBULATORY - MEDICINE [facility] Jul 20, 2024 09:45 AM AMBULATORY - MEDICINE [facility] Jul 20, 2024 10:30 AM AMBULATORY - MEDICINE [facility] Jul 20, 2024 10:32 AM AMBULATORY - [facility]IC[facility] [facility] Aug 01, 2024 02:30 PM AMBULATORY - MEDICINE [facility] [facility] Aug 02, 2024 08:00 AM AMBULATORY - [facility] Aug 21, 2024 02:00 PM [facility]ORY [facility] Sep 12, 2024 12:00 PM AMBULATORY - MEDICINE [facility] Sep 12, 2024 12:02 PM AMBULATORY - [facility]IC[facility] [place] [facility] Sep 12, 2024 12:30 PM AMBULATORY - MEDICINE [facility] Sep 12, 2024 12:31 PM AMBULATORY - MEDICINE [facility] Dec 14, 2024 08:00 AM AMBULATORY - [facility]IC[facility] [place] [facility] Dec 15, 2024 02:00 PM AMBULATORY - MEDICINE [facility] Active, Pending, and Scheduled Orders This section includes a listing of several types of active, pending, and scheduled orders, including clinic medications orders, diagnostic test orders, procedure orders and consult orders; where the start date of the order is 45 days before the date of the Encounter or 45 days after the date of theEncounter. The data comes from all [place] treatment facilities. Test Date/Time Test Type Test Details Facility Name Aug 21, 2024 02:52 PM Laboratory - Chemi stry Order POC UA (STL-PB-MA) URINE SP [facility] Social History: Smoking Status (Most current) and Tobacco Use (All prior to encounter date) This section includes the most current, and the historical, smoking and tobacco- related health factors from the [place] facility where the Encounter took place. Current Smoking Status This section includes the most current smoking, or tobacco-related health factor, from the [place] facility where the Encounter took place. Date/Time Current Smoking Status Comment Facil ity Sep 09, 2023 12:30 PM VA-TOBACCO FORMER USER [facility] Tobacco Use History This section includes a history of the smoking, or tobacco-related health factors, that were collected on or before the date of the Encounter. The data comes from the [place] facility where the Encounter took place. Date/Time Smoking Status/Tobacco Use Comment F acility Sep 09, 2023 12:30 PM VA-TOBACCO QUIT 15 YRS OR MORE [facility] Sep 10, 2022 08:30 AM VA-TOBACCO FORMER USER [facility] Sep 10, 2022 08:30 AM VA-TOBACCO QUIT 15 YRS OR MORE [facility] Jun 23, 2021 08:30 AM VA-TOBACCO FORMER USER [facility] Jun 23, 2021 08:30 AM VA-TOBACCO QUIT 15 YRS OR MORE [facility] 2020 08:30 AM VA-TOBACCO FORMER USER [facility] 2020 08:30 AM VA-TOBACCO QUIT 15 YRS OR MORE [facility] Mar 15, 2019 09:37 AM CURRENT NON-TOBACCO USER-HX OF [facility] Nov 16, 2018 09:33 AM VA-TOBACCO FORMER USER [facility] Nov 16, 2018 09:33 AM VA-TOBACCO QUIT 15 YRS OR MORE [facility] Feb 18, 2018 09:46 AM CURRENT NON-TOBACCO USER-HX OF [facility] Nov 23, 2007 09:17 AM QUIT TOBACCO >7 YEARS AGO [facility] Jun 21, 2007 09:21 AM QUIT TOBACCO >7 YEARS AGO [facility] Aug 24, 2005 08:27 AM CURRENT NON-TOBACCO USER-HX OF [facility] Feb 23, 2005 11:20 AM CURRENT NON-TOBACCO USER-HX OF [facility] Jun 26, 2004 01:01 PM CURRENT NON-TOBACCO USER-HX OF [facility] Advance Directives: All historical and current Section Date Range: From patient's date of to the date document was created. This section includes ALL of a patient's completed or amended [place] Advance and Rescinded Directives. The entries below indicate that a directive exists for the patient, but an actual copy is not included with this document. The data comes from all [place] facilities. Date Advance Directives Provider Source Dec 19, 2024 ADVANCE DIRECTIVE TY BERUMEN JACOB [facility] Encounter Notes: All associated encounter notes This section contains the clinical notes associated to the Encounter. Date/Time Encounter Note(s) Provider Source Jul 18, 2024 04:20 PM ADDENDUM: LOCAL TITLE: Addendum STANDARD TITLE: ADDENDUM DATE OF NOTE: JUL 18, 2024@16:20:42 ENTRY DATE: JUL 18, 2024@16:20:43 AUTHOR: FREDDY LARA EXP COSIGNER: URGENCY: STATUS: COMPLETED Pt is now on 07/20/24 for an ear flush & a hearing test. /jad/ FREDDY LARA [facility] Signed: 07/18/2024 16:21 Receipt Acknowledged By: 07/19/2024 08:16 /es/ XOCHITL LOPEZ Telehealth Clinical Business Intelligence Manager === --- Original Document --- 07/17/24 General Note PB: Received 3P brush filler hand, certified in [place]. has pending appt but note dated 07/14/24 is requesting sooner appt to be made, awaiting mail clerk bills to schedule /jad/ XOCHITL LOPEZ Telehealth Clinical Business Intelligence Manager Signed: 07/17/2024 13:56 FREDDY LARA [place] [facility] Jul 17, 2024 01:54 PM GENERAL MEDICINE N OTE: LOCAL TITLE: General Note PB STANDARD TITLE: GENERAL MEDICINE NOTE DATE OF NOTE: JUL 17, 2024@13:54 ENTRY DATE: JUL 17, 2024@13:55:28 AUTHOR: XOCHITL LOPEZ EXP COSIGNER: URGENCY: STATUS: COMPLETED General Note PB Has ADDENDA Received 3P brush filler hand, certified in [place]. [place] has pending appt but note dated 07/14/24 is requesting sooner appt to be made, awaiting mail clerk bills to schedule /jad/ XOCHITL LOPEZ Telehealth Clinical Business Intelligence Manager Signed: 07/17/2024 13:56 07/18/2024 ADDENDUM STATUS: COMPLETED Pt is now on 07/20/24 for an ear flush & a hearing test. /es/ FREDDY LARA [facility] Signed: 07/18/2024 16:21 Receipt Acknowledged By: * AWAITING SIGNATURE * XOCHITL LOPEZ [facility]
--- OUTSIDE RECORDS SUMMARY | 2024-07-19 06:27 | XMS_ITS | Encounter Summary ---
Author Name [facility] [place] [facility] [place] Address [address] [place] [address] Care Team Providers Care Drilling Assistant Name Role Phone HASEEB JULIAN Primary Care [...] PART A Mar 24, 2005 PART A [id number] [facility] GEOVANNI,PATR ICK PATIENT MEDICARE (WNR) MEDICARE (M) PART B Mar 24, 2005 PART B [id number] [facility] GEOVANNI,PATR ICK PATIENT MEDICARE (WNR) MEDICARE (M) PART A Mar 24, 2005 PART A [id number] GEOVANNI,PATR ICK PATIENT MEDICARE (WNR) MEDICARE (M) PART B Mar 24, 2005 PART B [id number] GEOVANNI,PATR ICK PATIENT MEDICARE (WNR) MEDICARE (M) PART A Mar 24, 2005 PART A [id number] GEOVANNI,PATR ICK PATIENT MEDICARE (WNR) MEDICARE (M) PART B Mar 24, 2005 PART B [id number] GEOVANNI,PATR ICK PATIENT MEDICARE (WNR) MEDICARE (M) PART B Mar 24, 2005 PART B [id number] GEOVANNI,PATR ICK PATIENT MEDICARE (WNR) MEDICARE (M) PART A Mar 24, 2005 PART A [id number] GEOVANNI,PATR ICK PATIENT MEDICARE PART D (WNR) MEDICARE (M) PART D May 24, 2012 PART D [id number] GEOVANNI,PATR ICK PATIENT MEDICARE PART D (WNR) MEDICARE (M) PART D May 24, 2012 PART D [id number] GEOVANNI,PATR ICK PATIENT Selected Encounter This section includes the information on record at [place] for the Encounter. Date/Time Encounter Type Encounter Description Reason Pro vider Source Jul 19, 2024 11:27 AM Outpatient Encounter ADMIN PAT ACTIVTIES (MASNONCT) IHE Encounter Template Text not used by CT Plan of Treatment: Future Appointments (+ 6 months) and Future Tests (+/- 45 days) The Plan of Treatment section includes future care activities for the patient from all [place] treatmentfacilities. This section includes future appointments and future orders which are active, pending or scheduled. Future Appointments This section includes appointments that were scheduled to occur 6 months from the date of the Encounter, up to a maximum of 20 appointments. The data comes from all [place] treatment facilities. Appointment Date/Time Appointment Type Appointme nt Facility Name Jul 20, 2024 09:45 AM AMBULATORY - MEDICINE [facility] Jul 20, 2024 10:30 AM AMBULATORY - MEDICINE [facility] Jul 20, 2024 10:32 AM AM[facility]ULATORY - [facility]IC[facility] Aug 01, 2024 02:30 PM AMBULATORY - MEDICINE [place] [facility] Aug 02, 2024 08:00 AM AMBULATORY - MEDICINE [place] [facility] Aug 21, 2024 02:00 PM AMBULATORY - MEDICINE [facility] Sep 12, 2024 12:00 PM AMBULATORY - MEDICINE [facility] Sep 12, 2024 12:02 PM AMBULATORY - [facility]IC[facility] [place] [facility] Sep 12, 2024 12:30 PM AMBULATORY [place]ICINE [place] [facility] Sep 12, 2024 12:31 PM AMBULATORY - MEDICINE [facility] Dec 14, 2024 08:00 AM AMBULATORY - [facility]IC[facility] [place] [facility] Dec 15, 2024 02:00 PM AMBULATORY - MEDICINE [facility] Active, Pending, and Scheduled Orders This section includes a listing of several types of active, pending, and scheduled orders, including clinic medications orders, diagnostic test orders, procedure orders and consult orders; where the start date of the order is 45 days before the date of the Encounter or 45 days after the date of theEncounter. The data comes from all [place] treatment facilities. Test Date/Time Test Type Test Details Facility Name Aug 21, 2024 02:52 PM Laboratory - Chemi stry Order POC UA (STL-PB-MA) URINE SP [facility] Social History: Smoking Status (Most current) and Tobacco Use (All prior to encounter date) This section includes the most current, and the historical, smoking and tobacco- related health factors from the [place] facility where the Encounter took place. Current Smoking Status This section includes the most current smoking, or tobacco-related health factor, from the [place] facility where the Encounter took place. Date/Time Current Smoking Status Comment Facil ity Sep 09, 2023 12:30 PM VA-TOBACCO FORMER USER [facility] Tobacco Use History This section includes a history of the smoking, or tobacco-related health factors, that were collected on or before the date of the Encounter. The data comes from the [place] facility where the Encounter took place. Date/Time Smoking Status/Tobacco Use Comment F acility Sep 09, 2023 12:30 PM VA-TOBACCO QUIT 15 YRS OR MORE [facility] Sep 10, 2022 08:30 AM VA-TOBACCO FORMER USER [facility] Sep 10, 2022 08:30 AM VA-TOBACCO QUIT 15 YRS OR MORE [facility] Jun 23, 2021 08:30 AM VA-TOBACCO FORMER USER [facility] Jun 23, 2021 08:30 AM VA-TOBACCO QUIT 15 YRS OR MORE [facility] 2020 08:30 AM VA-TOBACCO FORMER USER [facility] 2020 08:30 AM VA-TOBACCO QUIT 15 YRS OR MORE [facility] Mar 15, 2019 09:37 AM CURRENT NON-TOBACCO USER-[facility]X [facility] Nov 16, 2018 09:33 AM VA-TOBACCO FORMER USER [facility] Nov 16, 2018 09:33 AM VA-TOBACCO QUIT 15 YRS OR MORE [facility] Feb 18, 2018 09:46 AM CURRENT NON-TOBACCO USER-[facility] Nov 23, 2007 09:17 AM QUIT TOBACCO >7 YEARS AGO [facility] Jun 21, 2007 09:21 AM QUIT TOBACCO >7 YEARS AGO [facility] Aug 24, 2005 08:27 AM CURRENT NON-TOBACCO USER-[facility]X OF [facility] Feb 23, 2005 11:20 AM CURRENT NON-TOBACCO USER-[facility]X OF [facility] Jun 26, 2004 01:01 PM CURRENT NON-TOBACCO USER-[facility]X OF [facility] Advance Directives: All historical and current Section Date Range: From patient's date of to the date document was created. This section includes ALL of a patient's completed or amended CT Advance and Rescinded Directives. The entries below indicate that a directive exists for the patient, but an actual copy is not included with this document. The data comes from all [place] facilities. Date Advance Directives Provider Source Dec 19, 2024 ADVANCE DIRECTIVE YT BERUMEN JACOB [facility] Encounter Notes: All associated encounter notes This section contains the clinical notes associated to the Encounter. Date/Time Encounter Note(s) Provider Source Jul 19, 2024 11:28 AM GENERAL MEDICINE N OTE: LOCAL TITLE: General Note PB STANDARD TITLE: GENERAL MEDICINE NOTE DATE OF NOTE: JUL 19, 2024@11:28 ENTRY DATE: JUL 19, 2024@11:28:32 AUTHOR: XOCHITL LOPEZ EXP COSIGNER: URGENCY: STATUS: COMPLETED Spoke with and confirmed Audiology appt marcial 07/20 /diego/ XOCHITL LOPEZ Telehealth Clinical Apartment Community Assistant Manager Signed: 07/19/2024 11:29 XOCHITL LOPEZ [facility]
--- OUTSIDE RECORDS SUMMARY | 2024-07-20 05:32 | XMS_ITS | Encounter Summary ---
Author Name [facility] [place] [facility] [place] Organization [facility] [place] Address [address] [place] [address] Care Team Providers Care Staffing Operations Manager Name Role Phone JULIAN MEMBRENO Primary Care [...] PART A Mar 24, 2005 PART A [id number] [facility] GEOVANNI,JOHNR ICK PATIENT MEDICARE (WNR) MEDICARE (M) PART B Mar 24, 2005 PART B [id number] GEOVANNI,PATR ICK PATIENT MEDICARE (WNR) MEDICARE (M) PART A Mar 24, 2005 PART A [id number] GEOVANNI,PATR ICK PATIENT MEDICARE (WNR) MEDICARE (M) PART B Mar 24, 2005 PART B [id number] GEOVANNI,PATR ICK PATIENT MEDICARE (WNR) MEDICARE (M) PART A Mar 24, 2005 PART A [id number] [facility] [phone] GEOVANNI,JOHNR ICK PATIENT MEDICARE (WNR) MEDICARE (M) PART B Mar 24, 2005 PART B [id number] [phone] GEOVANNI,PATR ICK PATIENT MEDICARE (WNR) MEDICARE (M) PART B Mar 24, 2005 PART B [id number] GEOVANNI,JOHNR ICK PATIENT MEDICARE (WNR) MEDICARE (M) PART A Mar 24, 2005 PART A [id number] [phone] GEOVANNI,PATR ICK PATIENT MEDICARE PART D (WNR) MEDICARE (M) PART D May 24, 2012 PART D [id number] GEOVANNI,JOHNR ICK PATIENT MEDICARE PART D (WNR) MEDICARE (M) PART D May 24, 2012 PART D [id number] GEOVANNIJOHNR ICK PATIENT Selected Encounter This section includes the information on record at [place] for the Encounter. Date/Time Encounter Type Encounter Description Reason Provider Source Jul 20, 2024 10:32 AM HEARING AID REPAIR/MODIFYIN G AUDIOLOGY ICD-10-CM Z46.1 Encounter for fitting and adjustment of hearing aid WILLIAM BARTON RA [facility] Encounter Template Text not used by [place] Assessments - Encounter Diagnoses This section includes the primary and secondary diagnoses documented for the Encounter. Date/Time Primary/Secondary Diagnosis Diagnosis Name Provider Source Jul 20, 2024 10:44 AM PRIMARY Encounter for fitting and adjustment of hearing aid WILLIAM BARTON RA [facility] Jul 20, 2024 10:44 AM SECONDARY Sensorineural hearing loss, bilateral WILLIAM BARTON RA [place] [facility] Jul 20, 2024 10:44 AM SECONDARY Tinnitus, bilateral WILLIAM BARTON RA [place] [facility] Plan of Treatment: Future Appointments (+ 6 months) and Future Tests (+/- 45 days) The Plan of Treatment section includes future care activities for the patient from all [place] treatmentfacilities. This section includes future appointments and future orders which are active, pending or scheduled. Future Appointments This section includes appointments that were scheduled to occur 6 months from the date of the Encounter, up to a maximum of 20 appointments. The data comes from all [place] treatment facilities. Appointment Date/Time Appointment Type Appointme nt Facility Name Aug 01, 2024 02:30 PM AMBULATORY - MEDICINE [place] Aug 02, 2024 08:00 AM AMBULATORY - MEDICINE [place] [facility] Aug 21, 2024 02:00 PM AMBULATORY - MEDICINE [facility] Sep 12, 2024 12:00 PM AMBULATORY - MEDICINE [facility] Sep 12, 2024 12:02 PM AMBULATORY - MEDICINE [place] [facility] Sep 12, 2024 12:30 PM AMBULATORY - MEDICINE [facility] Sep 12, 2024 12:31 PM AMBULATORY - MEDICINE [facility] Dec 14, 2024 08:00 AM AMBULATORY - MEDICINE [place] [facility] Dec 15, 2024 02:00 PM AMBULATORY - MEDICINE [facility] Active, Pending, and Scheduled Orders This section includes a listing of several types of active, pending, and scheduled orders, including clinic medications orders, diagnostic test orders, procedure orders and consult orders; where the start date of the order is 45 days before the date of the Encounter or 45 days after the date of theEncounter. The data comes from all [facility]. Test Date/Time Test Type Test Details Facility Name Aug 21, 2024 02:52 PM Laboratory - Chemi stry Order POC UA (STL-PB-MA) URINE SP [facility] Social History: Smoking Status (Most current) and Tobacco Use (All prior to encounter date) This section includes the most current, and the historical, smoking and tobacco- related health factors from the [place] facility where the Encounter took place. Current Smoking Status This section includes the most current smoking, or tobacco-related health factor, from the [place] facility where the Encounter took place. Date/Time Current Smoking Status Comment Facil ity Sep 16, 2007 05:28 PM QUIT TOBACCO >7 YEARS AGO [facility] Advance Directives: All historical and current Section Date Range: From patient's date of to the date document was created. This section includes ALL of a patient's completed or amended [place] Advance and Rescinded Directives. The entries below indicate that a directive exists for the patient, but an actual copy is not included with this document. The data comes from all [place] facilities. Date Advance Directives Provider Source Dec 19, 2024 ADVANCE DIRECTIVE TY BERUMEN MO [facility] Encounter Notes: All associated encounter notes This section contains the clinical notes associated to the Encounter. Date/Time Encounter Note(s) Provider Source Jul 20, 2024 07:34 AM AUDIOLOGY NOTE: LOCAL TITLE: HEARING CLINIC PB STANDARD TITLE: AUDIOLOGY NOTE DATE OF NOTE: JUL 20, 2024@07:34 ENTRY DATE: JUL 20, 2024@07:34:37 AUTHOR: ELOISE BARTON COSIGNER: URGENCY: STATUS: COMPLETED Diagnosis: Sensorineural Hearing Loss, Bilateral and Tinnitus, Bilateral Treatment: Hearing Aid Check Time spent with [place]: 30 minutes seen for a hearing aid check via Audio Telehealth and verbally consented to the Telehealth modality. Multi-factor personally identifiable information of the was obtained verbally (full name and date of ). [place] accompanied by: daughter Patient site: [facility] ____ HISTORY: Reason for Appointment: Patient is here today for installation of 3P receivers on three hearing aids. He notes moisture damage to original 2023 left hearing aid. HEARING DEVICES: 11/2023 PHONAK AUDEO L90-R MIGUEL L [id number]* (+ original, crackles) 11/2023 PHONAK AUDEO L90-R MIGUEL R [id number]* (+ original) - 3P CALL CENTER PROFESSIONAL 5.0 - VENTED DOME - MEDIUM - CERUSTOP - NO RETENTION TAILS (graphite jones) * Daughter assists with cleaning/maintenance * Loss/damage hearing aids marked with sharpie. Originals may be confiscated if mailed for repair. BACK-UP HEARING DEVICES: 10/2022 PHONAK AUDEO L90-R MIGUEL L [id number] 10/2022 PHONAK AUDEO L90-R MIGUEL R [id number] - 3P CALL CENTER PROFESSIONAL 5.0 - VENTED DOME- MEDIUM - CERUSTOP (sand beige) OBJECTIVE/ASSESSMENT: Otoscopy was performed by collaboration of telehealth clinical licensed chemical spray technician and provider via telehealth technology/video otoscope which revealed: Right ear: unremarkable Left ear: unremarkable Installed 3P receivers on the following devices: - 2023 replacement right hearing aid (annotated with sharpie) - 2023 replacement left hearing aid (annotated with sharpie) - 2023 original left hearing aid A listening check performed by the TCT confirmed proper function of right/left replacement devices. Patient noted continued cracking with 2023 original left device. Original left device cannot be sent for Vendor repair. Patient notes loss of 2022 devices. Ordered loss/damage. The was counseled/educated on services provided today and is in agreement with the plan. PLAN: Return to clinic for issue of 2022 right/left loss/damage. Please ensure size 3P receivers. /diego/ Lul Gibson [facility] Signed: 07/20/2024 11:04 ELOISE BARTON [facility]
--- OUTSIDE RECORDS SUMMARY | 2024-07-27 07:53 | XMS_ITS | Encounter Summary ---
Author Name [facility] [place] Address [address] [place] [address] Care Team Providers Care Valet Manager Name Role Phone HASEEB JULIAN Primary Care [...] PART A Mar 24, 2005 PART A [id number] [facility] GEOVANNI,PATR ICK PATIENT MEDICARE (WNR) MEDICARE (M) PART B Mar 24, 2005 PART B [id number] GEOVANNI,PATR ICK PATIENT MEDICARE (WNR) MEDICARE (M) PART B Mar 24, 2005 PART B [id number] [phone] GEOVANNI,PATR ICK PATIENT MEDICARE (WNR) MEDICARE (M) PART A Mar 24, 2005 PART A [id number] GEOVANNI,PATR ICK PATIENT MEDICARE (WNR) MEDICARE (M) PART A Mar 24, 2005 PART A [id number] GEOVANNI,PATR ICK PATIENT MEDICARE (WNR) MEDICARE (M) PART B Mar 24, 2005 PART B [id number] GEOVANNI,PATR ICK PATIENT MEDICARE (WNR) MEDICARE (M) PART A Mar 24, 2005 PART A [id number] GEOVANNI,PATR ICK PATIENT MEDICARE (WNR) MEDICARE (M) PART B Mar 24, 2005 PART B [id number] GEOVANNI,PATR ICK PATIENT MEDICARE PART D (WNR) MEDICARE (M) PART D May 24, 2012 PART D [id number] GEOVANNI,PATR ICK PATIENT MEDICARE PART D (WNR) MEDICARE (M) PART D May 24, 2012 PART D [id number] [phone] GEOVANNI,PATR ICK PATIENT Selected Encounter This section includes the information on record at [place] for the Encounter. Date/Time Encounter Type Encounter Description Reason Pro vider Source Jul 27, 2024 12:53 PM Outpatient Encounter ADMIN PAT ACTIVTIES (MASNONCT) [...] PM AMBULATORY - [facility] [facility] Aug 02, 2024 08:00 AM [facility]UL[facility] - [facility] [facility] Aug 21, 2024 02:00 PM AMBULATORY - MEDICINE [facility] Sep 12, 2024 12:00 PM AMBULATORY - MEDICINE [facility] Sep 12, 2024 12:02 PM [facility] - [facility]IC[facility] [facility] Sep 12, 2024 12:30 PM AMBULATORY - MEDICINE [facility] Sep 12, 2024 12:31 PM AMBULATORY - MEDICINE [facility] Dec 14, 2024 08:00 AM AMBULATORY - [facility]ICINE [place] [facility] Dec 15, 2024 02:00 PM AMBULATORY - MEDICINE [facility] Active, Pending, and Scheduled Orders This [...] stry Order POC UA (STL-PB-MA) URINE SP [facility] Lab Results: +/- 30 days of the encounter This section includes the Chemistry and Hematology Lab Results on record with [place] for the patient. Radiology Reports and Pathology Reports are provided separately, in subsequent sections. Lab Results This section contains the Chemistry/Hematology Results that were resulted 30 days before or 30 daysafter the date of the Encounter. Date/Time Source Result Type Result - Unit Interpretation Reference Range Specimen Type Comment Aug 21, 2024 03:00 PM [facility] POC UA (STL-PB-MA) URINE Specimen Type: URINE No comment entered. Ordering Provider: JULIAN MEMBRENO Report Released Date/Time: Aug 21, 2024 03:07 PM Reporting Lab: [facility] [address] [facility] [address] Performing Lab: [facility] [address] [facility] [address] PROTEIN POC UA Negative mg/dL Negative BLOOD POC UA Trace-intact Negative LEUKOCYTES POC UA Negative Negative COLOR POC UA Yellow YELLOW SPEC GRAV POC UA 1.025 1.005-1.030 UROBILINOGEN POC UA 0.2 {Lakeshia'U}/dL 0 .1-1.0 BILIRUBIN POC UA Negative Negative KETONES POC UA Negative mg/dL Negative GLUCOSE POC UA Negative mg/dL Negative pH POC UA 5.5 5.0-8.0 NITRITE POC UA Negative Negative CLARITY POC UA Clear CLEAR Social History: Smoking Status (Most current) and Tobacco Use (All prior to encounter date) This section includes the most current, and the historical, smoking and tobacco- related health factors from the [place] facility where the Encounter took place. Current Smoking Status This section includes the most current smoking, or tobacco-related health factor, from the [place] facility where the Encounter took place. Date/Time Current Smoking Status Comment Francois wintery Sep 09, 2023 12:30 PM VA-TOBACCO QUIT 15 YRS OR MORE [facility] Tobacco Use History This section includes a history of the smoking, or tobacco-related health factors, that were collected on or before the date of the Encounter. The data comes from the [place] facility where the Encounter took place. Date/Time Smoking Status/Tobacco Use Comment Bushra pizano Sep 09, 2023 12:30 PM VA-TOBACCO QUIT 15 YRS [place] MORE [facility] Sep 10, 2022 08:30 AM VA-TOBACCO FORMER USER [facility] Sep 10, 2022 08:30 AM VA-TOBACCO QUIT 15 YRS [place] MORE [facility] Jun 23, 2021 08:30 AM VA-TOBACCO FORMER US[place] [facility] Jun 23, 2021 08:30 AM VA-TOBACCO QUIT 15 YRS [place] MORE [facility] 2020 08:30 AM VA-TOBACCO FORMER US[place] [facility] 2020 08:30 AM VA-TOBACCO QUIT 15 YRS OR MORE [facility] Mar 15, 2019 09:37 AM CURRENT NON-TOBACCO USER-HX OF [facility] Nov 16, 2018 09:33 AM VA-TOBACCO FORMER USER [facility] Nov 16, 2018 09:33 AM VA-TOBACCO QUIT 15 YRS OR MORE [facility] Feb 18, 2018 09:46 AM CURRENT NON-TOBACCO USER-[facility]X [facility] Nov 23, 2007 09:17 AM QUIT TOBACCO >7 YEARS AGO [facility] Jun 21, 2007 09:21 AM QUIT TOBACCO >7 YEARS AGO [facility] Aug 24, 2005 08:27 AM CURRENT NON-TOBACCO USER-[facility]X [facility] Feb 23, 2005 11:20 AM CURRENT NON-TOBACCO USER-[facility]X [facility] Jun 26, 2004 01:01 PM CURRENT NON-TOBACCO USER-HX OF [facility] Advance Directives: All historical [...] ADVANCE DIRECTIVE TY BERUMEN JACOB FF [place] [facility] Encounter Notes: All associated encounter notes This section contains the clinical notes associated to the Encounter. Date/Time Encounter Note(s) Provider Source Jul 27, 2024 12:53 PM GENERAL MEDICINE N OTE: LOCAL TITLE: General Note PB STANDARD TITLE: GENERAL MEDICINE NOTE DATE OF NOTE: JUL 27, 2024@12:53 ENTRY DATE: JUL 27, 2024@12:53:27 AUTHOR: XOCHITL LOPEZ EXP COSIGNER: URGENCY: STATUS: COMPLETED Received hearing aid device, certified in [place]. [place] has pending appt for fitting /es/ XOCHITL LOPEZ Telehealth Clinical Picker Operator Signed: 07/27/2024 12:53 XOCHITL LOPEZ [facility]
--- OUTSIDE RECORDS SUMMARY | 2024-07-28 09:00 | XMS_ITS | Encounter Summary ---
Author Name [facility] [place] [facility] [place] [facility] [place] Address [address] [place] [address] Care Team Providers Care Global Analytics Head Name Role Phone HASEEB JULIAN Primary Care [...] PART A Mar 24, 2005 PART A [id number] [facility] [phone] GEOVANNI,PATR ICK PATIENT MEDICARE (WNR) MEDICARE (M) PART B Mar 24, 2005 PART B [id number] GEOVANNI,PATR ICK PATIENT MEDICARE (WNR) MEDICARE (M) PART B Mar 24, 2005 PART B [id number] GEOVANNI,PATR ICK PATIENT MEDICARE (WNR) MEDICARE (M) PART A Mar 24, 2005 PART A [id number] GEOVANNI,PATR ICK PATIENT MEDICARE (WNR) MEDICARE (M) PART A Mar 24, 2005 PART A [id number] GEOVANNI,PATR ICK PATIENT MEDICARE (WNR) MEDICARE (M) PART B Mar 24, 2005 PART B [id number] [phone] GEOVANNI,PATR ICK PATIENT MEDICARE (WNR) MEDICARE (M) PART A Mar 24, 2005 PART A [id number] GEOVANNI,PATR ICK PATIENT MEDICARE (WNR) MEDICARE (M) PART B Mar 24, 2005 PART B [id number] GEOVANNI,PATR ICK PATIENT MEDICARE PART D (WNR) MEDICARE (M) PART D May 24, 2012 PART D [id number] GEOVANNI,PATR ICK PATIENT MEDICARE PART D (WNR) MEDICARE (M) PART D May 24, 2012 PART D [id number] GEOVANNI,PATR ICK PATIENT Selected Encounter This section includes the information on record at [place] for the Encounter. Date/Time Encounter Type Encounter Description Reason Pro vider Source Jul 28, 2024 02:00 PM Outpatient Encounter ADMIN PAT ACTIVTIES (MASNONCT) IHE Encounter Template Text not used by [place] Plan of Treatment: Future Appointments (+ 6 months) and Future Tests (+/- 45 days) The Plan of Treatment section includes future care activities for the patient from all [place] treatmentfacilities. This section includes future appointments and future orders which are active, pending or scheduled. Future Appointments This section includes appointments that were scheduled to occur 6 months from the date of the Encounter, up to a maximum of 20 appointments. The data comes from all [place] treatment facilities. Appointment Date/Time Appointment Type Appointme nt Facility Name Aug 01, 2024 02:30 PM AMBULATORY - [facility]IC[facility] [facility] Aug 02, 2024 08:00 AM AMBULATORY - [facility]IC[facility] [place] Aug 21, 2024 02:00 PM AMBULATORY - MEDICINE [facility] Sep 12, 2024 12:00 PM AMBULATORY - MEDICINE [facility] Sep 12, 2024 12:02 PM AMBUL[facility]ORY [facility]IC[facility] [place] [facility] Sep 12, 2024 12:30 PM AMBULATORY - MEDICINE [facility] Sep 12, 2024 12:31 PM AMBULATORY - MEDICINE [facility] Dec 14, 2024 08:00 AM AMBULATORY - MEDICINE [place] Dec 15, 2024 02:00 PM AMBULATORY - MEDICINE [facility] Active, Pending, and Scheduled Orders This section includes a listing of several types of active, pending, and scheduled orders, including clinic medications orders, diagnostic test orders, procedure orders and consult orders; where the start date of the order is 45 days before the date of the Encounter or 45 days after the date of theEncounter. The data comes from all [place] treatment facilities. Test Date/Time Test Type Test Details Facility Name Aug 21, 2024 02:52 PM Laboratory - Chemi stry Order POC UA (STL-PB-MA) URINE SP [facility] Lab Results: +/- 30 days of the encounter This section includes the Chemistry and Hematology Lab Results on record with [place] for the patient. Radiology Reports and Pathology Reports are provided separately, in subsequent sections. Lab Results This section contains the Chemistry/Hematology Results that were resulted 30 days before or 30 daysafter the date of the Encounter. Date/Time Source Result Type Result - Unit Interpretation Reference Range Specimen Type Comment Aug 21, 2024 03:00 PM [facility] POC UA (STL-PB-MA) URINE Specimen Type: URINE No comment entered. Ordering Provider: JULIAN MEMBRENO Report Released Date/Time: Aug 21, 2024 03:07 PM Reporting Lab: [facility] [address] [facility] [address] Performing Lab: [facility] [address] [facility] [address] PROTEIN POC UA Negative mg/dL Negative BLOOD [...] and tobacco- related health factors from the [place] facility where the Encounter took place. Current Smoking Status This section includes the most current smoking, or tobacco-related health factor, from the [place] facility where the Encounter took place. Date/Time Current Smoking Status Comment Francois wintery Sep 09, 2023 12:30 PM VA-TOBACCO QUIT 15 YRS OR MORE [facility] Tobacco Use History This section includes a history of the smoking, or tobacco-related health factors, that were collected on or before the date of the Encounter. The data comes from the [place] facility where the Encounter took place. Date/Time Smoking Status/Tobacco Use Comment Bushra pizano Sep 09, 2023 12:30 PM VA-TOBACCO QUIT 15 YRS OR MORE [facility] Sep 10, 2022 08:30 AM VA-TOBACCO FORMER USER [facility] Sep 10, 2022 08:30 AM VA-TOBACCO QUIT 15 YRS [place] MORE [facility] Jun 23, 2021 08:30 AM VA-TOBACCO FORMER US[place] [facility] Jun 23, 2021 08:30 AM VA-TOBACCO QUIT 15 YRS [place] MORE [facility] 2020 08:30 AM VA-[place]BACCO [facility] US[place] [facility] 2020 08:30 AM VA-TOBACCO QUIT 15 YRS OR MORE [facility] Mar 15, 2019 09:37 AM CURRENT NON-TOBACCO USER-HX OF [facility] Nov 16, 2018 09:33 AM VA-TOBACCO FORMER USER [facility] Nov 16, 2018 09:33 AM VA-TOBACCO QUIT 15 YRS OR MORE [facility] Feb 18, 2018 09:46 AM CURRENT NON-TOBACCO USER-[facility]X OF [facility] Nov 23, 2007 09:17 AM QUIT TOBACCO >7 YEARS AGO [facility] Jun 21, 2007 09:21 AM QUIT TOBACCO >7 YEARS AGO [facility] Aug 24, 2005 08:27 AM CURRENT NON-TOBACCO USER-[facility]X OF [facility] Feb 23, 2005 11:20 AM CURRENT NON-TOBACCO USER-[facility]X OF [facility] Jun 26, 2004 01:01 PM CURRENT NON-TOBACCO USER-HX OF [facility] Advance Directives: All historical and current Section Date Range: From patient's date of to the date document was created. This section includes ALL of a patient's completed or amended [place] Advance and Rescinded Directives. The entries below indicate that a directive exists for the patient, but an actual copy is not included with this document. The data comes from all [place] facilities. Date Advance Directives Provider Source Dec 19, 2024 ADVANCE DIRECTIVE TY BERUMEN JACOB FF [place] [facility] Encounter Notes: All associated encounter notes This section contains the clinical notes associated to the Encounter. Date/Time Encounter Note(s) Provider Source Jul 28, 2024 02:00 PM GENERAL MEDICINE N OTE: LOCAL TITLE: General Note PB STANDARD TITLE: GENERAL MEDICINE NOTE DATE OF NOTE: JUL 28, 2024@14:00 ENTRY DATE: JUL 28, 2024@14:00:23 AUTHOR: XOCHITL LOPEZ EXP COSIGNER: URGENCY: STATUS: COMPLETED Received receivers, certified in [place]> has pending appt /diego/ XOCHITL LOPEZ Telehealth Clinical Tyre Builder Signed: 07/28/2024 14:00 XOCHITL LOPEZ [facility]
--- OUTSIDE RECORDS SUMMARY | 2024-07-31 08:37 | XMS_ITS | Encounter Summary ---
Author Name [facility] [place] [facility] [place] [facility] [place] Address [address] [place] [address] Care Team Providers Care Pre Planning Advisor Name Role Phone HASEEB JULIAN Primary Care [...] PART A Mar 24, 2005 PART A [id number] GEOVANNI,PATR ICK PATIENT MEDICARE (WNR) MEDICARE (M) PART B Mar 24, 2005 PART B [id number] GEOVANNI,PATR ICK PATIENT MEDICARE (WNR) MEDICARE (M) PART A Mar 24, 2005 PART A [id number] GEOVANNI,PATR ICK PATIENT MEDICARE (WNR) MEDICARE (M) PART B Mar 24, 2005 PART B [id number] GEOVANNI,PATR ICK PATIENT MEDICARE (WNR) MEDICARE (M) PART A Mar 24, 2005 PART A [id number] [facility] [phone] GEOVANNI,PATR ICK PATIENT MEDICARE (WNR) MEDICARE (M) PART B Mar 24, 2005 PART B [id number] GEOVANNI,PATR ICK PATIENT MEDICARE (WNR) MEDICARE (M) PART A Mar 24, 2005 PART A [id number] GEOVANNI,PATR ICK PATIENT MEDICARE (WNR) MEDICARE (M) PART B Mar 24, 2005 PART B [id number] GEOVANNI,PATR ICK PATIENT MEDICARE PART D (WNR) MEDICARE (M) PART D May 24, 2012 PART D [id number] GEOVANNI,PATR ICK PATIENT MEDICARE PART D (WNR) MEDICARE (M) PART D May 24, 2012 PART D [id number] GEOVANNI,PATR ICK PATIENT Selected Encounter This section includes the information on record at [place] for the Encounter. Date/Time Encounter Type Encounter Description Reason Pro vider Source Jul 31, 2024 01:37 PM Outpatient Encounter ADMIN PAT ACTIVTIES (MASNONCT) IHE Encounter Template Text not used by [place] Plan of Treatment: Future Appointments (+ 6 months) and Future Tests (+/- 45 days) The Plan of Treatment section includes future care activities for the patient from all [place] treatmentfacilities. This section includes future appointments and future orders which are active, pending or scheduled. Future Appointments This section includes appointments that were scheduled to occur 6 months from the date of the Encounter, up to a maximum of 20 appointments. The data comes from all [place] treatment facilities. Appointment Date/Time Appointment Type Appointme nt Facility Name Aug 01, 2024 02:30 PM AMBULATORY - [facility]IC[facility] [place] [facility] Aug 02, 2024 08:00 AM AMBULATORY - [facility]IC[facility] [place] Aug 21, 2024 02:00 PM AMBULATORY - MEDICINE [facility] Sep 12, 2024 12:00 PM AMBULATORY - MEDICINE [facility] Sep 12, 2024 12:02 PM AMBULATORY - MEDICINE [facility] [facility] Sep 12, 2024 12:30 PM AMBULATORY - MEDICINE [facility] Sep 12, 2024 12:31 PM AMBULATORY - MEDICINE [facility] Dec 14, 2024 08:00 AM AMBULATORY - MEDICINE [place] Dec 15, 2024 02:00 PM AMBULATORY - MEDICINE [facility] Active, Pending, and Scheduled Orders This section includes a listing of several types of active, pending, and scheduled orders, including clinic medications orders, diagnostic test orders, procedure orders and consult orders; where the start date of the order is 45 days before the date of the Encounter or 45 days after the date of theEncounter. The data comes from all [place] treatment facilities. Test Date/Time Test Type Test Details Facility Name Aug 21, 2024 02:52 PM Laboratory - Chemi stry Order POC UA (STL-PB-MA) URINE SP [facility] Lab Results: +/- 30 days of the encounter This section includes the Chemistry and Hematology Lab Results on record with [place] for the patient. Radiology Reports and Pathology Reports are provided separately, in subsequent sections. Lab Results This section contains the Chemistry/Hematology Results that were resulted 30 days before or 30 daysafter the date of the Encounter. Date/Time Source Result Type Result - Unit Interpretation Reference Range Specimen Type Comment Aug 21, 2024 03:00 PM [facility] POC UA (STL-PB-MA) URINE Specimen Type: URINE No comment entered. Ordering Provider: JULIAN MEMBRENO Report Released Date/Time: Aug 21, 2024 03:07 PM Reporting Lab: [facility] [address] [facility] [address] Performing Lab: [facility] [address] [facility] [address] PROTEIN POC UA Negative mg/dL Negative BLOOD [...] and tobacco- related health factors from the [place] facility where the Encounter took place. Current Smoking Status This section includes the most current smoking, or tobacco-related health factor, from the [place] facility where the Encounter took place. Date/Time Current Smoking Status Comment Francois wintery Sep 09, 2023 12:30 PM VA-TOBACCO FORMER USER [facility] Tobacco Use History This section includes a history of the smoking, or tobacco-related health factors, that were collected on or before the date of the Encounter. The data comes from the [place] facility where the Encounter took place. Date/Time Smoking Status/Tobacco Use Comment Bushra acronny Sep 09, 2023 12:30 PM VA-TOBACCO QUIT 15 YRS OR MORE [facility] Sep 10, 2022 08:30 AM VA-TOBACCO FORMER USER [facility] Sep 10, 2022 08:30 AM VA-TOBACCO QUIT 15 YRS OR MORE [facility] Jun 23, 2021 08:30 AM VA-TOBACCO FORMER USER [facility] Jun 23, 2021 08:30 AM VA-TOBACCO QUIT 15 YRS OR MORE [facility] 2020 08:30 AM VA-TOBACCO FORMER USER [facility] 2020 08:30 AM VA-TOBACCO QUIT 15 YRS OR MORE [facility] Mar 15, 2019 09:37 AM CURRENT NON-TOBACCO USER-HX OF [facility] Nov 16, 2018 09:33 AM VA-TOBACCO FORMER USER [facility] Nov 16, 2018 09:33 AM VA-TOBACCO QUIT 15 YRS OR MORE [facility] Feb 18, 2018 09:46 AM CURRENT NON-TOBACCO USER-[facility]X [facility] Nov 23, 2007 09:17 AM QUIT TOBACCO >7 YEARS AGO [facility] [facility] Jun 21, 2007 09:21 AM QUIT TOBACCO >7 YEARS AGO [facility] Aug 24, 2005 08:27 AM CURRENT NON-TOBACCO USER[facility]X [facility] Feb 23, 2005 11:20 AM CURRENT NON-TOBACCO USER[facility]X [facility] Jun 26, 2004 01:01 PM CURRENT NON-TOBACCO USER-HX OF [facility] Advance Directives: All historical and current Section Date Range: From patient's date of to the date document was created. This section includes ALL of a patient's completed or amended [place] Advance and Rescinded Directives. The entries below indicate that a directive exists for the patient, but an actual copy is not included with this document. The data comes from all [place] facilities. Date Advance Directives Provider Source Dec 19, 2024 ADVANCE DIRECTIVE TY BERUMEN JACOB FF [place] [facility] Encounter Notes: All associated encounter notes This section contains the clinical notes associated to the Encounter. Date/Time Encounter Note(s) Provider Source Jul 31, 2024 01:37 PM GENERAL MEDICINE N OTE: LOCAL TITLE: General Note PB STANDARD TITLE: GENERAL MEDICINE NOTE DATE OF NOTE: JUL 31, 2024@13:37 ENTRY DATE: JUL 31, 2024@13:37:30 AUTHOR: MARIA C VELASQUEZ EXP COSIGNER: URGENCY: STATUS: COMPLETED Rec'd left hearing aid, certified in [place]. 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 /diego/ TIMMY PRABHAKAR [facility] Signed: 07/31/2024 13:39 MARIA C VELASQUEZ [facility]
--- OUTSIDE RECORDS SUMMARY | 2024-08-18 09:41 | XMS_ITS ---
Author Name [facility] Address [address] [place] [address] Care Team Providers Care Wool Hat Hydraulicker Name Role Phone HASEEB JULIAN Primary Care [...] PART A Mar 24, 2005 PART A [id number] [facility] [phone] GEOVANNI,JOHNR ICK PATIENT MEDICARE (WNR) MEDICARE (M) PART B Mar 24, 2005 PART B [id number] [phone] [id number] GEOVANNI,PATR ICK PATIENT MEDICARE (WNR) MEDICARE (M) PART A Mar 24, 2005 PART A [id number] [phone] GEOVANNI,PATR ICK PATIENT MEDICARE (WNR) MEDICARE (M) PART B Mar 24, 2005 PART B [id number] GEOVANNI,PATR ICK PATIENT MEDICARE (WNR) MEDICARE (M) PART A Mar 24, 2005 PART A [id number] GEOVANNI,PATR ICK PATIENT MEDICARE (WNR) MEDICARE (M) PART B Mar 24, 2005 PART B [id number] GEOVANNI,PATR ICK PATIENT MEDICARE (WNR) MEDICARE (M) PART B Mar 24, 2005 PART B [id number] GEOVANNI,PATR ICK PATIENT MEDICARE (WNR) MEDICARE (M) PART A Mar 24, 2005 PART A [id number] GEOVANNI,PATR ICK PATIENT MEDICARE PART D (WNR) MEDICARE (M) PART D May 24, 2012 PART D [id number] GEOVANNI,PATR ICK PATIENT MEDICARE PART D (WNR) MEDICARE (M) PART D May 24, 2012 PART D [id number] GEOVANNI,PATR ICK PATIENT Selected Encounter This section includes the information on record at [place] for the Encounter. Date/Time Encounter Type Encounter Description Reason Provider Source Aug 18, 2024 02:41 PM Outpatient Encounter ADMIN PAT ACTIVTIES (MASNONCT) TAJ JOYA Encounter Template Text not used by [place] Plan of Treatment: Future Appointments (+ 6 months) and Future Tests (+/- 45 days) The Plan of Treatment section includes future care activities for the patient from all [place] treatmentfacilities. This section includes future appointments and future orders which are active, pending or scheduled. Future Appointments This section includes appointments that were scheduled to occur 6 months from the date of the Encounter, up to a maximum of 20 appointments. The data comes from all [place] treatment facilities. Appointment Date/Time Appointment Type Appointme nt Facility Name Aug 21, 2024 02:00 PM AMBULATORY - MEDICINE [facility] Sep 12, 2024 12:00 PM AMBULATORY - MEDICINE [facility] Sep 12, 2024 12:02 PM AMBULATORY - MEDICINE [facility] [facility] Sep 12, 2024 12:30 PM AMBULATORY - MEDICINE [facility] Sep 12, 2024 12:31 PM AMBULATORY - MEDICINE [facility] Dec 14, 2024 08:00 AM AMBULATORY - MEDIC[place] [facility] Dec 15, 2024 02:00 PM AMBULATORY - MEDICINE [facility] Active, Pending, and Scheduled Orders This section includes a listing of several types of active, pending, and scheduled orders, including clinic medications orders, diagnostic test orders, procedure orders and consult orders; where the start date of the order is 45 days before the date of the Encounter or 45 days after the date of theEncounter. The data comes from all [place] treatment facilities. Test Date/Time Test Type Test Details Facility Name Aug 21, 2024 02:52 PM Laboratory - Chemi stry Order POC UA (STL-PB-MA) URINE SP [facility] Lab Results: +/- 30 days of the encounter This section includes the Chemistry and Hematology Lab Results on record with [place] for the patient. Radiology Reports and Pathology Reports are provided separately, in subsequent sections. Lab Results This section contains the Chemistry/Hematology Results that were resulted 30 days before or 30 daysafter the date of the Encounter. Date/Time Source Result Type Result - Unit Interpretation Reference Range Specimen Type Comment Sep 07, 2024 09:24 AM [facility] TESTOSTERONE, TOTAL (PB-MA) SERUM Specimen Ty pe: SERUM No comment entered. Ordering Provider: JULIAN MEMBRENO Report Released Date/Time: Sep 05, 2024 02:26 PM Reporting Lab: [place] [facility] [address] [place] [address] Performing Lab: [place] [facility] [address] [place] [address] TESTOSTERONE, TOTAL (PB-MA) 489.0 ng/dL 221.0-871.0 Sep 05, 2024 01:48 PM [facility] B12 SERUM Specimen Type: SERUM No comment entered. Ordering Provider: JULIAN MEMBRENO Report Released Date/Time: Sep 13, 2023 02:23 PM Reporting Lab: [place] [facility] [address] [place] [address] Performing Lab: [place] [facility] [address] [place] [address] B12 541 pg/mL 213-816 Sep 05, 2024 01:48 PM [facility] FOLATE (PB) SERUM Specimen Typ e: SERUM No comment entered. Ordering Provider: KUZAS,JULIAN R Report Released Date/Time: Sep 13, 2023 02:23 PM Reporting Lab: [place] [facility] [address] [place] [address] Performing Lab: [place] [facility] [address] [place] [address] FOLATE (PB) 16.3 ng/mL 7-20 Sep 05, 2024 01:48 PM [facility] [place] [facility] HGA1C BLOOD Specimen Type: BLOOD No comment entered. Ordering Provider: JULIAN MEMBRENO Report Released Date/Time: Sep 13, 2023 02:23 PM Reporting Lab: [place] [facility] [address] [place] [address] Performing Lab: [place] [facility] [address] [place] [address] HGA1C 5.5 4.0-6.0 Sep 05, 2024 01:48 PM [facility] [place] [facility] VITAMIN D, 25-HYDROXY SERUM Specimen Type: SE RUM No comment entered. Ordering Provider: JULIAN MEMBRENO Report Released Date/Time: Sep 13, 2023 02:23 PM Reporting Lab: [place] [facility] [address] [place] [address] Performing Lab: [place] [facility] [address] [place] [address] VITAMIN D, 25-HYDROXY 32.5 ng/mL 30-96 Sep 05, 2024 01:48 PM [facility] [place] [facility] TSH (MA-PB) SERUM Specimen Typ e: SERUM No comment entered. Ordering Provider: JULIAN MEMBRENO Report Released Date/Time: Sep 13, 2023 02:23 PM Reporting Lab: [place] [facility] [address] [place] [address] Performing Lab: [place] [facility] [address] [place] [address] TSH 0.725 u[IU]/mL 0.47-5 Sep 05, 2024 01:48 PM [facility] [facility] CHOLESTEROL PANEL (PB) PLASMA Specimen Type: P LASMA No comment entered. Ordering Provider: JULIAN MEMBRENO Report Released Date/Time: Sep 13, 2023 02:23 PM Reporting Lab: [place] [facility] [address] [place] [address] Performing Lab: [place] [facility] [address] [place] [address] CHOLESTEROL 110 mg/dL 0-200 TRIGLYCERIDE 107 mg/dL 0-150 CALCULATED LDL 35.1 mg/dL HDL(New) 53.5 mg/dL H >40 HDL % OF TOTAL CHOLESTEROL (PB) 48.6 >25 Sep 05, 2024 01:48 PM [facility] COMPREHENSIVE METABOLIC PANEL PLASMA Specimen Type: PLASMA No comment entered. Ordering Provider: JULIAN MEMBRENO Report Released Date/Time: Sep 13, 2023 02:23 PM Reporting Lab: [place] [facility] [address] [place] [address] Performing Lab: [place] [facility] [address] [place] [address] CREATININE 0.90 mg/dL 0.7-1.3 UREA NITROGEN 16 mg/dL 9-25 GLUCOSE 88 mg/dL 72-99 SODIUM 142 meq/L 136-145 POTASSIUM 4.7 meq/L 3.5-5 CHLORIDE 107 meq/L 98-107 CARBON DIOXIDE 25 meq/L 22-31 CALCIUM 9.0 mg/dL 8.4-10.4 PROTEIN 7.1 g/dL 6-8.6 ALBUMIN 4.5 g/dL 3.4-5 TOTAL BILIRUBIN 0.6 mg/dL 0.2-1.2 ALKALINE PHOSPHATASE 72 U/L 40-150 AST/SGOT 26 U/L 5-34 ALT/SGPT 16 U/L 8-40 EGFR (CKD-EPI 2020) 84 Sep 05, 2024 01:48 PM [facility] CBC BLOOD Specimen Type: BLOOD No comment entered. Ordering Provider: JULIAN MEMBRENO Report Released Date/Time: Sep 13, 2023 02:23 PM Reporting Lab: [place] [facility] [address] [place] [address] Performing Lab: [place] [facility] [address] [place] [address] WBC 5.9 10*3/uL 3.6-11.2 RBC 4.41 10*6/uL 4.10-5.70 HGB 13.4 g/dL 13.1-16.8 HCT 41.1 38.2-48.4 MCV 93.2 fL 80.0-100.0 MCH 30.4 pg 27.0-34.0 MCHC 32.6 g/dL L 33.0-36.0 PLT 167 10*3/uL 150-400 MPV 11.8 fL H 7.5-11.2 RDW 12.0 11.8-15.1 LYMPHOCYTES, AUTO % 26.1 MONOCYTES, AUTO % 9.7 NEUTROPHILS, AUTO % 60.6 EOSINOPHILS, AUTO % 3.1 BASOPHILS, AUTO % 0.3 LYMPHOCYTES, ABSOLUTE 1.53 10*3/uL 0.77- 4.50 MONOCYTES, ABSOLUTE 0.57 10*3/uL 0.19-0. 8 NEUTROPHILS, ABSOLUTE 3.55 10*3/uL 2.10- 8.00 EOSINOPHILS, ABSOLUTE 0.18 10*3/uL 0.00- 0.60 BASOPHILS, ABSOLUTE 0.02 10*3/uL 0.00-0. 20 IMMATURE GRANS, AUTO % 0.2 IMMATURE GRANS, AUTO ABS 0.01 10*3/uL 0. 00-0.05 Aug 21, 2024 03:00 PM [facility] POC UA (STL-PB-MA) URINE Specimen Type: URINE No comment entered. Ordering Provider: JULIAN MEMBRENO Report Released Date/Time: Aug 21, 2024 03:07 PM Reporting Lab: [facility] [address] [facility] [address] Performing Lab: [facility] [address] [facility] [address] PROTEIN POC UA Negative mg/dL Negative BLOOD [...] and tobacco- related health factors from the [place] facility where the Encounter took place. Current Smoking Status This section includes the most current smoking, or tobacco-related health factor, from the [place] facility where the Encounter took place. Date/Time Current Smoking Status Comment Francois osorio Sep 16, 2007 05:28 PM QUIT TOBACCO >7 YEARS AGO [facility] Advance Directives: All historical and current Section Date Range: From patient's date of to the date document was created. This section includes ALL of a patient's completed or amended [place] Advance and Rescinded Directives. The entries below indicate that a directive exists for the patient, but an actual copy is not included with this document. The data comes from all [place] facilities. Date Advance Directives Provider Source Dec 19, 2024 ADVANCE DIRECTIVE TY BERUMEN [facility] Encounter Notes: All associated encounter notes This section contains the clinical notes associated to the Encounter. Date/Time Encounter Note(s) Provider Source Aug 18, 2024 02:42 PM NURSING NOTE: LOCAL TITLE: CARE COORDINATION REVIEW TEAM NOTE STANDARD TITLE: NURSING NOTE DATE OF NOTE: AUG 18, 2024@14:42 ENTRY DATE: AUG 18, 2024@14:42:33 AUTHOR: TAJ JOYA COSIGNER: URGENCY: STATUS: COMPLETED Care Coordination Review Team (CCRT) Notification Note Reason for Review: High risk: Other: 9 ER visits, 1 hospitalization in 6 months (10 ER visits, 1 Hospitalization in 12 months) Utilization: Number of ER ([facility] visits in last 12 months: 10 ER visits, Triggers/root causes for ER visits: Back pain, passed out, Low B/P, unbalanced B/P dropped, confusion, possible hypothermia, behavioral,not feeling good. Number of hospitalizations ([facility] & community) in last 12 months: 1 Hospitalization in 12 months) Triggers/root causes for hospitalizations: 06/04/24-06/08/24- 96hr involuntary hold- Acute Psychosis, Parkinsonian dementia Complexity Assessment: Recommended Level of Care Coordination: Moderate Score: 34 Medical/Physical/Self-Mgmt The most prominent need of the is medical/physical. Factors considered in recommendation of Lead Coordinator assignment: No lead coordinator assignment. Program area/services and care coordinators, care managers or caser in whom the worked with prior to the assignment of a Lead Coordinator: PACT Community Care Non-VA Chiro, PT, Urology, VDC-daughter is paid caregiver, Optometry Disease Mgmt, Massage therapy, Cardio, Neurology, Dermatology, Acupuncture Other: audiology Case Overview/Summary: A 84 Y/o from the PACT Team: Dr. 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 Wanders at nighttime outside of the home despite alarms. Can be aggressive. Increasing weakness and confusion. Sleep difficulties, sensitive to medication changes. Frequent walk in visits to [facility]. . Active Problems: Hearing loss, Dysthymic disorder, Dyslipidemia, Vit D Deficiency, Hyperlipidemia, hypothyroid, Chronic PTSD, Inguinal Hernia, Bilateral outstretched hands tremor, Peripheral Neuropathy, Pain in both feet, Anemia, Vit B12 deficiency, Pulmonary nodule, Memory impairment, Parkinson's, Tinnitus, Degeneration of lumbar intervertebral disc, Abnormal gait, Chronic rhinosinusitis, HTN, heart murmur Past ER/UC/Hospitalizations in last 6 months: 01/30/24- [facility]- Back pain (Sun 7:15pm) 02/18/24- [facility] ER- Passed Out (Wed 1pm) 02/19/24- [facility] ER- Low BP (Sat 10:05 am) 03/24/24- [facility] ER- Unbalanced, BP dropped (Wed 9am) 06/02/24- [facility] ER- Confusion (Fri 9:12pm) 06/03/24- [facility] ER- Possible hypothermia, behavioral (Sat 3:52am) 06/03/24- [facility] ER- Behavioral (Sat 7:31pm) 06/04/24- [facility] ER- Psychiatric Eval, admitted (Sun 8am) 06/04/24-06/08/24- 96hr involuntary hold- Acute Psychosis, Parkinsonian dementia 06/09/24- ER- Just not feeling good (Fri 9:32am) 06/09/24- [facility] ER- Altered Mental Status, not feeling well, treated and released. Lead Coordinator Assignment Recommendation: Lead Coordinator: N/A Program: no lead coordinator assigned. Rationale/Comments: New onset of dementia, [place]ington and family/caregiver freq contact the PACT with needs. There has lilly changes to his medications that has seem to reduce his ER visit. CCRT Plan: No lead coordinator assignment. CCRT Review Follow-Up Frequency: No anticipated need for follow-up needed by CCRT. Lead Coordinator may bring [place] back for CCRT review if needed. /es/ TAJ JOYA CO-CHAMPION RN CC&ICM Signed: 08/18/2024 15:09 Receipt Acknowledged By: 08/21/2024 11:55 /es/ JUAN ANTONIO MONTEIRON, RN [facility] 08/21/2024 10:20 /es/ LUI ROE, RN [facility] 08/29/2024 10:15 /es/ JULIAN MEMBRENO MD 08/23/2024 16:28 /es/ Scooter Taylor, PROGRAM PROJECT MANAGER, [facility] Co-Coordinator TAJ JOYA [facility]
--- OUTSIDE RECORDS SUMMARY | 2024-08-21 09:00 | XMS_ITS ---
Author Name [facility] [facility] [place] Address [address] [place] [address] Care Team Providers Care Fios Line Installer Name Role Phone NIRMALAJULIAN LONG Primary Care [...] PART A Mar 24, 2005 PART A [id number] GEOVANNI,TYLER ICK PATIENT MEDICARE (WNR) MEDICARE (M) PART B Mar 24, 2005 PART B [id number] [phone] [id number] GEOVANNI,PATR ICK PATIENT MEDICARE (WNR) MEDICARE (M) PART A Mar 24, 2005 PART A [id number] GEOVANNI,JOHNR ICK PATIENT MEDICARE (WNR) MEDICARE (M) PART B Mar 24, 2005 PART B [id number] GEOVANNI,JOHNR ICK PATIENT MEDICARE (WNR) MEDICARE (M) PART A Mar 24, 2005 PART A [id number] GEOVANNI,PATR ICK PATIENT MEDICARE (WNR) MEDICARE (M) PART B Mar 24, 2005 PART B [id number] GEOVANNI,PATR ICK PATIENT MEDICARE (WNR) MEDICARE (M) PART B Mar 24, 2005 PART B [id number] GEOVANNI,PATR ICK PATIENT MEDICARE (WNR) MEDICARE (M) PART A Mar 24, 2005 PART A [id number] GEOVANNI,PATR ICK PATIENT MEDICARE PART D (WNR) MEDICARE (M) PART D May 24, 2012 PART D [id number] GEOVANNI,PATR ICK PATIENT MEDICARE PART D (WNR) MEDICARE (M) PART D May 24, 2012 PART D [id number] GEOVANNI,PATR ICK PATIENT Selected Encounter This section includes the information on record at [place] for the Encounter. Date/Time Encounter Type Encounter Description Reason Provider Source Aug 21, 2024 02:00 PM OFF/OP EST SEPTEMBER X REQ PHY/QHP PRIMARY CARE/MEDICINE ICD-10-CM R10.9 Unspecified abdominal pain EMILIANA BROCK Deanne Encounter Template Text not used by [place] Assessments - Encounter Diagnoses This section includes the primary and secondary diagnoses documented for the Encounter. Date/Time Primary/Secondary Diagnosis Diagnosis Name Provider Source Aug 21, 2024 03:41 PM PRIMARY Unspecified abdominal pain EMILIANA BROCK [facility] Plan of Treatment: Future Appointments (+ [...] Date/Time Appointment Type Appointme nt Facility Name Sep 12, 2024 12:00 PM AMBULATORY - MEDICINE [facility] Sep 12, 2024 12:02 PM AMBULATORY - MEDICINE [facility] Sep 12, 2024 12:30 PM AMBULATORY - MEDICINE [facility] Sep 12, 2024 12:31 PM AMBULATORY - MEDICINE [facility] Dec 14, 2024 08:00 AM AMBULATORY - MEDICINE [facility] Dec 15, 2024 02:00 PM AMBULATORY - MEDICINE [facility] Active, Pending, and Scheduled Orders This section [...] stry Order POC UA (STL-PB-MA) URINE SP [facility] Lab Results: +/- 30 days of [...] Type Comment Sep 07, 2024 09:24 AM [facility] TESTOSTERONE, TOTAL (PB-MA) SERUM Specimen Ty pe: SERUM No comment entered. Ordering Provider: JULIAN MEMBRENO Report Released Date/Time: Sep 05, 2024 02:26 PM Reporting Lab: [place] [facility] [address] [place] [address] Performing Lab: [place] [facility] [address] [place] [address] TESTOSTERONE, TOTAL (PB-MA) 489.0 ng/dL 221.0-871.0 Sep 05, 2024 01:48 PM [facility] B12 SERUM Specimen Type: SERUM No comment entered. Ordering Provider: JULIAN MEMBRENO Report Released Date/Time: Sep 13, 2023 02:23 PM Reporting Lab: [place] [facility] [address] [place] [address] Performing Lab: [place] [facility] [address] [place] [address] B12 541 pg/mL 213-816 Sep 05, 2024 01:48 PM [place] [facility] FOLATE (PB) SERUM Specimen Typ e: SERUM No comment entered. Ordering Provider: JULIAN MEMBRENO Report Released Date/Time: Sep 13, 2023 02:23 PM Reporting Lab: [place] [facility] [address] [place] [address] Performing Lab: [place] [facility] [address] [place] [address] FOLATE (PB) 16.3 ng/mL 7-20 Sep 05, 2024 01:48 PM [place] [place] [facility] HGA1C BLOOD Specimen Type: BLOOD No comment entered. Ordering Provider: JULIAN MEMBRENO Report Released Date/Time: Sep 13, 2023 02:23 PM Reporting Lab: [place] [facility] [address] [place] [address] Performing Lab: [place] [facility] [address] [place] [address] HGA1C 5.5 4.0-6.0 Sep 05, 2024 01:48 PM [place] [place] [facility] VITAMIN D, 25-HYDROXY SERUM Specimen Type: SE RUM No comment entered. Ordering Provider: JULIAN MEMBRENO Report Released Date/Time: Sep 13, 2023 02:23 PM Reporting Lab: [place] [facility] [address] [place] [address] Performing Lab: [place] [facility] [address] [place] [address] VITAMIN D, 25-HYDROXY 32.5 ng/mL 30-96 Sep 05, 2024 01:48 PM [facility] [place] [place] [facility] TSH (MA-PB) SERUM Specimen Typ e: SERUM No comment entered. Ordering Provider: JULIAN MEMBRENO Report Released Date/Time: Sep 13, 2023 02:23 PM Reporting Lab: [place] [facility] [address] [place] [address] Performing Lab: [place] [facility] [address] [place] [address] TSH 0.725 u[IU]/mL 0.47-5 Sep 05, 2024 01:48 PM [facility] CHOLESTEROL PANEL (PB) PLASMA Specimen Type: P JHONATAN No comment entered. Ordering Provider: JULIAN MEMBRENO Report Released Date/Time: Sep 13, 2023 02:23 PM Reporting Lab: [place] [facility] [address] [place] [address] Performing Lab: [place] [facility] [address] [place] [address] CHOLESTEROL 110 mg/dL 0-200 TRIGLYCERIDE 107 mg/dL 0-150 CALCULATED LDL 35.1 mg/dL HDL(New) 53.5 mg/dL H >40 HDL % OF TOTAL CHOLESTEROL (PB) 48.6 >25 Sep 05, 2024 01:48 PM [facility] COMPREHENSIVE METABOLIC PANEL PLASMA Specimen Type: PLASMA No comment entered. Ordering Provider: JULIAN MEMBRENO Report Released Date/Time: Sep 13, 2023 02:23 PM Reporting Lab: [place] [facility] [address] [place] [address] Performing Lab: [place] [facility] [address] [place] [address] CREATININE 0.90 mg/dL 0.7-1.3 UREA NITROGEN 16 [...] 2020) 84 Sep 05, 2024 01:48 PM [facility] CBC BLOOD Specimen Type: BLOOD No comment entered. Ordering Provider: JULIAN MEMBRENO Report Released Date/Time: Sep 13, 2023 02:23 PM Reporting Lab: [place] [facility] [address] [place] [address] Performing Lab: [place] [facility] [address] [address] WBC 5.9 10*3/uL 3.6-11.2 RBC 4.41 10*6/uL [...] 0. 00-0.05 Aug 21, 2024 03:00 PM [facility] POC UA (STL-PB-MA) URINE Specimen Type: URINE No comment entered. Ordering Provider: JULIAN MEMBRENO Report Released Date/Time: Aug 21, 2024 03:07 PM Reporting Lab: [facility] [address] [facility] [address] [facility] [address] [facility] [address] PROTEIN POC UA Negative mg/dL Negative BLOOD [...] Negative Negative CLARITY POC UA Clear CLEAR Vital Signs: All taken on the encounter date This section contains inpatient and outpatient Vital Signs collected on the date of the Encounter. Date/Time Temperature Pulse Blood Pressure Respiratory Rate SP02 Pain Height Weight Body Mass Index Source Aug 21, 2024 03:26 PM 98.5 74 111/67 [facility] Social History: Smoking Status (Most [...] 09, 2023 12:30 PM VA-TOBACCO FORMER USER [facility] Tobacco Use History This section includes a history of the smoking, or tobacco-related health factors, that were collected on or before the date of the Encounter. The data comes from the [place] facility where the Encounter took place. Date/Time Smoking Status/Tobacco Use Comment F acility Sep 09, 2023 12:30 PM VA-TOBACCO QUIT 15 YRS OR MORE [facility] Sep 10, 2022 08:30 AM VA-TOBACCO FORMER USER [facility] Sep 10, 2022 08:30 AM VA-TOBACCO QUIT 15 YRS OR MORE [facility] Jun 23, 2021 08:30 AM VA-TOBACCO FORMER USER [facility] Jun 23, 2021 08:30 AM VA-TOBACCO QUIT 15 YRS OR MORE [place] [facility] 2020 08:30 AM VA-TOBACCO FORMER USER [facility] 2020 08:30 AM VA-TOBACCO QUIT 15 YRS [place] MORE [facility] Mar 15, 2019 09:37 AM CURRENT NON-TOBACCO USER-HX OF [facility] Nov 16, 2018 09:33 AM VA-TOBACCO FORMER USER [facility] Nov 16, 2018 09:33 AM VA-TOBACCO QUIT 15 YRS OR MORE [facility] Feb 18, 2018 09:46 AM CURRENT NON-TOBACCO USER-[facility]X OF [facility] Nov 23, 2007 09:17 AM QUIT TOBACCO >7 YEARS AGO [facility] Jun 21, 2007 09:21 AM QUIT TOBACCO >7 YEARS AGO [facility] Aug 24, 2005 08:27 AM CURRENT NON-TOBACCO USER-[facility]X OF [facility] Feb 23, 2005 11:20 AM CURRENT NON-TOBACCO USER-[facility]X [facility] Jun 26, 2004 01:01 PM CURRENT NON-TOBACCO USER-HX OF [facility] Advance Directives: All historical [...] Dec 19, 2024 ADVANCE DIRECTIVE TY BERUMEN [facility] Encounter Notes: All associated encounter notes This section contains the clinical notes associated to the Encounter. Date/Time Encounter Note(s) Provider Source Aug 25, 2024 01:23 PM PRIMARY CARE MEDIC ATION MGT NOTE: LOCAL TITLE: MEDICATION RENEWAL/REFILL PB STANDARD TITLE: PRIMARY CARE MEDICATION MGT NOTE DATE OF NOTE: AUG 25, 2024@13:23 ENTRY DATE: AUG 25, 2024@13:23:24 AUTHOR: KOURTNEY BARTH EXP COSIGNER: URGENCY: STATUS: COMPLETED GEOVANNIAKI DI has contacted the Primary [facility] and is requesting that the following prescription(s) be renewed. The patient reports that he/she is currently LOW on his/her supply of medication. He/she is requesting a new supply be mailed by MEDICATION REQUESTED: please add to the non [place] med list. Rx was filled at [facility] due to needing to start right away. If he continues on med family will have Dr Bose fax to [facility]. Myrbetriq ER 50mg 1 tab daily Recall visit scheduled? Future visits: 09/12/24 12:00 pm PB-WILMAR CVT AUDIO CHECK 09/12/24 12:02 pm PB-CVT AUDIO CHECK 3(PRO [phone] 09/12/24 12:30 pm PB-[facility] CVT PACT DELTA(CA [phone] 09/12/24 12:31 pm PB-[facility] CVT PACT DELTA([place] [phone] ====== The following is informational only for those patients that are on long-term opiate therapy: Opioid Consent: No data available for: CONSENT FOR LONG-TERM OPIOIDS FOR PAIN No drugs in class: CN101 (OPIOID ANALGESICS) Last UDS: Collection DT Specimen Test Name Result Units Ref Range 08/16/2023 11:29 URINE CREATuF 84.45 mg/dL Benzodiazipines: No drugs in class: CN302 (BENZODIAZEPINE DERIVATIVE SEDATIVES/HYPNOTICS) /diego/ KOURTNEY BARTH TOOL STRAIGHTENER Signed: 08/25/2024 13:26 Receipt Acknowledged By: 08/28/2024 15:36 /diego/ JULIAN BARTH,KOURTNEY Coronel [facility] Aug 21, 2024 03:25 PM NURSING PROGRESS N OTE: LOCAL TITLE: NURSING NOTE PB STANDARD TITLE: NURSING PROGRESS NOTE DATE OF NOTE: AUG 21, 2024@15:25 ENTRY DATE: AUG 21, 2024@15:25:55 AUTHOR: EMILIANA BROCK EXP COSIGNER: URGENCY: STATUS: COMPLETED Blood Pressure: 111/67 Pulse: 74 Temperature: 98.5 F (36.9 C) Pulse Oximetry: 98% Active Outpatient Medications: Active Outpatient Medications (including Supplies): Active Outpatient Medications Status 1) AMITRIPTYLINE HCL 25MG TAB TAKE ONE TABLET BY MOUTH AT HOLD BEDTIME 2) BETAMETHASONE DIPROPIONATE 0.05% OINT APPLY A THIN LAYER TO ACTIVE LOWER LEGS TO AFFECTED AREA(S) TWICE A DAY (EXTERNAL USE ONLY) 3) CARBIDOPA 25/LEVODOPA 100MG TAB TAKE 2 TABLETS BY MOUTH ACTIVE THREE TIMES A DAY WITH MEALS. TAKE WITH FOOD. 4) CHOLECALCIF 50MCG (D3-2,000UNIT) TAB TAKE TWO TABLETS BY ACTIVE (S) MOUTH ONCE A DAY Indication: FOR VITAMIN D DEFICIENCY 5) CLONIDINE HCL 0.1MG TAB TAKE ONE TABLET BY MOUTH TWICE DAILY ACTIVE NEEDED FOR HYPERTENSIVE EMERGENCY. TAKE ONE TABLET IF SYSTOLIC BLOOD PRESSURE IS >180, OR IF DIASTOLIC BLOOD PRESSURE IS >110. 6) DICLOFENAC NA 1% TOP GEL APPLY 4 GM TO AFFECTED AREA(S) FOUR ACTIVE (S) TIMES A DAY NEEDED NO MORE THAN 16 GM/DAY TO ANY LOWER EXTREMITY JOINT. NO MORE THAN 8 GM/DAY TO ANY UPPER EXTREMITY JOINT. MAX 32GM/DAY OVER ALL JOINTS.(MEASURE DOSE WITH RULER INSIDE BOX) Indication: FOR PAIN 7) DONEPEZIL HCL 10MG TAB TAKE ONE-HALF TABLET BY MOUTH AT HOLD BEDTIME (JUST BEFORE BEDTIME) Indication: FOR MEMORY 8) FINASTERIDE 5MG TAB TAKE ONE TABLET BY MOUTH ONCE A DAY ACTIVE SWALLOW WHOLE, DO NOT CRUSH, SPLIT, OR CHEW. 9) FLUDROCORTISONE ACETATE 0.1MG TAB TAKE ONE-HALF TABLET BY ACTIVE MOUTH ONCE A DAY Indication: ORTHOSTASIS 10) FLUTICASONE PROP 50MCG 120D NASAL INHL INSTILL 1 SPRAY IN ACTIVE NOSTRIL(S) ONCE A DAY (MUST BE USED DIRECTED FOR MINIMUM OF 21 DAYS TO PROVIDE ADEQUATE BENEFITS) Indication: FOR CHRONIC RHINOSINUSITIS 11) HYDROPHILIC (EQV EUCERIN) TOP CREAM APPLY SPARINGLY TO ACTIVE AFFECTED AREA(S) ONCE A DAY (EXTERNAL USE ONLY) Indication: FOR SKIN CARE 12) HYDROXYZINE HCL 25MG TAB TAKE ONE TABLET BY MOUTH THREE HOLD TIMES A DAY NEEDED *MAY CAUSE DROWSINESS* Indication: FOR ANXIETY 13) LEVOTHYROXINE NA 112MCG TAB TAKE ONE TABLET BY MOUTH EVERY ACTIVE MORNING BEFORE A MEAL FOR THYROID. TAKE 30 MINUTES BEFORE FOOD. TAKE SEPARATELY FROM ALL OTHER MEDICATIONS. 14) LIDOCAINE 5% OINT APPLY SPARINGLY TO AFFECTED AREA(S) TWICE ACTIVE DAILY NEEDED Indication: FOR PAIN 15) LIDOCAINE 5% PATCH APPLY 1 PATCH TO SKIN SITE ONCE A DAY ACTIVE (S) APPLY PATCH AND PRESS FIRMLY FOR 10-15 SECONDS. KEEP ON FOR 12 HOURS THEN REMOVE PATCH FOR 12 HOURS. Indication: FOR LOCAL ANESTHESIA 16) MENTHOL/M-SALICYLATE 10-15% TOP CREAM APPLY SPARINGLY TO ACTIVE AFFECTED AREA(S) FOUR TIMES A DAY NEEDED (EXTERNAL USE ONLY) Indication: FOR PAIN 17) METRONIDAZOLE 0.75% TOP CREAM APPLY ON CENTRAL FACE TO ACTIVE AFFECTED AREA(S) TWICE A DAY (TOPICAL USE ONLY) 18) MIRTAZAPINE 15MG TAB TAKE ONE-HALF TABLET BY MOUTH AT ACTIVE/PARKED BEDTIME Indication: FOR DEPRESSION 19) MULTIVIT/OPHTH AREDS2/LUTE/ZEAX CAP/TAB TAKE 1 CAP/TAB BY ACTIVE (S) MOUTH EVERY DAY WITH MEAL(S) AVOID IF YOU HAVE PEANUT ALLERGY. 20) MULTIVITAMIN/MINERALS CAP/TAB TAKE 1 CAP/TAB BY MOUTH ONCE A ACTIVE DAY FOR SUPPLEMENTATION. 21) QUETIAPINE FUMARATE 25MG TAB TAKE 1-2 TABLETS BY MOUTH AT ACTIVE BEDTIME 22) ROSUVASTATIN CA 40MG TAB TAKE ONE-HALF TABLET BY MOUTH EVERY ACTIVE EVENING TO LOWER CHOLESTEROL 23) TAMSULOSIN HCL 0.4MG CAP TAKE ONE CAPSULE BY MOUTH EVERY ACTIVE EVENING APPROXIMATELY 30 MINUTES AFTER THE SAME MEAL EACH DAY (FOR PROSTATE) 24) TRAZODONE HCL 50MG TAB TAKE ONE-HALF TABLET BY MOUTH AT HOLD BEDTIME Indication: FOR INSOMNIA AND DEPRESSION 25) TRIAMCINOLONE ACETONIDE 0.1% CREAM APPLY SPARINGLY TO ACTIVE AFFECTED AREA(S) TWICE DAILY NEEDED FOR RASH. (EXTERNAL USE ONLY) LEFT LOWER EXTREMITY RASH Active Non-VA Medications Status 1) Non-VA ASPIRIN 81MG CHEW TAB 324MG BY MOUTH ONCE A DAY ACTIVE CC: presents to clinic stating he has pain left side. Subjective: states he woke up this morning and noticed when he went to get out of bed he was having left sided abdominal pain. Rates pain as 4 out of 10. States pain comes and goes and worsens with twisting of abdomen. Denies constipation states last BM this am and normal for him. No changes in color or consistency. Reports some darkness of urine. Denies burning, frequency, or urgency with urination. No history of stones reported. O/A: is alert and oriented. Accompanied by daughter whom is caregiver. Respirations easy and nonlabored. Breath sounds clear throughout. Heart rate regular with no peripheral edema. Abdomen soft with normal bowel sounds throughout. Denies nausea, vomiting, or diarrhea. No tenderness with abdominal palpation. Roy reports pain left flank and back with movements. Denies numbness, tingling, or radiating pain in lower legs. Plan/ Intervention: Discussed with PACT PCP. POC urine obtained and results as follows: POC UA (STL-PB-MA) URINE,[facility] LB #[id number] Collection time: Aug 21, 2024@15:00 Test Name Result Units Range --------- ------ ----- ----- LEUKOCYTES POC UA Negative Ref: Negative GLUCOSE POC UA Negative mg/dL Ref: Negative BILIRUBIN POC UA Negative Ref: Negative KETONES POC UA Negative mg/dL Ref: Negative SPEC GRAV POC UA 1.025 1.005 - 1.030 BLOOD POC UA Trace-intact Ref: Negative pH POC UA 5.5 5.0 - 8.0 PROTEIN POC UA Negative mg/dL Ref: Negative UROBILINOGEN POC UA 0.2 E.U./dL 0.1 - 1.0 NITRITE POC UA Negative Ref: Negative COLOR POC UA Yellow Ref: YELLOW CLARITY POC UA Clear Ref: CLEAR Comments: Bladder scan performed and less than 50ml residual in bladder. Roy did report when being moved in bed last night he felt he may have pulled muscles in abdomen. Educated to apply heat PRN to area, rest, and take OTC Tylenol as needed for discomfort. If pain worsens or any other symptoms arise follow up in clinic or ER. Reports understanding. Encouraged po hydration. RTC: As scheduled and as needed. Per A Directive 1605.06, wristband documentation: Patient wristband was removed and destroyed by (staff name) Emiliana Brock RN and placed in the designated [employer] bin. /es/ EMILIANA POE, RN [facility] Signed: 08/21/2024 15:35 Receipt Acknowledged By: 08/28/2024 09:29 /es/ JULIAN BROCK,EMILIANA Simpson [facility]
--- OUTSIDE RECORDS SUMMARY | 2024-09-11 10:02 | XMS_ITS | Encounter Summary ---
Author Name [facility] [place] Address [address] [place] [address] Care Team Providers Care Completion Supervisor Name Role Phone HASEEB JULIAN Primary Care [...] PART A Mar 24, 2005 PART A [id number] [phone] GEOVANNI,PATR ICK PATIENT MEDICARE (WNR) MEDICARE (M) PART B Mar 24, 2005 PART B [id number] [phone] GEOVANNI,PATR ICK PATIENT MEDICARE (WNR) MEDICARE (M) PART A Mar 24, 2005 PART A [id number] GEOVANNI,PATR ICK PATIENT MEDICARE (WNR) MEDICARE (M) PART B Mar 24, 2005 PART B [id number] [phone] GEOVANNI,PATR ICK PATIENT MEDICARE (WNR) MEDICARE (M) PART A Mar 24, 2005 PART A [id number] [facility] [phone] GEOVANNI,PATR ICK PATIENT MEDICARE (WNR) MEDICARE (M) PART B Mar 24, 2005 PART B [id number] GEOVANNI,PATR ICK PATIENT MEDICARE (WNR) MEDICARE (M) PART A Mar 24, 2005 PART A [id number] GEOVANNI,PATR ICK PATIENT MEDICARE (WNR) MEDICARE (M) PART B Mar 24, 2005 PART B [id number] GEOVANNI,PATR ICK PATIENT MEDICARE PART D (WNR) MEDICARE (M) PART D May 24, 2012 PART D [id number] GEOVANNI,PATR ICK PATIENT MEDICARE PART D (WNR) MEDICARE (M) PART D May 24, 2012 PART D [id number] GEOVANNI,PATR ICK PATIENT Selected Encounter This section includes the information on record at [place] for the Encounter. Date/Time Encounter Type Encounter Description Reason Pro vider Source Sep 11, 2024 03:02 PM Outpatient Encounter ADMIN PAT ACTIVTIES (MASNONCT) IHE Encounter Template Text not used by [place] Plan of Treatment: Future Appointments (+ 6 months) and Future Tests (+/- 45 days) The Plan of Treatment section includes future care activities for the patient from all [place] treatmentfacilities. This section includes future appointments and future orders which are active, pending or scheduled. Future Appointments This section includes appointments that were scheduled to occur 6 months from the date of the Encounter, up to a maximum of 20 appointments. The data comes from all [place] treatment facilities. Appointment Date/Time Appointment Type Appointme nt Facility Name Sep 12, 2024 12:00 PM AMBULATORY - MEDICINE [facility] Sep 12, 2024 12:02 PM [facility] [place] [facility] Sep 12, 2024 12:30 PM AMBULATORY - MEDICINE [facility] Sep 12, 2024 12:31 PM AMBULATORY - MEDICINE [facility] Dec 14, 2024 08:00 AM [facility]UL[facility]ORY - [facility] [facility] Dec 15, 2024 02:00 PM AMBULATORY - MEDICINE [facility] Active, Pending, and Scheduled Orders This section includes a listing of several types of active, pending, and scheduled orders, including clinic medications orders, diagnostic test orders, procedure orders and consult orders; where the start date of the order is 45 days before the date of the Encounter or 45 days after the date of theEncounter. The data comes from all [place] treatment facilities. Test Date/Time Test Type Test Details Facility Name Aug 21, 2024 02:52 PM Laboratory - Chemi stry Order POC UA (STL-PB-MA) URINE SP [facility] Lab Results: +/- 30 days of the encounter This section includes the Chemistry and Hematology Lab Results on record with [place] for the patient. Radiology Reports and Pathology Reports are provided separately, in subsequent sections. Lab Results This section contains the Chemistry/Hematology Results that were resulted 30 days before or 30 daysafter the date of the Encounter. Date/Time Source Result Type Result - Unit Interpretation Reference Range Specimen Type Comment Sep 07, 2024 09:24 AM [facility] TESTOSTERONE, TOTAL (PB-MA) SERUM Specimen Ty pe: SERUM No comment entered. Ordering Provider: JULIAN MEMBRENO Report Released Date/Time: Sep 05, 2024 02:26 PM Reporting Lab: [place] [facility] [address] [place] [address] Performing Lab: [place] [facility] [address] [place] [address] TESTOSTERONE, TOTAL (PB-MA) 489.0 ng/dL 221.0-871.0 Sep 05, 2024 01:48 PM [facility] B12 SERUM Specimen Type: SERUM No comment entered. Ordering Provider: JULIAN MEMBRENO Report Released Date/Time: Sep 13, 2023 02:23 PM Reporting Lab: [place] [facility] [address] [place] [address] Performing Lab: [place] [facility] [address] [place] [address] B12 541 pg/mL 213-816 Sep 05, 2024 01:48 PM [facility] FOLATE (PB) SERUM Specimen Typ e: SERUM No comment entered. Ordering Provider: JULIAN MEMBRENO Report Released Date/Time: Sep 13, 2023 02:23 PM Reporting Lab: [place] [facility] [address] [place] [address] Performing Lab: [place] [facility] [address] [place] [address] FOLATE (PB) 16.3 ng/mL 7-20 Sep 05, 2024 01:48 PM [facility] HGA1C BLOOD Specimen Type: BLOOD No comment entered. Ordering Provider: JULIAN MEMBRENO Report Released Date/Time: Sep 13, 2023 02:23 PM Reporting Lab: [place] [facility] [address] [place] [address] Performing Lab: [place] [facility] [address] [place] [address] HGA1C 5.5 4.0-6.0 Sep 05, 2024 01:48 PM [facility] VITAMIN D, 25-HYDROXY SERUM Specimen Type: SE RUM No comment entered. Ordering Provider: JULIAN MEMBRENO Report Released Date/Time: Sep 13, 2023 02:23 PM Reporting Lab: [place] [facility] [address] [place] [address] Performing Lab: [place] [facility] [address] [place] [address] VITAMIN D, 25-HYDROXY 32.5 ng/mL 30-96 Sep 05, 2024 01:48 PM [facility] TSH (MA-PB) SERUM Specimen Typ e: SERUM No comment entered. Ordering Provider: JULIAN MEMBRENO Report Released Date/Time: Sep 13, 2023 02:23 PM Reporting Lab: [place] [facility] [address] [place] [address] Performing Lab: [place] [facility] [address] [place] [address] TSH 0.725 u[IU]/mL 0.47-5 Sep 05, 2024 01:48 PM [facility] CHOLESTEROL PANEL (PB) PLASMA Specimen Type: P LASMA No comment entered. Ordering Provider: JULIAN MEMBRENO Report Released Date/Time: Sep 13, 2023 02:23 PM Reporting Lab: [place] [facility] [address] [place] [address] Performing Lab: [place] [facility] [address] [place] [address] CHOLESTEROL 110 mg/dL 0-200 TRIGLYCERIDE 107 mg/dL 0-150 CALCULATED LDL 35.1 mg/dL HDL(New) 53.5 mg/dL H >40 HDL % OF TOTAL CHOLESTEROL (PB) 48.6 >25 Sep 05, 2024 01:48 PM [facility] COMPREHENSIVE METABOLIC PANEL PLASMA Specimen Type: PLASMA No comment entered. Ordering Provider: JULIAN MEMBRENO Report Released Date/Time: Sep 13, 2023 02:23 PM Reporting Lab: [place] [facility] [address] [place] [address] Performing Lab: [place] [facility] [address] [place] [address] CREATININE 0.90 mg/dL 0.7-1.3 UREA NITROGEN 16 [...] 2020) 84 Sep 05, 2024 01:48 PM [facility] CBC BLOOD Specimen Type: BLOOD No comment entered. Ordering Provider: JULIAN MEMBRENO Report Released Date/Time: Sep 13, 2023 02:23 PM Reporting Lab: [place] [facility] [address] [place] [address] Performing Lab: [place] [facility] [address] [place] [address] WBC 5.9 10*3/uL 3.6-11.2 RBC 4.41 10*6/uL [...] 0. 00-0.05 Aug 21, 2024 03:00 PM [facility] POC UA (STL-PB-MA) URINE Specimen Type: URINE No comment entered. Ordering Provider: JULIAN MEMBRENO Report Released Date/Time: Aug 21, 2024 03:07 PM Reporting Lab: [facility] [address] [facility] [address] Performing Lab: [facility] [address] [facility] [address] PROTEIN POC UA Negative mg/dL Negative BLOOD [...] and tobacco- related health factors from the [place] facility where the Encounter took place. Current Smoking Status This section includes the most current smoking, or tobacco-related health factor, from the [place] facility where the Encounter took place. Date/Time Current Smoking Status Comment Francois ity Sep 09, 2023 12:30 PM [place]-TOBACCO FORMER USER [facility] Tobacco Use History This section includes a history of the smoking, or tobacco-related health factors, that were collected on or before the date of the Encounter. The data comes from the [place] facility where the Encounter took place. Date/Time Smoking Status/Tobacco Use Comment F acility Sep 09, 2023 12:30 PM VA-TOBACCO QUIT 15 YRS [place] MORE [facility] Sep 10, 2022 08:30 AM [place] FOR[place] US[place] [facility] Sep 10, 2022 08:30 AM VA-TOBACCO QUIT 15 YRS [place] MORE [facility] Jun 23, 2021 08:30 AM [place] FOR[place] US[place] [facility] Jun 23, 2021 08:30 AM VA-TOBACCO QUIT 15 YRS [place] MORE [facility] 2020 08:30 AM [place] [facility] 2020 08:30 AM VA-TOBACCO QUIT 15 YRS [place] MORE [facility] Mar 15, 2019 09:37 AM CURRENT NON-TOBACCO USER-HX OF [facility] Nov 16, 2018 09:33 AM [place]BACCO FOR[place] US[facility] Nov 16, 2018 09:33 AM VA-TOBACCO QUIT 15 YRS [place] MORE [facility] Feb 18, 2018 09:46 AM CURRENT NON-TOBACCO USER-HX OF [facility] Nov 23, 2007 09:17 AM QUIT TOBACCO >7 YEARS AGO [facility] Jun 21, 2007 09:21 AM QUIT TOBACCO >7 YEARS AGO [facility] Aug 24, 2005 08:27 AM CURRENT NON-TOBACCO USER-HX OF [facility] Feb 23, 2005 11:20 AM CURRENT NON-TOBACCO USER-HX OF [facility] Jun 26, 2004 01:01 PM CURRENT NON-TOBACCO USER-HX OF [facility] Advance Directives: All [...] this document. The data comes from all [place] facilities. Date Advance Directives Provider Source Dec 19, 2024 ADVANCE DIRECTIVE TY BERUMENU [facility] [place] [facility] Encounter Notes: All associated encounter notes This section contains the clinical notes associated to the Encounter. Date/Time Encounter Note(s) Provider Source Sep 11, 2024 03:02 PM GENERAL MEDICINE N OTE: LOCAL TITLE: General Note PB STANDARD TITLE: GENERAL MEDICINE NOTE DATE OF NOTE: SEP 11, 2024@15:02 ENTRY DATE: SEP 11, 2024@15:02:45 AUTHOR: XOCHITL LOPEZ EXP COSIGNER: URGENCY: STATUS: COMPLETED Left vm to confirm 09/12/24 Audiology appt /diego/ XOCHITL LOPEZ Telehealth Clinical Business Info Consultant Signed: 09/11/2024 15:03 XOCHITL LOPEZ [facility]
--- OUTSIDE RECORDS SUMMARY | 2024-09-12 07:02 | XMS_ITS | Encounter Summary ---
Author Name [facility] [place] Address [address] [place] [address] Care Team Providers Care Analytics Specialist Name Role Phone JULIAN MEMBRENO Primary Care [...] PART A Mar 24, 2005 PART A [id number] GEOVANNI,JOHNR ICK PATIENT MEDICARE (WNR) MEDICARE (M) PART B Mar 24, 2005 PART B [id number] GEOVANNI,PATR ICK PATIENT MEDICARE (WNR) MEDICARE (M) PART A Mar 24, 2005 PART A [id number] GEOVANNI,PATR ICK PATIENT MEDICARE (WNR) MEDICARE (M) PART B Mar 24, 2005 PART B [id number] GEOVANNI,PATR ICK PATIENT MEDICARE (WNR) MEDICARE (M) PART A Mar 24, 2005 PART A [id number] [facility] [phone] GEOVANNI,PATR ICK PATIENT MEDICARE (WNR) MEDICARE (M) PART B Mar 24, 2005 PART B [id number] GEOVANNIJOHNR ICK PATIENT MEDICARE (WNR) MEDICARE (M) PART A Mar 24, 2005 PART A [id number] GEOVANNI,JOHNR ICK PATIENT MEDICARE (WNR) MEDICARE (M) PART B Mar 24, 2005 PART B [id number] GEOVANNIJOHNR ICK PATIENT MEDICARE PART D (WNR) MEDICARE (M) PART D May 24, 2012 PART D [id number] GEOVANNIJOHN SCHULERR ICK PATIENT MEDICARE PART D (WNR) MEDICARE (M) PART D May 24, 2012 PART D [id number] [phone] GEOVANNITYLER SCHULER ICPerlita PATIENT Selected Encounter This section includes the information on record at [place] for the Encounter. Date/Time Encounter Type Encounter Description Reason Provider Source Sep 12, 2024 12:02 PM HEARING AID REPAIR/MODIFYIN G AUDIOLOGY ICD-10-CM Z46.1 Encounter for fitting and adjustment of hearing aid WILLIAM BARTON RA [facility] Encounter Template Text not used by [place] Assessments - Encounter Diagnoses This section includes the primary and secondary diagnoses documented for the Encounter. Date/Time Primary/Secondary Diagnosis Diagnosis Name Provider Source Sep 12, 2024 12:12 PM PRIMARY Encounter for fitting and adjustment of hearing aid WILLIAM BARTON RA [facility] Sep 12, 2024 12:12 PM SECONDARY Sensorineural hearing loss, bilateral WILLIAM BARTON RA [place] [facility] Sep 12, 2024 12:12 PM SECONDARY Tinnitus, bilateral ORALIAWILLIAM Dela Cruz [place] [facility] Plan of Treatment: Future Appointments (+ 6 [...] Date/Time Appointment Type Appointme nt Facility Name Dec 14, 2024 08:00 AM AMBULATORY - MEDICINE [place] [facility] Dec 15, 2024 02:00 PM AMBULATORY - MEDICINE [facility] Active, Pending, and Scheduled Orders [...] stry Order POC UA (STL-PB-MA) URINE SP [facility] Lab Results: +/- 30 days [...] Type Comment Sep 07, 2024 09:24 AM [facility] TESTOSTERONE, TOTAL (PB-MA) SERUM Specimen Ty pe: SERUM No comment entered. Ordering Provider: JULIAN MEMBRENO Report Released Date/Time: Sep 05, 2024 02:26 PM Reporting Lab: [place] [facility] [address] [place] [address] Performing Lab: [place] [facility] [address] [place] [address] TESTOSTERONE, TOTAL (PB-MA) 489.0 ng/dL 221.0-871.0 Sep 05, 2024 01:48 PM [facility] B12 SERUM Specimen Type: SERUM No comment entered. Ordering Provider: JULIAN MEMBRENO Report Released Date/Time: Sep 13, 2023 02:23 PM Reporting Lab: [place] [facility] [address] [place] [address] Performing Lab: [place] [facility] [address] [place] [address] B12 541 pg/mL 213-816 Sep 05, 2024 01:48 PM [facility] [place] [facility] FOLATE (PB) SERUM Specimen Typ e: SERUM No comment entered. Ordering Provider: JULIAN MEMBRENO Report Released Date/Time: Sep 13, 2023 02:23 PM Reporting Lab: [place] [facility] [address] [place] [address] Performing Lab: [place] [facility] [address] [place] [address] FOLATE (PB) 16.3 ng/mL 7-20 Sep 05, 2024 01:48 PM [facility] HGA1C BLOOD Specimen Type: BLOOD No comment entered. Ordering Provider: JULIAN MEMBRENO Report Released Date/Time: Sep 13, 2023 02:23 PM Reporting Lab: [place] [facility] [address] [place] [address] Performing Lab: [place] [facility] [address] [place] [address] HGA1C 5.5 4.0-6.0 Sep 05, 2024 01:48 PM [facility] VITAMIN D, 25-HYDROXY SERUM Specimen Type: SE RUM No comment entered. Ordering Provider: JULIAN MEMBRENO Report Released Date/Time: Sep 13, 2023 02:23 PM Reporting Lab: [place] [facility] [address] [place] [address] Performing Lab: [place] [facility] [address] [place] [address] VITAMIN D, 25-HYDROXY 32.5 ng/mL 30-96 Sep 05, 2024 01:48 PM [facility] TSH (MA-PB) SERUM Specimen Typ e: SERUM No comment entered. Ordering Provider: JULIAN MEMBRENO Report Released Date/Time: Sep 13, 2023 02:23 PM Reporting Lab: [place] [facility] [address] [place] [address] Performing Lab: [place] [facility] [address] [place] [address] TSH 0.725 u[IU]/mL 0.47-5 Sep 05, 2024 01:48 PM [place] [facility] CHOLESTEROL PANEL (PB) PLASMA Specimen Type: P LASMA No comment entered. Ordering Provider: JULIAN MEMBRENO Report Released Date/Time: Sep 13, 2023 02:23 PM Reporting Lab: [place] [facility] [address] [place] [address] Performing Lab: [place] [facility] [address] [place] [address] CHOLESTEROL 110 mg/dL 0-200 TRIGLYCERIDE 107 mg/dL 0-150 CALCULATED LDL 35.1 mg/dL HDL(New) 53.5 mg/dL H >40 HDL % OF TOTAL CHOLESTEROL (PB) 48.6 >25 Sep 05, 2024 01:48 PM [facility] COMPREHENSIVE METABOLIC PANEL PLASMA Specimen Type: PLASMA No comment entered. Ordering Provider: JULIAN MEMBRENO Report Released Date/Time: Sep 13, 2023 02:23 PM Reporting Lab: [place] [facility] [address] [place] [address] Performing Lab: [place] [facility] [address] [place] [address] CREATININE 0.90 mg/dL 0.7-1.3 UREA NITROGEN 16 [...] 2020) 84 Sep 05, 2024 01:48 PM [facility] CBC BLOOD Specimen Type: BLOOD No comment entered. Ordering Provider: JULIAN MEMBRENO Report Released Date/Time: Sep 13, 2023 02:23 PM Reporting Lab: [place] [facility] [address] [place] [address] Performing Lab: [place] [facility] [address] [place] [address] WBC 5.9 10*3/uL 3.6-11.2 RBC 4.41 10*6/uL [...] 0. 00-0.05 Aug 21, 2024 03:00 PM [facility] POC UA (STL-PB-MA) URINE Specimen Type: URINE No comment entered. Ordering Provider: JULIAN MEMBRENO Report Released Date/Time: Aug 21, 2024 03:07 PM Reporting Lab: [facility] [address] [facility] [address] Performing Lab: [facility] [address] [facility] [address] PROTEIN POC UA Negative mg/dL Negative BLOOD [...] took place. Date/Time Current Smoking Status Saurabh Francois osorio Sep 16, 2007 05:28 PM QUIT TOBACCO >7 YEARS AGO VENKAT PRECIADO [facility] Advance Directives: All historical and current Section [...] Dec 19, 2024 ADVANCE DIRECTIVE TY BERUMEN [facility] Encounter Notes: All associated encounter notes This section contains the clinical notes associated to the Encounter. Date/Time Encounter Note(s) Provider Source Sep 12, 2024 07:17 AM AUDIOLOGY NOTE: LOCAL TITLE: HEARING CLINIC STANDARD TITLE: AUDIOLOGY NOTE DATE OF NOTE: SEP 12, 2024@07:17 ENTRY DATE: SEP 12, 2024@07:17:26 AUTHOR: ELOISE BARTON COSIGNER: URGENCY: STATUS: COMPLETED Diagnosis: Sensorineural Hearing Loss, Bilateral and Tinnitus, Bilateral Treatment: Hearing Aid Check Time spent with : 30 minutes seen for a hearing aid check via Audio Telehealth and verbally consented to the Telehealth modality. Multi-factor personally identifiable information of the was obtained verbally (full name and date of ). accompanied by: daughter Patient site: [facility] ____ HISTORY: Reason for Appointment: Patient is here today for issue of 2022 right/left hearing aid replaced through loss/damage warranty. HEARING DEVICES: 11/2023 PHONAK AUDEO L90-R MIGUEL L [id number]* (+ original, crackles) 11/2023 PHONAK AUDEO L90-R MIGUEL R [id number]* (+ original) - 3P HISTORICAL RECORDS ADMINISTRATOR 5.0 - VENTED DOME - MEDIUM - CERUSTOP - NO RETENTION TAILS (graphite jones) * Daughter assists with cleaning/maintenance * Loss/damage hearing aids marked with sharpie. Originals may be confiscated if mailed for repair. BACK-UP HEARING DEVICES: 10/2022 PHONAK AUDEO L90-R MIGUEL L [id number]* 10/2022 PHONAK AUDEO L90-R MIGUEL R [id number]* - 3P HISTORICAL RECORDS ADMINISTRATOR 5.0 - VENTED DOME- MEDIUM - CERUSTOP - NO RETENTION TAILS (sand beige) OBJECTIVE/ASSESSMENT: Otoscopy was performed by collaboration of telehealth clinical test lab technician and provider via telehealth technology/video otoscope which revealed: Right ear: unremarkable Left ear: unremarkable Installed 3P receivers on right/left 2022 devices as they arrived with size 1. Connected hearing aids to software to import user settings and sync devices. The was counseled/educated on services provided today and is in agreement with the plan. PLAN: Follow up as needed or scheduled. /diego/ Lul Gibson [facility] Signed: 09/12/2024 12:14 ELOISE BARTON [facility]
--- OUTSIDE RECORDS SUMMARY | 2024-09-12 07:30 | XMS_ITS | Encounter Summary ---
Author Name [facility] [facility] Address [address] [place] [address] Care Team Providers Care Integration Software Developer Name Role Phone JULIAN MEMBRENO Primary Care [...] PART A Mar 24, 2005 PART A [id number] GEOVANNI,PATR ICK PATIENT MEDICARE (WNR) MEDICARE (M) PART B Mar 24, 2005 PART B [id number] GEOVANNI,PATR ICK PATIENT MEDICARE (WNR) MEDICARE (M) PART A Mar 24, 2005 PART A [id number] GEOVANNI,PATR ICK PATIENT MEDICARE (WNR) MEDICARE (M) PART B Mar 24, 2005 PART B [id number] [phone] GEOVANNI,PATR ICK PATIENT MEDICARE (WNR) MEDICARE (M) PART A Mar 24, 2005 PART A [id number] [id number] GEOVANNI,PATR ICK PATIENT MEDICARE (WNR) MEDICARE (M) PART B Mar 24, 2005 PART B [id number] GEOVANNI,PATR ICK PATIENT MEDICARE (WNR) MEDICARE (M) PART A Mar 24, 2005 PART A [id number] [id number] GEOVANNI,PATR ICK PATIENT MEDICARE (WNR) MEDICARE (M) PART B Mar 24, 2005 PART B [id number] GEOVANNI,PATR ICK PATIENT MEDICARE PART D (WNR) MEDICARE (M) PART D May 24, 2012 PART D [id number] GEOVANNI,PATR ICK PATIENT MEDICARE PART D (WNR) MEDICARE (M) PART D May 24, 2012 PART D [id number] GEOVANNIJOHNR ICK PATIENT Selected Encounter This section includes the information on record at [place] for the Encounter. Date/Time Encounter Type Encounter Description Reason Provider Source Sep 12, 2024 12:30 PM [facility] AUDIO-VIDEO EST MOD 30 PRIMARY CARE/MEDICINE ICD-10-CM Z00.01 Encounter for general adult medical exam w abnormal findings JULIAN MEMBRENO Encounter Template Text not used by [facility] Assessments - Encounter Diagnoses This section includes the primary and secondary diagnoses documented for the Encounter. Date/Time Primary/Secondary Diagnosis Diagnosis Name Provider Source September 25, 2024 08:41 AM PRIMARY Encounter for general adult medical exam w abnormal findings JULIAN MEMBRENO [facility] September 25, 2024 08:41 AM SECONDARY Memory deficit following unspecified cerebrovascular disease [facility] September 25, 2024 08:41 AM SECONDARY Other idiopathic peripheral autonomic neuropathy JULIAN MEMBRENO [facility] September 25, 2024 08:41 AM SECONDARY Parkinsonism, unspecified [facility] September 25, 2024 08:41 AM SECONDARY Unspecified abnormalities of gait and mobility JULIAN MEMBRENO [facility] Plan of Treatment: Future Appointments (+ 6 months) and Future Tests (+/- 45 days) The Plan of Treatment section includes future care activities for the patient from all VA treatmentfacilities. This section includes future appointments and [...] 08:00 AM AMBULATORY - MEDICINE [place] [facility] Dec 15, 2024 02:00 PM AMBULATORY - MEDICINE [facility] Active, Pending, and Scheduled Orders This section includes a listing of several types of active, pending, and scheduled orders, including clinic medications orders, diagnostic test orders, procedure orders and consult orders; where the start date of the order is 45 days before the date of the Encounter or 45 days after the date of theEncounter. The data comes from all [facility]. Test Date/Time Test Type Test Details Facility Name Aug 21, 2024 02:52 PM Laboratory - Chemi stry Order POC UA (STL-PB-MA) URINE SP [facility] Lab Results: +/- 30 [...] Type Comment Sep 07, 2024 09:24 AM [facility] TESTOSTERONE, TOTAL (PB-MA) SERUM Specimen Ty pe: SERUM No comment entered. Ordering Provider: JULIAN MEMBRENO Report Released Date/Time: Sep 05, 2024 02:26 PM Reporting Lab: [place] [facility] [address] [place] [address] Performing Lab: [place] [facility] [address] [place] [address] TESTOSTERONE, TOTAL (PB-MA) 489.0 ng/dL 221.0-871.0 Sep 05, 2024 01:48 PM [facility] FOLATE (PB) SERUM Specimen Typ e: SERUM No comment entered. Ordering Provider: JULIAN MEMBRENO Report Released Date/Time: Sep 13, 2023 02:23 PM Reporting Lab: [place] [facility] [address] [place] [address] Performing Lab: [place] [facility] [address] [place] [address] FOLATE (PB) 16.3 ng/mL 7-20 Sep 05, 2024 01:48 PM [facility] [place] B12 SERUM Specimen Type: SERUM No comment entered. Ordering Provider: JULIAN MEMBRENO Report Released Date/Time: Sep 13, 2023 02:23 PM Reporting Lab: [place] [facility] [address] [place] [address] Performing Lab: [place] [facility] [address] [place] [address] B12 541 pg/mL 213-816 Sep 05, 2024 01:48 PM [facility] HGA1C BLOOD Specimen Type: BLOOD No comment entered. Ordering Provider: JULIAN MEMBRENO Report Released Date/Time: Sep 13, 2023 02:23 PM Reporting Lab: [place] [facility] [address] [place] [address] Performing Lab: [place] [facility] [address] [place] [address] HGA1C 5.5 4.0-6.0 Sep 05, 2024 01:48 PM [facility] VITAMIN D, 25-HYDROXY SERUM Specimen Type: SE RUM No comment entered. Ordering Provider: JULIAN MEMBRENO Report Released Date/Time: Sep 13, 2023 02:23 PM Reporting Lab: [place] [facility] [address] [place] [address] Performing Lab: [place] [facility] [address] [place] [address] VITAMIN D, 25-HYDROXY 32.5 ng/mL 30-96 Sep 05, 2024 01:48 PM [facility] [place] TSH (MA-PB) SERUM Specimen Typ e: SERUM No comment entered. Ordering Provider: JULIAN MEMBRENO Report Released Date/Time: Sep 13, 2023 02:23 PM Reporting Lab: [place] [facility] [address] [place] [address] Performing Lab: [place] [facility] [address] [place] [address] TSH 0.725 u[IU]/mL 0.47-5 Sep 05, 2024 01:48 PM [facility] CHOLESTEROL PANEL (PB) PLASMA Specimen Type: P JHONATAN No comment entered. Ordering Provider: JULIAN MEMBERNO Report Released Date/Time: Sep 13, 2023 02:23 PM Reporting Lab: [place] [facility] [address] [place] [address] Performing Lab: [place] [facility] [address] [place] [address] CHOLESTEROL 110 mg/dL 0-200 TRIGLYCERIDE 107 mg/dL 0-150 CALCULATED LDL 35.1 mg/dL HDL(New) 53.5 mg/dL H >40 HDL % OF TOTAL CHOLESTEROL (PB) 48.6 >25 Sep 05, 2024 01:48 PM [facility] COMPREHENSIVE METABOLIC PANEL PLASMA Specimen Type: PLASMA No comment entered. Ordering Provider: JULIAN MEMBRENO Report Released Date/Time: Sep 13, 2023 02:23 PM Reporting Lab: [place] [facility] [address] [place] [address] Performing Lab: [place] [facility] [address] [place] [address] CREATININE 0.90 mg/dL 0.7-1.3 UREA NITROGEN 16 [...] 2020) 84 Sep 05, 2024 01:48 PM [facility] CBC BLOOD Specimen Type: BLOOD No comment entered. Ordering Provider: JULIAN MEMBRENO Report Released Date/Time: Sep 13, 2023 02:23 PM Reporting Lab: [place] [facility] [address] [place] [address] Performing Lab: [place] [facility] [address] [place] [address] WBC 5.9 10*3/uL 3.6-11.2 RBC 4.41 10*6/uL [...] 0. 00-0.05 Aug 21, 2024 03:00 PM [facility] UA (STL-PB-MA) URINE Specimen Type: URINE No comment entered. Ordering Provider: JULIAN MEMBRENO Report Released Date/Time: Aug 21, 2024 03:07 PM Reporting Lab: [facility] [address] [facility] [address] Performing Lab: [facility] [address] [facility] [address] PROTEIN POC UA Negative mg/dL Negative BLOOD [...] Pain Height Weight Body Mass Index Source Sep 12, 2024 12:49 PM 97.6 68 118/70 20 98 0 197 31 [facility] Social History: Smoking Status (Most current) [...] Current Smoking Status Comment Facil ity Sep 12, 2024 12:30 PM VA-TOBACCO USE FORMER CIGARETTES [facility] Tobacco Use History This section includes a history of the smoking, or tobacco-related health factors, that were collected on or before the date of the Encounter. The data comes from the [place] facility where the Encounter took place. Date/Time Smoking Status/Tobacco Use Comment F acility Sep 12, 2024 12:30 PM VA-TOBACCO USE FORMER OTHER TYPE [facility] Sep 09, 2023 12:30 PM VA-TOBACCO FORMER USER [facility] Sep 09, 2023 12:30 PM VA-TOBACCO QUIT 15 YRS OR MORE [facility] Sep 10, 2022 08:30 AM VA-TOBACCO FORMER USER [facility] Sep 10, 2022 08:30 AM VA-TOBACCO QUIT 15 YRS OR MORE [facility] Jun 23, 2021 08:30 AM VA-TOBACCO FORMER USER [facility] Jun 23, 2021 08:30 AM VA-TOBACCO QUIT 15 YRS OR MORE [facility] 2020 08:30 AM VA-TOBACCO FORMER USER [facility] 2020 08:30 AM VA-TOBACCO QUIT 15 YRS OR MORE [facility] Mar 15, 2019 09:37 AM CURRENT NON-TOBACCO USER-HX OF U [facility] Nov 16, 2018 09:33 AM VA-TOBACCO FORMER USER [facility] Nov 16, 2018 09:33 AM VA-TOBACCO QUIT 15 YRS OR MORE [facility] Feb 18, 2018 09:46 AM CURRENT NON-TOBACCO USER-HX OF [facility] Nov 23, 2007 09:17 AM QUIT TOBACCO >7 YEARS AGO [facility] Jun 21, 2007 09:21 AM QUIT TOBACCO >7 YEARS AGO [facility] Aug 24, 2005 08:27 AM CURRENT NON-TOBACCO USER-HX OF [facility] Feb 23, 2005 11:20 AM CURRENT NON-TOBACCO USER-HX OF [facility] Jun 26, 2004 01:01 PM CURRENT NON-TOBACCO USER-HX OF [facility] Advance Directives: All historical [...] 2024 ADVANCE DIRECTIVE TY BERUMEN [facility] Encounter Notes: All associated encounter notes This section contains the clinical notes associated to the Encounter. Date/Time Encounter Note(s) Provider Source Sep 12, 2024 01:06 PM PRIMARY CARE NURSI NG NOTE: LOCAL TITLE: PRIMARY CARE NURSING PROGRESS NOTE (TEXT) NURSING P STANDARD TITLE: PRIMARY CARE NURSING NOTE DATE OF NOTE: SEP 12, 2024@13:06 ENTRY DATE: SEP 12, 2024@13:06:33 AUTHOR: KOURTNEY BARTH EXP COSIGNER: URGENCY: STATUS: COMPLETED PRIMARY CARE NURSING PROGRESS NOTE (TEXT) NURSING PB Has ADDENDA Established Patient AKI GALARZA IS A 84 YEAR OLD MALE BEING SEEN IN CLINIC SEP 12, 2024. REASON FOR VISIT: Here for annual follow up on chronic health conditions and to review lab. Are you receiving care any where other than the [facility]? No HEALTH AND SURGICAL HISTORY: Does patient report using home oxygen? CURRENT ACTIVE MEDICATIONS FOR REVIEW: If the list for review does not include a component, then it was not applicable to this patient. Allergies/ADRs (Tool #5) FACILITY ALLERGY/ADR -------- No Remote Allergy/ADR Data available for this patient [facility] Med. Reconciliation (Tool #1) INCLUDED IN THIS LIST: Alphabetical list of active outpatient prescriptions dispensed from this [place] (local) and dispensed from another [place] or [facility] facility (remote) as well as inpatient orders (local pending and active), local clinic medications, locally documented non-VA medications, and local prescriptions that have or been discontinued in the past 90 days. Non-VA Meds Last Documented On: Aug 28, 2024 NOTE The display of VA prescriptions dispensed from another [place] or [facility] facility (remote) is limited to active outpatient prescription entries matched to National Drug File at the originating site and may not include some items such as investigational drugs, compounds, etc. NOT INCLUDED IN THIS LIST: Medications self-entered by the patient into personal health records (i.e. [employer]) are NOT included in this list. Non-VA medications documented outside this [place], remote inpatient orders (regardless of status) and remote clinic medications are NOT included in this list. The patient and provider must always discuss medications the patient is taking, regardless of where the medication was dispensed or obtained. OUTPT AMITRIPTYLINE HCL 25MG TAB (Status = ) TAKE ONE TABLET BY MOUTH AT BEDTIME Rx# [id number] Last Released: 02/02/24 Qty/Days Supply: Rx Expiration Date: 08/24/24 Refills Remainin Non-VA ASPIRIN 81MG CHEW TAB CHEW AND SWALLOW FOUR TABLETS BY MOUTH ONCE A DAY Patient wants to buy from Non-VA pharmacy. OUTPT BETAMETHASONE DIPROPIONATE 0.05% OINT (Status = Active) APPLY A THIN LAYER TO LOWER LEGS TO AFFECTED AREA(S) TWICE A DAY (EXTERNAL USE ONLY) Rx# [id number] Last Released: 08/25/24 Qty/Days Supply: Rx Expiration Date: 02/09/25 Refills Remainin OUTPT CARBIDOPA 25/LEVODOPA 100MG TAB (Status = Active/Suspended) TAKE 2 TABLETS BY MOUTH THREE TIMES A DAY WITH MEALS. TAKE WITH FOOD. Rx# [id number] Last Released: 07/07/24 Qty/Days Supply: 540/ Rx Expiration Date: 02/23/25 Refills Remainin OUTPT CHOLECALCIF 50MCG (D3-2,000UNIT) TAB (Status = Active) TAKE TWO TABLETS BY MOUTH ONCE A DAY FOR VITAMIN D DEFICIENCY Rx# [id number] Last Released: 08/29/24 Qty/Days Supply: 200/90 Rx Expiration Date: 03/25/25 Refills Remainin Indication: FOR VITAMIN D DEFICIENCY OUTPT CLINDAMYCIN PHOSPHATE 1% TOP SOLN (Status = ) APPLY SPARINGLY TO AFFECTED AREA(S) TWICE A DAY TO PIMPLE BUMPS THEY ARISE UNTIL CLEAR Rx# [id number] Last Released: 06/28/24 Qty/Days Supply: 60 Rx Expiration Date: 07/22/24 Refills Remainin OUTPT CLONIDINE HCL 0.1MG TAB (Status = ) TAKE ONE TABLET BY MOUTH TWICE DAILY NEEDED FOR HYPERTENSIVE EMERGENCY. TAKE ONE TABLET IF SYSTOLIC BLOOD PRESSURE IS >180, OR IF DIASTOLIC BLOOD PRESSURE IS >110. Rx# [id number] Last Released: 05/31/24 Qty/Days Supply: 180/90 Rx Expiration Date: 08/23/24 Refills Remainin OUTPT CYANOCOBALAMIN 1000MCG/ML INJ (Status = ) INJECT 1000MCG/1ML INTRAMUSCULARLY EVERY WEEK FOR 1 MONTH, THEN INJECT 100MCG/0.1ML EVERY MONTH Rx# [id number] Last Released: 07/15/23 Qty/Days Supply: 09/18 Rx Expiration Date: 06/18/24 Refills Remainin OUTPT DICLOFENAC NA 1% TOP GEL (Status = Active/Suspended) APPLY 4 GM TO AFFECTED AREA(S) FOUR TIMES A DAY NEEDED FOR PAIN NO MORE THAN 16 GM/DAY TO ANY LOWER EXTREMITY JOINT. NO MORE THAN 8 GM/DAY TO ANY UPPER EXTREMITY JOINT. MAX 32GM/DAY OVER ALL JOINTS.(MEASURE DOSE WITH RULER INSIDE BOX) Rx# [id number] Last Released: 06/26/24 Qty/Days Supply: Rx Expiration Date: 04/18/25 Refills Remainin Indication: FOR PAIN OUTPT DONEPEZIL HCL 10MG TAB (Status = On Hold) TAKE ONE-HALF TABLET BY MOUTH AT BEDTIME FOR MEMORY (JUST BEFORE BEDTIME) Rx# [id number] Last Released: 02/28/24 Qty/Days Supply: Rx Expiration Date: 01/04/25 Refills Remainin Indication: FOR MEMORY OUTPT FINASTERIDE 5MG TAB (Status = Active/Suspended) TAKE ONE TABLET BY MOUTH ONCE A DAY SWALLOW WHOLE, DO NOT CRUSH, SPLIT, OR CHEW. Rx# [id number] Last Released: 08/11/24 Qty/Days Supply: Rx Expiration Date: 08/08/25 Refills Remainin OUTPT FLUDROCORTISONE ACETATE 0.1MG TAB (Status = Active) TAKE ONE-HALF TABLET BY MOUTH ONCE A DAY ORTHOSTASIS Rx# [id number] Last Released: 08/25/24 Qty/Days Supply: Rx Expiration Date: 03/30/25 Refills Remainin Indication: ORTHOSTASIS OUTPT FLUTICASONE PROP 50MCG 120D NASAL INHL (Status = Active/Suspended) INSTILL 1 SPRAY IN NOSTRIL(S) ONCE A DAY FOR CHRONIC RHINOSINUSITIS (MUST BE USED DIRECTED FOR MINIMUM OF 21 DAYS TO PROVIDE ADEQUATE BENEFITS) Rx# [id number] Last Released: 08/07/24 Qty/Days Supply: Rx Expiration Date: 02/28/25 Refills Remainin Indication: FOR CHRONIC RHINOSINUSITIS OUTPT HYDROPHILIC (EQV EUCERIN) TOP CREAM (Status = Active/Suspended) APPLY SPARINGLY TO AFFECTED AREA(S) ONCE A DAY FOR SKIN CARE (EXTERNAL USE ONLY) Rx# [id number] Last Released: 07/13/24 Qty/Days Supply: Rx Expiration Date: 02/01/25 Refills Remainin Indication: FOR SKIN CARE OUTPT HYDROXYZINE HCL 25MG TAB (Status = On Hold) TAKE ONE TABLET BY MOUTH THREE TIMES A DAY NEEDED FOR ANXIETY *MAY CAUSE DROWSINESS* Rx# [id number] Last Released: 02/14/24 Qty/Days Supply: Rx Expiration Date: 02/07/25 Refills Remainin Indication: FOR ANXIETY OUTPT LEVOTHYROXINE NA 112MCG TAB (Status = Active/Suspended) TAKE ONE TABLET BY MOUTH EVERY MORNING BEFORE A MEAL FOR THYROID. TAKE 30 MINUTES BEFORE FOOD. TAKE SEPARATELY FROM ALL OTHER MEDICATIONS. Rx# [id number] Last Released: 07/17/24 Qty/Days Supply: Rx Expiration Date: 12/13/24 Refills Remainin OUTPT LIDOCAINE 5% OINT (Status = Active) APPLY SPARINGLY TO AFFECTED AREA(S) TWICE DAILY NEEDED FOR PAIN Rx# [id number] Last Released: 07/10/24 Qty/Days Supply: Rx Expiration Date: 10/13/24 Refills Remainin Indication: FOR PAIN OUTPT LIDOCAINE 5% PATCH (Status = Active/Suspended) APPLY 1 PATCH TO SKIN SITE ONCE A DAY FOR LOCAL ANESTHESIA APPLY PATCH AND PRESS FIRMLY FOR 10-15 SECONDS. KEEP ON FOR 12 HOURS THEN REMOVE PATCH FOR 12 HOURS. Rx# [id number] Last Released: 06/29/24 Qty/Days Supply: Rx Expiration Date: 04/18/25 Refills Remainin Indication: FOR LOCAL ANESTHESIA OUTPT MENTHOL/M-SALICYLATE 10-15% TOP CREAM (Status = Active/Suspended) APPLY SPARINGLY TO AFFECTED AREA(S) FOUR TIMES A DAY NEEDED (EXTERNAL USE ONLY) Rx# [id number] Last Released: 07/22/24 Qty/Days Supply: Rx Expiration Date: 12/13/24 Refills Remainin Indication: FOR PAIN OUTPT METRONIDAZOLE 0.75% TOP CREAM (Status = Active) APPLY ON CENTRAL FACE TO AFFECTED AREA(S) TWICE A DAY (TOPICAL USE ONLY) Rx# [id number] Last Released: 08/25/24 Qty/Days Supply: 4530 Rx Expiration Date: 04/27/25 Refills Remainin Non-VA MIRABEGRON 50MG SA TAB TAKE ONE TABLET BY MOUTH ONCE A DAY VA RX: Medication prescribed by Non-VA provider Myrbetriq ER 50mg 1 tab daily Indication: FOR OVERACTIVE BLADDER OUTPT MIRABEGRON 50MG SA TAB (Status = Active) TAKE ONE TABLET BY MOUTH ONCE A DAY FOR OVERACTIVE BLADDER SWALLOW WHOLE; DO NOT CRUSH, SPLIT, OR CHEW. Rx# [id number] Last Released: Qt Supply: 90 Rx Expiration Date: 09/07/25 Refills Remainin Indication: FOR OVERACTIVE BLADDER OUTPT MIRTAZAPINE 15MG TAB (Status = Active/Parked) TAKE ONE-HALF TABLET BY MOUTH AT BEDTIME FOR DEPRESSION Rx# [id number] Last Released: Qt Supply: 45 Rx Expiration Date: 06/28/25 Refills Remainin Indication: FOR DEPRESSION OUTPT MULTIVIT/OPHTH AREDS2/LUTE/ZEAX CAP/TAB (Status = Active) TAKE 1 CAP/TAB BY MOUTH EVERY DAY WITH MEAL(S) AVOID IF YOU HAVE PEANUT ALLERGY. Rx# [id number] Last Released: 08/22/24 Qty/Days Supply: 120/90 Rx Expiration Date: 06/17/25 Refills Remainin OUTPT MULTIVITAMIN/MINERALS CAP/TAB (Status = Active) TAKE 1 CAP/TAB BY MOUTH ONCE A DAY FOR SUPPLEMENTATION. Rx# [id number] Last Released: 07/07/24 Qty/Days Supply: 100/90 Rx Expiration Date: 02/01/25 Refills Remainin OUTPT QUETIAPINE FUMARATE 25MG TAB (Status = Active) TAKE 1-2 TABLETS BY MOUTH AT BEDTIME Rx# [id number] Last Released: 09/05/24 Qty/Days Supply: 180/90 Rx Expiration Date: 06/29/25 Refills Remainin OUTPT ROSUVASTATIN CA 40MG TAB (Status = Active) TAKE ONE-HALF TABLET BY MOUTH EVERY EVENING TO LOWER CHOLESTEROL Rx# [id number] Last Released: 07/12/24 Qty/Days Supply: Rx Expiration Date: 09/13/24 Refills Remainin OUTPT TAMSULOSIN HCL 0.4MG CAP (Status = Active) TAKE ONE CAPSULE BY MOUTH EVERY EVENING APPROXIMATELY 30 MINUTES AFTER THE SAME MEAL EACH DAY (FOR PROSTATE) Rx# [id number] Last Released: 07/10/24 Qty/Days Supply: Rx Expiration Date: 09/15/24 Refills Remainin OUTPT TRAZODONE HCL 50MG TAB (Status = On Hold) TAKE ONE-HALF TABLET BY MOUTH AT BEDTIME FOR INSOMNIA AND DEPRESSION Rx# [id number] Last Released: 03/31/24 Qty/Days Supply: Rx Expiration Date: 03/30/25 Refills Remainin Indication: FOR INSOMNIA AND DEPRESSION OUTPT TRIAMCINOLONE ACETONIDE 0.1% CREAM (Status = Discontinued) APPLY SPARINGLY TO AFFECTED AREA(S) TWICE DAILY NEEDED FOR RASH. (EXTERNAL USE ONLY) LEFT LOWER EXTREMITY RASH Rx# [id number] Last Released: 06/02/24 Qty/Days Supply: 30 Rx Expiration Date: 02/01/25 Refills Remainin OUTPT TRIAMCINOLONE ACETONIDE 0.1% CREAM (Status = Active) APPLY SPARINGLY TO AFFECTED AREA(S) TWICE DAILY NEEDED FOR RASH. (EXTERNAL USE ONLY) LEFT LOWER EXTREMITY RASH Rx# [id number] Last Released: 08/25/24 Qty/Days Supply: 30 Rx Expiration Date: 07/01/25 Refills Remainin SUPPLIES PHARMACY TERMS AND POSSIBLE PATIENT ACTIONS INPT = [place] inpatient order IV = [place] intravenous medication OUTPT = [place] outpatient prescription PHARMACY POSSIBLE PATIENT TERMS EXPLANATION ACTIONS -------- - ACTIVE A prescription that can be If you have refills, filled at the local [place] pharmacy. you may request a refill of this prescription from your VA pharmacy. CLINIC A medication you received during If you have questions a visit to a VA clinic or about this medication emergency department. contact your VA healthcare team. DISCONTINUED A prescription your provider has Contact your VA stopped. It is no longer healthcare team if you available to be sent to you or need more of this picked up at the [place] pharmacy medication. window. A prescription which is [...] the VA. Or, it may be an [id number] (OTC), herbal, dietary supplements or sample medication. [...] An active prescription that is Contact your VA not scheduled to be filled yet. pharmacy if you need You should receive it before this medication now. you run out. ==== Medication list reviewed with Caregiver daughter Patient/Caregiver reports taking meds other than as directed/ordered: stopped mirtazapine, amitriptylline, cyanocobalamin, donepezil, hydroxyzine, trazodone... fluticasone is prn , fludrocoritisone is prn, quetiapine is prn IS PATIENT TAKING ANY OVER THE COUNTER MEDICATIONS, SUCH VITAMINS OR HERBAL SUPPLEMENTS, INCLUDING ANY MEDICATIONS PRESCRIBED BY ANOTHER PHYSICIAN? Yes, List: B12 gummies daily , Fish oil daily Does patient have any new allergies to report since last visit? VITALS: TEMPERATURE: 97.6 F [36.4 C] (09/12/2024 12:49) BP: 118/70 (09/12/2024 12:49) RESP: 20 (09/12/2024 12:49) PULSE: 68 (09/12/2024 12:49) HT: 67.0 in [170.2 cm] (04/17/2024 08:37) WT: 197 lb [89.36 kg] (09/12/2024 12:49) BMI: 30.9 PAIN ASSESSMENT: (Most Recent Pain Score in Vitals Package: 0 (09/12/2024 12:49) ) The patient indicated that they and [...] Now let us serve you. At the [facility], we strive to provide you with [...] Not At All SPIRITUAL ASSESSMENT: Are there confucianist practices or spiritual concerns you want the bi developer, your physician, and other health care team members to immediately know about? Patient advised to call the clinic for any concerns, questions, or symptoms. Patient and/or caregiver verbalized understanding of plan of care. /diego/ KOURTNEY BARTH LPN Signed: 09/12/2024 13:09 09/12/2024 ADDENDUM STATUS: COMPLETED Suicide Screen - V: C-SSRS Screening [place] Suicide Severity Rating Scale (C-SSRS) screener 1. Over the past month, have you wished you were or wished you could go to sleep and not wake up? No 2. Over the past month, have you had any actual thoughts of killing yourself? No 3. Over the past month, have you been thinking about how you might do this? Response not required due to responses to other questions. 4. Over the past month, have you had these thoughts and had some intention of acting on them? Response not required due to responses to other questions. 5. Over the past month, have you started to work out or worked out the details of how to kill yourself? Response not required due to responses to other questions. 6. If yes, at any time in the past month did you intend to carry out this plan? Response not required due to responses to other questions. 7. In your lifetime, have you ever done anything, started to do anything, or prepared to do anything to end your life (for example, collected pills, obtained a gun, gave away valuables, went to the roof but didn't jump)? No 8. If YES, was this within the past 3 months? Response not required due to responses to other questions. Sexual Orientation - CP,L,N,P,PH,PS,S,U: The patient thinks of their sexual orientation as: Straight or Heterosexual RHS Screen - VS: RHS Screen Environmental Check Screening was not completed at this time due to: Another adult present Alcohol Use Screen (AUDIT-C) - V: Alcohol Screen: SCREEN FOR ALCOHOL (AUDIT-C) An alcohol screening test (AUDIT-C) was negative (score=0). 1. How often did you have a drink containing alcohol in the past year? Consider a drink to be a 12 ounce can or bottle of regular beer, 8 ounces of malt liquor, a 5 ounce glass of table wine, or a 1.5 ounce shot of liquor (like scotch, gin, or vodka). Never 2. How many drinks containing alcohol did you have on a typical day when you were drinking in the past year? Response not required due to responses to other questions. 3. How often did you have six or more drinks on one occasion in the past year? Response not required due to responses to other questions. Tobacco Use Screening - AT,DE,L,M,N,P,PH,PS,RT,S,U: The patient is a former cigarette smoker. The patient formerly used other types of tobacco. Depression Screening - V: Perform PHQ-2 A PHQ-2 screen was performed. The score was 0 which is a negative screen for depression. Over the past two weeks, how often have you been bothered by the following problems? 1. Little interest or pleasure in doing things Not at all 2. Feeling down, depressed, or hopeless Not at all Homelessness/Food Insecurity Screen - DI,L,N,P,PH,PS,S,U: In the past 2 months, have you been living in stable housing that you own, rent, or stay in as part of a household? Yes - Living in stable housing. Are you worried or concerned that in the next 2 months you may NOT have stable housing that you own, rent, or stay in as part of a household? No - Not worried about housing near future The [place] reports the following: Within the past 12 months, you worried whether your food would run out before you got money to buy more. Never true Within the past 12 months, the food you bought just didn't last and you didn't have money to get more. Never true Pain Assessment: - PAIN ASSESSMENT: .. Patient reports no pain at this visit. Pain Score = 0. Patient's self identified pain goal: 0 Dementia Safety Assessment: Is there a gun in your home (place where you live)? NO Do you drive? NO Patient/Nurse Interview: * * Patient states that questions were answered in a way that was easily understood. Weight Control/Nutrition Counseling: * The patient received the following counseling at this encounter: Patient was encouraged to restrict fat, especially saturated fats, in a normal diet. Benefit of a diet high in fiber was discussed. /diego/ KOURTNEY BARTH CUT OFF SAWYER Signed: 09/12/2024 14:50 KOURTNEY BARTH [facility] Sep 12, 2024 12:30 PM PRIMARY CARE PROGR ESS NOTE: LOCAL TITLE: PRIMARY CARE CLINIC PROGRESS NOTE PB STANDARD TITLE: PRIMARY CARE PROGRESS NOTE DATE OF NOTE: SEP 12, 2024@12:30 ENTRY DATE: SEPTEMBER 22, 2024@08:10:26 AUTHOR: JULIAN MEMBRENO COSIGNER: URGENCY: STATUS: COMPLETED is presenting to the clinic today for his/her Telehealth appointment as scheduled. was assured that the Telehealth visit is a private, confidential clinical encounter and will not be recorded. The Telehealth process, procedures and expectations were explained to the patient, allowing time to voice any concerns. [place] voiced understanding and consented to the Clinic visit. The visit proceeded without difficulty. DATE & TIME:Aug@14:11 CHIEF COMPLAINT: Annual exam review labs HISTORY OF PRESENT ILLNESS: Patient is here for his annual exam no specific doing well PAST MEDICAL HISTORY: 1) HLD - Hyperlipidemia (SNOMED CT 12041344) 2) Hypothyroid (SNOMED CT 43466885) 3) Hearing loss * (ICD-9-CM 389.9) 4) Dysthymic Disorder 5) Pain in both feet (SNOMED CT 61672379652292911) 6) Dyslipidemia (SNOMED CT 316678788) 7) Vitamin D deficiency (SNOMED CT 36719099) 8) Chronic post-traumatic stress disorder 9) Elevated blood-pressure reading without diagnosis of hypertension 10) Pulmonary nodule 11) Inguinal Hernia (SCT 917926575) 12) Peripheral neuropathy 13) Bilateral outstretched hands tremor 14) Parkinson's disease 15) Vitamin B12 level below reference range 16) Anemia (SCT 117547862) 17) Patient wants PSA yearly. 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 TAKE WITH FOOD. 3) CHOLECALCIF 50MCG (D3-2,000UNIT) TAB TAKE TWO TABLETS BY ACTIVE MOUTH ONCE A DAY Indication: FOR VITAMIN D DEFICIENCY 4) DICLOFENAC NA 1% TOP GEL APPLY 4 GM TO AFFECTED AREA(S) FOUR ACTIVE TIMES A DAY NEEDED NO MORE THAN 16 GM/DAY TO ANY LOWER EXTREMITY JOINT. NO MORE THAN 8 GM/DAY TO ANY UPPER EXTREMITY JOINT. MAX 32GM/DAY OVER ALL JOINTS.(MEASURE DOSE WITH RULER INSIDE BOX) Indication: FOR PAIN 5) DONEPEZIL HCL 10MG TAB TAKE ONE-HALF TABLET BY MOUTH AT HOLD BEDTIME (JUST BEFORE BEDTIME) Indication: FOR MEMORY 6) FINASTERIDE 5MG TAB TAKE ONE TABLET BY MOUTH ONCE A DAY ACTIVE (S) SWALLOW WHOLE, DO NOT CRUSH, SPLIT, OR CHEW. 7) FLUDROCORTISONE ACETATE 0.1MG TAB TAKE ONE-HALF TABLET BY ACTIVE MOUTH ONCE A DAY Indication: ORTHOSTASIS 8) FLUTICASONE PROP 50MCG 120D NASAL INHL INSTILL 1 SPRAY IN ACTIVE (S) NOSTRIL(S) ONCE A DAY (MUST BE USED DIRECTED FOR MINIMUM OF 21 DAYS TO PROVIDE ADEQUATE BENEFITS) Indication: FOR CHRONIC RHINOSINUSITIS 9) HYDROPHILIC (EQV EUCERIN) TOP CREAM APPLY SPARINGLY TO ACTIVE (S) AFFECTED AREA(S) ONCE A DAY (EXTERNAL USE ONLY) Indication: FOR SKIN CARE 10) HYDROXYZINE HCL 25MG TAB TAKE ONE TABLET BY MOUTH THREE HOLD TIMES A DAY NEEDED *MAY CAUSE DROWSINESS* Indication: FOR ANXIETY 11) LEVOTHYROXINE NA 112MCG TAB TAKE ONE TABLET BY MOUTH EVERY ACTIVE (S) MORNING BEFORE A MEAL FOR THYROID. TAKE 30 MINUTES BEFORE FOOD. TAKE SEPARATELY FROM ALL OTHER MEDICATIONS. 12) LIDOCAINE 5% OINT APPLY SPARINGLY TO AFFECTED AREA(S) TWICE ACTIVE DAILY NEEDED Indication: FOR PAIN 13) LIDOCAINE 5% PATCH APPLY 1 PATCH TO SKIN SITE ONCE A DAY ACTIVE APPLY PATCH AND PRESS FIRMLY FOR 10-15 SECONDS. KEEP ON FOR 12 HOURS THEN REMOVE PATCH FOR 12 HOURS. Indication: FOR LOCAL ANESTHESIA 14) MENTHOL/M-SALICYLATE 10-15% TOP CREAM APPLY SPARINGLY TO ACTIVE (S) AFFECTED AREA(S) FOUR TIMES A DAY NEEDED (EXTERNAL USE ONLY) Indication: FOR PAIN 15) METRONIDAZOLE 0.75% TOP CREAM APPLY ON CENTRAL FACE TO ACTIVE AFFECTED AREA(S) TWICE A DAY (TOPICAL USE ONLY) 16) MIRABEGRON 50MG SA TAB TAKE ONE TABLET BY MOUTH ONCE A DAY ACTIVE SWALLOW WHOLE; DO NOT CRUSH, SPLIT, OR CHEW. Indication: FOR OVERACTIVE BLADDER 17) MIRTAZAPINE 15MG TAB TAKE ONE-HALF TABLET BY MOUTH AT ACTIVE/PARKED BEDTIME Indication: FOR DEPRESSION 18) MULTIVIT/OPHTH AREDS2/LUTE/ZEAX CAP/TAB TAKE 1 CAP/TAB BY ACTIVE MOUTH EVERY DAY WITH MEAL(S) AVOID IF YOU HAVE PEANUT ALLERGY. 19) MULTIVITAMIN/MINERALS CAP/TAB TAKE 1 CAP/TAB BY MOUTH ONCE A ACTIVE DAY FOR SUPPLEMENTATION. 20) QUETIAPINE FUMARATE 25MG TAB TAKE 1-2 TABLETS BY MOUTH AT ACTIVE BEDTIME 21) TRAZODONE HCL 50MG TAB TAKE ONE-HALF TABLET BY MOUTH AT HOLD BEDTIME Indication: FOR INSOMNIA AND DEPRESSION 22) TRIAMCINOLONE ACETONIDE 0.1% CREAM APPLY SPARINGLY TO ACTIVE AFFECTED AREA(S) TWICE DAILY NEEDED FOR RASH. (EXTERNAL USE ONLY) LEFT LOWER EXTREMITY RASH Active Non-VA Medications Status 1) Non-VA ASPIRIN 81MG CHEW TAB 324MG BY MOUTH ONCE A DAY ACTIVE 2) Non-VA MIRABEGRON 50MG SA TAB 50MG BY MOUTH ONCE A DAY ACTIVE Indication: FOR OVERACTIVE BLADDER 24 Total Medications REVIEW OF SYSTEMS: Review of Systems Systemic: Denies fatique, fever, chills, or weight loss CV: Denies chest pain, palpitations Pulm: Denies hemoptysis, wheezing GI: Denies constipation, bloody stools. Musculoskeletal: Denies swelling Neuro: Denies slurred speech Skin: Denies abnormal lesions, denies any new rashes PSYCH: Denies SI/HI PHYSICAL ASSESSMENT: VITAL SIGNS Pulse: 68 (09/12/2024 12:49) Blood Pressure: 118/70 (09/12/2024 12:49) Respiratory Rate: 20 (09/12/2024 12:49) Temperature: 97.6 F [36.4 C] (09/12/2024 12:49) Weight: 197 lb [89.36 kg] (09/12/2024 12:49) Height: 67.0 in [170.2 cm] (04/17/2024 08:37) Pain: 0 (09/12/2024 12:49) GENERAL: Appears in no acute distress. HEENT: Conjunctiva are clear without exudate or gross hemorrhage. Sclera nonicteric. EOM are intact. Ear canals without discharge, Tympanic membrane is without acute changes. Oropharynx is normal in appearance and without swelling or exudate NECK: appearance is normal and without gross masses CARDIAC: Regular rate and rhythm. No JVD RESPIRATORY: CTA bilaterally no rhonchi wheezing or rails. Nonlabored respirations GI: Abdomen normal bowel sounds MUSCULOSKELETAL: No joint effusions, moving extremiteis without difficulty SKIN: Appropriate color for ethnicity. NEUROLOGICAL: The [place] is alert and oriented without distress. Gait is at baseline PSYCHOLOGICAL: Appropriate mood and affect. No suicidal or homicidal ideation. A/P: ASSESSMENT and PLAN 1) HLD - HyperlipidemiaHDL high, LDL low lipids look great 2) HypothyroidTSH normal 12) Peripheral neuropathyunchanged 14) Parkinson's disease 15) Vitamin B12 level below reference rangeresolved 16) Anemiaresolved 19) Memory impairmentstable 20) Vitamin D below reference rangeresolved 24) Degeneration of Lumbar Intervertebral Discstable 25) Abnormal gaitstable unchanged 27) Heart murmur -labs reviewed Testosterone normal level Health Maintenance: Discussed preventative health to include [...] as needed. Keep all appointments. Medications Reconciled. Total time spent in medical decision with patient was 32 minutes.Total time spent on this visit was 32 minutes. /diego/ JULIAN MEMBRENO MD Signed: 09/22/2024 08:17 JULIAN MEMBRENO [facility]
--- OUTSIDE RECORDS SUMMARY | 2024-12-15 10:48 | XMS_ITS | Encounter Summary ---
Author Name [facility] [place] [facility] [place] [facility] [place] Address [address] [place] [address] Care Team Providers Care It Consultant Name Role Phone HASEEB JULIAN Primary [...] PART A Mar 24, 2005 PART A [id number] [phone] GEOVANNI,PATR ICK PATIENT MEDICARE (WNR) MEDICARE (M) PART B Mar 24, 2005 PART B [id number] [phone] GEOVANNI,PATR ICK PATIENT MEDICARE (WNR) MEDICARE (M) PART A Mar 24, 2005 PART A [id number] [phone] GEOVANNI,PATR ICK PATIENT MEDICARE (WNR) MEDICARE (M) PART B Mar 24, 2005 PART B [id number] GEOVANNI,PATR ICK PATIENT MEDICARE (WNR) MEDICARE (M) PART A Mar 24, 2005 PART A [id number] [facility] GEOVANNI,PATR ICK PATIENT MEDICARE (WNR) MEDICARE (M) PART B Mar 24, 2005 PART B [id number] GEOVANNI,PATR ICK PATIENT MEDICARE (WNR) MEDICARE (M) PART A Mar 24, 2005 PART A [id number] GEOVANNI,PATR ICK PATIENT MEDICARE (WNR) MEDICARE (M) PART B Mar 24, 2005 PART B [id number] GEOVANNI,PATR ICK PATIENT MEDICARE PART D (WNR) MEDICARE (M) PART D May 24, 2012 PART D [id number] [phone] GEOVANNI,PATR ICK PATIENT MEDICARE PART D (WNR) MEDICARE (M) PART D May 24, 2012 PART D [id number] [phone] GEOVANNI,PATR ICK PATIENT Selected Encounter This section includes the information on record at [place] for the Encounter. Date/Time Encounter Type Encounter Description Reason Pro vider Source Dec 15, 2024 03:48 PM Outpatient Encounter ADMIN PAT ACTIVTIES (MASNONCT) IHE Encounter Template Text not used by [place] Social History: Smoking Status (Most current) and Tobacco Use (All prior to encounter date) This section includes the most current, and the historical, smoking and tobacco- related health factors from the [place] facility where the Encounter took place. Current Smoking Status This section includes the most current smoking, or tobacco-related health factor, from the [place] facility where the Encounter took place. Date/Time Current Smoking Status Comment Francois ity Sep 12, 2024 12:30 PM VA-TOBACCO USE FORMER CIGARETTES [facility] Tobacco Use History This section includes a history of the smoking, or tobacco-related health factors, that were collected on or before the date of the Encounter. The data comes from the [place] facility where the Encounter took place. Date/Time Smoking Status/Tobacco Use Comment F acility Sep 12, 2024 12:30 PM VA-TOBACCO USE FORMER OTHER TYPE [facility] Sep 09, 2023 12:30 PM VA-TOBACCO FORMER USER [facility] Sep 09, 2023 12:30 PM [facility] QUIT [facility] YRS [facility] Sep 10, 2022 08:30 AM VA-TOBACCO FORMER USER [facility] Sep 10, 2022 08:30 AM VA-TOBACCO QUIT 15 YRS OR MORE [facility] Jun 23, 2021 08:30 AM VA-TOBACCO FORMER USER [facility] Jun 23, 2021 08:30 AM VA-TOBACCO QUIT 15 YRS OR MORE [facility] 2020 08:30 AM VA-TOBACCO FORMER USER [facility] 2020 08:30 AM VA-TOBACCO QUIT 15 YRS OR MORE [facility] Mar 15, 2019 09:37 AM CURRENT NON-TOBACCO USER-HX OF [facility] Nov 16, 2018 09:33 AM VA-TOBACCO FORMER USER [facility] Nov 16, 2018 09:33 AM VA-TOBACCO QUIT 15 YRS OR MORE [facility] Feb 18, 2018 09:46 AM CURRENT NON-TOBACCO USER-[facility]X OF [facility] Nov 23, 2007 09:17 AM QUIT TOBACCO >7 YEARS AGO [facility] Jun 21, 2007 09:21 AM QUIT TOBACCO >7 YEARS AGO [facility] Aug 24, 2005 08:27 AM CURRENT NON-TOBACCO USER-[facility] OF [facility] Feb 23, 2005 11:20 AM CURRENT NON-TOBACCO USER-HX OF [facility] Jun 26, 2004 01:01 PM CURRENT NON-TOBACCO USER-HX OF [facility] Advance Directives: All historical and current Section Date Range: From patient's date of to the date document was created. This section includes ALL of a patient's completed or amended [place] Advance and Rescinded Directives. The entries below indicate that a directive exists for the patient, but an actual copy is not included with this document. The data comes from all [place] facilities. Date Advance Directives Provider Source Dec 19, 2024 ADVANCE DIRECTIVE TY BERUMENU FF [facility] Encounter Notes: All associated encounter notes This section contains the clinical notes associated to the Encounter. Date/Time Encounter Note(s) Provider Source Dec 15, 2024 03:48 PM GENERAL MEDICINE N OTE: LOCAL TITLE: General Note PB STANDARD TITLE: GENERAL MEDICINE NOTE DATE OF NOTE: DEC 15, 2024@15:48 ENTRY DATE: DEC 15, 2024@15:48:16 AUTHOR: MARIA C VELASQUEZ EXP COSIGNER: URGENCY: STATUS: COMPLETED [place] came in stating his old hearing aids were not working properly - Squealing and cutting in/ out. I inspected the hearing aids -changed the receivers and veterans daughter confirmed they sounded better. /diego/ TIMMY PRABHAKAR [facility] Signed: 12/15/2024 15:50 [facility] C [facility]QUEZ [facility]
--- OUTSIDE RECORDS SUMMARY | 2024-12-19 03:29 | XMS_ITS | Encounter Summary ---
Author Name [facility] [place] [facility] [place] [facility] [place] Address [address] [place] [address] Care Team Providers Care Acls Nurse Name Role Phone JULIAN MEMBRENO Primary Care [...] PART A Mar 24, 2005 PART A [id number] [facility] GEOVANNI,PATR ICK PATIENT MEDICARE (WNR) MEDICARE (M) PART B Mar 24, 2005 PART B [id number] GEOVANNI,PATR ICK PATIENT MEDICARE (WNR) MEDICARE (M) PART A Mar 24, 2005 PART A [id number] GEOVANNI,PATR ICK PATIENT MEDICARE (WNR) MEDICARE (M) PART B Mar 24, 2005 PART B [id number] GEOVANNI,PATR ICK PATIENT MEDICARE (WNR) MEDICARE (M) PART A Mar 24, 2005 PART A [id number] [facility] GEOVANNI,PATR ICK PATIENT MEDICARE (WNR) MEDICARE (M) PART B Mar 24, 2005 PART B [id number] GEOVANNI,PATR ICK PATIENT MEDICARE (WNR) MEDICARE (M) PART A Mar 24, 2005 PART A [id number] [phone] GEOVANNI,PATR ICK PATIENT MEDICARE (WNR) MEDICARE (M) PART B Mar 24, 2005 PART B [id number] GEOVANNI,PATR ICK PATIENT MEDICARE PART D (WNR) MEDICARE (M) PART D May 24, 2012 PART D [id number] GEOVANNI,PATR ICK PATIENT MEDICARE PART D (WNR) MEDICARE (M) PART D May 24, 2012 PART D [id number] GEOVANNI,JOHNR ICK PATIENT Selected Encounter This section includes the information on record at [place] for the Encounter. Date/Time Encounter Type Encounter Description Reason Pro vider Source Dec 19, 2024 08:29 AM Outpatient Encounter PRIMARY CARE/MEDICINE IHE Encounter Template Text not used by [place] Social History: Smoking Status (Most current) and [...] PM QUIT TOBACCO >7 YEARS AGO [facility] Advance Directives: All historical and current [...] Dec 19, 2024 ADVANCE DIRECTIVE TY BERUMEN [facility] Encounter Notes: All associated encounter notes This section contains the clinical notes associated to the Encounter. Date/Time Encounter Note(s) Provider Source Dec 19, 2024 08:29 AM ADVANCE DIRECTIVE: LOCAL TITLE: ADVANCE DIRECTIVE STANDARD TITLE: ADVANCE DIRECTIVE DATE OF NOTE: DEC 19, 2024@08:29 ENTRY DATE: DEC 19, 2024@08:30:06 AUTHOR: TY BERUMEN EXP COSIGNER: URGENCY: STATUS: COMPLETED PACT SW received a completed,notarized advance directive document on this date. Document sent to scanning to be added to record. /diego/ JAYDA Alcantara,INSPECTION ENGINEER Survey Researcher Signed: 12/19/2024 08:30 TY BERUMEN [facility]
--- OUTSIDE RECORDS SUMMARY | 2024-12-28 03:06 | XMS_ITS ---
Author Name [facility] [place] [facility] [place] Address [address] [place] [address] Care Team Providers Care Graphic Pre Press Trades Worker Name Role Phone JULIAN MEMBRENO Primary Care [...] PART A Mar 24, 2005 PART A [id number] GEOVANNI,PATR ICK PATIENT MEDICARE (WNR) MEDICARE (M) PART B Mar 24, 2005 PART B [id number] GEOVANNI,PATR ICK PATIENT MEDICARE (WNR) MEDICARE (M) PART A Mar 24, 2005 PART A [id number] [phone] GEOVANNI,PATR ICK PATIENT MEDICARE (WNR) MEDICARE (M) PART B Mar 24, 2005 PART B [id number] GEOVANNI,PATR ICK PATIENT MEDICARE (WNR) MEDICARE (M) PART A Mar 24, 2005 PART A [id number] GEOVANNI,PATR ICK PATIENT MEDICARE (WNR) MEDICARE (M) PART B Mar 24, 2005 PART B [id number] GEOVANNI,PATR ICK PATIENT MEDICARE (WNR) MEDICARE (M) PART A Mar 24, 2005 PART A [id number] GEOVANNI,PATR ICK PATIENT MEDICARE (WNR) MEDICARE (M) PART B Mar 24, 2005 PART B [id number] [phone] GEOVANNI,PATR ICK PATIENT MEDICARE PART D (WNR) MEDICARE (M) PART D May 24, 2012 PART D [id number] GEOVANNI,PATR ICK PATIENT MEDICARE PART D (WNR) MEDICARE (M) PART D May 24, 2012 PART D [id number] GEOVANNI,PATR ICK PATIENT Selected Encounter This section includes the information on record at [place] for the Encounter. Date/Time Encounter Type Encounter Description Reason Provider Source Dec 28, 2024 08:06 AM Outpatient Encounter COMMUNITY CARE CONSULT DILIA ORTEGA Encounter Template Text not used by [place] Plan of Treatment: Future Appointments (+ 6 months) and Future Tests (+/- 45 days) The Plan of Treatment section includes future care activities for the patient from all [place] treatmentfacilities. This section includes future appointments and future orders which are active, pending or scheduled. Future Appointments This section includes appointments that were scheduled to occur 6 months from the date of the Encounter, up to a maximum of 20 appointments. The data comes from all [place] treatment facilities. Appointment Date/Time Appointment Type Appointme nt Facility Name Feb 07, 2025 11:00 AM AMBULATORY - MEDICINE [facility] Active, Pending, and Scheduled Orders This section includes a listing of several types of active, pending, and scheduled orders, including clinic medications orders, diagnostic test orders, procedure orders and consult orders; where the start date of the order is 45 days before the date of the Encounter or 45 days after the date of the Encounter. The data comes from all [place] treatment facilities. Test Date/Time Test Type Test Details Facility Name Dec 27, 2024 03:08 PM Consult Order COMMUNITY CARE-UROLOGY PB [id number] Cons Sole Stitcher [facility] Dec 27, 2024 03:11 PM Consult Order PB-BHIP OU TPT [id number] Cons Sole Stitcher [facility] Social History: Smoking Status (Most current) and Tobacco Use (All prior to encounter date) This section includes the most current, and the historical, smoking and tobacco- related health factors from the [place] facility where the Encounter took place. Current Smoking Status This section includes the most current smoking, or tobacco-related health factor, from the [place] facility where the Encounter took place. Date/Time Current Smoking Status Comment Facil ity Apr 07, 2008 09:34 AM LIFETIME NON-USER OF TOBACCO [facility] Advance Directives: All historical and current Section Date Range: From patient's date of to the date document was created. This section includes ALL of a patient's completed or amended [place] Advance and Rescinded Directives. The entries below indicate that a directive exists for the patient, but an actual copy is not included with this document. The data comes from all [facility]. Date Advance Directives Provider Source Dec 19, 2024 ADVANCE DIRECTIVE TY BERUMEN [facility] Encounter Notes: All associated encounter notes This section contains the clinical notes associated to the Encounter. Date/Time Encounter Note(s) Provider Source Dec 28, 2024 08:06 AM NONVA NOTE: LOCAL TITLE: COMMUNITY CARE-CARE COORDINATION PLAN NOTE [id number] PB STANDARD TITLE: NONVA NOTE DATE OF NOTE: DEC 28, 2024@08:06 ENTRY DATE: DEC 28, 2024@08:06:18 AUTHOR: DILIA ORTEGA EXP COSIGNER: URGENCY: STATUS: COMPLETED Community Care Consult: Urology Consult No: [id number] [facility] Referral #: [id number] Chief Complaint: Care Requested:RFS from [facility] for continuation of care appt 02/07/25 @ 11:00. DX:N32.81,N40.1. Patient Admitted? No Level of Care Coordination Moderate Care Coordination was determined from: Chart Review Facility Community Care Office Contact Care Coordination Point of Contact: Dilia Ortega Phone Number: [phone] Services: Basic Care Coordination Services Monitoring and coordination of Rehab/PT Services Direct communication to referring provider Care management, if appropriate Plan: disabled Vet family caregiver, seeking NH placement /es/ LUI Wilkinson, RN [employer], Cloth Printing Inspector, JJPVAMC Signed: 12/28/2024 08:11 DILIA ORTEGA [facility]
--- OUTSIDE RECORDS SUMMARY | 2024-12-28 03:55 | XMS_ITS | Encounter Summary ---
Author Name [facility] [place] Address [address] [place] [address] Care Team Providers Care Air Commodore Name Role Phone JULIAN MEMBRENO Primary Care [...] PART A Mar 24, 2005 PART A [id number] [facility] GEOVANNI,JOHNR ICK PATIENT MEDICARE (WNR) MEDICARE (M) PART B Mar 24, 2005 PART B [id number] [phone] GEOVANNI,PATR ICK PATIENT MEDICARE (WNR) MEDICARE (M) PART A Mar 24, 2005 PART A [id number] GEOVANNI,PATR ICK PATIENT MEDICARE (WNR) MEDICARE (M) PART B Mar 24, 2005 PART B [id number] GEOVANNI,PATR ICK PATIENT MEDICARE (WNR) MEDICARE (M) PART A Mar 24, 2005 PART A [id number] [facility] GEOVANNI,PATR ICK PATIENT MEDICARE (WNR) MEDICARE (M) PART B Mar 24, 2005 PART B [id number] GEOVANNI,PATR ICK PATIENT MEDICARE (WNR) MEDICARE (M) PART A Mar 24, 2005 PART A [id number] GEOVANNI,PATR ICK PATIENT MEDICARE (WNR) MEDICARE (M) PART B Mar 24, 2005 PART B [id number] GEOVANNI,PATR ICK PATIENT MEDICARE PART D (WNR) MEDICARE (M) PART D May 24, 2012 PART D [id number] GEOVANNI,PATR ICK PATIENT MEDICARE PART D (WNR) MEDICARE (M) PART D May 24, 2012 PART D [id number] GEOVANNI,PATR ICK PATIENT Selected Encounter This section includes the information on record at [place] for the Encounter. Date/Time Encounter Type Encounter Description Reason Pro vider Source Dec 28, 2024 08:55 AM Outpatient Encounter COMMUNITY CARE CONSULT IHE Encounter Template Text not used by [place] Plan of Treatment: Future Appointments (+ 6 months) and Future Tests (+/- 45 days) The Plan of Treatment section includes future care activities for the patient from all [place] treatmentfacilities. This section includes future appointments and future orders which are active, pending or scheduled. Future Appointments This section includes appointments that were scheduled to occur 6 months from the date of the Encounter, up to a maximum of 20 appointments. The data comes from all [place] treatment facilities. Appointment Date/Time Appointment Type Appointme nt Facility Name Feb 07, 2025 11:00 AM AMBULATORY - MEDICINE [facility] Active, Pending, and Scheduled Orders This section includes a listing of several types of active, pending, and scheduled orders, including clinic medications orders, diagnostic test orders, procedure orders and consult orders; where the start date of the order is 45 days before the date of the Encounter or 45 days after the date of theEncounter. The data comes from all [place] treatment facilities. Test Date/Time Test Type Test Details Facility Name Dec 27, 2024 03:08 PM Consult Order COMMUNITY CARE-UROLOGY PB [id number] Cons Metal Lather's Choice [facility] Dec 27, 2024 03:11 PM Consult Order PB-BHIP OU TPT [id number] Cons Metal Lather's [facility] Social History: Smoking Status (Most current) and Tobacco Use (All prior to encounter date) This section includes the most current, and the historical, smoking and tobacco- related health factors from the [place] facility where the Encounter took place. Current Smoking Status This section includes the most current smoking, or tobacco-related health factor, from the [place] facility where the Encounter took place. Date/Time Current Smoking Status Comment Facil ity Apr 07, 2008 09:34 AM LIFETIME NON-USER OF TOBACCO [facility] Advance Directives: All historical and current Section Date Range: From patient's date of to the date document was created. This section includes ALL of a patient's completed or amended [place] Advance and Rescinded Directives. The entries below indicate that a directive exists for the patient, but an actual copy is not included with this document. The data comes from all [place] facilities. Date Advance Directives Provider Source Dec 19, 2024 ADVANCE DIRECTIVE TY BERUMEN [facility] Encounter Notes: All associated encounter notes This section contains the clinical notes associated to the Encounter. Date/Time Encounter Note(s) Provider Source Dec 28, 2024 08:55 AM LETTERS: LOCAL TITLE: COMMUNITY CARE-REFERRAL PB (AUTO-PRINT) STANDARD TITLE: LETTERS DATE OF NOTE: DEC 28, 2024@08:55:30 ENTRY DATE: DEC 28, 2024@08:55:30 AUTHOR: JAMAAL REEVES COSIGNER: URGENCY: STATUS: COMPLETED [address] [place], [place] [address] Dear SHAWN GALARZA, Your [place] provider has referred you to a provider within the community for care. Your medical care for UROLOGY has been authorized with the Community Care Provider listed below. DO NOT REPORT TO THE [facility] Provider info: An appointment has been scheduled for you on: Feb 07, 2025 11:00 AM Office Name: [facility] Address: [address] [place] [address] Address: [place] [address] Auth #: [id number] Referral Issue Date: 12-28-24 Expiration Date: 02-07-26 If you are unable to keep this appointment or the appointment is no longer needed, please contact the community provider above for notification/rescheduling and then call the [facility] [place] Community Care Office at [phone] Ext [phone]. If you need additional care/services not mentioned above, please contact your primary care provider for a new referral. Co-Payments: If you are required to pay a VA co-payment, you will be billed by the VA for each authorized visit that you attend. However, you are NOT REQUIRED to make co-payments to a Community Provider. Prescriptions: Your community provider may write a prescription related to the authorized care. If there is an immediate need for your prescriptions from your community care visit, you may be able to get up to a 14-day fill of your prescription at your own expense for the cost of the medication, and may seek reimbursement from the VA. If you require more than a 14-day supply or if the prescribed medication is not immediately needed, your community provider will send a prescription to a VA pharmacy so that the VA can provide you with your routine medication. In-network locations can be found at https://www.va.gov/find-loca tions/ Medical Devices: Your community provider may recommend that medical devices, adapted equipment, or other items be provided for the treatment or rehabilitation of your medical condition. Veterans are generally required to obtain these items through the Prosthetics and Sensory Aids Service (PSAS) in your referring facility. Emergency/Inpatient Services: You, your community provider, or your family must provide notification within 72hr or ER visit and/or admission by [phone]. Thank you for the opportunity to serve you and for your service to our great nation! JAMAAL [facility] Care in the Community [address] [facility] [place] [address] [facility]
--- OUTSIDE RECORDS SUMMARY | 2025-01-02 03:32 | XMS_ITS | Encounter Summary ---
Author Name [facility] [place] Organization [place] Address [address] [place] [address] Care Team Providers Care Keg Inspector Name Role Phone NIRMALAROOSEVELT LONGE Primary Care Provider Unavailabl e Insurance Providers: [...] PART A Mar 24, 2005 PART A [id number] GEOVANNI,PATR ICK PATIENT MEDICARE (WNR) MEDICARE (M) PART B Mar 24, 2005 PART B [id number] [phone] GEOVANNI,PATR ICK PATIENT MEDICARE (WNR) MEDICARE (M) PART A Mar 24, 2005 PART A [id number] GEOVANNI,PATR ICK PATIENT MEDICARE (WNR) MEDICARE (M) PART B Mar 24, 2005 PART B [id number] [phone] GEOVANNI,PATR ICK PATIENT MEDICARE (WNR) MEDICARE (M) PART A Mar 24, 2005 PART A [id number] GEOVANNI,PATR ICK PATIENT MEDICARE (WNR) MEDICARE (M) PART B Mar 24, 2005 PART B [id number] GEOVANNI,PATR ICK PATIENT MEDICARE (WNR) MEDICARE (M) PART A Mar 24, 2005 PART A [id number] GEOVANNI,PATR ICK PATIENT MEDICARE (WNR) MEDICARE (M) PART B Mar 24, 2005 PART B [id number] [phone] GEOVANNI,PATR ICK PATIENT MEDICARE PART D (WNR) MEDICARE (M) PART D May 24, 2012 PART D [id number] GEOVANNI,PATR ICK PATIENT MEDICARE PART D (WNR) MEDICARE (M) PART D May 24, 2012 PART D [id number] GEOVANNI,PATR ICK PATIENT Selected Encounter This section includes the information on record at [place] for the Encounter. Date/Time Encounter Type Encounter Description Reason Provider Source Jan 02, 2025 08:32 AM PH1 ASSMT&MGMT NQHP 5-10 TELEPHONE/GERIATR ICS ICD-10-CM Z71.89 Other specified counseling JUSTIN WALKER Encounter Template Text not used by [place] Assessments - Encounter Diagnoses This section includes the primary and secondary diagnoses documented for the Encounter. Date/Time Primary/Secondary Diagnosis Diagnosis Name Provider Source Jan 02, 2025 08:32 AM PRIMARY Other specified counseling JUSTIN WALKER [facility] Plan of Treatment: Future Appointments (+ [...] 20 appointments. The data comes from all [place] treatment facilities. Appointment Date/Time Appointment Type Appointme nt Facility Name Feb 07, 2025 11:00 AM AMBULATORY - MEDICINE DORCAS DYE [facility] Active, Pending, and Scheduled Orders This section includes a listing of several types of active, pending, and scheduled orders, including clinic medications orders, diagnostic test orders, procedure orders and consult orders; where the start date of the order is 45 days before the date of the Encounter or 45 days after the date of theEncounter. The data comes from all [place] treatment facilities. Test Date/Time Test Type Test Details Facility Name Dec 27, 2024 03:08 PM Consult Order COMMUNITY CARE-UROLOGY PB [id number] Cons Credit Office Manager's Choice [facility] Dec 27, 2024 03:11 PM Consult Order PB-BHIP OU TPT [id number] Cons Credit Office Manager's Choice [facility] Social History: Smoking Status (Most current) [...] 05:28 PM QUIT TOBACCO >7 YEARS AGO [facility] Advance Directives: All historical and current Section Date Range: From patient's date of to the date document was created. This section includes ALL of a patient's completed or amended [place] Advance and Rescinded Directives. The entries below indicate that a directive exists for the patient, but an actual copy is not included with this document. The data comes from all [place] facilities. Date Advance Directives Provider Source Dec 19, 2024 ADVANCE DIRECTIVE TY BERUMEN [facility] Encounter Notes: All associated encounter notes This section contains the clinical notes associated to the Encounter. Date/Time Encounter Note(s) Provider Source Jan 02, 2025 08:32 AM COMMUNITY HALF-WAY CARE TELEPHONE ENCOUNTER NOTE: LOCAL TITLE: [facility] TELEPHONE NOTE PB STANDARD TITLE: COMMUNITY HALF-WAY CARE TELEPHONE ENCOUNTER DATE OF NOTE: JAN 02, 2025@08:32 ENTRY DATE: JAN 02, 2025@08:32:43 AUTHOR: JUSTIN WALKER COSIGNER: URGENCY: STATUS: COMPLETED [facility] TELEPHONE NOTE PB Has ADDENDA Coordinator contacted by [facility] staff advising that discharged to home for leave of absence from the facility. Staff explained daughter wanted to do a trial run with [place] returning to home. Coordinator made attempt to contact daughter for follow up. Message left with call back number. Time spent rock mason: 5 minutes other specified counseling /diego/ JUSTIN WALKER LCSW Signed: 01/02/2025 08:36 01/02/2025 ADDENDUM STATUS: COMPLETED [place] daughter contacted this Coordinator as return call. Daughter reports that the visit home is for an overnight. Daughter still in process of obtaining help in the home to bring [place] home. Coordinator encouraged daughter to contact this coordinator as needed. /diego/ JUSTIN WALKER LCSW Signed: 01/02/2025 11:16 JUSTIN WALKER [facility]
--- OUTSIDE RECORDS SUMMARY | 2025-01-03 06:00 | XMS_ITS | Encounter Summary ---
Author Name [place] Organization [place] Address [address] [place] [address] Care Team Providers Care Gps Navigation Installer Name Role Phone JULIAN MEMBRENO Primary Care [...] PART A Mar 24, 2005 PART A [id number] [facility] GEOVANNI,JOHNR ICK PATIENT MEDICARE (WNR) MEDICARE (M) PART B Mar 24, 2005 PART B [id number] [facility] GEOVANNI,PATR ICK PATIENT MEDICARE (WNR) MEDICARE (M) PART A Mar 24, 2005 PART A [id number] [phone] GEOVANNI,PATR ICK PATIENT MEDICARE (WNR) MEDICARE (M) PART B Mar 24, 2005 PART B [id number] GEOVANNI,PATR ICK PATIENT MEDICARE (WNR) MEDICARE (M) PART A Mar 24, 2005 PART A [id number] [facility] [phone] GEOVANNI,PATR ICK PATIENT MEDICARE (WNR) MEDICARE (M) PART B Mar 24, 2005 PART B [id number] GEOVANNI,PATR ICK PATIENT MEDICARE (WNR) MEDICARE (M) PART B Mar 24, 2005 PART B [id number] GEOVANNI,PATR ICK PATIENT MEDICARE (WNR) MEDICARE (M) PART A Mar 24, 2005 PART A [id number] GEOVANNI,PATR ICK PATIENT MEDICARE PART D (WNR) MEDICARE (M) PART D May 24, 2012 PART D [id number] GEOVANNI,PATR ICK PATIENT MEDICARE PART D (WNR) MEDICARE (M) PART D May 24, 2012 PART D [id number] GEOVANNI,PATR ICK PATIENT Selected Encounter This section includes the information on record at [place] for the Encounter. Date/Time Encounter Type Encounter Description Reason Pro vider Source Jan 03, 2025 11:00 AM Outpatient Encounter TELEPHONE IHE Encounter Template Text not used by [place] Plan of Treatment: Future Appointments (+ 6 months) and Future Tests (+/- 45 days) The Plan of Treatment section includes future care activities for the patient from all [place] treatmentfacilities. This section includes future appointments and future orders which are active, pending or scheduled. Future Appointments This section includes appointments that were scheduled to occur 6 months from the date of the Encounter, up to a maximum of 20 appointments. The data comes from all [place] treatment facilities. Appointment Date/Time Appointment Type Appointme nt Facility Name Feb 07, 2025 11:00 AM AMBULATORY - MEDICINE [facility] Active, Pending, and Scheduled Orders This section includes a listing of several types of active, pending, and scheduled orders, including clinic medications orders, diagnostic test orders, procedure orders and consult orders; where the start date of the order is 45 days before the date of the Encounter or 45 days after the date of theEncounter. The data comes from all [place] treatment [facility]. Test Date/Time Test Type Test Details Facility Name Dec 27, 2024 03:08 PM Consult Order COMMUNITY CARE-UROLOGY PB [id number] Cons Animation Artist's Choice [facility] Dec 27, 2024 03:11 PM Consult Order PB-BHIP OU TPT [id number] Cons Animation Artist's Choice [facility] Social History: Smoking Status (Most current) and Tobacco Use (All prior to encounter date) This section includes the most current, and the historical, smoking and tobacco- related health factors from the [place] facility where the Encounter took place. Current Smoking Status This section includes the most current smoking, or tobacco-related health factor, from the [place] facility where the Encounter took place. Date/Time Current Smoking Status Comment Facil ity Apr 07, 2008 09:34 AM LIFETIME NON-USER OF TOBACCO [facility] Advance Directives: All historical and current Section Date Range: From patient's date of to the date document was created. This section includes ALL of a patient's completed or amended [place] Advance and Rescinded Directives. The entries below indicate that a directive exists for the patient, but an actual copy is not included with this document. The data comes from all [place] facilities. Date Advance Directives Provider Source Dec 19, 2024 ADVANCE DIRECTIVE TY BERUMEN [facility] Encounter Notes: All associated encounter notes This section contains the clinical notes associated to the Encounter. Date/Time Encounter Note(s) Provider Source Jan 03, 2025 11:00 AM MENTAL HEALTH NURS ING NOTE: LOCAL TITLE: [facility] NURSING NOTE PB STANDARD TITLE: MENTAL HEALTH NURSING NOTE DATE OF NOTE: JAN 03, 2025@11:00 ENTRY DATE: JAN 03, 2025@11:00:21 AUTHOR: CHI COONEY EXP COSIGNER: URGENCY: STATUS: COMPLETED 's daughter/POA returned call regarding BHIP consult. Wishes to schedule appt with face to face provider at [facility]. Identified mental health need: Non Urgent Initiate appropriate crisis response for setting Is STARS alert initiated? No [place] denies suicidal/homicidal ideations. Treatment need identified: PTSD Discussed possible treatment options including same-day, walk-in, telephone, V[facility], and after-hour services. [place] verbalized understanding. Denies need for immediate intervention. [place] requests face to face apppointment. Declines same-day access. Referral/arrangements made for treatment: Daughter requests call from [facility] to schedule appt. provided with: Mental Health contact information ([facility]) [phone], , , or [phone] Instructions for accessing emergency services ([facility]) If feeling overwhelmed or that they cannot manage, they may present to nearest Emergency Room. questions and/or concerns were addressed regarding care: Yes /es/ CAYETANO GentileN, RN Behavioral Health Signed: 01/03/2025 11:01 Receipt Acknowledged By: * AWAITING SIGNATURE * YING ALBRIGHT * AWAITING SIGNATURE * ZIYAD WRIGHT * AWAITING SIGNATURE * LEXIS ADDISON LINDSAY M [facility]
--- OUTSIDE RECORDS SUMMARY | 2025-01-03 10:51 | XMS_ITS | Encounter Summary ---
Author Name [place] Address [address] [place] [address] Care Team Providers Care Biomedical Equipment Support Specialist Name Role Phone JULIAN MEMBRENO Primary [...] PART A Mar 24, 2005 PART A [id number] GEOVANNI,PATR ICK PATIENT MEDICARE (WNR) MEDICARE (M) PART B Mar 24, 2005 PART B [id number] GEOVANNI,PATR ICK PATIENT MEDICARE (WNR) MEDICARE (M) PART A Mar 24, 2005 PART A [id number] GEOVANNI,PATR ICK PATIENT MEDICARE (WNR) MEDICARE (M) PART B Mar 24, 2005 PART B [id number] GEOVANNI,PATR ICK PATIENT MEDICARE (WNR) MEDICARE (M) PART A Mar 24, 2005 PART A [id number] [facility] GEOVANNI,PATR ICK PATIENT MEDICARE (WNR) MEDICARE (M) PART B Mar 24, 2005 PART B [id number] GEOVANNI,PATR ICK PATIENT MEDICARE (WNR) MEDICARE (M) PART A Mar 24, 2005 PART A [id number] GEOVANNI,PATR ICK PATIENT MEDICARE (WNR) MEDICARE (M) PART B Mar 24, 2005 PART B [id number] GEOVANNI,PATR ICK PATIENT MEDICARE PART D (WNR) MEDICARE (M) PART D May 24, 2012 PART D [id number] GEOVANNI,PATR ICK PATIENT MEDICARE PART D (WNR) MEDICARE (M) PART D May 24, 2012 PART D [id number] GEOVANNI,JOHNR ICK PATIENT Selected Encounter This section includes the information on record at [place] for the Encounter. Date/Time Encounter Type Encounter Description Reason Pro vider Source Jan 03, 2025 03:51 PM Outpatient Encounter COMMUNITY CARE CONSULT IHE Encounter Template Text not used by [place] Plan of Treatment: Future Appointments (+ 6 [...] 11:00 AM AMBULATORY - MEDICINE [facility] Active, Pending, and Scheduled Orders This section includes a listing of several types of active, pending, and scheduled orders, including clinic medications orders, diagnostic test orders, procedure orders and consult orders; where the start date of the order is 45 days before the date of the Encounter or 45 days after the date of theEncounter. The data comes from all [place] treatment facilities. Test Date/Time Test Type Test Details Facility Name Dec 27, 2024 03:08 PM Consult Order COMMUNITY CARE-UROLOGY PB [id number] Cons Custodial Services Manager's Choice [facility] Dec 27, 2024 03:11 PM Consult Order PB-BHIP OU TPT [id number] Cons Custodial Services Manager's [facility] Social History: Smoking Status (Most current) and [...] place. Date/Time Current Smoking Status Comment Facil maggyy Apr 07, 2008 09:34 AM LIFETIME NON-USER OF TOBACCO [facility] Advance Directives: All historical and current [...] Dec 19, 2024 ADVANCE DIRECTIVE TY BERUMEN [facility] Encounter Notes: All associated encounter notes This section contains the clinical notes associated to the Encounter. Date/Time Encounter Note(s) Provider Source Jan 03, 2025 03:51 PM TELEPHONE ENCOUNTE R NOTE: LOCAL TITLE: TELEPHONE NOTE STANDARD TITLE: TELEPHONE ENCOUNTER NOTE DATE OF NOTE: JAN 03, 2025@15:51 ENTRY DATE: JAN 03, 2025@15:52:02 AUTHOR: HIPOLITO PANTOJA COSIGNER: URGENCY: STATUS: COMPLETED [place] daughter Bettye contacted requesting more help with her father. Daughter states she was spoken to very rudely by call center and was very upset about the way she was treated. This nurse apologized that she had that experience and provided active listening for daughter. Relays that currently in [facility] in [place] for past 3 weeks. Needs to bring him home and get services in place for [place] before he comes home. States she was utilizing [facility] services for prior to [place] placement, but is needing to bring [place] home and needs more care and help with [place] in the home. States his advanced dementia causes him to have behaviors when in an unfamiliar place, so daughter is constantly being contacted and having to stay with him at [place] when this occurs. States [place] has requested to give him medications to calm him, and it typically has the opposite effect. States that 's safe space is his home and wishes to bring him back. Daughter relays that they are in the process of getting a new PCP with the [place]-requesting Dr Nieves, but do not have an appt at this time. Daughter states that if [place] has h/end polisher services and possibly respite, that would help. They are planning on having Private pay person stay overnight so she can get some rest. Daughter states she has spoken with Adalgisa DOWNING before and will contact her tomorrow 01/04 for more information and discussion of the above. [facility] may consider second range of hours if [place] qualifies. Offered to complete case mix at this time. Daughter declined as she needed to assist her elderly mother at this time too. /diego/ Hipolito Pantoja RN [facility] Senior Investment Manager, [facility] Signed: 01/03/2025 16:18 Receipt Acknowledged By: 01/04/2025 07:02 /diego/ HIPOLITO SINGH LCSW [facility]
--- OUTSIDE RECORDS SUMMARY | 2025-01-04 09:31 | XMS_ITS | Continuity of Care Document ---
Author Name [facility] Organization [facility] Care Team Providers Care Property Field Adjuster Name Role Phone [facility] Unavailable Unavailable Problems Combined list of problems from Department of Defense and Veterans Affairs facilities. It does not include entries that were removed or entered in error. Problem Status Onset Date Problem Type Date of Resolution Comments Source Abnormal gait Active Condition Jan Entered By: JULIAN MEMBRENO Comment: needs rollator [place] [facility] Anemia (SCT [id number]) Active Condition [place] [facility] Bilateral outstretched hands tremor Active Condition [place] [facility] Bilateral tinnitus Active Condition [place] [facility] Chronic post-traumatic stress disorder Active Condition [facility] [facility] Chronic rhinosinusitis Active Condition [place] [facility] Degeneration of Lumbar Intervertebral Disc (SCT [id number]) Active Condition [place] [facility] Dyslipidemia (SNOMED CT [id number]) Active Condition [facility] Dysthymic Disorder Active Condition [place] [facility] Elevated blood-pressure reading without diagnosis of hypertension Active Condition [place] [facility] Exposure to potentially hazardous substance Active Condition [facility] Hearing loss * (ICD-9-CM 389.9) Active Condition [place] [facility] Heart murmur Active Condition Mar 29, 2024 Entered By: JULIAN MEMBRENO Comment: 2d echo scheduledJun 04, 2024 Entered By: JULIAN MEMBRENO Comment: Aortic stenosis [place] [facility] HLD - Hyperlipidemia (SNOMED CT [id number]) Active Condition [facility] [facility] Hypothyroid (SNOMED CT [id number]) Active Condition [facility] [facility] Inguinal Hernia (SCT 204191279) Active Condition Jun 23, 2019 Entered By: YULIET BLAKE Comment: right status post repair [facility] [facility] Memory impairment Active Condition [place] [facility] other polyneuropathies Active Condition Mar 24 Entered By: JULIAN MEMBRENO Comment: vit b12 injections monthly [place] [facility] Pain in both feet (SNOMED CT [id number]) Active Condition [place] [facility] Parkinson's disease Active Condition [place] [facility] Patient wants PSA yearly. Active Condition [facility] [facility] Peripheral neuropathy Active Condition [place] [facility] Pulmonary nodule Active Condition Sep 10, 2022 Entered By: JULIAN MEMBRENO Comment: Follow-up 10/2020. Nodule stable have been present since 2017, nothing further needed for follow-up no more imaging. [facility] [facility] Sensorineural hearing loss of bilateral ears Active Condition [place] [facility] Vitamin B12 level below reference range Active Condition [place] [facility] Vitamin D below reference range Active Condition [facility] [facility] Vitamin D deficiency (SNOMED CT [id number]) Active Condition [facility] Elevated blood pressure reading without diagnosis of hypertension (ICD-9-CM 796. Inactive Condition 02/04/2017 [facility] Frequency of Urination (ICD-9-CM 788.41) Inactive Condition 02/04/2017 [facility] Impacted Cerumen Inactive Condition 02/04/2017 [facility] Labile blood pressure Inactive Condition 06/21/2024 Mar 29, 2024 Entered By: JULIAN MEMBRENO Comment: not on BP meds , high at times then low at timesNov 2023 Entered By: JULIAN MEMBRENO Comment: us fo renal completeJan 2024 Entered By: JULIAN MEMBRENO Comment: fludricortisone [place] [facility] Laboratory Examination Ordered as part of a Routine General Medical Examination Inactive Condition 02/04/2017 [facility] Laboratory Procedures (ICD-9-CM V72.6) Inactive Condition 02/04/2017 [facility] Obesity, Simple Inactive Condition 02/04/2017 [place] [facility] Other General Medical Examination for Administrative Purposes (ICD-9-CM V70.3) Inactive Condition 02/04/2017 [place] [facility] Posttraumatic Stress Disorder Inactive Condition 02/04/2017 [place] [facility] Routine General Medical Examination at a Health Care Facility * (ICD-9-CM V70.0) Inactive Condition 02/04/2017 [facility] Screening for Alcoholism (ICD-9-CM V79.1) Inactive Condition 02/04/2017 [place] [facility] Screening for Depression (ICD-9-CM V79.0) Inactive Condition 02/04/2017 [place] [facility] Screening for Diabetes Mellitus (ICD-9-CM V77.1) Inactive Condition 02/04/2017 [facility] Diagnosis: ICD-10-CM Z71.89 Other specified counseling Active Diagnosis [place] [facility] Diagnosis: ICD-10-CM H61.23 Impacted cerumen, bilateral Active Diagnosis [facility] Diagnosis: ICD-10-CM Z74.1 Need for assistance with personal care Active Diagnosis [place] [facility] Diagnosis: ICD-10-CM Z00.01 Encounter for general adult medical exam w abnormal findings Active Diagnosis [facility] Diagnosis: ICD-10-CM Z46.1 Encounter for fitting and adjustment of hearing aid Active Diagnosis [place] [facility] Diagnosis: ICD-10-CM N32.81 Overactive bladder Active Diagnosis [place] [facility] Diagnosis: ICD-10-CM R10.9 Unspecified abdominal pain Active Diagnosis [facility] Diagnosis: ICD-10-CM Z71.9 Counseling, unspecified Active Diagnosis [place] [facility] Diagnosis: ICD-10-CM F02.811 Dem in other dis classd elswhr, unsp severt, with agitation Active Diagnosis [facility] Diagnosis: ICD-10-CM S39.012A Strain of muscle, fascia and tendon of lower back, init Active Diagnosis [facility] Diagnosis: ICD-10-CM R09.89 Oth symptoms and signs involving the circ and resp systems Active Diagnosis [facility] Diagnosis: ICD-10-CM R53.83 Other fatigue Active Diagnosis [facility] Diagnosis: ICD-10-CM I10 Essential (primary) hypertension Active Diagnosis [facility] Diagnosis: ICD-10-CM J32.9 Chronic sinusitis, unspecified Active Diagnosis [facility] Diagnosis: ICD-10-CM I95.89 Other hypotension Active Diagnosis [facility] Diagnosis: ICD-10-CM R55 Syncope and collapse Active Diagnosis [facility] Diagnosis: ICD-10-CM G47.00 Insomnia, unspecified Active Diagnosis [facility] Diagnosis: ICD-10-CM M51.36 Other intervertebral disc degeneration, lumbar region Active Diagnosis [facility] Diagnosis: ICD-10-CM M54.50 Low back pain, unspecified Active Diagnosis [facility] Diagnosis: ICD-10-CM H90.3 Sensorineural hearing loss, bilateral [facility] Diagnosis: ICD-10-CM E78.5 Hyperlipidemia, unspecified Active Diagnosis [facility] Diagnosis: ICD-10-CM G20.C Parkinsonism, unspecified Active Diagnosis [facility] Diagnosis: ICD-10-CM Z73.6 Limitation of activities due to disability Active Diagnosis [facility] Diagnosis: ICD-10-CM R53.82 Chronic fatigue, unspecified Active Diagnosis [facility] Diagnosis: ICD-10-CM F03.90 Unsp dementia, unsp severity, without beh/psych/mood/anx Active Diagnosis [facility] Diagnosis: ICD-10-CM R39.11 Hesitancy of micturition Active Diagnosis [facility] Diagnosis: ICD-10-CM M62.81 Muscle weakness (generalized) Active Diagnosis [facility] Medications Combined list of outpatient medications from Department of Defense and Veterans Affairs facilities.Medications provided include 1) outpatient medications from the last 15 months, and 2) patient-reported medications. Medication Details Route Status Patient Instructions Prescription Expires Prescription Number Last Dispense Date Ordering Provider Order Date Order Qty Source AMITRIPTYLI NE HCL 25MG TAB TAKE ONE TABLET BY MOUTH AT BEDTIME ORAL 08/24/2024 [id number] JOSUÉ KAYE 2023 30 [place] [facility] ASPIRIN 81MG TAB,CHEWABL E CHEW AND SWALLOW FOUR TABLETS BY MOUTH ONCE A DAY ORAL ACTIVE [facility] BETAMETHASO NE DIPROPIONAT E 0.05% OINT,TOP APPLY A THIN LAYER TO LOWER LEGS TO AFFECTED AREA(S) TWICE A DAY (EXTERNA L USE ONLY) TOPICA L ACTIVE 02/09/2025 [id number] ÁNGEL ARSHAD LLY 2023 45 [place] [facility] BETAMETHASO NE DIPROPIONAT E 0.05% OINT,TOP APPLY SPARINGL Y TO AFFECTED AREA(S) TWICE A DAY TO AREAS ON LOWER LEGS. (EXTERNA L USE ONLY) GARO L DISCONT INUED 07/22/2024 [id number] 4 ÁNGEL ARSHAD LLY 2023 45 [place] [facility] CAPSAICIN 0.025% CREAM,TOP APPLY SPARINGL Y TO AFFECTED AREA(S) FOUR TIMES A DAY NEEDED FOR PAIN. EXTERNAL USE ONLY. WASH HANDS AFTER APPLICAT ION. FOR NEUROPAT HY FOOT PAIN GARO L 02/23/2024 [id number] 4 ROOSEVELT MEMBRENO 2022 180 [place] [facility] CARBIDOPA 25MG/LEVODO PA 100MG TAB TAKE 2 TABLETS BY MOUTH THREE TIMES A DAY WITH MEALS. TAKE WITH FOOD. ORAL ACTIVE 02/23/2025 [id number] 5 VARGAS JOSUÉ 2023 540 [place] [facility] CARBIDOPA 25MG/LEVODO PA 100MG TAB TAKE 2 TABLETS BY MOUTH THREE TIMES A DAY WITH MEALS ORAL DISCONT INUED 06/18/2024 [id number] JOSUÉ KAYE SHI 2023 540 [place] [facility] CHOLECALCIF BRANDT 50MCG (2,000UNIT) TAB TAKE TWO TABLETS BY MOUTH ONCE A DAY FOR VITAMIN D DEFICIEN CY ORAL ACTIVE 03/25/2025 [id number] 5 ROOSEVELT MEMBRENO 2024 200 [place] [facility] CHOLECALCIF BRANDT 50MCG (2,000UNIT) TAB TAKE TWO TABLETS BY MOUTH ONCE A DAY FOR VITAMIN D DEFICIEN CY ORAL DISCONT INUED 07/09/2024 [id number] ROOSEVELT MEMBRENO 2023 200 [place] [facility] CLINDAMYCIN PO4 1% SOLN,TOP APPLY SPARINGL Y TO AFFECTED AREA(S) THREE TIMES A DAY FOR ROSACEA TOPICA L ACTIVE 12/16/2025 [id number] 5 ROOSEVELT MEMBRENO 2024 180 [place] [facility] CLINDAMYCIN PO4 1% SOLN,TOP APPLY SPARINGL Y TO AFFECTED AREA(S) TWICE A DAY TO PIMPLE BUMPS THEY ARISE UNTIL CLEAR TOPICA L 07/22/2024 [id number] ÁNGEL ARSHAD LLQian 2023 60 [place] [facility] CLONIDINE HCL 0.1MG TAB TAKE ONE TABLET BY MOUTH TWICE DAILY NEEDED FOR HYPERTEN SIVE EMERGENC Y. TAKE ONE TABLET IF SYSTOLIC BLOOD PRESSURE IS >180, OR IF DIASTOLI C BLOOD PRESSURE IS >110. ORAL 08/23/2024 [id number] 5 Christa CRUZ USSAIN 2024 180 [place] [facility] DICLOFENAC NA 1% GEL,TOP APPLY 4 GM TO AFFECTED AREA(S) FOUR TIMES A DAY NEEDED FOR PAIN NO MORE THAN 16 GM/DAY TO ANY LOWER EXTREMIT Y JOINT. NO MORE THAN 8 GM/DAY TO ANY UPPER EXTREMIT Y JOINT. MAX 32GM/DAY OVER ALL JOINTS.( MEASURE DOSE WITH RULER INSIDE BOX) TOPICA L ACTIVE 04/18/2025 [id number] WAQAR SUMMERS ISTEL G 2023 100 [facility] DONEPEZIL HCL 10MG TAB TAKE ONE-HALF TABLET BY MOUTH AT BEDTIME FOR MEMORY (JUST BEFORE BEDTIME) ORAL HOLD 01/04/2025 [id number] 5 ROOSEVELT MEMBRENO 2023 45 [facility] DONEPEZIL HCL 10MG TAB TAKE ONE-HALF TABLET BY MOUTH AT BEDTIME FOR MEMORY (JUST BEFORE BEDTIME) ORAL DISCONT INUED 03/24/2024 [id number] ROOSEVELT MEMBRENO 2022 45 [facility] FINASTERIDE 5MG TAB TAKE ONE TABLET BY MOUTH ONCE A DAY SWALLOW WHOLE, DO NOT CRUSH, SPLIT, OR CHEW. ORAL SUSPEND ED 08/08/2025 [id number] DOMKARON LEANNE 2024 90 [place] [facility] FLUDROCORTI SONE ACETATE 0.1MG TAB TAKE ONE-HALF TABLET BY MOUTH ONCE A DAY ORTHOSTA SIS ORAL ACTIVE 03/30/2025 [id number] ROOSEVELT MEMBRENO 2023 15 [facility] FLUTICASONE PROPIONATE 50MCG/SPRAY SOLN,NASAL, 16GM INSTILL 1 SPRAY IN NOSTRIL( S) ONCE A DAY FOR CHRONIC RHINOSIN USITIS (MUST BE USED DIRECTED FOR MINIMUM OF 21 DAYS TO PROVIDE ADEQUATE BENEFITS ) NASAL SUSPEND ED 02/28/2025 [id number] 5 ROOSEVELT MEMBRENO 2024 2 [facility] FLUTICASONE PROPIONATE 50MCG/SPRAY SOLN,NASAL, 16GM INSTILL 1 SPRAY IN NOSTRIL( S) ONCE A DAY FOR CHRONIC RHINOSIN USITIS (MUST BE USED DIRECTED FOR MINIMUM OF 21 DAYS TO PROVIDE ADEQUATE BENEFITS ) NASAL DISCONT INUED 02/28/2025 [id number] 5 ROOSEVELT MEMBRENO 2023 3 [facility] GALANTAMINE HYDROBROMID E 4MG TAB TAKE ONE TABLET BY MOUTH TWICE A DAY WITH MEALS . TAKE MORNING AND EVENING WITH FOOD AND WATER. ORAL DISCONT INUED 02/23/2025 [id number] JOSUÉ KAYE 2023 60 [place] [facility] HYDROPHILIC (EQV EUCERIN) CREAM,TOP APPLY SPARINGL Y TO AFFECTED AREA(S) ONCE A DAY FOR SKIN CARE (EXTERNA L USE ONLY) TOPICA L ACTIVE 12/16/2025 [id number] 5 ROOSEVELT MEMBRENO 2024 454 [facility] HYDROPHILIC (EQV EUCERIN) CREAM,TOP APPLY SPARINGL Y TO AFFECTED AREA(S) ONCE A DAY FOR SKIN CARE (EXTERNA L USE ONLY) TOPICA L DISCONT INUED 02/01/2025 [id number] ROOSEVELT MEMBRENO 2023 454 [facility] HYDROPHILIC (EQV EUCERIN) CREAM,TOP APPLY SPARINGL Y TO AFFECTED AREA(S) ONCE A DAY FOR DRY SKIN. (EXTERNA L USE ONLY) TOPICA L DISCONT INUED 02/25/2024 [id number] ROOSEVELT MEMBRENO 2022 454 [facility] HYDROXYZINE HCL 25MG TAB TAKE ONE TABLET BY MOUTH THREE TIMES A DAY NEEDED FOR ANXIETY *MAY CAUSE DROWSINE SS* ORAL HOLD 02/07/2025 [id number] ROOSEVELT MEMBRENO 2023 270 [facility] HYDROXYZINE HCL 25MG TAB TAKE ONE TABLET BY MOUTH THREE TIMES A DAY NEEDED FOR ANXIETY *MAY CAUSE DROWSINE SS* ORAL DISCONT INUED (EDIT) 08/16/2024 [id number] SUMMERSWAQAR ISTEL G 2023 90 [facility] LEVOTHYROXI NE NA 112MCG TAB TAKE ONE TABLET BY MOUTH EVERY MORNING BEFORE A MEAL FOR THYROID. TAKE 30 MINUTES BEFORE FOOD. TAKE SEPARATE LY FROM ALL OTHER MEDICATI ONS. ORAL SUSPEND ED 12/16/2025 [id number] ROOSEVELT MEMBRENO 2024 90 [facility] LEVOTHYROXI NE NA 112MCG TAB TAKE ONE TABLET BY MOUTH EVERY MORNING BEFORE A MEAL FOR THYROID. TAKE 30 MINUTES BEFORE FOOD. TAKE SEPARATE LY FROM ALL OTHER MEDICATI ONS. ORAL DISCONT INUED 12/13/2024 [id number] 5 ROOSEVELT MEMBRENO 2023 90 [place] [facility] LEVOTHYROXI NE NA 112MCG TAB (SYNTHROID) TAKE ONE TABLET BY MOUTH EVERY MORNING BEFORE A MEAL FOR THYROID. TAKE 30 MINUTES BEFORE FOOD. TAKE SEPARATE LY FROM ALL OTHER MEDICATI ONS. ORAL DISCONT INUED 02/23/2024 [id number] ROOSEVELT MEMBRENO 2022 90 [facility] LIDOCAINE 5% OINT,TOP APPLY SPARINGL Y TO AFFECTED AREA(S) TWICE DAILY NEEDED FOR PAIN TOPICA L 10/13/2024 [id number] 5 ROOSEVELT MEMBRENO 2023 105 [facility] LIDOCAINE 5% PATCH APPLY 1 PATCH TO SKIN SITE ONCE A DAY FOR LOCAL ANESTHES IA APPLY PATCH AND PRESS FIRMLY FOR 10-15 SECONDS. KEEP ON FOR 12 HOURS THEN REMOVE PATCH FOR 12 HOURS. TRANSD ERMAL ACTIVE 12/16/2025 [id number] 5 ROOSEVELT MEMBRENO 2024 90 [facility] LIDOCAINE 5% PATCH APPLY 1 PATCH TO SKIN SITE ONCE A DAY FOR LOCAL ANESTHES IA APPLY PATCH AND PRESS FIRMLY FOR 10-15 SECONDS. KEEP ON FOR 12 HOURS THEN REMOVE PATCH FOR 12 HOURS. TRANSD ERMAL DISCONT INUED 04/18/2025 [id number] WAQAR SUMMERS ISTEL G 2023 30 [facility] MENTHOL/MET HYL SALICYLATE (10-15%) LOW CONC. CREAM,TOP APPLY SPARINGL Y TO AFFECTED AREA(S) FOUR TIMES A DAY NEEDED (EXTERNA L USE ONLY) TOPICA L SUSPEND ED 12/16/2025 [id number] 5 ROOSEVELT MEMBRENO 2024 270 [facility] MENTHOL/MET HYL SALICYLATE (10-15%) LOW CONC. CREAM,TOP APPLY SPARINGL Y TO AFFECTED AREA(S) FOUR TIMES A DAY NEEDED (EXTERNA L USE ONLY) TOPICA L DISCONT INUED 12/13/2024 [id number] 5 ROOSEVELT MEMBRENO 2023 270 [place] [facility] MENTHOL/MET HYL SALICYLATE (10-15%) LOW CONC. CREAM,TOP APPLY SPARINGL Y TO AFFECTED AREA(S) FOUR TIMES A DAY NEEDED (EXTERNA L USE ONLY) TOPICA L DISCONT INUED 02/27/2024 [id number] ROOSEVELT MEMBRENO 2022 270 [facility] METHOCARBAM OL 500MG TAB TAKE 1 TABLET BY MOUTH THREE TIMES A DAY NEEDED FOR MUSCLE SPASM ORAL DISCONT INUED 01/10/2024 [id number] ROOSEVELT MEMBRENO 2023 270 [facility] METHOCARBAM OL 500MG TAB TAKE 1 TABLET BY MOUTH THREE TIMES A DAY NEEDED FOR MUSCLE SPASM ORAL 03/15/2024 [id number] ROOSEVELT MEMBRENO 2023 270 [facility] METRONIDAZO LE 0.75% CREAM,TOP APPLY ON CENTRAL FACE TO AFFECTED AREA(S) TWICE A DAY (TOPICAL USE ONLY) TOPICA L ACTIVE 04/27/2025 [id number] ÁNGEL ARSHAD 2023 45 [place] [facility] MIRABEGRON 50MG TAB,SA TAKE ONE TABLET BY MOUTH ONCE A DAY FOR OVERACTI VE BLADDER SWALLOW WHOLE; DO NOT CRUSH, SPLIT, OR CHEW. ORAL ACTIVE 09/07/2025 [id number] SHANNAN JESSICA 2024 90 [place] [facility] MIRABEGRON 50MG TAB,SA TAKE ONE TABLET BY MOUTH ONCE A DAY ORAL ACTIVE ROOSEVELT MEMBRENO 2024 [facility] MIRTAZAPINE 15MG TAB TAKE ONE-HALF TABLET BY MOUTH AT BEDTIME FOR DEPRESSI ON ORAL ACTIVE 06/28/2025 [id number] ROOSEVELT MEMBRENO 2024 45 [facility] MULTIVIT/OP HTH AREDS2/LUTE IN/ZEAXANTH IN CAP/TAB TAKE 1 CAP/TAB BY MOUTH EVERY DAY WITH MEAL(S) AVOID IF YOU HAVE PEANUT ALLERGY. ORAL ACTIVE 06/17/2025 [id number] 5 Radha BLANCO 2024 120 [place] [facility] MULTIVITAMI NS W/MINERALS CAP/TAB TAKE 1 CAP/TAB BY MOUTH ONCE A DAY FOR SUPPLEME NTATION. ORAL ACTIVE 12/16/2025 [id number] 5 ROOSEVELT MEMBRENO 2024 100 [facility] MULTIVITAMI NS W/MINERALS CAP/TAB TAKE 1 CAP/TAB BY MOUTH ONCE A DAY FOR SUPPLEME NTATION. ORAL DISCONT INUED 02/01/2025 [id number] 5 ROOSEVELT MEMBRENO 2023 100 [place] [facility] MULTIVITAMI NS W/MINERALS CAP/TAB TAKE 1 CAP/TAB BY MOUTH ONCE A DAY FOR SUPPLEME NTATION. ORAL DISCONT INUED 09/15/2024 [id number] ROOSEVELT MEMBRENO 2023 130 [place] [facility] QUETIAPINE FUMARATE 25MG TAB TAKE 1-2 TABLETS BY MOUTH AT BEDTIME ORAL DISCONT INUED 06/29/2025 [id number] VARGAS JOSUÉ OSULLIVAN 2024 180 [place] [facility] ROSUVASTATI N CA 40MG TAB TAKE ONE-HALF TABLET BY MOUTH EVERY EVENING FOR HIGH CHOLESTE ROL ORAL ACTIVE 12/16/2025 [id number] 5 ROOSEVELT MEMBRENO 2024 45 [facility] ROSUVASTATI N CA 40MG TAB TAKE ONE-HALF TABLET BY MOUTH EVERY EVENING TO LOWER CHOLESTE ROL ORAL 09/13/2024 [id number] 5 ROOSEVELT MEMBRENO 2023 45 [facility] TAMSULOSIN HCL 0.4MG CAP TAKE ONE CAPSULE BY MOUTH EVERY EVENING FOR BENIGN PROSTATI C HYPERPLA CATRACHITA APPROXIM ATELY 30 MINUTES AFTER THE SAME MEAL EACH DAY ORAL ACTIVE 12/16/2025 [id number] ROOSEVELT MEMBRENO 2024 90 [facility] TAMSULOSIN HCL 0.4MG CAP TAKE ONE CAPSULE BY MOUTH EVERY EVENING APPROXIM ATELY 30 MINUTES AFTER THE SAME MEAL EACH DAY (FOR PROSTATE ) ORAL 09/15/2024 [id number] 5 ROOSEVELT MEMBRENO 2023 90 [facility] TRAZODONE HCL 50MG TAB TAKE ONE-HALF TABLET BY MOUTH AT BEDTIME FOR INSOMNIA AND DEPRESSI ON ORAL HOLD 03/30/2025 [id number] ROOSEVELT MEMBRENO 2023 45 [facility] TRIAMCINOLO NE ACETONIDE 0.1% CREAM,TOP APPLY SPARINGL Y TO AFFECTED AREA(S) TWICE DAILY NEEDED FOR RASH. (EXTERNA L USE ONLY) LEFT LOWER EXTREMIT Y RASH TOPICA L ACTIVE 07/01/2025 [id number] 5 ROOSEVELT MEMBRENO R 2024 80 [facility] TRIAMCINOLO NE ACETONIDE 0.1% CREAM,TOP APPLY SPARINGL Y TO AFFECTED AREA(S) TWICE DAILY NEEDED FOR RASH. (EXTERNA L USE ONLY) LEFT LOWER EXTREMIT Y RASH TOPICA L DISCONT INUED 02/01/2025 [id number] 5 ROOSEVELT MEMBRENO R 2023 80 [facility] TRIAMCINOLO NE ACETONIDE 0.1% CREAM,TOP APPLY SPARINGL Y TO AFFECTED AREA(S) TWICE DAILY NEEDED FOR RASH. (EXTERNA L USE ONLY) LEFT LOWER EXTREMIT Y RASH TOPICA L DISCONT INUED 10/26/2024 [id number] 4 LOVE BATES [address] [place] [address] [facility] TRIAMCINOLO NE ACETONIDE 0.1% CREAM,TOP APPLY SPARINGL Y TO AFFECTED AREA(S) TWICE DAILY NEEDED FOR RASH. (EXTERNA L USE ONLY) LEFT LOWER EXTREMIT Y RASH TOPICA L DISCONT INUED 04/28/2024 [id number] 4 ROOSEVELT MEMBRENO R [address] [place] [address] Allergies, Adverse Reactions, Alerts Combined list of allergies from Department of Defense and Veterans Affairs facilities. It does not include entries that were removed or entered in error. Substance Category Reaction Severity Reaction type Status Date Reported Comments Source INFLUENZA Propensity to adverse reactions to drug (finding) Eruption MODERATE active 2 [facility] PENICILLIN Propensity to adverse reactions to drug (finding) Eruption active 5 [facility] Immunizations Combined list of available immunizations from the Department of Defense and Veterans Affairs facilities. Immunization Series Date Given Administered By Site Reaction Lot Number CVX Code Drug Director Quality Assurance Status Comments Source INFLUENZA, SPLIT VIRUS, TRIVALENT, PF 2023 LUCINA QUIROGA RIGHT DELTO ID [id number] 140 complet ed [facility] INFLUENZA, HIGH-DOSE, QUADRIVALENT 2022 ROMAINE BOSE LEFT DELTO ID [id number] A 197 complet ed [facility] INFLUENZA, INJECTABLE, QUADRIVALENT, PRESERVATIVE FREE 2021 150 complet ed [facility] COVID-19 (PFIZER), MRNA, LNP-S, PF, 30 MCG/0.3 ML DOSE 4 2021 208 complet ed HISTORICA L INFORMATI ON - FROM OTHER REGISTRY, [facility] COVID-19 (PFIZER), MRNA, LNP-S, PF, 30 MCG/0.3 ML DOSE 3 2020 208 complet ed HISTORICA L INFORMATI ON - FROM OTHER REGISTRY, [facility] INFLUENZA, INJECTABLE, QUADRIVALENT, PRESERVATIVE FREE 2020 150 complet ed [facility] ZOSTER RECOMBINANT 2 2020 187 complet ed [facility] ZOSTER RECOMBINANT 1 2020 187 complet ed [facility] COVID-19 (PFIZER), MRNA, LNP-S, PF, 30 MCG/0.3 ML DOSE 2 2020 208 complet ed [facility] COVID-19 (PFIZER), MRNA, LNP-S, PF, 30 MCG/0.3 ML DOSE 1 2020 208 complet ed [facility] INFLUENZA, INJECTABLE, QUADRIVALENT, PRESERVATIVE FREE 2019 150 complet ed [facility] INFLUENZA, INJECTABLE, QUADRIVALENT, PRESERVATIVE FREE 2018 150 complet ed [facility] INFLUENZA, INJECTABLE, QUADRIVALENT, PRESERVATIVE FREE 2017 150 complet ed [facility] INFLUENZA, SEASONAL, INJECTABLE, PRESERVATIVE FREE 2016 140 complet ed Left Deltoid [facility] PNEUMOCOCCAL POLYSACCHARID E PPV23 2016 33 complet ed [facility] INFLUENZA, SEASONAL, INJECTABLE, PRESERVATIVE FREE 2015 140 complet ed [facility] TDAP 2015 115 complet ed Left Deltoid [facility] PNEUMOCOCCAL CONJUGATE PCV 13 2014 133 complet ed [facility] INFLUENZA, SEASONAL, INJECTABLE, PRESERVATIVE FREE 2014 140 complet ed [facility] INFLUENZA, SEASONAL, INJECTABLE, PRESERVATIVE FREE 2013 140 complet ed [place] [facility] PNEUMOCOCCAL, UNSPECIFIED FORMULATION 2013 109 complet ed [facility] INFLUENZA, UNSPECIFIED FORMULATION 2012 88 complet ed [facility] TDAP 2012 115 complet ed . [facility] INFLUENZA, UNSPECIFIED FORMULATION 2012 88 complet ed [facility] ZOSTER LIVE 2011 ANAID FREEMAN NAHED 121 complet ed [place] [facility] TD(ADULT) UNSPECIFIED FORMULATION 2004 139 complet ed [facility] Results Combined list of recent chemistry, hematology and other laboratory results from Department of Defense and [employer] Affairs, ranging from 15 months to all on record, depending upon the facility. Order Name Results Value Reference Range Date Interpretation Specimen Comments Source TESTOSTERO NE, TOTAL (PB-MA) TESTOSTERON E [MASS/VOLUM E] IN SERUM OR PLASMA 489.0 ng/dL 221.0 - 871.0 09/07 Specimen Type: SERUM No comment entered. Ordering Provider: ROOSEVELT MEMBRENO Report Released Date/Time : Sep 05, 2024 02:26 PM Reporting Lab: [place] [facility] [address] [place] [address] Performin g Lab: [place] [facility] [address] [place] [address] [facility] B12 COBALAMIN (VITAMIN B12) [MASS/VOLUM E] IN SERUM OR PLASMA 541 pg/mL 213 - 816 09/05 Specimen Type: SERUM No comment entered. Ordering Provider: ROOSEVELT MEMBRENO Report Released Date/Time : Sep 13, 2023 02:23 PM Reporting Lab: [place] [facility] [address] [place] [address] Performin g Lab: [place] [facility] [address] [place] [address] [facility] FOLATE (PB) FOLATE [MASS/VOLUM E] IN SERUM OR PLASMA 16.3 ng/mL 7 - 20 09/05 Specimen Type: SERUM No comment entered. Ordering Provider: ROOSEVELT MEMBRENO Report Released Date/Time : Sep 13, 2023 02:23 PM Reporting Lab: [place] [facility] [address] [place] [address] Performin g Lab: [place] [facility] [address] [place] [address] [facility] HGA1C HEMOGLOBIN A1C/HEMOGLO BIN.TOTAL IN BLOOD 5.5 4.0 - 6.0 09/05 Specimen Type: BLOOD No comment entered. Ordering Provider: ROOSEVELT MEMBRENO Report Released Date/Time : Sep 13, 2023 02:23 PM Reporting Lab: [place] [facility] [address] [place] [address] Performin g Lab: [place] [facility] [address] [place] [address] [facility] VITAMIN D, 25-HYDROXY 25-HYDROXYV ITAMIN D3 [MASS/VOLUM E] IN SERUM OR PLASMA 32.5 ng/mL 30 - 96 09/05 Specimen Type: SERUM No comment entered. Ordering Provider: ROOSEVELT MEMBRENO Report Released Date/Time : Sep 13, 2023 02:23 PM Reporting Lab: [place] [facility] [address] [place] [address] Performin g Lab: [place] [facility] [address] [place] [address] [facility] TSH (MA-PB) THYROTROPIN [UNITS/VOLU ME] IN SERUM OR PLASMA 0.725 u[IU]/mL 0.47 - 5 09/05 Specimen Type: SERUM No comment entered. Ordering Provider: ROOSEVELT MEMBRENO Report Released Date/Time : Sep 13, 2023 02:23 PM Reporting Lab: [place] [facility] [address] [place] [address] Performin g Lab: [place] [facility] [address] [place] [address] [facility] CHOLESTERO L PANEL (PB) CHOLESTEROL [MASS/VOLUM E] IN SERUM OR PLASMA 110 mg/dL 0 - 200 09/05 Specimen Type: PLASMA No comment entered. Ordering Provider: ROOSEVELT MEMBRENO Report Released Date/Time : Sep 13, 2023 02:23 PM Reporting Lab: [place] [facility] [address] [place] [address] Performin g Lab: [place] [facility] [address] [place] [address] [facility] CHOLESTERO L PANEL (PB) TRIGLYCERID E [MASS/VOLUM E] IN SERUM OR PLASMA 107 mg/dL 0 - 150 09/05 Specimen Type: PLASMA No comment entered. Ordering Provider: ROOSEVELT MEMBRENO Report Released Date/Time : Sep 13, 2023 02:23 PM Reporting Lab: [place] [facility] [address] [place] [address] 8 Performin g Lab: [place] [facility] [address] [place] [address] [facility] CHOLESTERO L PANEL (PB) CHOLESTEROL IN LDL [MASS/VOLUM E] IN SERUM OR PLASMA BY CALCULATION 35.1 mg/dL 09/05 Specimen Type: PLASMA No comment entered. Ordering Provider: ROOSEVELT MEMBRENO Report Released Date/Time : Sep 13, 2023 02:23 PM Reporting Lab: [place] [facility] [address] [place] [address] 8 Performin g Lab: [place] [facility] [address] [place] [address] [facility] CHOLESTERO L PANEL (PB) CHOLESTEROL IN HDL [MASS/VOLUM E] IN SERUM OR PLASMA 53.5 mg/dL 40 09/05 H Specimen Type: PLASMA No comment entered. Ordering Provider: ROOSEVELT MEMBRENO Report Released Date/Time : Sep 13, 2023 02:23 PM Reporting Lab: [place] [facility] [address] [place] [address] 8 Performin g Lab: [place] [facility] [address] [place] [address] [facility] CHOLESTERO L PANEL (PB) CHOLESTEROL IN HDL/CHOLEST BRANDT.TOTAL [MASS RATIO] IN SERUM OR PLASMA 48.6 25 09/05 Specimen Type: PLASMA No comment entered. Ordering Provider: ROOSEVELT MEMBRENO Report Released Date/Time : Sep 13, 2023 02:23 PM Reporting Lab: [place] [facility] [address] [place] [address] 8 Performin g Lab: [place] [facility] [address] [place] [address] [facility] COMPREHENS AMANDO METABOLIC PANEL CREATININE [MASS/VOLUM E] IN SERUM OR PLASMA 0.90 mg/dL 0.7 - 1.3 09/05 Specimen Type: PLASMA No comment entered. Ordering Provider: ROOSEVELT MEMBRENO Report Released Date/Time : Sep 13, 2023 02:23 PM Reporting Lab: [place] [facility] [address] [place] [address] 8 Performin g Lab: [place] [facility] [address] [place] [address] 8 [facility] COMPREHENS AMANDO METABOLIC PANEL UREA NITROGEN [MASS/VOLUM E] IN SERUM OR PLASMA 16 mg/dL 9 - 25 09/05 Specimen Type: PLASMA No comment entered. Ordering Provider: ROOSEVELT MEMBRENO Report Released Date/Time : Sep 13, 2023 02:23 PM Reporting Lab: [place] [facility] [address] [place] [address] 8 Performin g Lab: [place] [facility] [address] [place] [address] 8 [facility] COMPREHENS AMANDO METABOLIC PANEL GLUCOSE [MASS/VOLUM E] IN SERUM OR PLASMA 88 mg/dL 72 - 99 09/05 Specimen Type: PLASMA No comment entered. Ordering Provider: ROOSEVELT MEMBRENO Report Released Date/Time : Sep 13, 2023 02:23 PM Reporting Lab: [place] [facility] [address] [place] [address] Performin g Lab: [place] [facility] [address] [place] [address] [facility] COMPREHENS AMANDO METABOLIC PANEL SODIUM [MOLES/VOLU ME] IN SERUM OR PLASMA 142 meq/L 136 - 145 09/05 Specimen Type: PLASMA No comment entered. Ordering Provider: ROOSEVELT MEMBRENO Report Released Date/Time : Sep 13, 2023 02:23 PM Reporting Lab: [place] [facility] [address] [place] [address] 8 Performin g Lab: [place] [facility] [address] [place] [address] [facility] COMPREHENS AMANDO METABOLIC PANEL POTASSIUM [MOLES/VOLU ME] IN SERUM OR PLASMA 4.7 meq/L 3.5 - 5 09/05 Specimen Type: PLASMA No comment entered. Ordering Provider: ROOSEVELT MEMBRENO Report Released Date/Time : Sep 13, 2023 02:23 PM Reporting Lab: [place] [facility] [address] [place] [address] 8 Performin g Lab: [place] [facility] [address] [place] [address] [facility] COMPREHENS AMANDO METABOLIC PANEL CHLORIDE [MOLES/VOLU ME] IN SERUM OR PLASMA 107 meq/L 98 - 107 09/05 Specimen Type: PLASMA No comment entered. Ordering Provider: ROOSEVELT MEMBRENO Report Released Date/Time : Sep 13, 2023 02:23 PM Reporting Lab: [place] [facility] [address] [place] [address] Performin g Lab: [place] [facility] [address] [place] [address] [facility] COMPREHENS AMANDO METABOLIC PANEL CARBON DIOXIDE, TOTAL [MOLES/VOLU ME] IN SERUM OR PLASMA 25 meq/L 22 - 31 09/05 Specimen Type: PLASMA No comment entered. Ordering Provider: ROOSEVELT MEMBRENO Report Released Date/Time : Sep 13, 2023 02:23 PM Reporting Lab: [place] [facility] [address] [place] [address] 8 Performin g Lab: [place] [facility] [address] [place] [address] [facility] COMPREHENS AMANDO METABOLIC PANEL CALCIUM [MASS/VOLUM E] IN SERUM OR PLASMA 9.0 mg/dL 8.4 - 10.4 09/05 Specimen Type: PLASMA No comment entered. Ordering Provider: ROOSVEELT MEMBRENO Report Released Date/Time : Sep 13, 2023 02:23 PM Reporting Lab: [place] [facility] [address] [place] [address] 8 Performin g Lab: [place] [facility] [address] [place] [address] [facility] COMPREHENS AMANDO METABOLIC PANEL PROTEIN [MASS/VOLUM E] IN SERUM OR PLASMA 7.1 g/dL 6 - 8.6 09/05 Specimen Type: PLASMA No comment entered. Ordering Provider: ROOSEVELT MEMBRENO Report Released Date/Time : Sep 13, 2023 02:23 PM Reporting Lab: [place] [facility] [address] [place] [address] 8 Performin g Lab: [place] [facility] [address] [place] [address] 8 [facility] COMPREHENS AMANDO METABOLIC PANEL ALBUMIN [MASS/VOLUM E] IN SERUM OR PLASMA 4.5 g/dL 3.4 - 5 09/05 Specimen Type: PLASMA No comment entered. Ordering Provider: ROOSEVELT MEMBRENO Report Released Date/Time : Sep 13, 2023 02:23 PM Reporting Lab: [place] [facility] [address] [place] [address] Performin g Lab: [place] [facility] [address] [place] [address] [facility] COMPREHENS AMANDO METABOLIC PANEL BILIRUBIN.T OTAL [MASS/VOLUM E] IN SERUM OR PLASMA 0.6 mg/dL 0.2 - 1.2 09/05 Specimen Type: PLASMA No comment entered. Ordering Provider: ROOSEVELT MEMBRENO Report Released Date/Time : Sep 13, 2023 02:23 PM Reporting Lab: [place] [facility] [address] [place] [address] Performin g Lab: [place] [facility] [address] [place] [address] [facility] COMPREHENS AMANDO METABOLIC PANEL ALKALINE PHOSPHATASE [ENZYMATIC ACTIVITY/VO LUME] IN SERUM OR PLASMA 72 U/L 40 - 150 09/05 Specimen Type: PLASMA No comment entered. Ordering Provider: ROOSEVELT MEMBRENO Report Released Date/Time : Sep 13, 2023 02:23 PM Reporting Lab: [place] [facility] [address] [place] [address] 8 Performin g Lab: [place] [facility] [address] [place] [address] [facility] COMPREHENS AMANDO METABOLIC PANEL ASPARTATE AMINOTRANSF ERASE [ENZYMATIC ACTIVITY/VO LUME] IN SERUM OR PLASMA 26 U/L 5 - 34 09/05 Specimen Type: PLASMA No comment entered. Ordering Provider: ROOSEVELT MEMBRENO Report Released Date/Time : Sep 13, 2023 02:23 PM Reporting Lab: [place] [facility] [address] [place] [address] Performin g Lab: [place] [facility] [address] [place] [address] 8 [facility] COMPREHENS AMANDO METABOLIC PANEL ALANINE AMINOTRANSF ERASE [ENZYMATIC ACTIVITY/VO LUME] IN SERUM OR PLASMA 16 U/L 8 - 40 09/05 Specimen Type: PLASMA No comment entered. Ordering Provider: ROOSEVELT MEMBRENO Report Released Date/Time : Sep 13, 2023 02:23 PM Reporting Lab: [place] [facility] [address] [place] [address] 8 Performin g Lab: [place] [facility] [address] [place] [address] 8 [facility] COMPREHENS AMANDO METABOLIC PANEL GLOMERULAR FILTRATION RATE/1.73 SQ M.PREDICTED [VOLUME RATE/AREA] IN SERUM, PLASMA OR BLOOD BY CREATININE- BASED FORMULA (CKD-EPI 2020) 84 09/05 Specimen Type: PLASMA No comment entered. Ordering Provider: ROOSEVELT MEMBRENO Report Released Date/Time : Sep 13, 2023 02:23 PM Reporting Lab: [place] [facility] [address] [place] [address] Performin g Lab: [place] [facility] [address] [place] [address] [facility] CBC LEUKOCYTES [#/VOLUME] IN BLOOD BY AUTOMATED COUNT 5.9 10*3/uL 3.6 - 11.2 09/05 Specimen Type: BLOOD No comment entered. Ordering Provider: ROOSEVELT MEMBRENO Report Released Date/Time : Sep 13, 2023 02:23 PM Reporting Lab: [place] [facility] [address] [place] [address] 8 Performin g Lab: [place] [facility] [address] [place] [address] 8 [facility] CBC ERYTHROCYTE S [#/VOLUME] IN BLOOD BY AUTOMATED COUNT 4.41 10*6/uL 4.10 - 5.70 09/05 Specimen Type: BLOOD No comment entered. Ordering Provider: ROOSEVELT MEMBRENO Report Released Date/Time : Sep 13, 2023 02:23 PM Reporting Lab: [place] [facility] [address] [place] [address] Performin g Lab: [place] [facility] [address] [place] [address] [facility] CBC HEMOGLOBIN [MASS/VOLUM E] IN BLOOD 13.4 g/dL 13.1 - 16.8 09/05 Specimen Type: BLOOD No comment entered. Ordering Provider: ROOSEVELT MEMBRENO Report Released Date/Time : Sep 13, 2023 02:23 PM Reporting Lab: [place] [facility] [address] [place] [address] 8 Performin g Lab: [place] [facility] [address] [place] [address] [facility] CBC HEMATOCRIT [VOLUME FRACTION] OF BLOOD 41.1 38.2 - 48.4 09/05 Specimen Type: BLOOD No comment entered. Ordering Provider: ROOSEVELT MEMBRENO Report Released Date/Time : Sep 13, 2023 02:23 PM Reporting Lab: [place] [facility] [address] [place] [address] 8 Performin g Lab: [place] [facility] [address] [place] [address] 8 [facility] CBC MCV [ENTITIC VOLUME] BY AUTOMATED COUNT 93.2 fL 80.0 - 100.0 09/05 Specimen Type: BLOOD No comment entered. Ordering Provider: ROOSEVELT MEMBRENO Report Released Date/Time : Sep 13, 2023 02:23 PM Reporting Lab: [place] [facility] [address] [place] [address] 8 Performin g Lab: [place] [facility] [address] [place] [address] [facility] CBC MCH [ENTITIC MASS] BY AUTOMATED COUNT 30.4 pg 27.0 - 34.0 09/05 Specimen Type: BLOOD No comment entered. Ordering Provider: ROOSEVELT MEMBRENO Report Released Date/Time : Sep 13, 2023 02:23 PM Reporting Lab: [place] [facility] [address] [place] [address] 8 Performin g Lab: [place] [facility] [address] [place] [address] [facility] CBC MCHC [MASS/VOLUM E] BY AUTOMATED COUNT 32.6 g/dL 33.0 - 36.0 09/05 L Specimen Type: BLOOD No comment entered. Ordering Provider: ROOSEVELT MEMBRENO Report Released Date/Time : Sep 13, 2023 02:23 PM Reporting Lab: [place] [facility] [address] [place] [address] 8 Performin g Lab: [place] [facility] [address] [place] [address] [facility] CBC PLATELETS [#/VOLUME] IN BLOOD BY AUTOMATED COUNT 167 10*3/uL 150 - 400 09/05 Specimen Type: BLOOD No comment entered. Ordering Provider: ROOSEVELT MEMBRENO Report Released Date/Time : Sep 13, 2023 02:23 PM Reporting Lab: [place] [facility] [address] [place] [address] 8 Performin g Lab: [place] [facility] [address] [place] [address] [facility] CBC PLATELET MEAN VOLUME [ENTITIC VOLUME] IN BLOOD BY AUTOMATED COUNT 11.8 fL 7.5 - 11.2 09/05 H Specimen Type: BLOOD No comment entered. Ordering Provider: ROOSEVELT MEMBRENO Report Released Date/Time : Sep 13, 2023 02:23 PM Reporting Lab: [place] [facility] [address] [place] [address] 8 Performin g Lab: [place] [facility] [address] [place] [address] 8 [facility] CBC ERYTHROCYTE DISTRIBUTIO N WIDTH [RATIO] BY AUTOMATED COUNT 12.0 11.8 - 15.1 09/05 Specimen Type: BLOOD No comment entered. Ordering Provider: ROOSEVELT MEMBRENO Report Released Date/Time : Sep 13, 2023 02:23 PM Reporting Lab: [place] [facility] [address] [place] [address] 8 Performin g Lab: [place] [facility] [address] [place] [address] 8 [facility] CBC LYMPHOCYTES /100 LEUKOCYTES IN BLOOD BY AUTOMATED COUNT 26.1 09/05 Specimen Type: BLOOD No comment entered. Ordering Provider: ROOSEVELT MEMBRENO Report Released Date/Time : Sep 13, 2023 02:23 PM Reporting Lab: [place] [facility] [address] [place] [address] 8 Performin g Lab: [place] [facility] [address] [place] [address] 8 [facility] CBC MONOCYTES/1 00 LEUKOCYTES IN BLOOD BY AUTOMATED COUNT 9.7 09/05 Specimen Type: BLOOD No comment entered. Ordering Provider: ROOSEVELT MEMBRENO Report Released Date/Time : Sep 13, 2023 02:23 PM Reporting Lab: [place] [facility] [address] [place] [address] 8 Performin g Lab: [place] [facility] [address] [place] [address] [facility] CBC NEUTROPHILS /100 LEUKOCYTES IN BLOOD BY AUTOMATED COUNT 60.6 09/05 Specimen Type: BLOOD No comment entered. Ordering Provider: ROOSEVELT MEMBRENO Report Released Date/Time : Sep 13, 2023 02:23 PM Reporting Lab: [place] [facility] [address] [place] [address] 8 Performin g Lab: [place] [facility] [address] [place] [address] 8 [facility] CBC EOSINOPHILS /100 LEUKOCYTES IN BLOOD BY AUTOMATED COUNT 3.1 09/05 Specimen Type: BLOOD No comment entered. Ordering Provider: ROOSEVELT MEMBRENO Report Released Date/Time : Sep 13, 2023 02:23 PM Reporting Lab: [place] [facility] [address] [place] [address] 8 Performin g Lab: [place] [facility] [address] [place] [address] 8 [facility] CBC BASOPHILS/1 00 LEUKOCYTES IN BLOOD BY AUTOMATED COUNT 0.3 09/05 Specimen Type: BLOOD No comment entered. Ordering Provider: ROOSEVELT MEMBRENO Report Released Date/Time : Sep 13, 2023 02:23 PM Reporting Lab: [place] [facility] [address] [place] [address] 8 Performin g Lab: [place] [facility] [address] [place] [address] 8 [facility] CBC LYMPHOCYTES [#/VOLUME] IN BLOOD BY AUTOMATED COUNT 1.53 10*3/uL 0.77 - 4.50 09/05 Specimen Type: BLOOD No comment entered. Ordering Provider: ROOSEVELT MEMBRENO Report Released Date/Time : Sep 13, 2023 02:23 PM Reporting Lab: [place] [facility] [address] [place] [address] 8 Performin g Lab: [place] [facility] [address] [place] [address] 8 [facility] CBC MONOCYTES [#/VOLUME] IN BLOOD BY AUTOMATED COUNT 0.57 10*3/uL 0.19 - 0.8 09/05 Specimen Type: BLOOD No comment entered. Ordering Provider: ROOSEVELT MEMBRENO Report Released Date/Time : Sep 13, 2023 02:23 PM Reporting Lab: [place] [facility] [address] [place] [address] 8 Performin g Lab: [place] [facility] [address] [place] [address] 8 [facility] CBC NEUTROPHILS [#/VOLUME] IN BLOOD BY AUTOMATED COUNT 3.55 10*3/uL 2.10 - 8.00 09/05 Specimen Type: BLOOD No comment entered. Ordering Provider: ROOSEVELT MEMBRENO Report Released Date/Time : Sep 13, 2023 02:23 PM Reporting Lab: [place] [facility] [address] [place] [address] 8 Performin g Lab: [place] [facility] [address] [place] [address] 8 [facility] CBC EOSINOPHILS [#/VOLUME] IN BLOOD BY AUTOMATED COUNT 0.18 10*3/uL 0.00 - 0.60 09/05 Specimen Type: BLOOD No comment entered. Ordering Provider: ROOSEVELT MEMBRENO Report Released Date/Time : Sep 13, 2023 02:23 PM Reporting Lab: [place] [facility] [address] [place] [address] Performin g Lab: [place] [facility] [address] [place] [address] [facility] CBC BASOPHILS [#/VOLUME] IN BLOOD BY AUTOMATED COUNT 0.02 10*3/uL 0.00 - 0.20 09/05 Specimen Type: BLOOD No comment entered. Ordering Provider: ROOSEVELT MEMBRENO Report Released Date/Time : Sep 13, 2023 02:23 PM Reporting Lab: [place] [facility] [address] [place] [address] Performin g Lab: [place] [facility] [address] [place] [address] [facility] CBC IMMATURE GRANULOCYTE S/100 LEUKOCYTES IN BLOOD BY AUTOMATED COUNT 0.2 09/05 Specimen Type: BLOOD No comment entered. Ordering Provider: ROOSEVELT MEMBRENO Report Released Date/Time : Sep 13, 2023 02:23 PM Reporting Lab: [place] [facility] [address] [place] [address] Performin g Lab: [place] [facility] [address] [place] [address] [facility] CBC IMMATURE GRANULOCYTE S [#/VOLUME] IN BLOOD BY AUTOMATED COUNT 0.01 10*3/uL 0.00 - 0.05 09/05 Specimen Type: BLOOD No comment entered. Ordering Provider: ROOSEVELT MEMBRENO Report Released Date/Time : Sep 13, 2023 02:23 PM Reporting Lab: [place] [facility] [address] [place] [address] Performin g Lab: [place] [facility] [address] [place] [address] [facility] POC UA (STL-PB-MA ) PROTEIN [MASS/VOLUM E] IN URINE BY TEST STRIP Negativem g/dL 08/21 Specimen Type: URINE No comment entered. Ordering Provider: ROOSEVELT MEMBRENO Report Released Date/Time : Aug 21, 2024 03:07 PM Reporting Lab: [id number] [place] [facility] [address] [facility] [address] Performin g Lab: [facility] [address] [facility] [address] [facility] POC UA (STL-PB-MA ) HEMOGLOBIN [MASS/VOLUM E] IN URINE BY TEST STRIP Trace-int act 08/21 Specimen Type: URINE No comment entered. Ordering Provider: ROOSEVELT MEMBRENO Report Released Date/Time : Aug 21, 2024 03:07 PM Reporting Lab: [place] [facility] [address] [facility] [address] Performin g Lab: [facility] [address] [facility] [address] 6 [facility] POC UA (STL-PB-MA ) LEUKOCYTES [PRESENCE] IN URINE Negative 08/21 Specimen Type: URINE No comment entered. Ordering Provider: ROOSEVELT MEMBRENO Report Released Date/Time : Aug 21, 2024 03:07 PM Reporting Lab: [place] [facility] [address] [facility] [address] Performin g Lab: [facility] [address] [facility] [address] 6 [facility] POC UA (STL-PB-MA ) COLOR OF URINE Yellow 08/21 Specimen Type: URINE No comment entered. Ordering Provider: ROOSEVELT MEMBRENO Report Released Date/Time : Aug 21, 2024 03:07 PM Reporting Lab: [facility] [address] THE [facility] [address] 6 Performin g Lab: [place] [facility] [address] THE [facility] [address] [facility] POC UA (STL-PB-MA ) SPECIFIC GRAVITY OF URINE 1.025 1.005 - 1.030 08/21 Specimen Type: URINE No comment entered. Ordering Provider: ROOSEVELT MEMBRENO Report Released Date/Time : Aug 21, 2024 03:07 PM Reporting Lab: [place] [facility] [address] [facility] [address] Performin g Lab: [place] [facility] [address] THE [facility] [address] 6 [facility] POC UA (STL-PB-MA ) UROBILINOGE N [UNITS/VOLU ME] IN URINE 0.2 {Lakeshia' U}/dL 0.1 - 1.0 08/21 Specimen Type: URINE No comment entered. Ordering Provider: ROOSEVELT MEMBRENO Report Released Date/Time : Aug 21, 2024 03:07 PM Reporting Lab: [place] [facility] [address] [facility] [address] 6 Performin g Lab: [place] [facility] [address] THE [facility] [address] 6 [facility] POC UA (STL-PB-MA ) BILIRUBIN.T OTAL [PRESENCE] IN URINE Negative 08/21 Specimen Type: URINE No comment entered. Ordering Provider: ROOSEVELT MEMBRENO Report Released Date/Time : Aug 21, 2024 03:07 PM Reporting Lab: [place] [facility] [address] [place] [address] Performin g Lab: [place] [facility] [address] [facility] [address] 6 [facility] POC UA (STL-PB-MA ) KETONES [MASS/VOLUM E] IN URINE BY TEST STRIP Negativem g/dL 08/21 Specimen Type: URINE No comment entered. Ordering Provider: ROOSEVELT MEMBRENO Report Released Date/Time : Aug 21, 2024 03:07 PM Reporting Lab: [place] [facility] [address] [place] [address] Performin g Lab: [place] [facility] [address] [facility] [address] [place] [facility] POC UA (STL-PB-MA ) GLUCOSE [MASS/VOLUM E] IN URINE BY TEST STRIP Negativem g/dL 08/21 Specimen Type: URINE No comment entered. Ordering Provider: ROOSEVELT MEMBRENO Report Released Date/Time : Aug 21, 2024 03:07 PM Reporting Lab: [place] [facility] [address] [facility] [address] Performin g Lab: [place] [facility] [address] [facility] [address] [place] [facility] POC UA (STL-PB-MA ) PH OF URINE 5.5 5.0 - 8.0 08/21 Specimen Type: URINE No comment entered. Ordering Provider: ROOSEVELT MEMBRENO Report Released Date/Time : Aug 21, 2024 03:07 PM Reporting Lab: [place] [facility] [address] [facility] [address] Performin g Lab: [place] [facility] [address] [facility] [address] [place] [facility] POC UA (STL-PB-MA ) NITRITE [PRESENCE] IN URINE BY TEST STRIP Negative 08/21 Specimen Type: URINE No comment entered. Ordering Provider: ROOSEVELT MEMBRENO Report Released Date/Time : Aug 21, 2024 03:07 PM Reporting Lab: [place] [facility] [address] [place] [address] Performin g Lab: [place] [facility] [address] [place] [address] [place] [facility] POC UA (STL-PB-MA ) CLARITY OF URINE Clear 08/21 Specimen Type: URINE No comment entered. Ordering Provider: ROOSEVELT MEMBRENO Report Released Date/Time : Aug 21, 2024 03:07 PM Reporting Lab: [place] [facility] [address] [place] [address] Performin g Lab: [place] [facility] [address] [place] [address] [place] [facility] Vital Signs Combined list of inpatient and outpatient Vital Signs from Department of Defense and Veterans Affairs, ranging from 12 months to all on record, depending upon the facility. Vital Sign Value Date Comments Source SYSTOLIC BLOOD PRESSURE 118 09/12/2024 12:49:57 [place] [facility] DIASTOLIC BLOOD PRESSURE 70 09/12/2024 12:49:57 [facility] PULSE OXIMETRY 98 09/12/2024 12:49:57 [facility] [place] [facility] WEIGHT 197 09/12/2024 12:49:57 [place] [facility] BMI 31 kg/m2 09/12/2024 12:49:57 [place] [facility] PAIN 0 09/12/2024 12:49:57 [place] [facility] TEMPERATURE 97.6 09/12/2024 12:49:57 [place] [facility] PULSE 68 09/12/2024 12:49:57 [place] [facility] RESPIRATION 20 09/12/2024 12:49:57 [place] [facility] SYSTOLIC BLOOD PRESSURE 111 08/21/2024 15:26:00 [place] [facility] DIASTOLIC BLOOD PRESSURE 67 08/21/2024 15:26:00 [place] [facility] TEMPERATURE 98.5 08/21/2024 15:26:00 [place] [facility] PULSE 74 08/21/2024 15:26:00 [place] [facility] SYSTOLIC BLOOD PRESSURE 114 06/13/2024 10:10:02 [place] [facility] DIASTOLIC BLOOD PRESSURE 68 06/13/2024 10:10:02 [place] [facility] PULSE OXIMETRY 99 06/13/2024 10:10:02 [facility] [place] [facility] WEIGHT 196.8 06/13/2024 10:10:02 [facility] [place] [facility] BMI 31 kg/m2 06/13/2024 10:10:02 [place] [facility] PAIN 0 06/13/2024 10:10:02 [facility] [place] [facility] TEMPERATURE 97.6 06/13/2024 10:10:02 [facility] [place] [facility] PULSE 78 06/13/2024 10:10:02 [place] [facility] RESPIRATION 20 06/13/2024 10:10:02 [place] [facility] SYSTOLIC BLOOD PRESSURE 148 04/17/2024 08:37:00 [place] [facility] DIASTOLIC BLOOD PRESSURE 77 04/17/2024 08:37:00 [place] [facility] PULSE OXIMETRY 98 04/17/2024 08:37:00 [facility] [place] [facility] WEIGHT 203.3 04/17/2024 08:37:00 [place] [facility] BMI 32 kg/m2 04/17/2024 08:37:00 [place] [facility] PAIN 0 04/17/2024 08:37:00 [place] [facility] HEIGHT 67.0 04/17/2024 08:37:00 [place] [facility] PULSE 59 04/17/2024 08:37:00 [place] [facility] RESPIRATION 18 04/17/2024 08:37:00 [place] [facility] SYSTOLIC BLOOD PRESSURE 118 03/29/2024 15:45:21 [place] [facility] DIASTOLIC BLOOD PRESSURE 74 03/29/2024 15:45:21 [place] [facility] PULSE OXIMETRY 97 03/29/2024 15:45:21 [facility] [place] [facility] WEIGHT 194.3 03/29/2024 15:45:21 [facility] [place] [facility] BMI 30 kg/m2 03/29/2024 15:45:21 [facility] [place] [facility] PAIN 0 03/29/2024 15:45:21 [place] [facility] TEMPERATURE 97.8 03/29/2024 15:45:21 [facility] PULSE 84 03/29/2024 15:45:21 [facility] RESPIRATION 20 03/29/2024 15:45:21 [facility] Encounters Combined list of: 1) Encounters from Department of Veterans Affairs facilities going backup to the last 18 months, not all VA inpatient encounters are included; 2) Encounters from the Department of Defense facilities going backup to 280 months. Location Location Details Encounter Type Encounter Number Reason For Visit Attending Provider ADM Date DC Date Status Disposition Source [facility] OFF/OP EST SEPTEMBER X REQ PHY/QHP [id number] Diagnos is: ICD-10- CM M62.81 Muscle weaknes s (genera lized) JULIAN MEMBRENO 07/09 [facility] Outpatient Encounter [id number] 07/14 [facility] OFF/OP EST SEPTEMBER X REQ PHY/QHP [id number] Diagnos is: ICD-10- CM R39.11 Hesitan cy of micturi tion CUSTRED,TO RRI J 07/16 [facility] Outpatient Encounter [id number] [facility] Outpatient Encounter [id number] 07/29 [facility] [place] [facility] Outpatient Encounter [id number] Jeniffer RAMON 07/29 [place] [facility] HC PRO PHONE CALL 5-10 MIN [id number] Diagnos is: ICD-10- CM Z71.9 Male Infertility Specialist ing, unspeci ANGIE Sarkar 07/29 [facility] [place] [facility] Outpatient Encounter [id number] 07/29 [place] Deanne NIKOLAS [facility] [place] [facility] Outpatient Encounter [id number] 07/29 [place] 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 Outpatient Encounter [id number] 08/[address] [facility] Outpatient Encounter [id number] 08/08 [facility] OFF/OP EST MAY X REQ PHY/QHP [id number] Diagnos is: ICD-10- CM R53.82 Chronic fatigue , unspeci fied CUSTRED,TO RRI J 08/15 [facility] OFFICE O/P EST LOW 20 MIN [id number] Diagnos is: ICD-10- CM R53.83 Other fatigue SUMMERS,JANE Hernandez 08/15 [facility] Outpatient Encounter [id number] DANA MONTGOMERY 08/[address] 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 meagan BRANDTHARDIK MISAEL Garcia 08/19 [place] [facility] Outpatient Encounter [id number] HASEEBJULIAN Homer 08/19 [facility] [place] [facility] Outpatient Encounter [id number] 08/25 [place] [facility] [place] [facility] HC PRO PHONE CALL 21-30 MIN [id number] Diagnos is: ICD-10- CM Z73.6 Limitat ion of activit ies due to disabil ity HARDIK BRANDT LENORATEGAN D 08/25 [place] [facility] [place] [facility] Outpatient Encounter [id number] 08/25 [place] [facility] [place] [facility] Outpatient Encounter [id number] 08/25 [place] [facility] [place] [facility] Outpatient Encounter [id number] 08/30 [place] [facility] [place] [facility] CASE MANAGEMENT [id number] Diagnos is: ICD-10- CM G20.C Shreyas onism, unspeci LUCIAN Willis 09/07 [place] [facility] TELEHEALTH FACILITY FEE [id number] Diagnos is: ICD-10- CM G20.C Shreyas onism, unspeci LUCIAN Willis 09/07 [facility] [place] [facility] Outpatient Encounter [id number] 09/07 [place] [facility] OFFICE O/P EST MOD 30 MIN [id number] Diagnos is: ICD-10- CM E78.5 Hyperli pidemia , unspeci wesley SILVESTREETHANJULIAN Homer 09/08 [facility] Outpatient Encounter [id number] 09/13 [facility] Outpatient Encounter [id number] 09/13 [facility] [place] [facility] Outpatient Encounter [id number] LAUREL KYLE T 09/[address] [place] [facility] Outpatient Encounter [id number] 09/14 [facility] [place] [facility] Outpatient Encounter [id number] 09/[address] [place] [facility] Outpatient Encounter [id number] 09/15 [facility] [place] [facility] Outpatient Encounter [id number] HARDIK BRANDT 09/16 [place] [facility] CB OFF/OP EST SEPTEMBER X REQ PHY/QHP [id number] Diagnos is: ICD-10- CM H61.23 Impacte regla weaver al CUSTRED,TO RRI J 09/22 [facility] Outpatient Encounter [id number] 10/03 [facility] Outpatient Encounter [id number] 10/04 [facility] TELEHEALTH FACILITY FEE [id number] Diagnos is: ICD-10- CM H90.3 Sensori neural hearing loss, bilater al ORALIA,MUNDO CAM A 10/10 [facility] [place] [facility] [place] [id number] [id number] Diagnos is: ICD-10- CM H90.3 Sensori neural hearing loss, bilater al ORALIA,MUNDO CAM A 10/10 [place] [facility] OFF/OP EST SEPTEMBER X REQ PHY/QHP [id number] Diagnos is: ICD-10- CM M54.50 Low back pain, unspeci fied KUZAS,JULIAN R 10/10 [facility] OFF/OP EST SEPTEMBER X REQ PHY/QHP [id number] Diagnos is: ICD-10- CM M54.50 Low back pain, unspeci fied CUSTRED,TO RRI J 10/11 [facility] Outpatient Encounter [id number] 10/13 [facility] [place] [facility] Outpatient Encounter [id number] EUGENE FITZPATRICK 10/[address] [place] [facility] Outpatient Encounter [id number] 10/27 [facility] Outpatient Encounter [id number] 10/31 [facility] THERAPEUTI C EXERCISES [id number] Diagnos is: ICD-10- CM M54.50 Low back pain, unspeci fied CALVIN,NORI HOLAS A 11/02 [facility] Outpatient Encounter [id number] 11/[address] [facility] Outpatient Encounter [id number] 11/[address] [facility] Outpatient Encounter [id number] DANA MONTGOMERY 11/08 [facility] TELEHEALTH FACILITY FEE [id number] Diagnos is: ICD-10- CM Z46.1 Encount er for fitting and adjustm ent of hearing aid ORALIA,MUNDO MCINTOSHNDRA A 11/21 [facility] HEARING AID REPAIR/MOD IFYING [id number] Diagnos is: ICD-10- CM Z46.1 Encount er for fitting and adjustm ent of hearing aid ORALIA,MUNDO CAM A 11/21 [facility] THERAPEUTI C EXERCISES [id number] Diagnos is: ICD-10- CM M54.50 Low back pain, unspeci fied CALVIN,NORI HOLAS A 11/23 [facility] [place] [facility] Outpatient Encounter [id number] MILAN JOYNER 11/25 [place] [facility] THERAPEUTI C EXERCISES [id number] Diagnos is: ICD-10- CM M54.50 Low back pain, unspeci fied CALVIN,NORI HOLAS A 11/30 [facility] [place] [facility] Outpatient Encounter [id number] MILAN JOYNER L 12/[address] [place] [facility] Outpatient Encounter [id number] 12/05 [facility] LICENSE OF [facility] N [place] [facility] Outpatient Encounter [id number] CAMRYN PURCELL L 12/[address] [place] [facility] Outpatient Encounter [id number] 12/06 [facility] Out[facility] Encounter [id number] 12/12 [facility] THERAPEUTI C EXERCISES [id number] Diagnos is: ICD-10- CM M54.50 Low back pain, unspeci fied NORI SIMPSON A 12/14 [facility] THERAPEUTI C EXERCISES [id number] Diagnos is: ICD-10- CM M54.50 Low back pain, unspeci fied NORI SIMPSON A 12/30 [facility] [place] [facility] Outpatient Encounter [id number] KARON GUARDADO 12/30 [place] [facility] [place] [facility] Outpatient Encounter [id number] 01/06 [place] [facility] THERAPEUTI C EXERCISES [id number] Diagnos is: ICD-10- CM M51.36 Other interve rtebral disc degener ation, lumbar region NORI SIMPSON A 01/09 [facility] Outpatient Encounter [id number] 01/10 [facility] CB OFF/OP EST SEPTEMBER X REQ PHY/QHP [id number] [id number] Diagnos is: ICD-10- CM G47.00 Insomni a, unspeci fied CUSTRED,TO RRI J 01/17 [facility] Outpatient Encounter [id number] [id number] 01/18 [facility] [place] [facility] Outpatient Encounter [id number] [id number] 01/26 [place] [facility] Outpatient Encounter [id number] [id number] DANA MONTGOMERY 01/27 [facility] Outpatient Encounter [id number] BRAVO WADE 01/[address] [facility] Outpatient Encounter [id number] [id number] 01/31 [facility] [place] [facility] Outpatient Encounter [id number] 02/06 [place] [facility] [place] [facility] Outpatient Encounter [id number] 02/06 [place] [facility] Outpatient Encounter [id number] [id number] 02/10 [facility] TELE[facility]ALTH FAC[facility] FEE [id number] [id number] Diagnos is: ICD-10- CM Z46.1 Encount er for fitting and adjustm ent of hearing aid MUNDO BARTON 02/13 [facility] [place] [facility] HEARING SERVICE [id number] [id number] Diagnos is: ICD-10- CM Z46.1 Encount er for fitting and adjustm ent of hearing aid MUNDO BARTON 02/13 [place] [facility] OFF/OP EST SEPTEMBER X REQ PHY/QHP [id number] [id number] Diagnos is: ICD-10- CM R55 Syncope and collaps e Tatiana TESFAYEEE 02/17 [facility] [place] [facility] Outpatient Encounter [id number] 02/[address] [place] 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 CUSTRED,TO RRI J 02/20 [facility] OFF/OP EST SEPTEMBER X REQ PHY/QHP [id number] [id number] Diagnos is: ICD-10- CM J32.9 Chronic sinusit is, unspeci fied CUSTRED,TO RRI J 02/27 [facility] Outpatient Encounter [id number] [id number] 03/07 [facility] CBOC OFF/OP EST MAY X REQ PHY/QHP 15070-9.65 [id number] Diagnos is: ICD-10- CM I10 Essenti al (primar y) hyperte nsion ANGIE QUIROGA KWAME D 03/07 [facility] CBOC OFF/OP EST MAY X REQ PHY/QHP 86059-2.65 [id number] Diagnos is: ICD-10- CM H61.23 Impacte d regla barnett al CUSTRED,TO RRI J 03/10 [facility] Outpatient Encounter [id number] [id number] 03/20 [facility] CBOC OFF/OP EST MAY X REQ PHY/QHP 63388-1.65 [id number] 003 Diagnos is: ICD-10- CM R53.83 Other fatigue JUNAID,ANGIE KWAME D 03/20 [facility] CBOC OFFICE O/P EST MOD 30 MIN 53232-3.65 [id number] Diagnos is: ICD-10- CM R53.83 Other fatigue JANE SUMMERSAmbrosio G 03/20 [facility] Outpatient Encounter 71160-4.65 [id number] 03/22 [facility] Outpatient Encounter 84920-1.65 [id number] 03/22 [facility] LICENSE OF [facility] [place] Outpatient Encounter 29284-1.65 [id number] 03/[address] [facility] Outpatient Encounter 34549-6.65 [id number] BRAVO WADE 03/27 [facility] En[facility] 27039-4.65 [id number] 03/28 [facility] FEE 54216-2.65 [id number] Diagnos is: ICD-10- CM R09.89 Oth symptom s and signs involvi ng the circ and resp systems JULIAN MEMBRENO 03/29 [facility] OFFICE O/P EST MOD 30 MIN 79086-5.65 [id number] Diagnos is: ICD-10- CM R09.89 Oth symptom s and signs involvi ng the circ and resp systems JULIAN MEMBRENO 03/29 [facility] Outpatient Encounter 84378-5.65 [id number] 04/04 [facility] Outpatient Encounter 08989-3.65 [id number] 04/[address] [facility] Outpatient Encounter 84087-2.65 [id number] 04/14 [facility] Outpatient Encounter [id number] [id number] 04/14 [facility] Outpatient Encounter [id number] [id number] 04/17 [facility] OFFICE O/P EST MOD 30 MIN 29949-8.65 [id number] Diagnos is: ICD-10- CM S39.012 A Strain of muscle, fascia and tendon of lower back, JANE Pritchard 04/17 [facility] Outpatient Encounter 82755-4.65 [id number] 04/21 [facility] PRO PHONE CALL 11-20 MIN 85600-6.65 [id number] Diagnos is: ICD-10- CM 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 DIVISION Outpatient Encounter [id number] 05/08 [facility] Out[facility] Encounter [id number] 05/[address] [facility] Outpatient Encounter [id number] [id number] 06/01 [facility] Outpatient Encounter [id number] [id number] NORI DOWD 06/04 [facility] Outpatient Encounter [id number] [id number] 2 06/04 [facility] Out[facility] Encounter [id number] [id number] BRAVO WADE 06/[address] [facility] Outpatient Encounter [id number] [id number] 06/05 [facility] N [facility] Outpatient Encounter [id number] [id number] ANAID COLIN NAHED R 06/05 [facility] N [facility] Outpatient Encounter [id number] [id number] 06/05 [facility] Outpatient Encounter [id number] [id number] ANAID COLIN NAHED R 06/05 [facility] Outpatient Encounter [id number] [id number] 06/05 [facility] [place] [facility] PH1 ASSMT&MGMT NQHP 11-20 [id number] [id number] Diagnos is: ICD-10- CM 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 ANIAD Breen 06/06 [place] [facility] Outpatient Encounter [id number] [id number] 06/06 [place] [facility] Outpatient Encounter [id number] [id number] 06/06 [facility] Encounter [id number] [id number] 06/07 [facility] Out[facility] Encounter [id number] [id number] 06/07 [facility] Outpatient Encounter [id number] [id number] 06/08 [facility] Outpatient Encounter [id number] [id number] 06/08 [facility] N [facility] Outpatient Encounter [id number] [id number] 06/08 [facility] N [facility] Outpatient Encounter [id number] [id number] 3 06/09 [facility] PH1 ASSMT&MGMT NQHP 5-10 [id number] [id number] Diagnos is: ICD-10- CM 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 ANAID Breen 06/09 [facility] Outpatient Encounter [id number] [id number] ZOE ORTEGA 06/09 [facility] Outpatient Encounter [id number] [id number] 06/09 [facility] N [facility] OFF/OP EST SEPTEMBER X REQ PHY/QHP [id number] [id number] Diagnos is: ICD-10- CM F02.811 Dem in other dis classd justin avalos, with agitati on TAB,SHE CECE R 06/13 [facility] Outpatient Encounter [id number] [id number] 06/13 [facility] N [facility] CB Outpatient Encounter [id number] [id number] 06/13 [facility] Outpatient Encounter [id number] [id number] 06/14 [facility] Outpatient Encounter [id number] [id number] 06/16 [facility] Encounter [id number] [id number] 06/19 [facility] Outpatient Encounter [id number] [id number] 06/20 [facility] PH1 ASSMT&MGMT NQHP 11-20 [id number] [id number] Diagnos is: ICD-10- CM Z71.9 Male Infertility Specialist ing, unspeci [place] ATRICIA A 06/21 [facility] Outpatient Encounter [id number] [id number] 1 06/27 [facility] Outpatient Encounter [id number] [id number] AIMEE UMAÑA 06/27 [facility] Outpatient Encounter [id number] [id number] 06/28 [facility] Outpatient Encounter [id number] [id number] CUSTRED,TO RRI J 06/29 [facility] Outpatient Encounter [id number] [id number] 06/29 [facility] FEE [id number] [id number] Diagnos is: ICD-10- CM Z46.1 Encount er for fitting and adjustm ent of hearing aid MUNDO BARTON A 07/05 [facility] HEARING AID REPAIR/MOD IFYING [id number] Diagnos is: ICD-10- CM Z46.1 Encount er for fitting and adjustm ent of hearing aid MUNDO BARTON 07/05 [place] [facility] Outpatient Encounter [id number] [id number] 07/07 [facility] N [facility] Outpatient Encounter [id number] [id number] 1 07/11 [facility] DIV[facility] LICENSE OF [facility] N [facility] Outpatient Encounter [id number] [id number] 07/11 [facility] DIV[facility] LICENSE OF [facility] N [facility] Outpatient Encounter [id number] 07/14 [facility] En[facility] [id number] [id number] 07/17 [facility] Encounter [id number] [id number] 07/18 [facility] N [facility] Outpatient Encounter [id number] [id number] 07/19 [facility] OFF/OP EST SEPTEMBER X REQ PHY/QHP [id number] [id number] Diagnos is: ICD-10- CM H61.23 Harikae regla weaver al CUSTRED,TO RRI J 07/20 [facility] FAC[facility] FEE [id number] [id number] Diagnos is: ICD-10- CM Z46.1 Encount er for fitting and adjustm ent of hearing aid MUNDO BARTON 07/20 [facility] HEARING AID REPAIR/MOD IFYING [id number] [id number] Diagnos is: ICD-10- CM Z46.1 Encount er for fitting and adjustm ent of hearing aid MUNDO BARTON 07/20 [place] [facility] Outpatient Encounter [id number] [id number] 07/27 [facility] Outpatient Encounter [id number] [id number] ANAID COLIN NAHED Coronel 07/27 [facility] N [facility] Outpatient Encounter [id number] [id number] 07/28 [facility] Outpatient Encounter [id number] [id number] 07/31 [facility] N [facility] Outpatient Encounter [id number] [id number] 07/31 [facility] Outpatient Encounter [id number] [id number] OTIS SILVA 08/02 [facility] N [facility] Outpatient Encounter [id number] [id number] 08/02 [facility] N [facility] Outpatient Encounter [id number] [id number] 08/09 [facility] N [place] [facility] Outpatient Encounter [id number] [id number] TAJ JOYA 08/18 [place] [facility] OFF/OP EST SEPTEMBER X REQ PHY/QHP [id number] [id number] Diagnos is: ICD-10- CM R10.9 Unspeci fied abdomin al pain CUSTRED,TO RRI J 08/21 [facility] Outpatient Encounter [id number] [id number] 08/22 [facility] N [place] [facility] Outpatient Encounter [id number] [id number] 08/[address] [facility] DIVISION Outpatient Encounter [id number] [id number] 09/06 [facility] CSO 15 MIN [id number] [id number] Diagnos is: ICD-10- CM N32.81 Overact amando bladder MATT,CAMRYN V 09/08 [facility] Outpatient Encounter [id number] [id number] 09/11 [facility] Outpatient Encounter [id number] [id number] 09/12 [facility] FEE [id number] [id number] Diagnos is: ICD-10- CM Z46.1 Encount er for fitting and adjustm ent of hearing aid [facility]12 [facility] HEARING AID REPAIR/MOD IFYING [id number] [id number] Diagnos is: ICD-10- CM Z46.1 Encount er for fitting and adjustm ent of hearing aid MUNDO BARTON A 09/12 [facility] Outpatient Encounter [id number] [id number] Diagnos is: ICD-10- CM H61.23 regla Jacobs M ONICA J 09/12 [facility] SYNCH AUDIO-VIDE O EST MOD 30 [id number] [id number] Diagnos is: ICD-10- CM Z00.01 Encount er for general adult medical exam w abnorma l cheryl s JULIAN MEMBRENO 09/12 [facility] [id number] [id number] JULIAN MEMBRENO Homer 09/12 [facility] Outpatient Encounter [id number] [id number] 09/[address] [facility] Outpatient Encounter [id number] [id number] 10/[address] 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 Outpatient Encounter [id number] [id number] 12/15 [facility] OFF/OP EST SEPTEMBER X REQ PHY/QHP [id number] [id number] Diagnos is: ICD-10- CM H61.23 regla Jacobs M ONICA J 12/15 [facility] Outpatient Encounter [id number] [id number] 12/15 [facility] Outpatient Encounter [id number] [id number] 12/16 [facility] DIV[facility] LICENSE OF [facility] N [place] [facility] Outpatient Encounter [id number] [id number] 12/19 [place] [facility] [place] [facility] PH1 ASSMT&MGMT NQHP 11-20 [id number] [id number] Diagnos is: ICD-10- CM 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 DIVISION Outpatient Encounter [id number] [id number] ZOE ORTEGA 12/27 [facility] N [facility] Outpatient Encounter [id number] [id number] 12/27 [facility] N [facility] Outpatient Encounter [id number] [id number] 12/27 [facility] N [facility] Outpatient Encounter [id number] [id number] ZOE ORTEGA 12/28 [facility] N [facility] Outpatient Encounter [id number] [id number] 12/28 [facility] N [place] [facility] PH1 ASSMT&MGMT NQHP 5-10 [id number] [id number] Diagnos is: ICD-10- CM 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 Outpatient Encounter [id number] [id number] 01/03 [facility] N [facility] Outpatient Encounter [id number] [id number] 3 01/03 [facility] N Social History Combined list of available smoking, tobacco, and other social history from Department of Defense and Veterans Affairs facilities. Social History Type Response Date Comment Sour e Tobacco smoking status [place]IS VA-TOBACCO USE FORMER CIGARETTES 09/12/2024 [facility] History of tobacco use VA-TOBACCO USE FORMER OTHER TYPE 09/12/2024 [facility] History of tobacco use VA-TOBACCO FORMER USER 09/09/2023 [facility] History of tobacco use VA-TOBACCO FORMER USER 09/10/2022 [facility] History of tobacco use VA-TOBACCO QUIT 15 YRS OR MORE 06/23/2021 [facility] History of tobacco use VA-TOBACCO FORMER USER 2020 [facility] History of tobacco use CURRENT NON-TOBACCO USER-HX OF USE 03/15/2019 [facility] History of tobacco use VA-TOBACCO QUIT 15 YRS OR MORE 11/16/2018 [facility] History of tobacco use CURRENT NON-TOBACCO USER-HX OF USE 02/18/2018 [facility] History of tobacco use LIFETIME NON-USER OF TOBACCO 04/07/2008 [facility] History of tobacco use QUIT TOBACCO >7 YEARS AGO 11/23/2007 [facility] History of tobacco use QUIT TOBACCO >7 YEARS AGO 09/16/2007 [place] [facility] History of tobacco use QUIT TOBACCO >7 YEARS AGO 06/21/2007 [facility] History of tobacco use CURRENT NON-TOBACCO USER-HX OF USE 08/24/2005 [facility] History of tobacco use CURRENT NON-TOBACCO USER-HX OF USE 02/23/2005 [facility] History of tobacco use CURRENT NON-TOBACCO USER-HX OF USE 06/26/2004 [facility] Plan of Care List of future care activities from [facility] facilities. Additional future care activities may be listed in the Assessment and Plan section. Date/Time Care Activity Care Activity Detail Facili ty 02/07/2025 AMBULATORY - MEDICINE AMBULATORY - MEDICI SHERLY PRECIAD[facility] Advance Directives List of completed, amended, or rescinded Advance Directives on record at [facility] facilities. An actual copy of the Directive is not included. Date Advance Directive Provider Source 12/19/2024 ADVANCE DIRECTIVE TY BERUMEN FF [facility]
[2025-01-04 14:23] VITALS: BP 110/60; PULSE 69; RESP 14; TEMP 36.7; O2SAT 98
--- OUTSIDE RECORDS SUMMARY | 2025-01-04 14:35 | XMS_ITS | Encounter Summary ---
Author Organization [employer] [facility] Address [address] [place] [address] Care Team Providers Care Oracle Application Consultant Name Role Phone Unavailable Primary Care Provider Unavailabl e Encounter Details Date Type Department Care Team (Latest Contact Info) Description 07/11/2003 Outpatient Historical [facility] Aman Logan MD [address] [place] [address] PURE HYPERGLYCERIDEMIA (Primary Dx) Social History Tobacco Use Types Packs/Day Years Used Date Smoking Tobacco: Never Assessed Sex and Gender Information Value Date Recorded Sex Assigned at Not on file 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
--- OUTSIDE RECORDS SUMMARY | 2025-01-04 14:35 | XMS_ITS | Encounter Summary ---
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
--- OUTSIDE RECORDS SUMMARY | 2025-01-04 14:35 | XMS_ITS | Clinical Summary ---
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
--- OUTSIDE RECORDS SUMMARY | 2025-01-04 14:35 | XMS_ITS | Patient Health Record ---
Author Organization [facility], [facility] Address [address] [place] [address] Care Team Providers Care Solutions Developer Name Role Phone [facility] Primary Care Provider Angelica ERAN Diana Unavailable [phone] [place], [place] Unavailable Unavailable SHANNAN JESSICA Unavailable [phone] Eran Booth Unavailable [phone] Allergies Allergen (clinical drug ingredient) Drug/Non Drug Allergy documented on EMR Reaction Allergy Type Onset Date Status Penicillin Unknown Drug Allergy Active Results Component Value Reference Range Notes Urinalysis, Routine Reviewed date:03/22/2024 04:14:34 PM Interpretation: Performing Lab: Notes/Report: Urine-Color yellow Appearance clear Glucose - Bilirubin - Ketones - Specific [place] 1.010 Occult Blood - pH 6.0 Urine Protein - Urobilinogen,Semi-Qn - Nitrite, Urine - WBC Esterase - Reason For Referral No Information Medications Medication SIG (Take, Route, Frequency, Duration) Notes Start Date End Date Status Carbidopa-Levodopa 25-100 MG 2 tablets O rally three times a day Active Levothyroxine Sodium 112 MCG 1 tablet in the morning on an empty stomach Orally Once a day Active Multivitamin Active Finasteride 5 MG 1 tablet Orally Once a day; Duration: 90 days 10/06/2023 08/02/2025 Active Rosuvastatin Calcium 40 MG 1 tablet Oral ly Once a day Active Donepezil HCl 10 MG 1 tablet at bedtime Orally Once a day Active Vitamin B12 3000 MCG/ML as directed Sublingual Active Amitriptyline HCl 25 MG 1 tablet at bedt brian Orally Once a day Active Tamsulosin HCl 0.4 MG 1 capsule Orally O nce a day Active Mirabegron ER 50 MG 1 tablet Orally Once a day; Duration: 90 days 07/19/2024 09/01/2025 Active Cholecalciferol 50 MCG (1999) 1 capsule Orally twice a day Active Social History Tobacco Use: Social History Observation Description Date Details (start date - stop date) Former Smoker NA - NA Tobacco Control (Standard) Question Answer Notes Tobacco use: Former smoker How long has it been since you last smoked? Grea ter than 10 years AUDIT-C (Standard) Question Answer Notes Did you have a drink containing alcohol in the p ast year? No Points 0 Interpretation Negative Section Notes: Smoking ages 12 - 37 ETOH ages 15 - 54 Smoking ages 12 - 37 ETOH ages 15 - 54 Smoking ages 12 - 37 ETOH ages 15 - 54 Smoking ages 12 - 37 ETOH ages 15 - 54 Smoking ages 12 - 37 ETOH ages 15 - 54 Problems Problem Type SNOMED Code ICD Code Onset Dates Problem Status W/U Status Risk Notes Problem Neurogenic dysfunction of the urinary bladder (693502640) Neurogenic bladder disorder (N31.9) Active confirmed Problem Overactive urinary bladder (disorder) (903807454) OAB (overactive bladder) (N32.81) Active confirmed Problem Benign prostatic hypertrophy with outflow obstruction (211896798) BPH loc w urin obs/LUTS (N40.1) Active confirmed Vital Signs Heart Rate 63 /min 07/18/2024 Temperature 98.0 degrees Fahrenheit 02/15/2024 Blood pressure diastolic 63 mm Hg 07/18/2024 Height-cm 170.18 cm 09/06/2024 Weight-kg 86.18 kg 09/06/2024 Height 67 in 09/06/2024 Blood pressure systolic 116 mm Hg 07/18/2024 Weight 190 lbs 09/06/2024 BMI 29.75 kg/m2 09/06/2024 Procedures Procedure Date Ordered Date Performed Result Body Sit e UroFlow 02/15/2024 N/A Bladder Scan 02/15/2024 02/15/2024 N/A Bladder Scan 07/18/2024 07/18/2024 239ml Bladder Scan 09/06/2024 N/A Encounters Encounter Location Date Provider Diagnosis [facility] [address] [place] [address] 02/15/2024 Eran Booth BPH loc w urin obs/LUTS N40.1 ; Urinary frequency R35.0 ; OAB (overactive bladder) N32.81 and Neurogenic bladder disorder N31.9 [facility] [address] [place] [address] 03/22/2024 ERAN BOSE BPH loc w urin obs/LUTS N40.1 ; Urinary frequency R35.0 ; OAB (overactive bladder) N32.81 and Neurogenic bladder disorder N31.9 [facility] [address] [place] [address] 07/18/2024 ERAN BOSE BPH loc w urin obs/LUTS N40.1 ; Urinary frequency R35.0 ; OAB (overactive bladder) N32.81 and Neurogenic bladder disorder N31.9 [facility], [facility] [address] [place] [address] 09/06/2024 SHANNAN JESSICA BPH loc w urin obs/LUTS N40.1 ; OAB (overactive bladder) N32.81 ; Neurogenic bladder disorder N31.9 and Urinary frequency R35.0 [facility], [facility] [address] [place] [address] 08/07/2024 ERAN BOSE Urinary frequency R35.0 Assessments Encounter Date Diagnosis (ICD Code) Assessment Notes Treatment Notes Treatment Clinical Notes Section Notes 02/15/2024 Urinary frequency (ICD-10 - R35.0) We discussed the concept of maximal medical management of BPH as well as possible treatment with a transurethral procedure. May consider in office cystoscopy in near future. However, given his continued bothersome LUTS while failing conservative measures, we discussed setting up next available for cystoscopy per patient request to assess further involving continued bothersome LUTS. For now, and at this time, he is currently not in urinary retention. Vitals are stable. No complaints of pain. Given that he is emptying his bladder better, we discussed on trialing myrbetriq at this time. Samples of 50mg given to take daily.. Will reassess symptoms at time of cystoscopy. He will cancel cystoscopy if myrbetriq continues to show improvement. I explained to him that surgical intervention is higher risk given he has Parkinson's. He will then return for cystoscopy and further recommendations based on findings at this time. RTC or call sooner with any concerns. The patient voices understanding and agrees with the plan. All of his questions were answered to his satisfaction. I saw this patient today following the plan of care established by Dr. Bose. Supervision in the clinic, during the encounter was performed by the Doctor. 02/15/2024 BPH loc w urin obs/LUTS (ICD-10 - N40.1) We discussed the concept of maximal medical management of BPH as well as possible treatment with a transurethral procedure. May consider in office cystoscopy in near future. However, given his continued bothersome LUTS while failing conservative measures, we discussed setting up next available for cystoscopy per patient request to assess further involving continued bothersome LUTS. For now, and at this time, he is currently not in urinary retention. Vitals are stable. No complaints of pain. Given that he is emptying his bladder better, we discussed on trialing myrbetriq at this time. Samples of 50mg given to take daily.. Will reassess symptoms at time of cystoscopy. He will cancel cystoscopy if myrbetriq continues to show improvement. I explained to him that surgical intervention is higher risk given he has Parkinson's. He will then return for cystoscopy and further recommendations based on findings at this time. RTC or call sooner with any concerns. The patient voices understanding and agrees with the plan. All of his questions were answered to his satisfaction. I saw this patient today following the plan of care established by Dr. Bose. Supervision in the clinic, during the encounter was performed by the Doctor. 03/22/2024 BPH loc w urin obs/LUTS (ICD-10 - N40.1) Patient has significant prostate obstruction with a 5 cm fossa and trabeculations and some incomplete emptying but this is complicated by Parkinson's disease making him a poor surgical candidate with increased risk of incontinence with any prostate intervention. Overall he denies severe symptoms and I would recommend continued maximal medical management of BPH. I gave him samples of Myrbetriq which he did not take but with recurrence of symptoms, possible Myrbetriq. Currently remains content with symptoms. Return in 4 months for reassessment and noninvasive urodynamics. Following cystoscopy, we have spent over 10 minutes in further consultation and treatment planning with greater than 50% of that time in direct [id number] discussion. 07/18/2024 BPH loc w urin obs/LUTS (ICD-10 - N40.1) On floamx and finasteride. This is a complicated urologic patient with recalcitrant urge incontinence despite maximal medical management of BPH and elevated PVR of over 200 cc today. He has a relative contraindication anticholinergics and is a poor surgical candidate although we have seen significant prostate obstruction on cystoscopy. I have discussed sacral neuromodulation with posterior tibial nerve stimulation and he and family are considering this. His Parkinson's is progressing and certainly there may be a neurogenic and functional component. We will attempt to keep him out of the operating room with a Myrbetriq prescription and trial. Strict warnings for urinary retention and side effects reviewed. Return in 6 to 8 weeks for reassessment with noninvasive urodynamics and if still bothersome at that point we will proceed with straight tibial nerve stimulation although the family does live over an hour away. 08/07/2024 Urinary frequency (ICD-10 - R35.0) 09/06/2024 OAB (overactive bladder) (ICD-10 - N32.81) Pt with complicated urologic presesntation. He has both prostate obstruction as well as neurogenic component to his LUTS. He is not a good surgical candidate. With his progressing Parkinson's disease, his bladder control is worsening, but emptying is stable on flomax and finasteride. Even though he says he is not better on Myrbetriq, daughter and I both feel like it has helped his symptoms and they are agreeable to continue medication. [facility]. He has contraindication to anticholinergics as well as lack of efficacy during previous trials. RTC in 6m with UA/PVR or sooner if needed. 09/06/2024 BPH loc w urin obs/LUTS (ICD-10 - N40.1) 07/18/2024 Urinary frequency (ICD-10 - R35.0) Bothersome with urgency Discussed PTNS, InterStim vs OAB medications. Will start Myrbetriq 50mg, review side effects, Rx sent today. Pamphlet given today for PTNS He will return in 6-8weeks This is a complicated urologic patient with recalcitrant urge incontinence despite maximal medical management of BPH and elevated PVR of over 200 cc today. He has a relative contraindication anticholinergics and is a poor surgical candidate although we have seen significant prostate obstruction on cystoscopy. I have discussed sacral neuromodulation with posterior tibial nerve stimulation and he and family are considering this. His Parkinson's is progressing and certainly there may be a neurogenic and functional component. We will attempt to keep him out of the operating room with a Myrbetriq prescription and trial. Strict warnings for urinary retention and side effects reviewed. Return in 6 to 8 weeks for reassessment with noninvasive urodynamics and if still bothersome at that point we will proceed with straight tibial nerve stimulation although the family does live over an hour away. 09/06/2024 Neurogenic bladder disorder (ICD-10 - N31.9) 03/22/2024 Urinary frequency (ICD-10 - R35.0) Patient has significant prostate obstruction with a 5 cm fossa and trabeculations and some incomplete emptying but this is complicated by Parkinson's disease making him a poor surgical candidate with increased risk of incontinence with any prostate intervention. Overall he denies severe symptoms and I would recommend continued maximal medical management of BPH. I gave him samples of Myrbetriq which he did not take but with recurrence of symptoms, possible Myrbetriq. Currently remains content with symptoms. Return in 4 months for reassessment and noninvasive urodynamics. Following cystoscopy, we have spent over 10 minutes in further consultation and treatment planning with greater than 50% of that time in direct [id number] discussion. 02/15/2024 OAB (overactive bladder) (ICD-10 - N32.81) We discussed the concept of maximal medical management of BPH as well as possible treatment with a transurethral procedure. May consider in office cystoscopy in near future. However, given his continued bothersome LUTS while failing conservative measures, we discussed setting up next available for cystoscopy per patient request to assess further involving continued bothersome LUTS. For now, and at this time, he is currently not in urinary retention. Vitals are stable. No complaints of pain. Given that he is emptying his bladder better, we discussed on trialing myrbetriq at this time. Samples of 50mg given to take daily.. Will reassess symptoms at time of cystoscopy. He will cancel cystoscopy if myrbetriq continues to show improvement. I explained to him that surgical intervention is higher risk given he has Parkinson's. He will then return for cystoscopy and further recommendations based on findings at this time. RTC or call sooner with any concerns. The patient voices understanding and agrees with the plan. All of his questions were answered to his satisfaction. I saw this patient today following the plan of care established by Dr. Bose. Supervision in the clinic, during the encounter was performed by the Doctor. 02/15/2024 Neurogenic bladder disorder (ICD-10 - N31.9) We discussed the concept of maximal medical management of BPH as well as possible treatment with a transurethral procedure. May consider in office cystoscopy in near future. However, given his continued bothersome LUTS while failing conservative measures, we discussed setting up next available for cystoscopy per patient request to assess further involving continued bothersome LUTS. For now, and at this time, he is currently not in urinary retention. Vitals are stable. No complaints of pain. Given that he is emptying his bladder better, we discussed on trialing myrbetriq at this time. Samples of 50mg given to take daily.. Will reassess symptoms at time of cystoscopy. He will cancel cystoscopy if myrbetriq continues to show improvement. I explained to him that surgical intervention is higher risk given he has Parkinson's. He will then return for cystoscopy and further recommendations based on findings at this time. RTC or call sooner with any concerns. The patient voices understanding and agrees with the plan. All of his questions were answered to his satisfaction. I saw this patient today following the plan of care established by Dr. Bose. Supervision in the clinic, during the encounter was performed by the Doctor. 03/22/2024 OAB (overactive bladder) (ICD-10 - N32.81) Patient has significant prostate obstruction with a 5 cm fossa and trabeculations and some incomplete emptying but this is complicated by Parkinson's disease making him a poor surgical candidate with increased risk of incontinence with any prostate intervention. Overall he denies severe symptoms and I would recommend continued maximal medical management of BPH. I gave him samples of Myrbetriq which he did not take but with recurrence of symptoms, possible Myrbetriq. Currently remains content with symptoms. Return in 4 months for reassessment and noninvasive urodynamics. Following cystoscopy, we have spent over 10 minutes in further consultation and treatment planning with greater than 50% of that time in direct [id number] discussion. 09/06/2024 Urinary frequency (ICD-10 - R35.0) 07/18/2024 OAB (overactive bladder) (ICD-10 - N32.81) This is a complicated urologic patient with recalcitrant urge incontinence despite maximal medical management of BPH and elevated PVR of over 200 cc today. He has a relative contraindication anticholinergics and is a poor surgical candidate although we have seen significant prostate obstruction on cystoscopy. I have discussed sacral neuromodulation with posterior tibial nerve stimulation and he and family are considering this. His Parkinson's is progressing and certainly there may be a neurogenic and functional component. We will attempt to keep him out of the operating room with a Myrbetriq prescription and trial. Strict warnings for urinary retention and side effects reviewed. Return in 6 to 8 weeks for reassessment with noninvasive urodynamics and if still bothersome at that point we will proceed with straight tibial nerve stimulation although the family does live over an hour away. 07/18/2024 Neurogenic bladder disorder (ICD-10 - N31.9) This is a complicated urologic patient with recalcitrant urge incontinence despite maximal medical management of BPH and elevated PVR of over 200 cc today. He has a relative contraindication anticholinergics and is a poor surgical candidate although we have seen significant prostate obstruction on cystoscopy. I have discussed sacral neuromodulation with posterior tibial nerve stimulation and he and family are considering this. His Parkinson's is progressing and certainly there may be a neurogenic and functional component. We will attempt to keep him out of the operating room with a Myrbetriq prescription and trial. Strict warnings for urinary retention and side effects reviewed. Return in 6 to 8 weeks for reassessment with noninvasive urodynamics and if still bothersome at that point we will proceed with straight tibial nerve stimulation although the family does live over an hour away. 03/22/2024 Neurogenic bladder disorder (ICD-10 - N31.9) Patient has significant prostate obstruction with a 5 cm fossa and trabeculations and some incomplete emptying but this is complicated by Parkinson's disease making him a poor surgical candidate with increased risk of incontinence with any prostate intervention. Overall he denies severe symptoms and I would recommend continued maximal medical management of BPH. I gave him samples of Myrbetriq which he did not take but with recurrence of symptoms, possible Myrbetriq. Currently remains content with symptoms. Return in 4 months for reassessment and noninvasive urodynamics. Following cystoscopy, we have spent over 10 minutes in further consultation and treatment planning with greater than 50% of that time in direct [id number] discussion. 07/18/2024 Other I, Cher Mosley, [place], am scribing for, and in the presence of, Dr. Bose. I, Dr. Eran Bose, personally performed the services prescribed in this documentation, as scribed by Cher Mosley, in my presence, and it is both accurate and complete. This is a complicated urologic patient with recalcitrant urge incontinence despite maximal medical management of BPH and elevated PVR of over 200 cc today. He has a relative contraindication anticholinergics and is a poor surgical candidate although we have seen significant prostate obstruction on cystoscopy. I have discussed sacral neuromodulation with posterior tibial nerve stimulation and he and family are considering this. His Parkinson's is progressing and certainly there may be a neurogenic and functional component. We will attempt to keep him out of the operating room with a Myrbetriq prescription and trial. Strict warnings for urinary retention and side effects reviewed. Return in 6 to 8 weeks for reassessment with noninvasive urodynamics and if still bothersome at that point we will proceed with straight tibial nerve stimulation although the family does live over an hour away. Plan Of Treatment Pending Test Test Name Order Date Bladder Scan 09/06/2024 UroFlow 02/15/2024 Next Appt Details Provider Name:SHANNAN FITZGERALD ALDO, 02/07/2025 11:00:00 AM, [address] [place], [address], Insurance Providers Payer Name Payer Address Payer Phone Subscriber Number Group Number Insured Name Patient Relationship to Insured Coverage Start Date Coverage End Date [employer] [address] [place], [place] [id number] Shawn Rojas Self - patient is the insured Medical (General) History Medical History History ICD Code Parkinson's disease Hypothyroidism Arthritis Urinary frequency Urinary incontinence Urinary retention Nocturia BPH ED Surgical History Surgery Date(Month/Year) right inguinal hernia repair Hospitalization History Reason Date(Month/Year) see prior sx hx
--- OUTSIDE RECORDS SUMMARY | 2025-01-04 14:35 | XMS_ITS | Patient Health Record ---
Author Organization [facility] Address [address] [place] [address] Care Team Providers Care Plexiglas Former Name Role Phone None, None Primary Care Provider Unavailabl e Badejo, Abodunrin Unavailable [phone] [place] Unavailable Unavailable Allergies Allergen (clinical drug ingredient) Drug/Non Drug Allergy documented on EMR Reaction Allergy Type Onset Date Status Penicillin unknown Drug Allergy Active Reason For Referral No Information Medications Medication SIG (Take, Route, Frequency, Duration) Notes Start Date End Date Status Levothyroxine Sodium 125 MCG Tablet 1 tablet in the morning on an empty stomach Orally Once a day Active Reglan 10 MG Tablet 1 tablet as directed Orally once; Duration: 1 day 02/13/2020 Active Simvastatin 80 MG Tablet 1/2 tablet in t he evening Orally Once a day; Duration: 30 day(s) Active Tamsulosin HCl 0.4 MG Capsule 1 capsule Orally Once a day Active Sildenafil Citrate 100 MG Tablet 1 tablet as needed Orally Once a day Active Golytely 236 GM Solution Reconstituted as directed Orally once; Duration: 1 day 02/13/2020 Active Metamucil 48.57 % Powder as directed Orally Active Immunizations Vaccine Route Administration Date Status Comme nts Influenza (whole), CPT 00452 Inactive Unknown 05/24/2016 Administered Influenza (whole), CPT 50204 Inactive Unknown 02/22/2016 Administered Social History Tobacco Use: Social History Observation Description Date Details (start date - stop date) Former Smoker NA - NA Social History Depression Screening Social Info Question Answer Notes PHQ-9 Little interest or pleasure in doing thin gs Not at all Feeling down, depressed, or hopeless Not at all Trouble falling or staying asleep, or sleeping t oo much Not at all Feeling tired or having little energy Not at all Poor appetite or overeating Not at all Feeling bad about yourself, or that you are a failure, or have let yourself or your family down Not at all Trouble concentrating on thi ngs, such as reading the newspaper or watching television Not at all Moving or speaking so slowly that other people could have noticed. Or the opposite ? being so fidgety or restless that you have been moving around a lot more than usual Not at all Thoughts that you would be b kandace off , or of hurting yourself in some way Not at all Total Score 0 Drugs/Alcohol: Social Info Question Answer Notes Alcohol Screen (Audit-C) Did you have a drink containing alcohol in the past year? No Points 0 Interpretation Negative Drugs Have you used drugs other than those for medical reasons in the past 12 months? No Tobacco Use: Social Info Question Answer Notes xTobacco Use/Smoking Are you a former smoker How long has it been since you last smoked? > 10 years Additional Details Category Social Info Options Details zzMigrated Social History Migrated Social History Advance Directive: Current and Verified Signed on 05/01/2013 Organ Donation: Patient refuses Organ Donation Denied Portal User Patient declined portal account Highest Level of Education High School Education (9-12) Completed 9th grade only Problems Problem Type SNOMED Code ICD Code Onset Dates Problem Status W/U Status Risk Notes Problem History of adenomatous polyp of colon (261391210) History of adenomatous polyp of colon (Z86.010) Active confirmed Problem Constipation (23160558) Constipation (564.0) 06/05/19 16 Active confirmed [id number] 911- Problem Urinary frequency (580790590) Urinary frequency (788.41) 05/01/20 13 Active confirmed [id number] 911- Problem Hypothyroidism (76309245) Hypothyroidism (244.9) 05/01/20 13 Active confirmed [id number] 911- Problem Aortic valve stenosis (28847546) Aortic valve stenosis (424.1) 06/05/19 16 Active confirmed [id number] 911- Problem Reduced libido (7292058) Decreased libido (302.71) 08/10/19 18 Active confirmed [id number] 911- Problem Erectile dysfunction (751988680) Erectile dysfunction (302.72) 05/01/20 13 Active confirmed [id number] 911- Problem Chronic kidney disease stage 2 (386876459) Chronic kidney disease, Stage II (mild) (585.2) 04/24/20 10 Problem resolved confirmed [id number] 911- Problem Cough (49105691) Cough (786.2) 04/24/20 10 Problem resolved confirmed [id number] 911- Problem Vitamin D deficiency (53358537) Vitamin D deficiency, unspecified (268.9) 07/22/19 16 Problem resolved confirmed [id number] 911- Plan Of Treatment No Information Insurance Providers Payer Name Payer Address Payer Phone Subscriber Number Group Number Insured Name Patient Relationship to Insured Coverage Start Date Coverage End Date [place] [address] [place] [phone] [id number] Shawn Rojas Self - patient is the insured 3 [place] [address] [place] [phone] [id number] Shawn Rojas Self - patient is the insured 6 [employer] [address] [place] [address] [id number] Shawn Rojas Self - patient is the insured Medical (General) History Medical History History ICD Code Problem: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
--- OUTSIDE RECORDS SUMMARY | 2025-01-04 14:35 | XMS_ITS | Encounter Summary ---
Author Organization [employer] [facility] Address [address] [place] [address] Care Team Providers Care Edge Finisher Name Role Phone Unavailable Primary Care Provider Unavailabl e Encounter Details Date Type Department Care Team (Latest Contact Info) Description 06/18/2003 Outpatient Historical [facility] Aman Logan MD [address] [place] [address] Pure hypercholesterolem (Primary Dx); OSTEOARTHROS NOS-L/LEG; HEARING LOSS NOS Social History Tobacco Use Types Packs/Day Years Used Date Smoking Tobacco: Never Assessed Sex and Gender Information Value Date Recorded Sex Assigned at Not on file 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
--- OUTSIDE RECORDS SUMMARY | 2025-01-04 14:36 | XMS_ITS ---
Author Organization Unknown [facility] Start Date Provider Encounter for Check-up [id number] Erick garcia [facility]
--- NOTE | 2025-01-04 14:52 | ECG_ITS ---
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
--- NOTE | 2025-01-04 14:53 | W.ED.PSYCHS ---
HPI - Psych General: Chief Complaint: Psychiatric Symptoms Stated Complaint: behavioral Time Seen by Provider: 01/04/25 14:30 Source: patient, family and other (Long-term care facility staff) Mode of arrival: EMS History of Present Illness: This patient was transported by EMS from current long-term care facility that he was placed at approximately 3 weeks ago. The patient has a history of Lewy body dementia parkinsonism as well as PTSD. [facility] [place]. Over the past 3 weeks the long-term care facility he is becoming increasingly agitated and difficult to control despite several episodes of trials of medications over the past 3 weeks.. His daughter reports that he has only been relatively calm when she is spent the night with him at the long-term care facility or when she is taking him on furlough. He is not expressed any thoughts of harm to self or intentional harm to others. Associated symptoms: Deny homicidal ideation or suicidal ideation Related Data Home Medications ?Medication ?Instructions ?Recorded ?Confirmed tamsulosin 0.4 mg capsule 0.4 mg PO BEDTIME 06/05/19 01/04/25 finasteride 5 mg tablet 5 mg PO BEDTIME 01/07/24 01/04/25 betamethasone dipropionate 0.05 % 1 applic topical BID PRN Skin 05/11/24 01/04/25 topical ointment Irritation fluticasone propionate 50 1 spray intranasal DAILY PRN 05/11/24 01/04/25 mcg/actuation nasal irritation spray,suspension multivitamin 1 tab PO DAILY 05/11/24 01/04/25 triamcinolone acetonide 0.1 % 1 applic topical BID PRN Rash 05/11/24 01/04/25 topical cream vitamins A,C,R-ahkf-pqvhmm 4,296 1 cap PO DAILY 10/17/24 01/04/25 mcg-226 mg-90 mg capsule (PreserVision AREDS) acetaminophen 325 mg tablet 650 mg PO Q6H PRN Pain 12/21/24 01/04/25 (Tylenol) cholecalciferol (vitamin D3) 50 100 mcg PO DAILY 12/21/24 01/04/25 mcg (2,000 unit) capsule mirabegron 50 mg tablet,extended 50 mg PO QPM 12/21/24 01/04/25 release 24 hr bisacodyl 10 mg rectal suppository 10 mg NY DAILY PRN Constipation 01/04/25 01/04/25 levothyroxine 112 mcg tablet 112 mcg PO .Q5AM 01/04/25 01/04/25 olanzapine 10 mg tablet 10 mg PO .@4PM 01/04/25 01/04/25 Allergies Allergy/AdvReac Type Severity Reaction Status Date / Time Penicillins Allergy Unknown Verified 12/21/24 15:34 Review of Systems Const: Denies: fever(s) or chills Eyes: Denies: change in vision ENMT: Denies: odynophagia, nasal discharge or nasal congestion Card: Denies: chest pain or palpitations Resp: Denies: dyspnea, productive cough or non-productive cough GI: Denies: abdominal pain, nausea, vomiting or diarrhea : Denies: flank pain, difficulty urinating or dysuria Musc: Denies: neck pain, back pain, extremity pain or extremity swelling Skin/Breast: Denies: rash Neuro: Denies: headache(s), numbness in extremities or weakness in extremities Psych: Reports: anxiety, mood swings, sleeping less, irritability and memory loss; Denies: suicidal ideation or homicidal ideation Endo: Denies: polyuria or polydipsia PFSH ED PFSH: Medical History Hypotension Aortic valve disease Impotence, organic Umbilical hernia Lower urinary tract symptoms (LUTS) Surgical History Status post hernia repair Social History Smoking and tobacco/nicotine status: former use of tobacco/nicotine Alcohol intake: former Substance/Drug Use: unknown Adopted: No Caregiver/support person: No Lives independently: No Household members: spouse Marital status: Current occupational status: retired Physical Exam Narrative: EXAM NARRATIVE: Patient's well-groomed and cooperative appears to be in no acute distress. Const: COMMON NORMALS: no acute distress, healthy appearing and alert GENERAL APPEARANCE: cooperative and well kempt NUTRITIONAL APPEARANCE: overweight ORIENTATION/CONSCIOUSNESS: Yes oriented to person HENMT: COMMON NORMALS: atraumatic, Normal nasal mucous membranes and turbinates present and moist oral mucous membranes HEAD & SCALP: atraumatic FACE & SINUS: face symmetric NOSE: Normal nasal mucous membranes and turbinates present Eye: COMMON NORMALS: Equal, round and reactive pupils present, EOMs intact bilaterally and conjunctivae normal CONJUNCTIVA: Yes conjunctivae normal PUPIL: Yes Equal, round and reactive pupils present Neck/C-Spine: COMMON NORMALS: full ROM, no JVD and Thyroid normal THYROID: Thyroid normal Chest: COMMONS NORMALS: normal inspection of the chest Resp: COMMON NORMALS: normal respiratory effort, No use of accessory muscles and clear to auscultation bilaterally AUSCULTATION: clear to auscultation bilaterally Cardio: COMMON NORMALS: no JVD, regular rate, regular rhythm and Peripheral pulses 2+ throughout RATE: regular rate RHYTHM: regular rhythm HEART SOUNDS: Murmur heart sound present (07/27) systolic PERIPHERAL PULSES: Peripheral pulses 2+ throughout GI: COMMON NORMALS: Normal to inspection, nondistended, normoactive bowel sounds present, Soft to palpation and non-tender PALPATION: Yes Soft to palpation Back/Pelvis: COMMON NORMALS: thoracic and lumbar spine normal to inspection and no thoracic nor lumbar tenderness Extremity: COMMON NORMALS: normal to inspection, full ROM, no calf tenderness and no pedal edema Neuro: COMMON NORMALS: moves all extremities and no focal motor deficits SENSORIUM/ORIENTATION: Yes alert and Yes oriented to person Psych: APPEARANCE: Yes well kempt ATTITUDE: Yes calm ACTIVITY/MOTOR BEHAVIOR: Yes appropriate eye contact SPEECH: Yes soft THOUGHT PROCESS: disorganized and confused MEMORY/COGNITION: Yes memory grossly impaired INSIGHT: Poor insight present (Psych) JUDGEMENT: Poor judgement present (Psych) Skin: COMMON NORMALS: no rashes or lesions noted and turgor normal GENERAL SKIN EXAM: no rashes or lesions noted and turgor normal Course Reevaluation(s): Reevaluation #1: Daughter had concerns about his left ankle she felt it was more swollen. There is no history of trauma although the patient is a very poor historian. Clinical exam does not reveal any focal tenderness, redness, and has normal range of motion however we will go ahead and proceed with plain films to ensure that there is no occult injury. Time: 18:13 Reevaluation #2: Daughter did ask me to check his buttock and gluteal cleft region. He had some redness a few days ago and she did put some A&E ointment on the area. He is continent of both urine and stool so there is that risk factors not a concern. Examination revealed intact skin he does have some mild erythema of the gluteal cleft skin which may be pressure related certainly does not look like cellulitis, skin breakdown, mass etc. I have recommended a barrier cream and close monitoring but again him being continent reduces his risk of any concerns of skin breakdown other than depending on how much time he spends in bed sitting in a semirecumbent position which could exacerbate that condition. The patient has been accepted at [facility] and he is pending transportation. Radiographs of left ankle are unremarkable for any evidence of a bony injury. Is no other findings to suggest cellulitis, soft tissue injury etc. Time: 19:40 Vital Signs: Vital signs: Vital Signs Temperature 97.9 F 01/04/25 18:38 Pulse Rate 62 01/04/25 18:38 Respiratory Rate 16 01/04/25 18:38 Blood Pressure 151/98 01/04/25 18:38 Pulse Oximetry 100 01/04/25 18:38 Oxygen Delivery Me thod Room Air 01/04/25 18:38 MDM - Psych Medical Decision Making This gentleman presented as noted in the HPI from the long-term care facility at their request as well as in concert with the family's desires. Patient has history of chronic disease including Lewy body dementia, parkinsonism as well as PTSD as noted. He had become increasingly difficult to maintain at [facility] that he shares with his spouse and now daughter and was admitted to a long-term care facility. During that period of 3 weeks he has been at that facility he has had episodes of wandering, poor sleep hygiene, difficulty directing and controlling despite staff's interventions and trials of medications. This is culminated in his transfer to the emergency department for geriatric psych placement. His clinical exam does not suggest stigmata of serious illness; his laboratories are unrevealing as to potential thyroid dysfunction, anemia, or other biochemical perturbations that might be contributing. At this point there is no medical contraindication to the patient being transferred for evaluation and treatment to a geriatric psychiatric unit. Lab Data I reviewed the patient's lab results. 01/04/25 15:01 01/04/25 15:01 Radiology Impressions Ankle X-Ray 01/04/25 18:12 IMPRESSION: No acute displaced fracture or dislocation. Laboratory Results WBC 6.36 10^3/uL (3.29-11.43) 01/04/25 15:01 RBC 3.84 10^6/uL (3.85-5.65) L 01/04/25 15:01 Hgb 11.60 g/dL (11.27-16.99) 01/04/25 15:01 Hct 36.2 % (37-53) L 01/04/25 15:01 MCV 94.3 fl (82-101) 01/04/25 15:01 MCH 30.2 pg (27-33) 01/04/25 15:01 MCHC 32.0 g/dL (30-55) 01/04/25 15:01 RDW 12.5 % (12.1-15.1) 01/04/25 15:01 Plt Count 145 10^3/cmm (157-399) L 01/04/25 15:01 MPV 10.6 fL (7.4-10.4) H 01/04/25 15:01 Neut % (Auto) 70.3 % 01/04/25 15:01 Lymph % (Auto) 17.0 % 01/04/25 15:01 [place] % (Auto) 9.4 % 01/04/25 15:01 Eos % (Auto) 2.8 % 01/04/25 15:01 Baso % (Auto) 0.2 % 01/04/25 15:01 Neut # (Auto) 4.47 10^3/uL (1.8-7.7) 01/04/25 15:01 Lymph # (Auto) 1.1 10^3/uL (0.8-4.8) 01/04/25 15:01 [place] # (Auto) 0.6 10^3/uL (0.2-0.9) 01/04/25 15:01 Eos # (Auto) 0.2 10^3/uL (0.0-0.8) 01/04/25 15:01 Baso # (Auto) 0.0 10^3/uL (0.0-0.1) 01/04/25 15:01 Nucleated RBC % (auto) 0 % 01/04/25 15:01 Nucleated RBCs # 0.0 /100WBC 01/04/25 15:01 Sodium 143 mmol/L (136-145) 01/04/25 15:01 Potassium 4.1 mmol/L (3.5-5.1) 01/04/25 15:01 Chloride 106 mmol/L (98-107) 01/04/25 15:01 Carbon Dioxide 26 mmol/L (22-29) 01/04/25 15:01 Anion Gap 15.1 (5-19) 01/04/25 15:01 BUN 22 mg/dL (8-23) 01/04/25 15:01 Creatinine 1.1 mg/dL (0.7-1.2) 01/04/25 15:01 GFR Calculation Not Reportable 01/04/25 15:01 Glucose 89 mg/dL (65-115) 01/04/25 15:01 Calculated Osmolality 299 mOsm/kg (285-295) H 01/04/25 15:01 Calcium 8.5 mg/dL (8.5-10.5) 01/04/25 15:01 Total Bilirubin 0.3 mg/dL (0.15-1.2) 01/04/25 15:01 AST 22 U/L (0-40) 01/04/25 15:01 ALT 14 U/L (0-41) 01/04/25 15:01 Alkaline Phosphatase 74 U/L (40-130) 01/04/25 15:01 Total Protein 6.3 g/dL (6.6-8.7) L 01/04/25 15:01 Albumin 3.9 g/dL (3.5-5.2) 01/04/25 15:01 Globulin 2.4 g/dL (1.3-4.6) 01/04/25 15:01 TSH 3.66 uIU/mL (0.27-4.20) 01/04/25 15:01 Urine Color Yellow (Yellow) 01/04/25 18:49 Urine Appearance Clear (CLEAR) 01/04/25 18:49 Urine pH 6.5 (5-7) 01/04/25 18:49 Ur Specific Sandy 1.017 (1.005-1.030) 01/04/25 18:49 Urine Protein Negative (Negative) 01/04/25 18:49 Urine Glucose (UA) Negative (Normal) 01/04/25 18:49 Urine Ketones Negative (Negative) 01/04/25 18:49 Urine Blood Negative (Negative) 01/04/25 18:49 Urine Nitrate Negative (Negative) 01/04/25 18:49 Urine Bilirubin Negative (Negative) 01/04/25 18:49 Urine Urobilinogen 1.0 mg/dL (Negative) 01/04/25 18:49 Ur Leukocyte Esterase Negative (Negative) 01/04/25 18:49 Amorphous Sediment Not Reportable 01/04/25 18:49 Salicylates < 0.3 mg/dL (3-10) L 01/04/25 15:01 Acetaminophen < 5.0 ug/mL (10-30) L 01/04/25 15:01 Influenza A (PCR) Negative (Negative) 01/04/25 15:14 Influenza Type B (PCR) Negative (Negative) 01/04/25 15:14 RSV (PCR) Negative (Negative) 01/04/25 15:14 SARS-CoV-2 (PCR) Negative (Negative) 01/04/25 15:14 All radiology interpretation(s) finalized by discharge EKG Data EKG 1: I personally reviewed and interpreted this EKG as follows: Interpretation: Contemporaneous review of resting EKG reveals ventricular to 62 bpm with prolonged NY interval consistent with a first-degree AV block. Normal QRS duration, normal corrected QT interval. Normal axis. No acute ST-T wave changes noted. Discharge Plan Discharge Patient Disposition: Xfer Psychiatric Hosp Clinical Impression: Dementia, Parkinson's disease, Post traumatic stress disorder Condition: Stable Referrals: Tangela Cummins MD [Primary Care Provider, 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
[2025-01-04 15:10] LABS: Hematocrit 36.2 % (37-53); Hemoglobin 11.60 g/dL (11.27-16.99); Mean Corpuscular HGB Conc 32.0 g/dL (30-55); Mean Corpuscular Hemoglobin 30.2 pg (27-33); Mean Corpuscular Volume 94.3 fl (82-101); Nucleated Red Blood Cells % 0 %; Platelet Count 145 10^3/cmm (157-399); Red Blood Count 3.84 10^6/uL (3.85-5.65); White Blood Count 6.36 10^3/uL (3.29-11.43)
--- NOTE | 2025-01-04 15:21 | PC.PHAR ---
Pt is from [facility]
[2025-01-04 15:37] LABS: Alanine Aminotransferase 14 U/L (0-41); Albumin Level 3.9 g/dL (3.5-5.2); Alkaline Phosphatase 74 U/L (40-130); Anion Gap 15.1 (5-19); Aspartate Amino Transferase 22 U/L (0-40); Blood Urea Nitrogen 22 mg/dL (8-23); Calcium 8.5 mg/dL (8.5-10.5); Carbon Dioxide 26 mmol/L (22-29); Chloride 106 mmol/L (98-107); Globulin 2.4 g/dL (1.3-4.6); Glucose 89 mg/dL (65-115); Osmolality Calculated 299 mOsm/kg (285-295); Potassium 4.1 mmol/L (3.5-5.1); Sodium 143 mmol/L (136-145); Thyroid Stimulating Hormone 3.66 uIU/mL (0.27-4.20); Total Protein 6.3 g/dL (6.6-8.7)
[2025-01-04 15:41] LABS: Acetaminophen < 5.0 ug/mL (10-30); Salicylate < 0.3 mg/dL (3-10)
[2025-01-04 16:06] LABS: Respiratory Syncytial Virus Ce NEGATIVE (Negative); SARS-CoV-2 PCR NEGATIVE (Negative)
--- NOTE | 2025-01-04 17:58 | PC.NURSE ---
PT CHANGED INTO GREEN PAPER SCRUBS BY THIS RN. PT BELONGINGS GIVEN TO PT DAUGHTER TO TAKE HOME.
--- NOTE | 2025-01-04 18:12 | XRR_ITS ---
PROCEDURE INFORMATION: Exam: XR Left Ankle Exam date and time: 01/04/2025 6:24 PM Age: 84 years old Clinical indication: Edema; Location not specified; Additional info: Swollen poor historian TECHNIQUE: Imaging protocol: Radiologic exam of the left ankle. Views: 3 or more views. COMPARISON: No relevant prior studies available. FINDINGS: Bones/joints: Diffuse osteopenia.No acute displaced fracture or dislocation. Ankle mortise is maintained. Soft tissues: Soft tissue edema. XR/XR ankle LT min 3V* [id number] IMPRESSION: No acute displaced fracture or dislocation.
[2025-01-04 18:38] VITALS: BP 151/98; PULSE 62; RESP 16; TEMP 36.6; O2SAT 100
[2025-01-04 18:54] LABS: Add Urine Microscopic? NO
[2025-01-04 18:56] LABS: Glucose Urine UA Negative (Normal); Nitrate Urine Negative (Negative); Specific Gravity, Urine 1.017 (1.005-1.030)
[2025-01-04 19:13] LABS: Charge for UA Resulting for Rev
[2025-01-04 21:15] VITALS: BP 156/92; PULSE 65; O2SAT 97
[2025-01-04 21:57] VITALS: BP 154/92; PULSE 64; O2SAT 97
== END 2025-01-04 21:45 ==
PROVIDERS: Emergency Provider Emergency Medicine; PCP Family Medicine
DX: G20.A1 Parkinson's disease without dyskinesia, without mention of fluctuations (principal); F02.80 Dementia in other diseases classified elsewhere, unspecified severity, without behavioral disturbance, psychotic disturbance, mood disturbance, and anxiety; F43.10 Post-traumatic stress disorder, unspecified; Z11.52 Encounter for screening for COVID-19; Z87.891 Personal history of nicotine dependence
CPT/HCPCS: 36415; 73610; 80053; 80307; 81003; 84443; 85025; 87637; 93005; 99285

== ENCOUNTER 2025-02-16 09:44 | Emergency (ER) | payer OTHER, MEDICARE, SELFPAY ==
--- OUTSIDE RECORDS SUMMARY | 2025-02-07 12:00 | XMS_ITS ---
Author Organization [facility] Address [address] [place] [address] Care Team Providers Care Transfer Driver Name Role Phone [facility] Primary Care Provider Angelica vailable IVAN FERNANDES Unavailable [phone] [place], [place] Unavailable Unavailable SHANNAN JESSICA Unavailable [phone] REASON FOR VISIT Pts daughter cx appt- 4-6 mo w/ ua/pvr Encounters Encounter Location Date Provider Diagnosis [facility] [address] [place] [address] 02/07/2025 SHANNAN JESSICA Plan Of Treatment No Information Progress Notes * Shawn ROJAS RDOB: 0 (84 yo M)Acc No.[id number]:02/07/2025 Progress Notes Patient: Silvano AMOR Shawn Coronel Provider: Tatiana Jessica APRN :1940 A ge:84 Y S ex:Male Date:02/07/2025 Address:[address] [place], [place] [phone] Pcp:[facility] Subjective: * Chief Complaints: * 1 . Pts daughter cx appt- 4-6 mo w/ ua/pvr. * Medical History: Objective: * Vitals: Assessment: Plan: * Treatment: * Billing Information: * Visit Code: * Procedure Codes: * Electronic signature of ALBA JESSICA APRN on 02/16/2025 at 09:50 AM CDT Sign off status: Pending * Provider: Tatiana Jessica APRN Date: 0 02/07/2025 Generated for Concetta metcalf/Destiny/Josias on: 0 02/16/2025 09:50 AM CDT
[2025-02-16 09:45] VITALS: BP 112/60; PULSE 65; RESP 17; TEMP 36.8; O2SAT 92; BMI 27.4
--- OUTSIDE RECORDS SUMMARY | 2025-02-16 09:50 | XMS_ITS | Patient Health Record ---
Author Organization [facility] Address [address] [place] [address] Care Team Providers Care Rehabilitation Tech Name Role Phone None, None Primary Care Provider Unavailabl e Badejo, Abodunrin Unavailable [phone] [place], [place] Unavailable Unavailable Allergies Allergen (clinical drug ingredient) [...] Date Status Comme nts Influenza (whole), CPT 40949 Inactive Unknown 02/22/2016 Administered Influenza (whole), CPT 97745 Inactive Unknown 05/24/2016 Administered Social History Tobacco Use: Social History [...] Problem Status W/U Status Risk Notes Problem Constipation (88627100) Constipation (564.0) 016 Active confirmed [id number] 911- Problem Chronic kidney disease stage 2 (443751867) Chronic kidney disease, Stage II (mild) (585.2) 010 Problem resolved confirmed [id number] 911- Problem Cough (40099987) Cough (786.2) 010 Problem resolved confirmed Fredi-[id number] 911- Problem Urinary frequency (397125244) Urinary frequency (788.41) 013 Active confirmed Fredi-985 911- Problem Adjustment disorder with mixed disturbance of emotions AND conduct (61187021) 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 Problem Anxiety (43402157) Anxiety (F41.9) Active confi rmed Problem Dementia with behavioral disturbance (disorder) (3981744314620) Dementia associated with other underlying disease with behavioral disturbance (F02.81) Active confirmed Problem Insomnia (707203532) Insomnia (G47.00) Active confirmed Problem Hypothyroidism (63395128) Hypothyroidism (244.9) 013 Active confirmed Fredi-985 911- Problem Adult failure to thrive syndrome (987590310) Failure to thrive in adult (R62.7) Active confirmed Problem Cerebrovascular disease (00874105) Cerebral microvascular disease (I67.9) Active confirmed Problem Psychosis (05870361) Psychosis (F29) Active confirmed Problem 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) Brain atrophy (G31.9) Active confirmed Problem History of adenomatous polyp of colon (309923125) History of adenomatous polyp of colon (Z86.010) Active confirmed Problem Aortic valve stenosis (29729123) Aortic valve stenosis (424.1) 016 Active confirmed Fredi-985 911- Problem Reduced libido (7254041) Decreased libido (302.71) 018 Active confirmed Fredi-985 911- Problem Erectile dysfunction (759157166) Erectile dysfunction (302.72) 013 Active confirmed Fredi-985 911- Problem Vitamin D deficiency (10359877) Vitamin D deficiency, unspecified (268.9) 016 Problem resolved confirmed Fredi-985 911- Problem Presence of indwelling urinary catheter (Z96.0) Active confirmed Problem Vascular dementia with behavioral disturbance (disorder) (957897224827973) Vascular dementia, unspecified severity, with other behavioral disturbance (F01.518) Active confirmed Problem Vascular dementia, unspecified severity, with psychotic disturbance (F01.52) Active confirmed Problem Vascular dementia, moderate, with other behavioral disturbance (F01.B18) Active confirmed Problem Vascular dementia, severe, with other behavioral disturbance (F01.C18) Active confirmed Problem Vascular dementia, severe, with psychotic disturbance (F01.C2) Active confirmed Problem Dementia with behavioral disturbance (disorder) (0695400081519) Dementia in other diseases classified elsewhere, unspecified severity, with other behavioral disturbance (F02.818) Active confirmed Problem Dementia in othe r diseases classified elsewhere, unspecified severity, with psychotic disturbance (F02.82) Active confirmed Problem Dementia (disorder) (34907922) Dementia in other diseases classified elsewhere, severe, with other behavioral disturbance (F02.C18) Active confirmed Problem Dementia in othe r diseases classified elsewhere, severe, with psychotic disturbance (F02.C2) Active confirmed Problem 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) Neurocognitive disorder with Lewy bodies (G31.83) Active confirmed Plan Of Treatment No Information Insurance Providers Payer Name Payer Address Payer Phone Subscriber Number Group Number Insured Name Patient Relationship to Insured Coverage Start Date Coverage End Date [employer] [address] [place] [address] [phone] [id number] Shawn Rojas Self - patient is the insured [place] [address] [place] [phone] [id number] Shawn Rojas Self - patient is the insured 3 [employer] [place] [address] [place] [address] [id number] Shawn Rojas Self - patient is the insured 6 Medical (General) History Medical History History ICD Code Problem: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
--- OUTSIDE RECORDS SUMMARY | 2025-02-16 09:50 | XMS_ITS | Patient Health Record ---
Author Organization [facility] Address [address] [place] [address] Care Team Providers Care Clinical Writer Name Role Phone [facility] Primary Care Provider Angelica ERAN Diana Unavailable [phone] [place], [place] Unavailable Unavailable SHANNAN JESSICA Unavailable [phone] Allergies Allergen (clinical drug ingredient) Drug/Non Drug Allergy documented on EMR Reaction Allergy Type Onset Date Status Penicillin Unknown Drug Allergy Active Results Component Value Reference Range Notes Urinalysis, Routine Reviewed date:03/22/2024 04:14:34 PM Interpretation: Performing Lab: Notes/Report: Urine-Color yellow Appearance clear Glucose - Bilirubin - Ketones - Specific [place] 1.010 Occult Blood - pH 6.0 Urine [...] Problem Neurogenic dysfunction of the urinary bladder (593741484) Neurogenic bladder disorder (N31.9) Active confirmed Problem Overactive urinary bladder (disorder) (412763876) OAB (overactive bladder) (N32.81) Active confirmed Problem Benign prostatic hypertrophy with outflow obstruction (675406374) BPH loc w urin obs/LUTS (N40.1) Active confirmed Vital Signs Heart Rate 63 /min 07/18/2024 Blood pressure diastolic 63 mm Hg 07/18/2024 Height-cm 170.18 cm 09/06/2024 Weight-kg 86.18 kg 09/06/2024 Height 67 in 09/06/2024 Blood pressure systolic 116 mm Hg 07/18/2024 Weight 190 lbs 09/06/2024 BMI 29.75 kg/m2 09/06/2024 Procedures Procedure Date Ordered Date Performed Result Body Sit e Bladder Scan 07/18/2024 07/18/2024 239ml Bladder Scan 09/06/2024 N/A Encounters Encounter Location Date Provider Diagnosis [facility] [employer] [facility] [address] [place] [address] 03/22/2024 ERAN DOM BPH loc w urin obs/LUTS N40.1 ; Urinary frequency R35.0 ; OAB (overactive bladder) N32.81 and Neurogenic bladder disorder N31.9 [facility], [facility] [address] [place] [address] 07/18/2024 ERAN BOSE BPH loc w urin obs/LUTS N40.1 ; Urinary frequency R35.0 ; OAB (overactive bladder) N32.81 and Neurogenic bladder disorder N31.9 [facility], [facility] [address] [place] [address] 09/06/2024 SHANNAN JESSICA BPH loc w urin obs/LUTS N40.1 ; OAB (overactive bladder) N32.81 ; Neurogenic bladder disorder N31.9 and Urinary frequency R35.0 [facility], [facility] [address] [place] [address] 08/07/2024 ERAN BOSE Urinary frequency R35.0 Assessments Encounter Date Diagnosis (ICD Code) Assessment Notes Treatment Notes Treatment Clinical Notes Section Notes 03/22/2024 BPH loc w urin obs/LUTS (ICD-10 [...] than 50% of that time in direct hnuc-kx-ofuj discussion. 07/18/2024 BPH loc w urin obs/LUTS [...] than 50% of that time in direct iyqb-ty-tnej discussion. 03/22/2024 OAB (overactive bladder) (ICD-10 - N32.81) [...] than 50% of that time in direct fbbs-an-xzkr discussion. 09/06/2024 Urinary frequency (ICD-10 - R35.0) [...] than 50% of that time in direct soif-en-hhmx discussion. 07/18/2024 Other Cher Barry Scribe, am scribing for, and in the presence [...] Order Date Bladder Scan 09/06/2024 [facility] 02/15/2024 Insurance Providers Payer Name Payer Address Payer Phone Subscriber Number Group Number Insured Name Patient Relationship to Insured Coverage Start Date Coverage End Date [employer] [address] [place] [id number] Shawn Rojas Self - patient is the insured Medical (General) History Medical History History ICD Code Parkinson's disease Hypothyroidism Arthritis Urinary frequency Urinary incontinence Urinary retention Nocturia BPH ED Surgical History Surgery Date(Month/Year) right inguinal hernia repair Hospitalization History Reason Date(Month/Year) see prior sx hx
--- OUTSIDE RECORDS SUMMARY | 2025-02-16 09:51 | XMS_ITS | Encounter Summary ---
Author Organization [facility] Address [address] [place] [address] Care Team Providers Care Transfer Engineer Name Role Phone Unavailable Primary Care Provider Unavailabl e Encounter Details Date Type Department Care Team (Latest Contact Info) Description 06/18/2003 Outpatient Historical HIS [facility] Aman Logan MD [address] [place] [address] Pure hypercholesterolem (Primary Dx); OSTEOARTHROS NOS-L/LEG; HEARING LOSS NOS Social History Tobacco Use Types Packs/Day Years Used Date Smoking Tobacco: Never Assessed Sex and Gender Information Value Date Recorded Sex Assigned at Not on file 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
--- OUTSIDE RECORDS SUMMARY | 2025-02-16 09:51 | XMS_ITS | Encounter Summary ---
Author Organization [employer] [facility] Address [address] [place] [address] Care Team Providers Care Tipple Engineer Name Role Phone Unavailable Primary Care Provider Unavailabl e Encounter Details Date Type Department Care Team (Latest Contact Info) Description 07/11/2003 Outpatient Historical HIS [facility] Aman Logan MD [address] [place] [address] PURE HYPERGLYCERIDEMIA (Primary Dx) Social History Tobacco Use Types Packs/Day Years Used Date Smoking Tobacco: Never Assessed Sex and Gender Information Value Date Recorded Sex Assigned at Not on file 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
--- OUTSIDE RECORDS SUMMARY | 2025-02-16 09:51 | XMS_ITS | Clinical Summary ---
Author Organization 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
--- OUTSIDE RECORDS SUMMARY | 2025-02-16 09:51 | XMS_ITS | Encounter Summary ---
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
--- NOTE | 2025-02-16 09:52 | CT_ITS ---
WS: [id number] CT HEAD TECHNIQUE: Noncontrast CT of the head obtained from the skullbase to the vertex. CLINICAL INFORMATION: syncope COMPARISON: 07/10/2024 DLP: 1097.[address] scans at [facility] use at least one of these dose optimization techniques: automated exposure control; mA and/or kV adjustment per patient size (includes targeted exams where dose is matched to clinical indication); or iterative reconstruction. FINDINGS: No evidence of intracranial hemorrhage or mass effect. Ventricular system and basal cisterns are patent. Mild small vessel changes with moderate parenchymal volume loss. Vascular calcification. No extra-axial fluid collections. No evidence of mass or mass effect. Paranasal sinuses are well aerated. Mild mucosal thickening in the mastoid tips. Normal posterior nasopharynx. CT/CT head wo con* [id number] IMPRESSION: 1. No evidence of intracranial hemorrhage or mass effect. 2. Vascular calcification. 3. No acute intracranial findings.
--- NOTE | 2025-02-16 09:52 | XR_ITS ---
WS: [id number] Exam: XR chest 1V portable [id number] Date/Time of Exam: 02/16/2025 10:13 AM Reason For Exam: sycnope Comparison 02/18/2024. Lungs are clear and fully expanded. Heart size is normal. No pleural effusions. The mediastinum is normal in contour. Old RIGHT clavicle fracture. XR/XR chest 1V portable [id number] IMPRESSION: 1. No acute cardiopulmonary finding.
--- NOTE | 2025-02-16 09:53 | W.ED.SYNCOPE ---
HPI - Syncope General: Chief Complaint: Altered Mental Status Stated Complaint: syncopal episode Time Seen by Provider: 02/16/25 09:45 Source: family and EMS Mode of arrival: EMS Limitations: altered mental status (severe dementia) History of Present Illness: Patient is an 84-year-old male who presents to ED today via EMS for an evaluation of an episode of unresponsiveness. EMS had originally told me patient was in the shower when episode happened however, later daughter/ arrives to provide further history. They states he was on a bedside commode attempting defecation when he had an episode of unresponsiveness lasting approximately 5 minutes. They deny any period of apnea. They do feel like he has some drooling and questionable left sided facial droop during episode. They state he slowly came to and upon arrival here is back to baseline. They report history of severe dementia/end-stage Lewy body dementia, Parkinson's disease, PTSD. They state he is wheelchair-bound. He has a chronic Van. He is on hospice through [facility]. MD complaint: loss of consciousness Onset (ago): hour(s) Duration of episode: 5 -: minutes(s) Witnessed: Yes - by Bystander Context: other (on commode) Injuries sustained associated with event: none Associated symptoms: Deny abdominal pain, chest pain, fever(s) or headache(s) Treatments prior to arrival: none Related Data Home Medications ?Medication ?Instructions ?Recorded ?Confirmed tamsulosin 0.4 mg capsule 0.4 mg PO BEDTIME 06/05/19 02/16/25 finasteride 5 mg tablet 5 mg PO BEDTIME 01/07/24 02/16/25 betamethasone dipropionate 0.05 % 1 applic topical BID PRN Skin 05/11/24 02/16/25 topical ointment Irritation fluticasone propionate 50 1 spray intranasal DAILY PRN 05/11/24 02/16/25 mcg/actuation nasal allergies spray,suspension triamcinolone acetonide 0.1 % 1 applic topical BID PRN Rash 05/11/24 02/16/25 topical cream vitamins A,C,T-wcvs-gbihsh 4,296 1 cap PO DAILY 10/17/24 02/16/25 mcg-226 mg-90 mg capsule (PreserVision AREDS) acetaminophen 325 mg tablet 650 mg PO Q6H PRN Pain 12/21/24 02/16/25 (Tylenol) mirabegron 50 mg tablet,extended 50 mg PO QPM 12/21/24 02/16/25 release 24 hr bisacodyl 10 mg rectal suppository 10 mg CO DAILY PRN Constipation 01/04/25 02/16/25 levothyroxine 112 mcg tablet 112 mcg PO .Q5AM 01/04/25 02/16/25 cephalexin 500 mg capsule 500 mg PO QID 02/16/25 02/16/25 docusate sodium 100 mg capsule 200 mg PO BID 02/16/25 02/16/25 (Colace) lorazepam 2 mg/mL oral concentrate See Rx Instructions .Route .COMPLEX 02/16/25 02/16/25 nystatin 100,000 unit/gram topical 1 applic topical BID PRN Rash 02/16/25 02/16/25 powder quetiapine 50 mg tablet 50 mg PO BID 02/16/25 02/16/25 zaleplon 10 mg capsule 10 mg PO BEDTIME 02/16/25 02/16/25 Allergies Allergy/AdvReac Type Severity Reaction Status Date / Time Penicillins Allergy Unknown Verified 12/21/24 15:34 Review of Systems General: Reports: ROS unobtainable due to medical condition, ROS unobtainable due to mental status and Other (pt has severe dementia/end stage Lewy Body dementia) Narrative: pt does answer questions well but question the validity of his answers due to his dementia Const: Denies: fever(s), chills or body aches Eyes: Denies: change in vision Card: Denies: chest pain or edema Resp: Denies: dyspnea GI: Denies: abdominal pain, vomiting or diarrhea : Reports: other (chronic van catheter); Denies: flank pain or hematuria Musc: Denies: neck pain, back pain, extremity pain or joint swelling Skin/Breast: Denies: rash Neuro: Denies: headache(s) or seizure-like activity PFSH ED PFSH: Medical History Hypotension Aortic valve disease Impotence, organic Umbilical hernia Lower urinary tract symptoms (LUTS) Surgical History Status post hernia repair Social History (Reviewed 02/16/25 @ 10:09 by RAVI Solitario Smoking and tobacco/nicotine status: former use of tobacco/nicotine Alcohol intake: former Substance/Drug Use: unknown Adopted: No Caregiver/support person: No Lives independently: No Household members: spouse Marital status: Current occupational status: retired Physical Exam Const: COMMON NORMALS: no acute distress, average body habitus, patient oriented x3, alert and well nourished GENERAL APPEARANCE: cooperative ORIENTATION/CONSCIOUSNESS: Yes awake and Yes oriented to person OTHER: at mental baseline per family HENMT: COMMON NORMALS: normocephalic and atraumatic HEAD & SCALP: normal to inspection, normocephalic and atraumatic FACE & SINUS: normal facial exam and face symmetric Eye: GENERAL EYE: appearance normal, both eyes and all related structures and normal light reflex DIRECT OPHTHALMOSCOPY: Yes normal light reflex Neck/C-Spine: COMMON NORMALS: full ROM, no lymphadenopathy, supple and no meningeal signs Chest: COMMONS NORMALS: normal inspection of the chest Resp: COMMON NORMALS: normal respiratory effort and clear to auscultation bilaterally AUSCULTATION: clear to auscultation bilaterally Cardio: COMMON NORMALS: regular rate and regular rhythm RATE: regular rate RHYTHM: regular rhythm GI: COMMON NORMALS: Normal to inspection, nondistended, normoactive bowel sounds present, Soft to palpation, non-tender, No hepatosplenomegaly present and no masses PALPATION: Yes Soft to palpation and Yes No hepatosplenomegaly present : COMMON NORMALS: Yes no CVA tenderness BLADDER/KIDNEY EXAM: Yes no CVA tenderness OTHER: chronic van catheter present-urine appears clean Back/Pelvis: COMMON NORMALS: no CVA tenderness and thoracic and lumbar spine normal to inspection Extremity: COMMON NORMALS: normal to inspection, no clubbing, cyanosis or edema, no calf tenderness and no pedal edema GENERAL: Yes normal exam except as noted Neuro: ANDREA COMA SCALE: document GCS findings Andrea coma scale eye opening: Spontaneous [place] coma scale verbal response: Orientated [place] coma scale motor response: Obey commands [place] coma scale total score: 15 COMMON NORMALS: patient oriented x3 and CN's II-XII intact bilaterally SENSORIUM/ORIENTATION: Yes alert and Yes oriented to person MENINGEAL SIGNS: Yes no meningeal signs SPEECH: speech normal OTHER: wheelchair bound per family; NIH 0 Skin: COMMON NORMALS: no rashes or lesions noted GENERAL SKIN EXAM: no rashes or lesions noted Course Vital Signs: Vital signs: Vital Signs Temperature 98.2 F 02/16/25 09:45 Pulse Rate 67 02/16/25 12:00 Respiratory Rate 17 02/16/25 12:26 Blood Pressure 167/93 02/16/25 12:00 Pulse Oximetry 94 02/16/25 12:26 Oxygen Delivery Me thod Room Air 02/16/25 12:00 MDM - Syncope Medical Decision Making Patient is a 84-year-old male here with an episode of syncope/unconsciousness while attempting to defecate on a bedside commode. He has been asymptomatic during his emergency department stay. His vital signs are stable. His blood work overall is unremarkable baseline troponin of 35 with a negative delta. His EKGs are nonischemic. CXR/CT head obtained and unremarkable. UA slightly suspicious for infection with positive nitrates and trace leuks. He is already on Keflex. Will hold off on additional antimicrobial therapy and will culture. At this time patient is stable for discharge back home with his hospice team. Differential Diagnosis Likely vasovagal syncope Medical Records I reviewed the patient's medical records. Lab Data I reviewed the patient's lab results. 02/16/25 09:20 02/16/25 09:20 Radiology Impressions Chest X-Ray 02/16/25 09:52 IMPRESSION: 1. No acute cardiopulmonary finding. Head CT 02/16/25 09:52 IMPRESSION: 1. No evidence of intracranial hemorrhage or mass effect. 2. Vascular calcification. 3. No acute intracranial findings. Laboratory Results WBC 7.88 10^3/uL (3.29-11.43) 02/16/25 09:20 RBC 4.23 10^6/uL (3.85-5.65) 02/16/25 09:20 Hgb 12.70 g/dL (11.27-16.99) 02/16/25 09:20 Hct 39.7 % (37-53) 02/16/25 09:20 MCV 93.9 fl (82-101) 02/16/25 09:20 MCH 30.0 pg (27-33) 02/16/25 09:20 MCHC 32.0 g/dL (30-55) 02/16/25 09:20 RDW 12.7 % (12.1-15.1) 02/16/25 09:20 Plt Count 204 10^3/cmm (157-399) 02/16/25 09:20 MPV 10.4 fL (7.4-10.4) 02/16/25 09:20 Neut % (Auto) 72.4 % 02/16/25 09:20 Lymph % (Auto) 16.9 % 02/16/25 09:20 [place] % (Auto) 4.4 % 02/16/25 09:20 Eos % (Auto) 5.7 % 02/16/25 09:20 Baso % (Auto) 0.3 % 02/16/25 09:20 Neut # (Auto) 5.71 10^3/uL (1.8-7.7) 02/16/25 09:20 Lymph # (Auto) 1.3 10^3/uL (0.8-4.8) 02/16/25 09:20 [place] # (Auto) 0.4 10^3/uL (0.2-0.9) 02/16/25 09:20 Eos # (Auto) 0.5 10^3/uL (0.0-0.8) 02/16/25 09:20 Baso # (Auto) 0.0 10^3/uL (0.0-0.1) 02/16/25 09:20 Nucleated RBC % (auto) 0 % 02/16/25 09:20 Nucleated RBCs # 0.0 /100WBC 02/16/25 09:20 Sodium 140 mmol/L (136-145) 02/16/25 09:20 Potassium 4.1 mmol/L (3.5-5.1) 02/16/25 09:20 Chloride 103 mmol/L (98-107) 02/16/25 09:20 Carbon Dioxide 27 mmol/L (22-29) 02/16/25 09:20 Anion Gap 14.1 (5-19) 02/16/25 09:20 BUN 14 mg/dL (8-23) 02/16/25 09:20 Creatinine 1.1 mg/dL (0.7-1.2) 02/16/25 09:20 GFR Calculation Not Reportable 02/16/25 09:20 Glucose 115 mg/dL (65-115) 02/16/25 09:20 Calculated Osmolality 291 mOsm/kg (285-295) 02/16/25 09:20 Calcium 8.9 mg/dL (8.5-10.5) 02/16/25 09:20 Total Bilirubin 0.4 mg/dL (0.15-1.2) 02/16/25 09:20 AST 19 U/L (0-40) 02/16/25 09:20 ALT 11 U/L (0-41) 02/16/25 09:20 Alkaline Phosphatase 73 U/L (40-130) 02/16/25 09:20 Troponin T Baseline 35 ng/L (0-15) H 02/16/25 09:20 Troponin T 120 Minute 31.77 ng/L (0-15) H 02/16/25 10:48 Delta Troponin T -3.23 ABS# (0-10) L 02/16/25 10:48 Total Protein 6.8 g/dL (6.6-8.7) 02/16/25 09:20 Albumin 3.8 g/dL (3.5-5.2) 02/16/25 09:20 Globulin 3.0 g/dL (1.3-4.6) 02/16/25 09:20 Urine Color Yellow (Yellow) 02/16/25 11:45 Urine Appearance Clear (CLEAR) 02/16/25 11:45 Urine pH 7.0 (5-7) 02/16/25 11:45 Ur Specific [place] 1.011 (1.005-1.030) 02/16/25 11:45 Urine Protein Negative (Negative) 02/16/25 11:45 Urine Glucose (UA) Negative (Normal) 02/16/25 11:45 Urine Ketones Negative (Negative) 02/16/25 11:45 Urine Blood Negative (Negative) 02/16/25 11:45 Urine Nitrate Positive (Negative) A 02/16/25 11:45 Urine Bilirubin Negative (Negative) 02/16/25 11:45 Urine Urobilinogen 1.0 mg/dL (Negative) 02/16/25 11:45 Ur Leukocyte Esterase Trace (Negative) A 02/16/25 11:45 Urine RBC 3-5 /hpf (0-2) 02/16/25 11:45 Urine WBC 0-5 /hpf (0-5) 02/16/25 11:45 Ur Squamous Epith Cells 0-5 /hpf (0-5) 02/16/25 11:45 Amorphous Sediment Not Reportable 02/16/25 11:45 Urine Bacteria None seen /hpf (NONE) 02/16/25 11:45 Hyaline Casts 0-4 /lpf H 02/16/25 11:45 All radiology interpretation(s) finalized by discharge Discharge Plan Discharge Patient Disposition: Home Clinical Impression: Vasovagal syncope Condition: Stable Prescriptions: No Action tamsulosin 0.4 mg capsule 0.4 mg PO BEDTIME finasteride 5 mg tablet 5 mg PO BEDTIME mirabegron 50 mg tablet extended release 24 hr 50 mg PO QPM acetaminophen [Tylenol] 325 mg tablet 650 mg PO Q6H PRN (Reason: Pain) PreserVision AREDS 4,296 mcg-226 mg-90 mg capsule 1 cap PO DAILY betamethasone dipropionate 0.05 % ointment 1 applic TOPICAL BID PRN (Reason: Skin Irritation) fluticasone propionate 50 mcg/actuation spray,suspension 1 spray INTRANASAL DAILY PRN (Reason: allergies) Rx Instructions: administer into each nostril triamcinolone acetonide 0.1 % cream 1 applic TOPICAL BID PRN (Reason: Rash) bisacodyl 10 mg Suppository 10 mg CO DAILY PRN (Reason: Constipation) levothyroxine 112 mcg tablet 112 mcg PO .Q5AM cephalexin 500 mg capsule 500 mg PO QID docusate sodium [Colace] 100 mg Capsule 200 mg PO BID zaleplon 10 mg capsule 10 mg PO BEDTIME nystatin 100,000 unit/gram powder 1 applic TOPICAL BID PRN (Reason: Rash) lorazepam 2 mg/mL concentrate See Rx Instructions .ROUTE .COMPLEX Rx Instructions: TAKE 0.25 ML BY MOUTH EVERY FOUR HOURS PRN AGGITATION. quetiapine 50 mg tablet 50 mg PO BID Discharge Orders: Discharge ED (Routine); Ordered 02/16/25 Ordered By: Mer Smith Referrals: Tangela Cummins MD [Primary Care Provider, Family Practice] Patient Instructions: Patient Portal & Jossie Instructions Activity Restrictions/Additional Instructions: As we discussed, I suspect patient had a vasovagal syncopal episode while attempting to defecate on the commode earlier. His vitals have been stable here. His blood work is unremarkable. We discussed how his UA is slightly suspicious for a UTI-will culture for definitive confirmation. You have indicated he is already taking Keflex which should cover for a UTI. Print Language: Ghanaian Coding Level of Care Code ED Court Monitor for Kip Null
[2025-02-16 10:12] LABS: Hematocrit 39.7 % (37-53); Hemoglobin 12.70 g/dL (11.27-16.99); Mean Corpuscular HGB Conc 32.0 g/dL (30-55); Mean Corpuscular Hemoglobin 30.0 pg (27-33); Mean Corpuscular Volume 93.9 fl (82-101); Nucleated Red Blood Cells % 0 %; Platelet Count 204 10^3/cmm (157-399); Red Blood Count 4.23 10^6/uL (3.85-5.65); White Blood Count 7.88 10^3/uL (3.29-11.43)
[2025-02-16 10:28] LABS: Troponin(5th) Baseline 35 ng/L (0-15)
[2025-02-16 10:32] LABS: Alanine Aminotransferase 11 U/L (0-41); Albumin Level 3.8 g/dL (3.5-5.2); Alkaline Phosphatase 73 U/L (40-130); Anion Gap 14.1 (5-19); Aspartate Amino Transferase 19 U/L (0-40); Blood Urea Nitrogen 14 mg/dL (8-23); Calcium 8.9 mg/dL (8.5-10.5); Carbon Dioxide 27 mmol/L (22-29); Chloride 103 mmol/L (98-107); Creatinine Clr Calc Pharmacy 48.8758; Globulin 3.0 g/dL (1.3-4.6); Glucose 115 mg/dL (65-115); Osmolality Calculated 291 mOsm/kg (285-295); Potassium 4.1 mmol/L (3.5-5.1); Sodium 140 mmol/L (136-145); Total Protein 6.8 g/dL (6.6-8.7)
--- NOTE | 2025-02-16 10:35 | ECG_ITS ---
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1940 Requested By: Mer Smith Order Number: [id number] Reading MD: MICHELLE AGUILAR Measurements Intervals [place] Rate: 68 P: 71 MT: 272 QRS: -33 QRSD: 107 T: 77 QT: 418 QTc: 447 Interpretive Statements SINUS RHYTHM WITH FIRST DEGREE AV BLOCK LEFT AXIS DEVIATION [QRS AXIS < -30] INCOMPLETE RIGHT BUNDLE BRANCH BLOCK [90+ ms QRS DURATION, TERMINAL R IN V1/V2, 40+ ms S IN I/aVL/V4/V5/V6] SEPTAL MYOCARDIAL INFARCTION , PROBABLY OLD [40+ ms Q WAVE IN V1/V2] Compared to ECG 01/04/2025 15:07:53 Left-axis deviation now present Incomplete right bundle-branch block now present Myocardial infarct finding still present Electronically Signed On 02-17-2025 21:35:16 CDT by MICHELLE AGUILAR [email or web address]
--- NOTE | 2025-02-16 11:14 | PC.PHAR ---
Daughter keeps a current list of pts' medications due to them changing constantly. Several new medications added today, 02/16/25.
[2025-02-16 11:17] VITALS: BP 149/82; PULSE 66; O2SAT 97
[2025-02-16 11:20] LABS: Troponin 5 2HR 31.77 ng/L (0-15); Troponin 5 2HR Delta -3.23 ABS# (0-10)
[2025-02-16 11:30] VITALS: O2SAT 99
--- NOTE | 2025-02-16 11:53 | ECG_ITS ---
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1940 Requested By: Mer Smith Order Number: [id number] Reading MD: MICHELLE AGUILAR Measurements Intervals [place] Rate: 65 P: 50 MS: 277 QRS: -24 QRSD: 107 T: 77 QT: 411 QTc: 428 Interpretive Statements SINUS RHYTHM WITH FIRST DEGREE AV BLOCK INCOMPLETE RIGHT BUNDLE BRANCH BLOCK [90+ ms QRS DURATION, TERMINAL R IN V1/V2, 40+ ms S IN I/aVL/V4/V5/V6] SEPTAL MYOCARDIAL INFARCTION , OF INDETERMINATE AGE [40+ ms Q WAVE IN V1/V2] Compared to ECG 02/16/2025 10:35:36 Left-axis deviation no longer present Myocardial infarct finding still present Electronically Signed On 02-17-2025 21:40:41 CDT by MICHELLE AGUILAR [email or web address]
[2025-02-16 11:58] LABS: Glucose Urine UA Negative (Normal); Nitrate Urine Positive (Negative); Specific Gravity, Urine 1.011 (1.005-1.030)
[2025-02-16 12:00] VITALS: BP 167/93; PULSE 67; O2SAT 95
[2025-02-16 12:04] LABS: Add Urine Microscopic? YES
[2025-02-16] MEDS: ondansetron 2 mg/ML SDV 2 mL 4 MG IVP (12:25)
[2025-02-16 12:26] VITALS: RESP 17; O2SAT 94
[2025-02-16] MEDS: morphine 4 mg/mL SDV 1 mL IVP (12:26)
[2025-02-16 12:55] VITALS: BP 167/93; PULSE 65; O2SAT 100
== END 2025-02-16 12:57 | disposition home or self-care (01) ==
PROVIDERS: Emergency Provider Physician Assistant; PCP Family Medicine
DX: R55 Syncope and collapse (principal); Z87.891 Personal history of nicotine dependence
CPT/HCPCS: 70450; 71045; 80053; 81001; 84484; 85025; 87077; 87086; 87186; 93005; 96374; 96375; 99285; J2270; J2405

== ENCOUNTER 2025-04-17 10:22 | Emergency (ER) | payer OTHER, SELFPAY ==
--- OUTSIDE RECORDS SUMMARY | 2025-02-07 11:00 | XMS_ITS ---
Author Organization [facility] Address [address] [place] [address] Care Team Providers Care Pump Servicer Supervisor Name Role Phone [facility] Primary Care Provider Angelica vailable IVAN FERNANDES Unavailable [phone] [place], [place] Unavailable Unavailable SHANNAN JESSICA Unavailable [phone] REASON FOR VISIT Pts daughter cx appt- 4-6 mo w/ ua/pvr Encounters Encounter Location Date Provider Diagnosis [facility] [address] [place] [address] 02/07/2025 SHANNAN JESSICA Plan Of Treatment No Information Progress Notes * Shawn ROJAS RDOB: 0 (84 yo M)Acc No.[id number]:02/07/2025 Progress Notes Patient: Silvano AMOR Shawn Coronel Provider: Tatiana Jessica APRN :1940 A ge:84 Y S ex:Male Date:02/07/2025 Address:[address] [place], [place] [id number] Pcp:[facility] Subjective: * Chief Complaints: * 1 . Pts daughter cx appt- 4-6 mo w/ ua/pvr. * Medical History: Objective: * Vitals: Assessment: Plan: * Treatment: * Billing Information: * Visit Code: * Procedure Codes: * Electronic signature of ALBA JESSICA APRN on 04/17/2025 at 11:18 AM NITRIC ACID PLANT OPERATOR Sign off status: Pending * Provider: Tatiana Jessica APRN Date: 0 02/07/2025 Generated for Concetta metcalf/Destiny/Josias on: 1 06/17/2024 11:18 AM NITRIC ACID PLANT OPERATOR
--- NOTE | 2025-04-17 10:23 | XRR_ITS ---
PROCEDURE INFORMATION: Exam: XR Chest Exam date and time: 04/17/2025 10:32 AM Age: 84 years old Clinical indication: Pain; Angina pectoris; Syncope; Additional info: Chest pain TECHNIQUE: Imaging protocol: Radiologic exam of the chest. Views: 1 view. COMPARISON: CR XR chest 1V portable [id number] 02/16/2025 10:52 AM FINDINGS: Lungs: Unremarkable. No consolidation. Pleural spaces: Unremarkable. No pleural effusion. No pneumothorax. Heart/Mediastinum: Unremarkable. No cardiomegaly. Bones/joints: There is an old mid healed right clavicular fracture. XR/XR chest 1V portable [id number] IMPRESSION: No acute process
--- NOTE | 2025-04-17 10:29 | ECG_ITS ---
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 Measurements Intervals [place] Rate: 73 P: 48 TX: 275 QRS: -44 QRSD: 108 T: 77 QT: 394 QTc: 435 Interpretive Statements SINUS RHYTHM WITH FIRST DEGREE AV BLOCK LEFT AXIS DEVIATION [QRS AXIS < -30] SEPTAL MYOCARDIAL INFARCTION , OF INDETERMINATE AGE [40+ ms Q WAVE IN V1/V2] Compared to ECG 02/16/2025 12:00:54 Left-axis deviation now present Incomplete right bundle-branch block no longer present Myocardial infarct finding still present Electronically Signed On 04-19-2025 17:51:15 CLIENT ARCHITECT by Zuri Taylor M.D. [id number]
[2025-04-17 10:42] VITALS: BP 127/68; PULSE 73; RESP 16; TEMP 36.7; O2SAT 96
--- NOTE | 2025-04-17 10:44 | CTR_ITS ---
PROCEDURE INFORMATION: Exam: CT Head Without Contrast Exam date and time: 04/17/2025 11:01 AM Age: 84 years old Clinical indication: Altered mental status/memory loss; Additional info: AMS TECHNIQUE: Imaging protocol: Computed tomography of the head without contrast. Radiation optimization: All CT scans at this facility use at least one of these dose optimization techniques: automated exposure control; mA and/or kV adjustment per patient size (includes targeted exams where dose is matched to clinical indication); or iterative reconstruction. COMPARISON: CT head wo con* [id number] 02/16/2025 10:24 AM RADIATION DOSE METRICS: Total DLP (mGy-cm): 1100.3 FINDINGS: Brain: There is no intracranial hemorrhage. There is low density periventricular changes present typical of chronic deep white matter microvascular ischemic disease. There is generalized atrophy. There is no shift of midline or localized mass effect. Cerebral ventricles: The ventricles and basal cisterns are within normal limits. Paranasal sinuses: Visualized sinuses are unremarkable. No fluid levels. Mastoid air cells: Visualized mastoid air cells are well aerated. Bones: Unremarkable. No acute fracture. Soft tissues: Unremarkable. CT/CT head wo con* [id number] IMPRESSION: 1. No acute process 2. 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
--- NOTE | 2025-04-17 10:48 | W.ED.SYNCOPE ---
HPI - Syncope General: Chief Complaint: Syncope Stated Complaint: Syncopal episode Time Seen by Provider: 04/17/25 10:39 Source: patient and EMS Mode of arrival: EMS Limitations: no limitations History of Present Illness: 84-year-old male has a history of Lewy body dementia along with Parkinson's family states over the last few months he has also had episodes where his blood pressure drops and he has vagal responses. States this morning he had low blood pressure readings and became unresponsive and had blood pressures in the 70s. Per EMS started his IV his blood pressure improved he is now awake and alert and has baseline. He is able to tell me his name. He has no focal deficits denies any recent illness or vomiting. Has had a history of UTI in the past as well Related Data Home Medications ?Medication ?Instructions ?Recorded ?Confirmed tamsulosin 0.4 mg capsule 0.4 mg PO BEDTIME 06/05/19 02/16/25 finasteride 5 mg tablet 5 mg PO BEDTIME 01/07/24 02/16/25 betamethasone dipropionate 0.05 % 1 applic topical BID PRN Skin 05/11/24 02/16/25 topical ointment Irritation fluticasone propionate 50 1 spray intranasal DAILY PRN 05/11/24 02/16/25 mcg/actuation nasal allergies spray,suspension triamcinolone acetonide 0.1 % 1 applic topical BID PRN Rash 05/11/24 02/16/25 topical cream vitamins A,C,L-oane-zlfclt 4,296 1 cap PO DAILY 10/17/24 02/16/25 mcg-226 mg-90 mg capsule (PreserVision AREDS) acetaminophen 325 mg tablet 650 mg PO Q6H PRN Pain 12/21/24 02/16/25 (Tylenol) mirabegron 50 mg tablet,extended 50 mg PO QPM 12/21/24 02/16/25 release 24 hr bisacodyl 10 mg rectal suppository 10 mg OK DAILY PRN Constipation 01/04/25 02/16/25 levothyroxine 112 mcg tablet 112 mcg PO .Q5AM 01/04/25 02/16/25 cephalexin 500 mg capsule 500 mg PO QID 02/16/25 02/16/25 docusate sodium 100 mg capsule 200 mg PO BID 02/16/25 02/16/25 (Colace) lorazepam 2 mg/mL oral concentrate See Rx Instructions .Route .COMPLEX 02/16/25 02/16/25 nystatin 100,000 unit/gram topical 1 applic topical BID PRN Rash 02/16/25 02/16/25 powder quetiapine 50 mg tablet 50 mg PO BID 02/16/25 02/16/25 zaleplon 10 mg capsule 10 mg PO BEDTIME 02/16/25 02/16/25 Previous Rx's ?Medication ?Instructions ?Recorded cephalexin 500 mg capsule 500 mg PO TID 7 days #21 caps 04/17/25 Allergies Allergy/AdvReac Type Severity Reaction Status Date / Time Penicillins Allergy Unknown Verified 12/21/24 15:34 PFS ED PFSH: Medical History Hypotension Aortic valve disease Impotence, organic Umbilical hernia Lower urinary tract symptoms (LUTS) Surgical History Status post hernia repair Social History Smoking and tobacco/nicotine status: former use of tobacco/nicotine Alcohol intake: former Substance/Drug Use: unknown Adopted: No Caregiver/support person: No Lives independently: No Household members: spouse Marital status: Current occupational status: retired Physical Exam Const: COMMON NORMALS: alert; negative for patient oriented x3 ORIENTATION/CONSCIOUSNESS: Yes oriented to person; not oriented to place and not oriented to time HENMT: COMMON NORMALS: normocephalic and atraumatic HEAD & SCALP: normocephalic and atraumatic Eye: COMMON NORMALS: Equal, round and reactive pupils present and EOMs intact bilaterally PUPIL: Yes Equal, round and reactive pupils present Neck/C-Spine: COMMON NORMALS: full ROM and supple Chest: COMMONS NORMALS: normal inspection of the chest Resp: COMMON NORMALS: normal respiratory effort, No retractions, No use of accessory muscles and clear to auscultation bilaterally AUSCULTATION: clear to auscultation bilaterally Cardio: COMMON NORMALS: regular rate, regular rhythm and No murmurs present (Cardio) RATE: regular rate RHYTHM: regular rhythm GI: COMMON NORMALS: Normal to inspection, nondistended, normoactive bowel sounds present, Soft to palpation, non-tender and no masses PALPATION: Yes Soft to palpation Extremity: COMMON NORMALS: normal to inspection and full ROM Neuro: COMMON NORMALS: moves all extremities and no focal motor deficits; negative for patient oriented x3 SENSORIUM/ORIENTATION: Yes alert, Yes oriented to person, No oriented to place and No oriented to time Psych: COMMON NORMALS: Normal thought process present and cooperative THOUGHT PROCESS: Normal thought process present Skin: COMMON NORMALS: no rashes or lesions noted and no wounds GENERAL SKIN EXAM: no rashes or lesions noted Course Vital Signs: Vital signs: Vital Signs Temperature 98.0 F 04/17/25 10:42 Pulse Rate 71 04/17/25 12:04 Respiratory Rate 16 04/17/25 10:42 Blood Pressure 158/78 04/17/25 12:04 Pulse Oximetry 97 04/17/25 12:04 Oxygen Delivery Me thod Room Air 04/17/25 12:04 MDM - Syncope Medical Decision Making Patient presents with a syncopal event differential includes stroke, arrhythmia, intracerebral hemorrhage. I did a head CT reviewed the head CT showed no acute abnormalities no signs of stroke or hemorrhage he is at his baseline currently. Did interpret his EKG showed normal sinus rhythm heart rate [address] elevation QRS 109 QTc 439. Vitals here been normal his blood pressures here been normal. He is had multiple episodes like this in the past that he said was vagal likely another vagal episode. Patient is currently on hospice as well I spoke at length with family does have a UTI will prescribe Keflex he stable for discharge follow-up with PCP return if worsening. Medical Records I reviewed the patient's medical records. Lab Data I reviewed the patient's lab results. 04/17/25 10:52 04/17/25 10:52 Radiology Impressions Chest X-Ray 04/17/25 10:23 IMPRESSION: No acute process Head CT 04/17/25 10:44 IMPRESSION: 1. No acute process 2. 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 Laboratory Results WBC 6.86 10^3/uL (3.29-11.43) 04/17/25 10:52 RBC 3.92 10^6/uL (3.85-5.65) 04/17/25 10:52 Hgb 11.70 g/dL (11.27-16.99) 04/17/25 10:52 Hct 37.4 % (37-53) 04/17/25 10:52 MCV 95.4 fl (82-101) 04/17/25 10:52 MCH 29.8 pg (27-33) 04/17/25 10:52 MCHC 31.3 g/dL (30-55) 04/17/25 10:52 RDW 12.9 % (12.1-15.1) 04/17/25 10:52 Plt Count 146 10^3/cmm (157-399) L 04/17/25 10:52 MPV 10.3 fL (7.4-10.4) 04/17/25 10:52 Neut % (Auto) 62.6 % 04/17/25 10:52 Lymph % (Auto) 25.7 % 04/17/25 10:52 [place] % (Auto) 8.0 % 04/17/25 10:52 Eos % (Auto) 3.2 % 04/17/25 10:52 Baso % (Auto) 0.1 % 04/17/25 10:52 Neut # (Auto) 4.29 10^3/uL (1.8-7.7) 04/17/25 10:52 Lymph # (Auto) 1.8 10^3/uL (0.8-4.8) 04/17/25 10:52 [place] # (Auto) 0.6 10^3/uL (0.2-0.9) 04/17/25 10:52 Eos # (Auto) 0.2 10^3/uL (0.0-0.8) 04/17/25 10:52 Baso # (Auto) 0.0 10^3/uL (0.0-0.1) 04/17/25 10:52 Nucleated RBC % (auto) 0 % 04/17/25 10:52 Nucleated RBCs # 0.0 /100WBC 04/17/25 10:52 PT 13.70 SECONDS (12.1-14.9) 04/17/25 10:52 INR 0.98 (0.8-1.2) 04/17/25 10:52 APTT 35.5 SECONDS (23.9-36.7) 04/17/25 10:52 Sodium 143 mmol/L (136-145) 04/17/25 10:52 Potassium 4.2 mmol/L (3.5-5.1) 04/17/25 10:52 Chloride 105 mmol/L (98-107) 04/17/25 10:52 Carbon Dioxide 27 mmol/L (22-29) 04/17/25 10:52 Anion Gap 15.2 (5-19) 04/17/25 10:52 BUN 18 mg/dL (8-23) 04/17/25 10:52 Creatinine 0.9 mg/dL (0.7-1.2) 04/17/25 10:52 GFR Calculation Not Reportable 04/17/25 10:52 Glucose 106 mg/dL (65-115) 04/17/25 10:52 Calculated Osmolality 298 mOsm/kg (285-295) H 04/17/25 10:52 Calcium 8.9 mg/dL (8.5-10.5) 04/17/25 10:52 Total Bilirubin 0.5 mg/dL (0.15-1.2) 04/17/25 10:52 AST 15 U/L (0-40) 04/17/25 10:52 ALT 9 U/L (0-41) 04/17/25 10:52 Alkaline Phosphatase 70 U/L (40-130) 04/17/25 10:52 Troponin T Baseline 27 ng/L (0-15) H 04/17/25 10:52 Troponin T 120 Minute 27.03 ng/L (0-15) H 04/17/25 12:40 Delta Troponin T 0.03 ABS# (0-10) 04/17/25 12:40 NT-Pro-B Natriuret Pep 680 pg/mL (0-450) H 04/17/25 10:52 Total Protein 6.5 g/dL (6.6-8.7) L 04/17/25 10:52 Albumin 4.2 g/dL (3.5-5.2) 04/17/25 10:52 Globulin 2.3 g/dL (1.3-4.6) 04/17/25 10:52 Lipase 14 U/L (13-60) 04/17/25 10:52 Urine Color Yellow (Yellow) 04/17/25 11:31 Urine Appearance Cloudy (CLEAR) A 04/17/25 11: Urine pH 6.5 (5-7) 04/17/25 11:31 Ur Specific Lawrence 1.004 (1.005-1.030) L 04/17/25 11:31 Urine Protein Negative (Negative) 04/17/25 11:31 Urine Glucose (UA) Negative (Normal) 04/17/25 11:31 Urine Ketones Negative (Negative) 04/17/25 11:31 Urine Blood Trace (Negative) A 04/17/25 11:31 Urine Nitrate Negative (Negative) 04/17/25 11: Urine Bilirubin Negative (Negative) 04/17/25 11:31 Urine Urobilinogen 0.2 mg/dL (Negative) 04/17/25 11:31 Ur Leukocyte Esterase 3+ (Negative) A 04/17/25 11: Urine RBC 0-2 /hpf (0-2) 04/17/25 11:31 Urine WBC >100 /hpf (0-5) H 04/17/25 11:31 Ur Squamous Epith Cells 0-5 /hpf (0-5) 04/17/25 11:31 Amorphous Sediment Not Reportable 04/17/25 11:31 Urine Bacteria None seen /hpf (NONE) 04/17/25 11:31 Hyaline Casts 1.21 /lpf 04/17/25 11:31 All radiology interpretation(s) finalized by discharge EKG Data EKG 1: I personally reviewed and interpreted this EKG as follows: EKG interpretation date: 04/17/25 EKG interpretation time: 12:27 Interpretation: nsr hr [address] elevation qrs 109 qtc 439 Discharge Plan Discharge Patient Disposition: Home Clinical Impression: Lower urinary tract symptoms (LUTS), Vasovagal syncope Condition: Stable Prescriptions: New cephalexin 500 mg capsule 500 mg PO TID 7 Days Qty: 21 0RF No Action tamsulosin 0.4 mg capsule 0.4 mg PO BEDTIME finasteride 5 mg tablet 5 mg PO BEDTIME mirabegron 50 mg tablet extended release 24 hr 50 mg PO QPM acetaminophen [Tylenol] 325 mg tablet 650 mg PO Q6H PRN (Reason: Pain) PreserVision AREDS 4,296 mcg-226 mg-90 mg capsule 1 cap PO DAILY betamethasone dipropionate 0.05 % ointment 1 applic TOPICAL BID PRN (Reason: Skin Irritation) fluticasone propionate 50 mcg/actuation spray,suspension 1 spray INTRANASAL DAILY PRN (Reason: allergies) Rx Instructions: administer into each nostril triamcinolone acetonide 0.1 % cream 1 applic TOPICAL BID PRN (Reason: Rash) bisacodyl 10 mg Suppository 10 mg OK DAILY PRN (Reason: Constipation) levothyroxine 112 mcg tablet 112 mcg PO .Q5AM cephalexin 500 mg capsule 500 mg PO QID docusate sodium [Colace] 100 mg Capsule 200 mg PO BID zaleplon 10 mg capsule 10 mg PO BEDTIME nystatin 100,000 unit/gram powder 1 applic TOPICAL BID PRN (Reason: Rash) lorazepam 2 mg/mL concentrate See Rx Instructions .ROUTE .COMPLEX Rx Instructions: TAKE 0.25 ML BY MOUTH EVERY FOUR HOURS PRN AGGITATION. quetiapine 50 mg tablet 50 mg PO BID Discharge Orders: Discharge ED (Routine); Ordered 04/17/25 Ordered By: Jovon Greer Referrals: Tangela Cummins MD [Primary Care Provider, Family Practice] - 4-7 days Discharge Diet: Advance as tolerated Discharge Activity: Resume usual activity Patient Instructions: Urinary Tract Infection in Men (ED), Syncope (ED) Print Language: Czech Coding Level of Care Code ED Refractory Repairer for Kip Null
--- OUTSIDE RECORDS SUMMARY | 2025-04-17 11:18 | XMS_ITS | Encounter Summary ---
Author Organization [employer] [facility] Address [address] [place] [address] Care Team Providers Care Calciminer Name Role Phone Unavailable Primary Care Provider Unavailabl e Encounter Details Date Type Department Care Team (Latest Contact Info) Description 06/18/2003 Outpatient Historical [facility] Aman Logan MD [address] [place] [address] Pure hypercholesterolem (Primary Dx); OSTEOARTHROS NOS-L/LEG; HEARING LOSS NOS Social History Tobacco Use Types Packs/Day Years Used Date Smoking Tobacco: Never Assessed Sex and Gender Information Value Date Recorded Sex Assigned at Not on file 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
--- OUTSIDE RECORDS SUMMARY | 2025-04-17 11:18 | XMS_ITS | Patient Health Record ---
Author Organization [facility] Address [address] [facility] [place] [address] Care Team Providers Care Manufacturers Agent Name Role Phone [facility] Primary Care Provider ERAN Fox Unavailable [phone] [place] Unavailable Unavailable SHANNAN JESSICA Unavailable [phone] Allergies Allergen (clinical drug ingredient) Drug/Non Drug Allergy documented on EMR Reaction Allergy Type Onset Date Status Penicillin Unknown Drug Allergy Active Reason For Referral No [...] days 07/19/2024 09/01/2025 Active Cholecalciferol 50 MCG (1999 UT) 1 capsule Orally twice a day Active [...] Problem Neurogenic dysfunction of the urinary bladder (709954924) Neurogenic bladder disorder (N31.9) Active confirmed Problem Overactive urinary bladder (disorder) (530528425) OAB (overactive bladder) (N32.81) Active confirmed Problem Benign prostatic hypertrophy with outflow obstruction (860625998) BPH loc w urin obs/LUTS (N40.1) Active [...] N/A Encounters Encounter Location Date Provider Diagnosis [facility] [address] [place] [address] 07/18/2024 ERAN DOM BPH loc w urin obs/LUTS N40.1 ; Urinary frequency R35.0 ; OAB (overactive bladder) N32.81 and Neurogenic bladder disorder N31.9 [facility] [address] [facility] [place] [address] 09/06/2024 SHANNAN JESSICA BPH loc w urin obs/LUTS N40.1 ; OAB (overactive bladder) N32.81 ; Neurogenic bladder disorder N31.9 and Urinary frequency R35.0 [facility] [address] [facility] [place] [address] 08/07/2024 ERAN BOSE Urinary frequency R35.0 Assessments Encounter Date Diagnosis (ICD Code) Assessment Notes Treatment Notes Treatment Clinical Notes Section Notes 07/18/2024 BPH loc w urin obs/LUTS (ICD-10 [...] 09/06/2024 Neurogenic bladder disorder (ICD-10 - N31.9) 09/06/2024 Urinary frequency (ICD-10 - R35.0) 07/18/2024 [...] does live over an hour away. 07/18/2024 Other I, Florencio Kelly, am scribing for, and in the presence [...] Coverage End Date [employer] [address] [place] [id number] [phone] [id number] Shawn Rojas Self - patient is the insured Medical (General) History Medical History History ICD Code Parkinson's disease Hypothyroidism Arthritis Urinary frequency Urinary incontinence Urinary retention Nocturia BPH ED Surgical History Surgery Date(Month/Year) right inguinal hernia repair Hospitalization History Reason Date(Month/Year) see prior sx hx
--- OUTSIDE RECORDS SUMMARY | 2025-04-17 11:18 | XMS_ITS | Patient Health Record ---
Author Organization [facility] Address [address] [place] [address] Care Team Providers Care Finger Buffs Assembler Name Role Phone None, None Primary Care Provider Unavailabl e Badejo, Abodunrin Unavailable [phone] [place], [place] Unavailable Unavailable Allergies Allergen (clinical drug ingredient) [...] Date Status Comme nts Influenza (whole), CPT 00334 Inactive Unknown 02/22/2016 Administered Influenza (whole), CPT 60386 Inactive Unknown 05/24/2016 Administered Social History Tobacco [...] Problem Status W/U Status Risk Notes Problem Adjustment disorder with mixed disturbance of emotions AND conduct (17830175) 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 Problem Anxiety (31413306) Anxiety (F41.9) Active confi rmed Problem Dementia with behavioral disturbance (disorder) (9652517461588) Dementia associated with other underlying disease with behavioral disturbance (F02.81) Active confirmed Problem Insomnia (938451837) Insomnia (G47.00) Active confirmed Problem Adult failure to thrive syndrome (710510867) Failure to thrive in adult (R62.7) Active confirmed Problem Cerebrovascular disease (76602876) Cerebral microvascular disease (I67.9) Active confirmed Problem Psychosis (65342113) Psychosis (F29) Active confirmed Problem 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) (48032281) Brain atrophy (G31.9) Active confirmed Problem History of adenomatous polyp of colon (753566242) History of adenomatous polyp of colon (Z86.010) Active confirmed Problem Presence of indwelling urinary catheter (Z96.0) Active confirmed Problem Vascular dementia with behavioral disturbance (disorder) (254821173516237) Vascular dementia, unspecified severity, with other behavioral disturbance (F01.518) Active confirmed Problem Vascular dementia, unspecified severity, with psychotic disturbance (F01.52) Active confirmed Problem Vascular dementia, moderate, with other behavioral disturbance (F01.B18) Active confirmed Problem Vascular dementia, severe, with other behavioral disturbance (F01.C18) Active confirmed Problem Vascular dementia, severe, with psychotic disturbance (F01.C2) Active confirmed Problem Dementia with behavioral disturbance (disorder) (3704323271403) Dementia in other diseases classified elsewhere, unspecified severity, with other behavioral disturbance (F02.818) Active confirmed Problem Dementia in othe r diseases classified elsewhere, unspecified severity, with psychotic disturbance (F02.82) Active confirmed Problem Dementia (disorder) (26484134) Dementia in other diseases classified elsewhere, severe, with other behavioral disturbance (F02.C18) Active confirmed Problem Dementia in othe r diseases classified elsewhere, severe, with psychotic disturbance (F02.C2) Active confirmed Problem Diffuse Lewy body disease (98332253) Neurocognitive disorder with Lewy bodies (G31.83) Active confirmed Problem Constipation (95692759) Constipation (564.0) Active confirmed [id number] 911- Problem Urinary frequency (925142018) Urinary frequency (788.41) Active confirmed Fredi-985 911- Problem Hypothyroidism (39543939) Hypothyroidism (244.9) Active confirmed [id number]-985 911- Problem Aortic valve stenosis (89491520) Aortic valve stenosis (424.1) 016 Active confirmed Fredi-985 911- Problem Reduced libido (2027166) Decreased libido (302.71) 018 Active confirmed Fredi-[id number] 911- Problem Erectile dysfunction (986494004) Erectile dysfunction (302.72) Active confirmed [id number]-985 911- Problem Chronic kidney disease stage 2 (609650911) Chronic kidney disease, Stage II (mild) (585.2) 010 Problem resolved confirmed Fredi-[id number] 911- Problem Cough (26678077) Cough (786.2) 010 Problem resolved confirmed Fredi-985 911- Problem Vitamin D deficiency (48347767) Vitamin D deficiency, unspecified (268.9) 016 Problem resolved confirmed [facility]-985 911- Plan Of Treatment No Information Insurance Providers Payer Name Payer Address Payer Phone Subscriber Number Group Number Insured Name Patient Relationship to Insured Coverage Start Date Coverage End Date [employer] [address] [place] [phone] [id number] Shawn Rojas Self - patient is the insured [place] [address] [place] [phone] [id number] Shawn Rojas Self - patient is the insured 3 [employer] [place] [address] [place] [address] [id number] Shawn Rojas Self - patient is the [...]
--- OUTSIDE RECORDS SUMMARY | 2025-04-17 11:18 | XMS_ITS | Continuity of Care Document ---
Author Organization [facility] ([facility]) Address [address] [place] [address] Problems Condition ICD9 code ICD10 code SNOMED code Start Date End Date S tatus Parkinson's disease without dyskinesia, without mention of fluctuations G20.A1 12/14/2024 Active Cognitive communication deficit R41.841 12/16/2024 Active Dysphagia, oropharyngeal phase R13.12 12/16/2024 Active Dysarthria and anarthria R47.1 12/16/2024 Active Muscle weakness (generalized) M62.81 12/16/2024 Active Other abnormalities of gait and mobility R26.89 12/16/2024 Active Dementia in other diseases classified elsewhere, severe, with agitation F02.C11 01/08/2025 Active 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 01/08/2025 Active Restlessness and agitation R45.1 12/28/2024 Active Other intervertebral disc degeneration, lumbar region without mention of lumbar back pain or lower extremity pain M51.369 12/14/2024 Active 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 01/08/2025 Active Orthostatic hypotension I95.1 12/14/2024 Active Cardiac murmur, unspecified R01.1 12/14/2024 Active Post-traumatic stress disorder, chronic F43.12 12/14/2024 Active 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 12/14/2024 Ac tive Other amnesia R41.3 12/14/2024 Active Primary insomnia F51.01 12/18/2024 Acti ve Hypothyroidism, unspecified E03.9 12/14/2024 Active Overactive bladder N32.81 12/14/2024 Ac tive Vitamin D deficiency, unspecified E55.9 12/14/2024 Active Rash and other nonspecific skin eruption R21 12/14/2024 Active Chronic sinusitis, unspecified J32.9 12/14/2024 Active custodial (current) use of inhaled steroids Z79.51 12/18/2024 Activ e Sensorineural hearing loss, bilateral H90.3 12/14/2024 Active custodial (current) use of aspirin Z79.82 12/14/2024 Active Contact with and (suspected) exposure to other hazardous substances Z77.29 12/14/2024 Active Solitary pulmonary nodule R91.1 12/14/2024 Active Do not resuscitate Z66 01/04/2025 Ac tive Results No Results Allergies, adverse reactions, alerts Substance Reaction Date Status Type Influenza Virus Vaccines 12/14/2024 Non Drug Penicillins 12/14/2024 Non Drug Immunizations Vaccine Route Date Status COVID-19 Vaccine Unassigned Route of Administration Completed COVID-19 Vaccine Unassigned Route of Administration Refused COVID-19 Vaccine Unassigned Route of Administration Refused Zoster Vaccine Unassigned Route of Administration 05/2020 Completed Zoster Vaccine Unassigned Route of Administration 08/23 Completed Medications Medication Instructions Route Dosage Frequency Start Date Stop Date Indications Status aspirin 325 mg tablet (aspirin) 1 tab, oral, Once A Day oral 1.0 1.0 d 12/18 Active betamethasone dipropionate 0.05 % ointment (betamethasone dipropionate) thin layer, topical, Twice A Day, to affected area of lower legs. topical 1.0 12.0 h 12/18 Active betamethasone dipropionate 0.05 % ointment (betamethasone dipropionate) thin layer, topical, Twice A Day - PRN, to affected area of lower legs as needed topical 1.0 12.0 h 01/09 Active carbidopa-levod opa 25-100 mg tablet (carbidopa-levo dopa) 2 tabs (50-200 mg), oral, Three Times A Day, at 730a, 12p, 530p oral 1.0 8.0 h 12/18 Active carbidopa-levod opa 25-100 mg tablet (carbidopa-levo dopa) 1 tabs, oral, Three Times A Day, Do not TI times 0730 12:00 and 5:00 oral 1.0 8.0 h 12/28 Active carbidopa-levod opa 25-100 mg tablet (carbidopa-levo dopa) 1 tabs (50-200 mg), oral, Three Times A Day, Do not TI times 0730 12:00 and 5:00 oral 1.0 8.0 h 12/18 Active cholecalciferol (vitamin D3) 50 mcg (2,000 unit) tablet (cholecalcifero l (vitamin D3)) 2 tabs (4000units), oral, Once A Day oral 1.0 1.0 d 12/15 Active cholecalciferol (vitamin D3) 25 mcg (1,000 unit) tablet (cholecalcifero l (vitamin D3)) 4 tabs (4,000 unit), oral, Once A Day oral 1.0 1.0 d 01/09 Active Daily-Mohit (with folic acid) (multivitamin with folic acid) 400 mcg tablet (Daily-Mohit (with folic acid) (multivitamin with folic acid)) 1 tab, oral, Once A Day oral 1.0 1.0 d 01/09 Active donepezil 5 mg tablet (donepezil) 1 tab, oral, At Bedtime oral 1.0 12/18 Active Dulcolax (bisacodyl) (bisacodyl) 10 mg suppository (Dulcolax (bisacodyl) (bisacodyl)) 1 suppository, rectal, Once A Day - PRN, Give rectally if can't take p/o, if no results from MOM rectal 1.0 1.0 d 01/09 Active Eucerin (lanolin xdxzpxl-yc-q.pe t-ceres) - cream (Eucerin (lanolin phyqdzi-nn-w.pe t-ceres)) 1 ashu, topical, Once A Day, For skin irritations topical 1.0 1.0 d 12/18 Active Eye Health Vitamin-Mineral (vit c,g-mh-vuinu-jaqueline tein-zeaxan) 250-90-10-1 mg capsule (Eye Health Vitamin-Mineral (vit c,n-fa-yqrqr-jaqueline tein-zeaxan)) 1 cap, oral, Once A Day, TI for eye MVI oral 1.0 1.0 d 12/15 Active finasteride 5 mg tablet (finasteride) 1 tab, oral, Once A Day oral 1.0 1.0 d 12/18 Active finasteride 5 mg tablet (finasteride) 1 tab, oral, At Bedtime oral 1.0 01/09 Active fludrocortisone 0.1 mg tablet (fludrocortison e) 0.5 tab (0.05 mg), oral, Once A Day oral 1.0 1.0 d 12/18 Active fluticasone propionate 50 mcg/actuation spray,suspensio n (fluticasone propionate) 1 spray, nasal, Once A Day, Each nostril nasal 1.0 1.0 d 12/18 Active fluticasone propionate 50 mcg/actuation spray,suspensio n (fluticasone propionate) 1 spray, nasal, Once A Day - PRN, Each nostril as needed irritation nasal 1.0 1.0 d 01/09 Active haloperidol lactate 5 mg/mL solution (haloperidol lactate) 2.5, injection, Once - One Time 1.0 01/04 Active hydroxyzine HCl 25 mg tablet (hydroxyzine HCl) 1 tab, oral, Three Times A Day - PRN, For anxiety, for 14 days oral 1.0 8.0 h 12/18 Active I-Mohit (vit a,c and f-dpmnld-cjuzxo ls) 300 mcg-200 mg-27 mg-2 mg tablet (I-Mohit (vit a,c and d-iknrsw-wkyksa ls)) 1 tab, oral, Once A Day, TI for eye MVI oral 1.0 1.0 d 01/09 Active levothyroxine 112 mcg tablet (levothyroxine) 1 tab, oral, Once A Day oral 1.0 1.0 d 12/18 Active levothyroxine 112 mcg tablet (levothyroxine) 1 tab, oral, Once A Day, Administer at 0500 am Do not TI time oral 1.0 1.0 d 01/09 Active lidocaine 4 % adhesive patch,medicated (lidocaine) 1 patch, topical, Once A Day - PRN, for pain, when placed, nurse to enter one time order to remove in 12 hours, TI for 5% patch topical 1.0 1.0 d 12/18 Active lidocaine 5 % cream (lidocaine) small amt, topical, Twice A Day - PRN, for pain topical 1.0 12.0 h 12/18 Active metronidazole 0.75 % cream (metronidazole) 1 ashu, topical, Twice A Day, Apply on central face to affected areas. topical 1.0 12.0 h 12/18 Active mirabegron 50 mg tablet extended release 24 hr (mirabegron) 1, oral, Once A Day, Administer at 12 pm Do not ti time oral 1.0 1.0 d 01/09 Active mirtazapine 7.5 mg tablet (mirtazapine) 1 tab, oral, At Bedtime oral 1.0 12/18 Active olanzapine 10 mg tablet (olanzapine) 1 tab, oral, Once A Day, clinical indication: behaviors administer at 4pm do not ti time oral 1.0 1.0 d 01/09 Active quetiapine 25 mg tablet (quetiapine) 1 tab, oral, At Bedtime, 5 day auto stop per TI oral 1.0 12/18 Active tamsulosin 0.4 mg capsule (tamsulosin) 1, oral, At Bedtime oral 1.0 01/09 Active trazodone 50 mg tablet (trazodone) 0.5 tab (25 mg), oral, At Bedtime oral 1.0 12/18 Active triamcinolone acetonide 0.1 % cream (triamcinolone acetonide) 1 ashu, topical, Twice A Day, For rash on LLE topical 1.0 12.0 h 12/18 Active triamcinolone acetonide 0.1 % cream (triamcinolone acetonide) 1 ashu, topical, Twice A Day - PRN, For rash on LLE topical 1.0 12.0 h 01/09 Active Tubersol (tuberculin ppd) 5 tub. unit /0.1 mL solution (Tubersol (tuberculin ppd)) 0.1ml, intradermal, Once - One Time, Administer the morning after admission intraderma l 1.0 01/04 Active Tubersol (tuberculin ppd) 5 tub. unit /0.1 mL solution (Tubersol (tuberculin ppd)) 0.1ml, intradermal, Once - One Time, Administer on the day shift intraderma l 1.0 01/04 Active Tylenol (acetaminophen) 325 mg tablet (Tylenol (acetaminophen) ) 2 tabs/650mg, oral, Every 6 Hours - PRN, as needed for PRN pain/increase d tempMay give rectally if necessary oral 1.0 6.0 h 01/09 Active Zyprexa (olanzapine) 5 mg tablet (Zyprexa (olanzapine)) 1 tablet, oral, Other oral 1.0 12/25 Active Zyprexa (olanzapine) 5 mg tablet (Zyprexa (olanzapine)) 1 tab, oral, At Bedtime - PRN, clinical indication: behaviors oral 1.0 12/28 Active Zyprexa (olanzapine) 5 mg tablet (Zyprexa (olanzapine)) 1 tab, oral, Once A Day, clinical indication: behaviors administer at 4pm do not ti time oral 1.0 1.0 d 12/30 Active Zyprexa (olanzapine) 5 mg tablet (Zyprexa (olanzapine)) 2 tab, oral, Once A Day, clinical indication: behaviors administer at 4pm do not ti time oral 1.0 1.0 d 01/01 Active Vital Signs Date Vital Result Comment 01/04/2025 01:43 PM Temperature (8310-5) 97.8 [degF] Oxygen Saturation (23410-7) 97 % Respiratory Rate (9279-1) 19 /min Heart Rate (8867-4) 68 /min Blood Pressure Systolic (8480-6) 132 mm[Hg] Blood Pressure Diastolic (8462-4) 84 mm[Hg] 01/03/2025 10:14 PM Temperature (8310-5) 97.5 [degF] Oxygen Saturation (04574-2) 97 % Respiratory Rate (9279-1) 18 /min Heart Rate (8867-4) 65 /min Blood Pressure Systolic (8480-6) 121 mm[Hg] Blood Pressure Diastolic (8462-4) 73 mm[Hg] 01/01/2025 01:09 PM Temperature (8310-5) 97.9 [degF] Oxygen Saturation (54817-7) 96 % Respiratory Rate (9279-1) 18 /min Heart Rate (8867-4) 69 /min Blood Pressure Systolic (8480-6) 122 mm[Hg] Blood Pressure Diastolic (8462-4) 78 mm[Hg] 12/31/2024 08:40 PM Temperature (8310-5) 98.3 [degF] Oxygen Saturation (06648-4) 94 % Respiratory Rate (9279-1) 20 /min Heart Rate (8867-4) 80 /min Blood Pressure Systolic (8480-6) 132 mm[Hg] Blood Pressure Diastolic (8462-4) 72 mm[Hg] 12/31/2024 09:19 AM Temperature (8310-5) 97.2 [degF] Oxygen Saturation (04823-4) 93 % Respiratory Rate (9279-1) 19 /min Heart Rate (8867-4) 86 /min Blood Pressure Systolic (8480-6) 148 mm[Hg] Blood Pressure Diastolic (8462-4) 89 mm[Hg] 12/30/2024 06:12 PM Temperature (8310-5) 98.2 [degF] Oxygen Saturation (57025-1) 96 % Respiratory Rate (9279-1) 20 /min Heart Rate (8867-4) 78 /min Blood Pressure Systolic (8480-6) 122 mm[Hg] Blood Pressure Diastolic (8462-4) 66 mm[Hg] 12/30/2024 07:11 AM Temperature (8310-5) 98.2 [degF] Oxygen Saturation (06750-4) 95 % Respiratory Rate (9279-1) 18 /min Heart Rate (8867-4) 66 /min Blood Pressure Systolic (8480-6) 116 mm[Hg] Blood Pressure Diastolic (8462-4) 78 mm[Hg] 12/29/2024 06:01 PM Temperature (8310-5) 97.4 [degF] Oxygen Saturation (01392-0) 94 % Respiratory Rate (9279-1) 18 /min Heart Rate (8867-4) 64 /min Blood Pressure Systolic (8480-6) 110 mm[Hg] Blood Pressure Diastolic (8462-4) 60 mm[Hg] 12/29/2024 02:17 PM Temperature (8310-5) 97.4 [degF] Oxygen Saturation (79341-9) 99 % Respiratory Rate (9279-1) 18 /min Heart Rate (8867-4) 65 /min Blood Pressure Systolic (8480-6) 104 mm[Hg] Blood Pressure Diastolic (8462-4) 64 mm[Hg] 12/28/2024 06:58 PM Temperature (8310-5) 98 [degF] Oxygen Saturation (06089-3) 96 % Respiratory Rate (9279-1) 16 /min Heart Rate (8867-4) 67 /min Blood Pressure Systolic (8480-6) 146 mm[Hg] Blood Pressure Diastolic (8462-4) 87 mm[Hg] 12/24/2024 05:22 AM Body Weight (00157-7) 198.1 [lb_av ] Body Mass Index (83535-6) 31.02 kg/m2 12/22/2024 09:39 AM Body Weight (93348-9) 198.4 [lb_av ] Body Mass Index (75381-1) 31.07 kg/m2 12/21/2024 10:30 AM Body Weight (20528-9) 196 [lb_av] Body Mass Index (18796-7) 30.69 kg/m2 12/16/2024 05:53 PM Body Weight (19829-7) 195.3 [lb_av ] Body Mass Index (71511-4) 30.58 kg/m2 12/15/2024 05:44 PM Body Weight (41107-0) 195.1 [lb_av ] Body Mass Index (05210-7) 30.55 kg/m2 12/14/2024 04:33 PM Body Height (8302-2) 67 [in_us] Body Weight (04177-3) 195.6 [lb_av] Body Mass Index (92518-2) 30.63 kg/m2 Social History No smoking Hx information available Encounters Type CPT Code Date Location Provider Indication s encounter report 12/14/2024 02:1 8 PM - 01/04/2025 02:32 PM Jadon Roe DO 01 Advance Directives Directive Description Verification Date Supporting Document(s) Resuscitation
--- OUTSIDE RECORDS SUMMARY | 2025-04-17 11:19 | XMS_ITS | Clinical Summary ---
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
--- OUTSIDE RECORDS SUMMARY | 2025-04-17 11:19 | XMS_ITS | Encounter Summary ---
Author Organization [facility] Address [address] [place] [address] Care Team Providers Care Special Procedure Technologist Name Role Phone Unavailable Primary Care Provider Unavailabl e Encounter Details Date Type Department Care Team (Latest Contact Info) Description 07/11/2003 Outpatient Historical [facility] Aman Logan MD [address] [place] [address] PURE HYPERGLYCERIDEMIA (Primary Dx) Social History Tobacco Use Types Packs/Day Years Used Date Smoking Tobacco: Never Assessed Sex and Gender Information Value Date Recorded Sex Assigned at Not on file Legal Sex Male 5:05 AM 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
--- OUTSIDE RECORDS SUMMARY | 2025-04-17 11:19 | XMS_ITS | Encounter Summary ---
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
--- OUTSIDE RECORDS SUMMARY | 2025-04-17 11:19 | XMS_ITS | Data Portability ---
Author Organization [facility] Erick Rodriguez [facility] Address [address] [address] Assessment No assessment recorded. Plan of Treatment Reminders Order Date Submit Date Provider Last Modified By Organization Details Last Modified Time Details Appointments None record ed. Lab None record ed. Referral None record ed. Procedures None record ed. Surgeries None record ed. Imaging None record ed. Medication Orders None record ed. Patient TargetsNo targets recorded. Patient Instructions Encounter Date Encounter Id Patient Instructions Last Modified By Organization Details Last Modified Time 12/18/2024 [id number] Admitted from home, daughter taking care of patient and her mother. Daughter is concerned with medications, and discussed the medication list and side effects at length. Will stop several meds, and decrease Levadopa with the goal of trying another medication. Does follow with Dr. Garcia for neurology. Will check labs Wednesday and follow up on . [email or web address] Not available 12/20/2024 11:27:35 12/28/2024 [id number] Aggressive and agitated, physically violent with staff. Started on zyprexa prn over the weekend. Only given one dose per daughter's request. Discussed benefit v risk. Agree to start 5mg of zyprexa at 1600. Saw neurology last week, daughter not happy with care, looking for new neurologist. Blunt discussion around goals of care. Discussed management of symptoms, agree to ficus on quality of life vs. quantity. Not available 12/28/2024 15:08:03 01/01/2025 [id number] Planning for tere e trial. Will fill out [facility] paperwork. Not sleeping at night, hoping he does better at his own home. [email or web address] Not available 01/03/2025 13:17:47 Reason for Referral None Reported. Problems Name Problem SNOMED Code Status Onset Date Resolution Date Notes Provider Name and Address Organization Details Recorded Time Symptomatic parkinsonism 438775878 Active 2024 TEE KRAUSE [facility] 11:25:05 Hypothyroidis m 73454822 Active 2024 TEE KRAUSE [facility] 11:25:07 Primary insomnia 9778687 Active 2024 TEE KRAUSE [facility] 11:25:08 Abnormal gait 79812058 Active 2024 TEEKELSEY KRAUSE [facility] 11:25:09 Aggressive behavior 84433414 Active 2024 TEE KRAUSE [facility] 5 15:05:34 Problem Notes None recorded. Medical Equipment None Reported. Medications Name Sig Start Date Stop Date Status Note LastModified by Organization Details LastModified Time clonidine HCl 0.1 mg tablet TAKE 1 TABLET BY MOUTH TWICE A DAY NEEDED FOR HYPERTENSIV E EMERGENCY ( TAKE 1 TABLET IF SYSTOLIC IS BLOOD PRESSURE IS >180, OR IF DIASTOLIC BLOOD PRESSURE IS >110) active Not Available Not Available No t Available doxycycline hyclate 100 mg capsule TAKE 1 CAPSULE BY MOUTH TWICE DAILY FOR 7 DAYS active Not Available Not Available No t Available azithromycin 250 mg tablet TAKE 2 TABLETS BY MOUTH ON DAY 1, AND THEN TAKE 1 TABLET BY MOUTH ONCE A DAY ON DAY 2 THROUGH DAY 5 active Not Available Not Available No t Available hydrocodone 5 mg-acetamino phen 325 mg tablet TAKE 1 TABLET BY MOUTH EVERY 8 HOURS NEEDED FOR PAIN active Not Available Not Available No t Available sulfamethoxa zole 800 mg-trimethop rim 160 mg tablet TAKE 1 TABLET BY MOUTH TWICE DAILY FOR 3 DAYS active Not Available Not Available No t Available finasteride 5 mg tablet TAKE 1 TABLET BY MOUTH ONCE DAILY FOR 90 DAYS active Not Available Not Available No t Available mirabegron ER 50 mg tablet,exten ded release 24 hr TAKE ONE TABLET BY MOUTH ONCE DAILY active Not Available Not Available No t Available Vitals Date Recorded Body weight Heart rate Respiratory rate Body temperature Oxygen saturation Systolic And Diastolic Provider Name and Address Organization Details Last Updated DateTime 5 21723.5 1 g 88 /min 20 /min 98 [degF] 97 % 146/77 mm[Hg] [facility] 5 11:20:53 Date Recorded Body weight Heart rate Respiratory rate Body temperature Oxygen saturation Systolic And Diastolic Provider Name and Address Organization Details Last Updated DateTime 5 88078.2 9 g 71 /min 18 /min 97.6 [degF] 97 % 124/79 mm[Hg] [facility] 5 15:02:56 Date Recorded Body weight Heart rate Respiratory rate Body temperature Oxygen saturation Systolic And Diastolic Provider Name and Address Organization Details Last Updated DateTime 5 09048.2 9 g 69 /min 18 /min 97.9 [degF] 96 % 122/78 mm[Hg] [facility] 5 13:15:08 Social History None recorded. Functional Status None recorded. Mental Status None recorded. Family History Nothing Reported. Medical History No medical history recorded. Immunizations Vaccine Type Date Status Note Provider Nam e and Address Organization Details Recorded Time Td(adult) unspecified formulation 5 completed Not Available [facility] 01/03/2025 10:54:48 zoster live 2 completed Not Available [facility] 01/03/2025 10:54:48 pneumococcal, unspecified formulation 4 completed Not Available [facility] 01/03/2025 10:54:48 Pneumococcal conjugate PCV 13 5 completed Not Available [facility] 01/03/2025 10:54:48 Tdap 6 completed Not Available [facility] 01/03/2025 10:54:48 pneumococcal polysaccharide PPV23 7 completed Not Available [facility] 01/03/2025 10:54:48 COVID-19, mRNA, LNP-S, PF, 30 mcg/0.3 mL dose 1 completed Not Available [facility] 01/03/2025 10:54:48 COVID-19, mRNA, LNP-S, PF, 30 mcg/0.3 mL dose 1 completed Not Available [facility] 01/03/2025 10:54:48 zoster recombinant 1 completed Not Available [facility] 01/03/2025 10:54:48 zoster recombinant 1 completed Not Available [facility] 01/03/2025 10:54:48 COVID-19, mRNA, LNP-S, PF, 30 mcg/0.3 mL dose 1 completed Not Available [facility] 01/03/2025 10:54:48 COVID-19, mRNA, LNP-S, PF, 30 mcg/0.3 mL dose 2 completed Not Available [facility] 01/03/2025 10:54:48 Influenza, high-dose, quadrivalent, PF 3 completed Not Available [facility] 01/03/2025 10:54:48 Influenza, split virus, trivalent, PF 4 completed Not Available [facility] 01/03/2025 10:54:48 Past Encounters Encounter ID Performer Location Encounter Start Date Encounter Closed Date Diagnosis/Indication Diagnosis SNOMED-CT Code Diagnosis ICD10 Code Diagnosis IMO Codes Diagnosis Note [id number] Jadon Roe DO [facility]) [address] [place] [address] 12/18/2024 14:27:02 12/27/2024 11:20:55 Symptomatic parkinsonism 450591755 G20.A1 89888 Hypothyroidism 53740507 E03.9 04061011 Primary insomnia 0905554 F51.01 73431 Abnormal gait 52231031 R 26.9 46245 [id number] Jadon Roe DO [facility] ([facility]) [address] [place] [address] 12/28/2024 09:33:41 01/02/2025 11:55:18 Symptomatic parkinsonism 686759626 G20.A1 35632 Primary insomnia 0542172 F51.01 74195 Aggressive behavior 6137 2001 R46.89 746376 [id number] Jadon Roe DO [facility] ([facility]) [place] [address] 01/02/2025 13:15:01 01/08/2025 16:33:37 Aggressive behavior 43539082 R46.89 456802 Symptomati c parkinsonism 619580218 G20.A1 72651 Hypothyroidism 21436434 E03.9 78565908 Primary insomnia 3170265 F51.01 21685 Health Concerns Section Related Observation LastModified by Organization Detai ls LastModified Time None Recorded Concern Status LastModified by Organization Details LastModified Time None Recorded Advance Directives Directive None Recorded Payers Insurance Date Sequence Insurance Name Policy Number Policy Alfaro Covered Member ID Alfaro Member ID Guarantor Name 01/25/2025 [facility] Shawn Rojas [id number] Shawn Rojas 01/12/2025 2 UNSPECIFIED REMIT PAYOR Shawn Rojas 01/25/2025 [place] - [place] - [facility] (MEDICARE) Shawn Rojas [id number] 1 Shawn Rojas 12/27/2024 1 *SELF PAY* Pa kirstin Rojas 01/25/2025 1 [place] [facility] Shawn Rojas [id number] 1 Shawn Rojas Notes Date Note Type Note Provider Name and Address Organization Details Recorded Time 5 text/html HypothyroidReported by PatientHPIFor reason for visit, patient reportsgeneral check-up. For duration, patient reports>12 months. For treatment, patient reportstaking medication as prescribed.ROS as noted in the HPI new admit ,admit from home. Jadon Roe DO [address] [place] [address], [phone], [facility], [place] 12/26/2024 17:28:05 5 text/html HypothyroidReported by PatientHPIFor reason for visit, patient reportsgeneral check-up. For duration, patient reports>12 months. For treatment, patient reportstaking medication as prescribed.ROS as noted in the HPI discuss medications. Getting aggressive with staff. Jadon Roe DO [address] [place] [address], [phone], [facility], [place] 12/29/2024 13:33:28 5 text/html HypothyroidReported by PatientHPIFor reason for visit, patient reportsgeneral check-up. For duration, patient reports>12 months. For treatment, patient reportstaking medication as prescribed.ROS as noted in the HPI discuss medications and possible home trial. Jadon Roe, DO [address] [place] [address], [phone], [facility] 01/07/2025 15:55:54
[2025-04-17 11:21] LABS: Hematocrit 37.4 % (37-53); Hemoglobin 11.70 g/dL (11.27-16.99); Mean Corpuscular HGB Conc 31.3 g/dL (30-55); Mean Corpuscular Hemoglobin 29.8 pg (27-33); Mean Corpuscular Volume 95.4 fl (82-101); Nucleated Red Blood Cells % 0 %; Platelet Count 146 10^3/cmm (157-399); Red Blood Count 3.92 10^6/uL (3.85-5.65); White Blood Count 6.86 10^3/uL (3.29-11.43)
[2025-04-17 11:41] LABS: INR 0.98 (0.8-1.2); Prothrombin Time 13.70 SECONDS (12.1-14.9)
[2025-04-17 11:42] LABS: Glucose Urine UA Negative (Normal); Nitrate Urine Negative (Negative); Specific Gravity, Urine 1.004 (1.005-1.030)
[2025-04-17 11:42] LABS: Partial Thromboplastin Time 35.5 SECONDS (23.9-36.7)
[2025-04-17 11:45] LABS: Troponin(5th) Baseline 27 ng/L (0-15)
[2025-04-17 11:45] LABS: Add Urine Microscopic? YES
[2025-04-17 11:58] LABS: Alanine Aminotransferase 9 U/L (0-41); Albumin Level 4.2 g/dL (3.5-5.2); Alkaline Phosphatase 70 U/L (40-130); Anion Gap 15.2 (5-19); Aspartate Amino Transferase 15 U/L (0-40); Blood Urea Nitrogen 18 mg/dL (8-23); Calcium 8.9 mg/dL (8.5-10.5); Carbon Dioxide 27 mmol/L (22-29); Chloride 105 mmol/L (98-107); Globulin 2.3 g/dL (1.3-4.6); Glucose 106 mg/dL (65-115); Lipase 14 U/L (13-60); NT Pro B Type Natriuretic Pept 680 pg/mL (0-450); Osmolality Calculated 298 mOsm/kg (285-295); Potassium 4.2 mmol/L (3.5-5.1); Sodium 143 mmol/L (136-145); Total Protein 6.5 g/dL (6.6-8.7)
[2025-04-17 12:04] VITALS: BP 158/78; PULSE 71; O2SAT 97
--- NOTE | 2025-04-17 12:27 | ECG_ITS ---
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
[2025-04-17 13:06] LABS: Troponin 5 2HR 27.03 ng/L (0-15); Troponin 5 2HR Delta 0.03 ABS# (0-10)
[2025-04-17] MEDS: cefTRIAXone 1,000 mg SDV 1000 MG IVP (13:15)
--- NOTE | 2025-04-17 13:17 | PC.PHAR ---
pt is now on hospice 04/17/25
[2025-04-17 13:26] VITALS: BP 147/74; PULSE 78; O2SAT 98
== END 2025-04-17 13:27 | disposition home or self-care (01) ==
PROVIDERS: Emergency Medicine; Emergency Provider Emergency Medicine; PCP Family Medicine
DX: R55 Syncope and collapse (principal); R39.89 Other symptoms and signs involving the genitourinary system; Z87.891 Personal history of nicotine dependence
CPT/HCPCS: 36415; 70450; 71045; 80053; 81001; 83690; 83880; 84484; 85025; 85610; 85730; 87077; 87086; 87186; 93005; 96374; 96375; 99285; J0696; J1885; J9999

== ENCOUNTER → 2025-05-04 09:28 | Outpatient (BNVA) | payer OTHER, SELFPAY | PROVIDERS: PCP Family Medicine; Visit Provider Internal Medicine Cardiovascular Disease | DX: I95.9 Hypotension, unspecified (principal); I35.0 Nonrheumatic aortic (valve) stenosis; Z87.891 Personal history of nicotine dependence | CPT/HCPCS: 99214 ==